=== PATIENT | female | born 1980 | race Caucasian/White ===

== ENCOUNTER 2020-06-30 15:38 | Emergency (ER) | payer MEDICARE, OTHER, MEDICAID ==
--- NOTE | 2020-06-30 18:12 | XRAY Report ---
PROCEDURE: Chest 2 View X-Ray INDICATIONS: dyspnea/ cough/pain TECHNIQUE: 2 view(s) of the chest. COMPARISON: CXR 06/16/2019. FINDINGS: Surgical changes and devices: Cholecystic clips. Lungs and pleura: No pleural effusions or pneumothorax. Lungs are clear. Mediastinum: Mediastinal contours are normal. Heart size is normal. Bones and chest wall: No suspicious bony abnormalities. Lumbar spine hardware and vertebroplasty. So ft tissues appear unremarkable. IMPRESSION: No acute cardiopulmonary abnormality. Reviewed by: Rob Mendiola MD on 06/30/2020 5:11 PM [facility] Approved by: Rob Mendiola MD on 06/30/2020 5:11 PM [facility] Station ID: [id number]
--- NOTE | 2020-06-30 18:49 | ED Physician Documentation ---
History of Present Illness - Stated complaint Stated Complaint: ACHES,HURTS TO BREATHE - Chief complaint Chief Complaint: General - Additonal information Additional information: 40-year-old female presents the emergency department for evaluation of 4 days of body aches congestion and cough. She reports that her roommates grandson was sick with similar. She has not had Covid testing. She reports that for much of the last 4 to 6 weeks she has been having generalized body aches joint pain. She did see her primary and was referred to rheumatology. She was recently diagnosed with rheumatoid arthritis. She reports that a prescription for Decadron as well as methotrexate has been prescribed but she has not filled them yet. She denies fevers nausea vomiting dysuria urgency or frequency. She reports that she has oxycodone and MS Contin at home for control of her pain. Review of Systems Constitutional: reports: Myalgias, Fatigue. denies: Fever, Weight Loss, Sweats Eyes: reports: Reviewed and negative Ears: reports: Reviewed and negative Nose: reports: Rhinorrhea / runny nose, Congestion Throat: reports: Reviewed and negative Cardiac: denies: Chest pain / pressure, Palpitations Respiratory: reports: Cough. 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 : None Psych: None Musculoskeletal: Rheumatoid arthritis Other Past Medical History: sjogrens, raynods - Past Surgical History Past Surgical History: Yes General: Cholecystectomy, Appendectomy Ortho: Spine surgery /BACK SHOE OPERATOR: Hysterectomy - Present Medications Home Medications: Ambulatory Orders Medication Instructions Recorded Confirmed Sumatriptan [Imitrex] 20 mg NS ONCE PRN #7 spray 01/04/19 Albuterol 03/30/19 Prochlorperazine Maleate 03/30/19 [Compazine] Promethazine [Phenergan] 03/30/19 diphenhydrAMINE [Benadryl] 03/30/19 oxyCODONE ER [OxyCONTIN] 15 mg PO BID 03/30/19 03/30/19 oxyCODONE [Roxicodone] 10 mg PO PRN PRN 03/30/19 03/30/19 Ketorolac [Toradol] 10 mg PO Q8HR PRN #30 tablet 04/06/19 Doxepin [SINEquan] 10 mg PO TID PRN #20 capsule 04/17/19 dexAMETHasone [Decadron] 4 mg PO BIDWM #10 tablet 04/17/19 Cefdinir 300 mg PO BID #20 capsule 06/16/19 dexAMETHasone [Decadron] 4 mg PO DAILY #5 tablet 06/16/19 Albuterol Sulf [Ventolin Hfa 1 - 2 puffs INH Q4HR PRN #1 inhaler 06/17/19 Inhaler] Phenazopyridine HCl [Pyridium] 200 mg PO TID PRN #6 tablet 07/11/19 Sulfamethoxazole/Trimethoprim 1 each PO BID 5 Days #10 tablet 07/11/19 [Sulfamethoxazole-Tmp Ds Tablet] dexAMETHasone [Decadron] 4 mg PO DAILY #5 tablet 07/11/19 Sulfamethox/Trimeth 800/160 1 each PO BID #10 tablet 04/08/20 [Bactrim Ds 800/160] dexAMETHasone [Decadron] 4 mg PO 0800 #5 tablet 04/08/20 polyethylene glycoL 3350 [Miralax] 17 gm PO DAILY PRN #1 bottle 04/08/20 - Allergies Allergies/Adverse Reactions: Allergies Allergy/AdvReac Type Severity Reaction Status Date / Time amitriptyline Allergy Hives Verified 06/30/20 16:02 cephalexin [From Keflex] Allergy Hives Verified 06/30/20 16:02 cyclobenzaprine Allergy Hives Verified 06/30/20 16:02 [From Flexeril] duloxetine [From Cymbalta] Allergy Hives Verified 06/30/20 16:02 enoxaparin [From Lovenox] Allergy Hives Verified 06/30/20 16:02 heparin Allergy Hives Verified 06/30/20 16:02 hydrocodone Allergy Itching Verified 06/30/20 16:02 ipratropium [From DuoNeb] Allergy Unknown Verified 06/30/20 16:02 methotrexate Allergy Anaphylaxis Verified 06/30/20 16:02 ondansetron [From Zofran] Allergy Hives Verified 06/30/20 16:02 Penicillins Allergy Rash Verified 06/30/20 16:02 prednisone Allergy Hives Verified 06/30/20 16:02 tizanidine [From Zanaflex] Allergy Hives Verified 06/30/20 16:02 trazodone Allergy Anxiety Verified 06/30/20 16:02 venlafaxine [From Effexor] Allergy Hives Verified 06/30/20 16:02 - Social History Does the pt smoke?: No Smoking Status: Never smoker Does the pt drink ETOH?: No Does the pt have substance abuse?: No - Immunizations Immunizations are current?: Yes - POLST Patient has POLST: No PD ED PE NORMAL - General General: Alert and oriented X 3 - HEENT HEENT: PERRL - Neck Neck: Supple, no meningeal sign - Cardiac Cardiac: RRR, No murmur - Respiratory Respiratory: Clear bilaterally - Abdomen Abdomen: Normal bowel sounds, Soft, Non tender, Non distended Results - Vitals Vitals: Vital Signs - 24 hr 06/30/20 06/30/20 16:03 17:39 Temperature 36.8 C Heart Rate 94 56 L Respiratory 18 15 Rate Blood Pressure 117/80 103/80 O2 Saturation 96 99 Oxygen O2 Source Room air - Rads (name of study) CXR Radiology: Final report received (No acute process) PD MEDICAL DECISION MAKING - ED course Complexity details: reviewed results, re-evaluated patient, considered differential, d/w patient ED course: 40-year-old female presents the emergency department with 4 days of cough congestion body aches and myalgias. However she was also recently diagnosed with rheumatoid arthritis and a prescription for methotrexate and Decadron has been ordered. She has not yet filled these prescriptions. On clinical exam she appears very well. Room air no hypoxia. Unremarkable cardiopulmonary auscultation. Chest x-ray does not show any focal opacities. Given duration of symptoms will defer influenza testing or treatment. COVID-19 screening is pending. I have encouraged her to continue to fill the prescription for the methotrexate as well as the Decadron. Emergent return precautions discussed Departure - Departure Disposition: 01 Home, Self Care Clinical Impression: Cough, Generalized body aches, Encounter for screening for COVID-19 Condition: Stable Record reviewed to determine appropriate education?: Yes Comments: I hope that you are feeling better soon. Your chest x-ray today is normal. Your vital signs are also normal. It is likely that you have a virus causing your cough and body aches. However it is important that you fill the prescriptions your doctor prescribed for your rheumatoid arthritis. You have a Covid test pending. You need to self quarantine until the result is done and negative. Do not leave your house. Do not get near anybody. The results should be done in 48 to 72 hours. We will call with a positive result, the fastest way to get a negative result for confirmation though is to go to the hospital website at [email or web address], click on the my [email or web address] tab and sign up for the patient portal. If any friends or family get sick and would like to have a Covid test done, but do not have signs or symptoms that would necessitate being hospitalized, we enc ourage testing through our coronavirus swabbing station, call [phone] to schedule an appointment.
[2020-06-30 18:58] VITALS: BP 117/86
--- OUTSIDE RECORDS SUMMARY | 2020-07-08 00:24 | EXTERNAL MEDICAL SUMMARY RPT | Continuity of Care Document ---
:1980 Demographics Phone Unavailable Preferred Language Luxembourger Marital Status Unknown Yazdanism Affiliation Unknown Race Unknown Ethnic Group Unknown Author Organization [place] Address [address] [place] [address] Phone Care Team Providers Name Role Phone STEFF Unavailable Unavailable BROWN Unavailable Unavailable Brown Unavailable Unavailable Problems date description facility 2019-01-01 20:10 MIGRAINE WITHOUT AURA, [facility] INTRACTABLE, WITH STATUS MIGRAINOSUS 2019-01-01 20:10 ESSENTIAL (PRIMARY) HYPERTENSION [facility] 2019-01-01 20:10 SYSTEMIC LUPUS ERYTHEMATOSUS, [facility] UNSPECIFIED 2019-01-01 20:10 HEADACHE [facility] 2019-01-04 18:12 ESSENTIAL (PRIMARY) HYPERTENSION 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 2019-03-30 17:05 RHEUMATOID ARTHRITIS, UNSPECIFIED [facility] 2019-03-30 17:05 SYSTEMIC LUPUS ERYTHEMATOSUS, [facility] UNSPECIFIED 2019-03-30 17:05 SYSTEMIC SCLEROSIS, UNSPECIFIED [facility] 2019-03-30 17:05 LOW BACK PAIN [facility] 2019-03-30 17:05 CYST OF KIDNEY, ACQUIRED [facility] 2019-03-30 17:05 UNSPECIFIED ABDOMINAL PAIN [facility] 2019-04-06 10:15 ESSENTIAL (PRIMARY) HYPERTENSION [facility] 2019-04-06 10:15 SYSTEMIC LUPUS ERYTHEMATOSUS, [facility] UNSPECIFIED 2019-04-06 10:15 UNSP INFLAMMATORY SPONDYLOPATHY, [facility] SACR/SACROCYGL REGION 2019-04-06 10:15 LOW BACK PAIN [facility] 2019-04-06 10:15 CYST OF KIDNEY, ACQUIRED [facility] 2019-04-17 18:25 ESSENTIAL (PRIMARY) HYPERTENSION [facility] 2019-04-17 18:25 ERYTHEMATOUS CONDITION, [facility] UNSPECIFIED 2019-04-17 18:25 SYSTEMIC LUPUS ERYTHEMATOSUS, [facility] UNSPECIFIED 2019-04-17 18:25 OTH ADVERSE FOOD REACTIONS, NOT [facility] ELSEWHERE CLASSIFIED, INIT 2019-04-17 18:25 EXPOSURE TO OTHER SPECIFIED [facility] FACTORS, INITIAL ENCOUNTER 2019-06-16 10:28 ESSENTIAL (PRIMARY) HYPERTENSION [facility] 2019-06-16 10:28 ACUTE TONSILLITIS, UNSPECIFIED [facility] 2019-06-16 10:28 MILD INTERMITTENT ASTHMA WITH [facility] (ACUTE) EXACERBATION 2019-06-16 10:28 SYSTEMIC LUPUS ERYTHEMATOSUS, [facility] UNSPECIFIED 2019-06-16 10:28 FEVER, UNSPECIFIED [facility] 2019-07-11 17:49 ESSENTIAL (PRIMARY) HYPERTENSION [facility] 2019-07-11 17:49 SYSTEMIC LUPUS ERYTHEMATOSUS, [facility] UNSPECIFIED 2019-07-11 17:49 CYSTITIS, UNSPECIFIED WITHOUT [facility] HEMATURIA 2019-07-11 17:49 DYSURIA [facility] 2020-04-08 18:58 ESSENTIAL (PRIMARY) HYPERTENSION [facility] 2020-04-08 18:58 CONSTIPATION, UNSPECIFIED [facility] 2020-04-08 18:58 RHEUMATOID ARTHRITIS, UNSPECIFIED [facility] 2020-04-08 18:58 OTHER DIFFICULTIES WITH [facility] MICTURITION 2020-04-08 18:58 CONTACT W AND EXPOSURE TO OTH [facility] VIRAL COMMUNICABLE D 2020-04-08 18:58 DRUG-INDUCED SYSTEMIC LUPUS [facility] ERYTHEMATOSUS 2020-04-08 18:58 URGENCY OF URINATION [facility] 2020-04-08 18:58 FEVER, UNSPECIFIED [facility] 2020-04-08 18:58 [facility] DISEASES 2020-06-22 15:34 Unspecified [facility] unspecified site 2020-06-30 15:38 ESSENTIAL (PRIMARY) HYPERTENSION [facility] 2020-06-30 15:38 RHEUMATOID ARTHRITIS, UNSPECIFIED [facility] 2020-06-30 15:38 SYSTEMIC LUPUS ERYTHEMATOSUS, [facility] UNSPECIFIED 2020-06-30 15:38 MYALGIA, OTHER SITE [facility] elyssa Arvin 2020-06-30 15:[address] [facility] 2020-06-30 15:[address] [facility] 2020-06-30 15:38 CONTACT WITH AND (SUSPECTED) [facility] EXPOSURE TO COVID-19 Allergies date description facility ADHESIVE \T\ TAPE [facility] CELECOXIB [facility] ESZOPICLONE [facility] HYDROCODONE [facility] HYDROMORPHONE HCL [facility] HYDROMORPHONE [facility] IBUPROFEN [facility] OXYCODONE [facility] PREDNISONE [facility] ZALEPLON [facility] ZOLPIDEM [facility] INFLUENZA VACCINES [facility] NO KNOWN ENVIRONMENTAL ALLERGIES [facility] NSAIDS [facility] PENICILLINS [facility] LACTOSE [facility] SHELLFISH [facility] DAISY [facility] NABUMETONE [facility] LATEX [facility] ONBHGNNYS-GTE-CF-ACETAMINOPHEN [facility] NYQUIL [facility] GLUTEN [facility] LACTOSE [facility] NSAIDS (NON-STEROIDAL ANTI-INFLAMMATORY DRUG) [facility] NO KNOWN ALLERGIES [facility] DAIRY [facility]ODU[facility] NUT - UNSPECIFIED [facility] PENICILLINS [facility] SULFA (SULFONAMIDE ANTIBIOTICS) [facility] NO KNOWN ALLERGIES [facility] CODEINE [facility] HYDROMORPHONE [facility] IODINE [facility] Penicillins [facility] hydrocodone [facility] prednisone [facility] methotrexate [facility] cephalexin [facility] enoxaparin [facility] venlafaxine [facility] amitriptyline [facility] trazodone [facility] cyclobenzaprine [facility] ondansetron [facility] ipratropium [facility] tizanidine [facility] duloxetine [facility] heparin [facility] MORPHINE [facility] STRAWBERRY [facility] ADHESIVE TAPE-SILICONES [facility] PENICILLIN [facility] SHELLFISH CONTAINING PRODUCTS [facility] NO ALLERGY INFORMATION AVAILABLE [facility] NO KNOWN ALLERGIES [facility] Results test status date ordered by attending specimen toshia e null F 2020-06-30 MILL.Vipin Mccormick 06-30 19:25:00 18:55:00 facility observation status value reference units lab abnor mal line notes range code [facility] F NEGATIVE unknown [facility] report - Report scanned to Patient' s EMR. [facility] Social History date description facility [id number]
== END 2020-06-30 19:01 | disposition home or self-care (01) ==
LOC: MERGE 15:38 → ED 15:38
DX: R05 Cough (principal); R09.81 Nasal congestion; M79.18 Myalgia, other site; Z20.822 Contact with and (suspected) exposure to COVID-19; I10 Essential (primary) hypertension; M06.9 Rheumatoid arthritis, unspecified; M32.9 Systemic lupus erythematosus, unspecified
CPT/HCPCS: 71046; 99283; 99284; U0004

== ENCOUNTER 2020-09-15 17:21 | Emergency (ER) | payer MEDICARE, OTHER, MEDICAID ==
[2020-09-15 17:31] VITALS: BP 130/89
[2020-09-15] MEDS ORDERED: IBUPROFEN 600 MG TABLET PO STA (17:38)
--- NOTE | 2020-09-15 18:11 | XRAY Report ---
PROCEDURE: Hand 3 View LT INDICATIONS: dog hit hand, jammed hand TECHNIQUE: 4 views of the hand acquired. COMPARISON: None. FINDINGS: Bones: There is a minimally displaced oblique fracture at the base of the fifth proximal phalanx with out definite intra-articular extension. A congenitally short fourth metacarpal is seen. There is dash enital coalition of the lunate and triquetrum. Soft tissues: No suspicious soft tissue calcifications. IMPRESSION: 1. Minimally displaced oblique fracture at the base of the fifth proximal phalanx without definite i ntra-articular extension. 2. 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 Reviewed by: Brendan Carreon MD on 09/15/2020 5:09 PM [facility] Approved by: Brendan Carreon MD on 09/15/2020 5:09 PM [facility] Station ID: [id number]
--- NOTE | 2020-09-15 18:48 | ED Physician Documentation ---
History of Present Illness - Stated complaint Stated Complaint: LT HAND INJ - Chief complaint Chief Complaint: Trauma Ext - History obtained from History obtained from: Patient - Additonal information Additional information: 40-year-old woman with history of rheumatoid arthritis presents with left hand injury after her dog jumped up and jammed it today. Pain was sudden onset, severe, localized to the fifth digit of the left hand, nonradiating, worse with flexion of the digit. Associate with swelling. Denies other injuries. Denies dog bite. 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 : None HEENT: None Psych: None Musculoskeletal: Rheumatoid arthritis Derm: None - Past Surgical History Past Surgical History: Yes General: Cholecystectomy, Appendectomy Ortho: Spine surgery /LINING IRONER: Hysterectomy - Present Medications Home Medications: Ambulatory Orders Medication Instructions Recorded Confirmed Sumatriptan [Imitrex] 20 mg NS ONCE PRN #7 spray 01/04/19 Albuterol 03/30/19 Prochlorperazine Maleate 03/30/19 [Compazine] Promethazine [Phenergan] 03/30/19 diphenhydrAMINE [Benadryl] 03/30/19 oxyCODONE ER [OxyCONTIN] 15 mg PO BID 03/30/19 03/30/19 oxyCODONE [Roxicodone] 10 mg PO PRN PRN 03/30/19 03/30/19 Ketorolac [Toradol] 10 mg PO Q8HR PRN #30 tablet 04/06/19 Doxepin [SINEquan] 10 mg PO TID PRN #20 capsule 04/17/19 dexAMETHasone [Decadron] 4 mg PO BIDWM #10 tablet 04/17/19 Cefdinir 300 mg PO BID #20 capsule 06/16/19 dexAMETHasone [Decadron] 4 mg PO DAILY #5 tablet 06/16/19 Albuterol Sulf [Ventolin Hfa 1 - 2 puffs INH Q4HR PRN #1 inhaler 06/17/19 Inhaler] Phenazopyridine HCl [Pyridium] 200 mg PO TID PRN #6 tablet 07/11/19 Sulfamethoxazole/Trimethoprim 1 each PO BID 5 Days #10 tablet 07/11/19 [Sulfamethoxazole-Tmp Ds Tablet] dexAMETHasone [Decadron] 4 mg PO DAILY #5 tablet 07/11/19 Sulfamethox/Trimeth 800/160 1 each PO BID #10 tablet 04/08/20 [Bactrim Ds 800/160] dexAMETHasone [Decadron] 4 mg PO 0800 #5 tablet 04/08/20 polyethylene glycoL 3350 [Miralax] 17 gm PO DAILY PRN #1 bottle 04/08/20 Benzonatate [Tessalon] 100 mg PO TID PRN #20 capsule 07/10/20 Doxycycline Monohydrate 150 mg PO BID #14 capsule 07/10/20 dexAMETHasone [Decadron] 4 mg PO DAILY #5 tablet 07/10/20 - Allergies Allergies/Adverse Reactions: Allergies Allergy/AdvReac Type Severity Reaction Status Date / Time amitriptyline Allergy Hives Verified 09/15/20 17:27 cephalexin [From Keflex] Allergy Hives Verified 09/15/20 17:27 cyclobenzaprine Allergy Hives Verified 09/15/20 17:27 [From Flexeril] duloxetine [From Cymbalta] Allergy Hives Verified 09/15/20 17:27 enoxaparin [From Lovenox] Allergy Hives Verified 09/15/20 17:27 heparin Allergy Hives Verified 09/15/20 17:27 hydrocodone Allergy Itching Verified 09/15/20 17:27 ipratropium [From DuoNeb] Allergy Unknown Verified 09/15/20 17:27 leflunomide Allergy Headache Verified 09/15/20 17:27 methotrexate Allergy Anaphylaxis Verified 09/15/20 17:27 ondansetron [From Zofran] Allergy Hives Verified 09/15/20 17:27 Penicillins Allergy Rash Verified 09/15/20 17:27 prednisone Allergy Hives Verified 09/15/20 17:27 tizanidine [From Zanaflex] Allergy Hives Verified 09/15/20 17:27 trazodone Allergy Anxiety Verified 09/15/20 17:27 venlafaxine [From Effexor] Allergy Hives Verified 09/15/20 17:27 - Social History Does the pt smoke?: No Smoking Status: Never smoker Does the pt drink ETOH?: No Does the pt have substance abuse?: No - Immunizations Immunizations are current?: Yes - POLST Patient has POLST: No PD ED PE NORMAL - Vitals Vital signs reviewed: Yes - General General: Alert and oriented X 3, No acute distress, Well developed/nourished - Derm Derm: Normal color, Warm and dry - Extremities Extremities: Other (L fifth proximal phalanx ttp and tender with flexion. normal pulse, cap refill, sensation) - Neuro Neuro: Alert and oriented X 3 - Psych Psych: Normal mood, Normal affect Results - Vitals Vitals: Vital Signs - 24 hr 09/15/20 17:27 Temperature 36.7 C Heart Rate 94 Respiratory 18 Rate Blood Pressure 130/89 H O2 Saturation 96 Oxygen O2 Source Room air PD MEDICAL DECISION MAKING - ED course ED course: 40-year-old woman presents with fifth proximal phalanx minimally displaced fracture. Splint applied. Strict return precautions given. Patient will follow up with her primary doctor and with orthopedics in 1 week. Departure - Departure Disposition: 01 Home, Self Care Clinical Impression: Proximal phalanx fracture of finger Condition: Good Instructions: ED RICE Follow-Up: Stiven Barry MD [Provider Admit Priv/Credential] - Comments: You were seen in the emergency department for hand pain after a dog jumped on it. Your finger is broken but it likely will not require surgery. The break in the bone is called a "fifth proximal phalanx fracture" that is "nondisplaced", meaning the bone does not need to be set. Please follow-up with orthopedics in 1 week. Return to the emergency department for any new or worsening symptoms or other concerns.
== END 2020-09-15 19:36 | disposition home or self-care (01) ==
LOC: ED 17:21
DX: S62.617A Displaced fracture of proximal phalanx of left little finger, initial encounter for closed fracture (principal); W54.1XXA Struck by dog, initial encounter; Y93.79 Activity, other specified sports and athletics; I10 Essential (primary) hypertension; M06.9 Rheumatoid arthritis, unspecified; M32.9 Systemic lupus erythematosus, unspecified
CPT/HCPCS: 99282; 99283

== ENCOUNTER 2020-10-23 16:33 | Emergency (ER) | payer MEDICARE, OTHER, MEDICAID ==
--- OUTSIDE RECORDS SUMMARY | 2020-10-23 16:36 | EXTERNAL MEDICAL SUMMARY RPT | Continuity of Care Document ---
:1980 Demographics Phone Unavailable Preferred Language Unknown Marital Status Unknown Taoism Affiliation Unknown Race Unknown Ethnic Group Unknown Author Organization [place] Address [address] [phone] Phone Social History date description facility [id number]
--- NOTE | 2020-10-23 16:55 | ED Physician Documentation ---
PD HPI UPPER EXT INJURY - Stated complaint Stated Complaint: LT FINGER INJ - Chief complaint Chief Complaint: Ext Problem - History obtained from History obtained from: Patient - Additonal information Additional information: She sustained a boxer's fracture 5 weeks ago, treated conservatively. She had a follow-up appointment where the cast was removed 5 days ago, later that day she jammed her hand into the car door with increased pain of the fourth and fifth MCPs. She also notes that everyone in her house is sick and she had a few days worth of congestion, cough, runny nose. No fevers or body aches. Nobody in the house has been tested for Covid. Review of Systems Constitutional: reports: Reviewed and negative Nose: reports: Rhinorrhea / runny nose Throat: reports: Sore throat Respiratory: reports: Cough PD PAST MEDICAL HISTORY - Past Medical History Cardiovascular: Hypertension Respiratory: Asthma Neuro: Migraines Endocrine/Autoimmune: Systemic lupus erythematosus GI: None PET SITTING: None : None HEENT: None Psych: None Musculoskeletal: Rheumatoid arthritis Derm: None - Past Surgical History Past Surgical History: Yes General: Cholecystectomy, Appendectomy Ortho: Spine surgery /PET SITTING: Hysterectomy - Present Medications Home Medications: Ambulatory Orders Medication Instructions Recorded Confirmed Sumatriptan [Imitrex] 20 mg NS ONCE PRN #7 spray 01/04/19 Albuterol 03/30/19 Prochlorperazine Maleate 10 mg PO DAILY 03/30/19 [Compazine] Promethazine [Phenergan] 25 mg PO PRN 03/30/19 oxyCODONE ER [OxyCONTIN] 15 mg PO BID 03/30/19 03/30/19 oxyCODONE [Roxicodone] 10 mg PO PRN PRN 03/30/19 03/30/19 Albuterol Sulf [Ventolin Hfa 1 - 2 puffs INH Q4HR PRN #1 inhaler 06/17/19 Inhaler] Gabapentin [Neurontin] 1,200 mg PO BID 10/23/20 10/23/20 Upadacitinib [Rinvoq] 15 mg PO DAILY 10/23/20 10/23/20 - Allergies Allergies/Adverse Reactions: Allergies Allergy/AdvReac Type Severity Reaction Status Date / Time amitriptyline Allergy Hives Verified 10/23/20 16:38 cephalexin [From Keflex] Allergy Hives Verified 10/23/20 16:38 cyclobenzaprine Allergy Hives Verified 10/23/20 16:38 [From Flexeril] duloxetine [From Cymbalta] Allergy Hives Verified 10/23/20 16:38 enoxaparin [From Lovenox] Allergy Hives Verified 10/23/20 16:38 heparin Allergy Hives Verified 10/23/20 16:38 hydrocodone Allergy Itching Verified 10/23/20 16:38 ipratropium [From DuoNeb] Allergy Unknown Verified 10/23/20 16:38 leflunomide Allergy Headache Verified 10/23/20 16:38 methotrexate Allergy Anaphylaxis Verified 10/23/20 16:38 ondansetron [From Zofran] Allergy Hives Verified 10/23/20 16:38 Penicillins Allergy Rash Verified 10/23/20 16:38 prednisone Allergy Hives Verified 10/23/20 16:38 tizanidine [From Zanaflex] Allergy Hives Verified 10/23/20 16:38 trazodone Allergy Anxiety Verified 10/23/20 16:38 venlafaxine [From Effexor] Allergy Hives Verified 10/23/20 16:38 - Social History Does the pt smoke?: No Smoking Status: Never smoker Does the pt drink ETOH?: No Does the pt have substance abuse?: No - Immunizations Immunizations are current?: Yes - POLST Patient has POLST: No PD ED PE NORMAL - Vitals Vital signs reviewed: Yes - General General: Alert and oriented X 3, No acute distress - Neck Neck: Supple, no meningeal sign, No bony TTP - Cardiac Cardiac: RRR, No murmur - Respiratory Respiratory: No respiratory distress, Clear bilaterally - Extremities Extremities: Other (TTP to the fifth metacarpal phalangeal joint on the left without overt deformity but she feels like it is deformed. Unable to makea fist.) - Neuro Neuro: Alert and oriented X 3, Normal speech Results - Vitals Vitals: Vital Signs - 24 hr 10/23/20 16:40 Temperature 37.1 C Heart Rate 93 Respiratory 18 Rate Blood Pressure 137/105 H O2 Saturation 98 Oxygen O2 Source Room air - Rads (name of study) 3v L hand XR Radiology: EMP read contemporaneously (No interval change in proximal fifth finger fracture from prior x-ray.) Procedures - Splint (location) L hand Splint applied by: Tech Type of splint: Fiberglass, Short arm, Ulnar gutter Other: Patient tolerated well, No complications, Neurovascular intact Departure - Departure Disposition: 01 Home, Self Care Clinical Impression: Encounter for screening laboratory testing for COVID-19 virus Finger fracture, left Qualifiers: Encounter type: initial encounter Finger: little finger Fracture type: closed Phalanx: proximal Fracture alignment: nondisplaced Qualified Code(s): S62.647A - Nondisplaced fracture of proximal phalanx of left little finger, initial encounter for closed fracture Condition: Stable Instructions: ED Fx Finger Closed Comments: As discussed, really no change in x-ray appearance compared to September 15 suggesting either poor healing or reinjury. Follow-up with orthopedics again in about a week. Keep the splint on and dry until then. Return if worse. You have a Covid test pending. You need to self quarantine until the result is done and negative. Do not leave your house. Do not get near anybody. The results should be done in 48 to 72 hours. We will call with a positive result, the fastest way to get a negative result for confirmation though is to go to the hospital website at [email or web address], click on the my [facility] tab and sign up for the patient portal. If any friends or family get sick and would like to have a Covid test done, but do not have signs or symptoms that would necessitate being hospitalized, we encourage testing through our coronavirus swabbing station, call [phone] to schedule an appointment.
--- OUTSIDE RECORDS SUMMARY | 2020-10-23 17:10 | EXTERNAL MEDICAL SUMMARY RPT | Continuity of Care Document ---
:1980 Demographics Phone Unavailable Preferred Language Unknown Marital Status Unknown Rastafarian Affiliation Unknown Race Unknown Ethnic Group Unknown Author Organization [facility] Address [address] [place] [address] Phone Social History date description facility [id number]
--- NOTE | 2020-10-23 17:27 | XRAY Report ---
PROCEDURE: Hand 3 View LT INDICATIONS: hand injury TECHNIQUE: 3 views of the hand(s) acquired. COMPARISON: 09/15/2020 FINDINGS: Bones: There is a minimally displaced fracture of the base of the fifth proximal phalanx with no defi nite intra-articular extension is unchanged compared to the prior study on 09/15/2020. 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 No suspicious bony lesions. Soft tissues: No suspicious soft tissue calcifications. IMPRESSION: Fracture of the base of the fifth proximal phalanx is unchanged compared to the prior x-r ay on 09/15/2020. Reviewed by: Dean Grant on 10/23/2020 5:26 PM PDT Approved by: Dean Grant on 10/23/2020 5:26 PM PDT Station ID: [id number]
[2020-10-23 18:01] VITALS: BP 126/99
== END 2020-10-23 18:04 | disposition home or self-care (01) ==
LOC: ED 16:33
DX: S62.647A Nondisplaced fracture of proximal phalanx of left little finger, initial encounter for closed fracture (principal); W22.09XA Striking against other stationary object, initial encounter; R05 Cough; R09.81 Nasal congestion; Z20.822 Contact with and (suspected) exposure to COVID-19; I10 Essential (primary) hypertension; M32.9 Systemic lupus erythematosus, unspecified
CPT/HCPCS: 29125; 73130; 99282; 99284; U0004

== ENCOUNTER 2020-12-14 15:17 | Outpatient (CLI) | payer MEDICARE, OTHER, MEDICAID ==
--- NOTE | 2020-12-14 16:10 | XRAY Report ---
PROCEDURE: Finger(s) LT INDICATIONS: L FINGER PX TECHNIQUE: AP hand, 2 views of the left fifth finger(s) acquired. COMPARISON: 10/23/2020 FINDINGS: Bones: There is mild buckle deformity of the proximal aspect of the proximal phalanx of the fifth dig it. Mild angulation is present. Previously seen lucency is no longer present. No suspicious bony lesi ons. Short fourth metacarpal. Soft tissues: No suspicious soft tissue calcifications. IMPRESSION: Healing proximal fifth digit fracture. Reviewed by: Brisa Thompson MD on 12/14/2020 4:08 PM PDT Approved by: Brisa Thompson MD on 12/14/2020 4:08 PM PDT Station ID: [id number]
== END 2020-12-14 23:59 | disposition home or self-care (01) ==
LOC: DI.N 15:17
PROVIDERS: ATTEND Family Medicine
DX: S62.617D Displaced fracture of proximal phalanx of left little finger, subsequent encounter for fracture with routine healing (principal)

== ENCOUNTER 2020-12-16 18:33 | Emergency (ER) | payer MEDICARE, OTHER, MEDICAID ==
--- NOTE | 2020-12-16 18:53 | ED Physician Documentation ---
PD HPI UPPER EXT INJURY - Stated complaint Stated Complaint: LT FINGER INJ - Chief complaint Chief Complaint: Trauma Ext - History obtained from History obtained from: Patient - History of Present Illness Location: Left, Finger (5th) Type of injury: Blunt / blow Where injury occurred: Home Timing - onset: Today Timing - details: Abrupt onset Pain level now: 9 Worsened by: Moving, Palpating Associated symptoms: Swelling Similar symptoms before: Diagnosis (fracture) - Additonal information Additional information: Patient was initially evaluated for injury to left fifth finger 09/15/20 (in this ED) and found to have nondisplaced fracture (left fifth proximal phalanx). She was reevaluated 10/23/20 in this ED; ED note from that visit indicates she had just had a cast removed and reinjured the same area. She says that today she again injured the same area when the left 5th finger struck against a dresser, causing sudden increase in pain and associated with a "popping" sensation. She says the area is also swollen subsequent to today's injury. 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 HEENT: None Psych: None Musculoskeletal: Rheumatoid arthritis Derm: None - Past Surgical History Past Surgical History: Yes General: Cholecystectomy, Appendectomy Ortho: Spine surgery /CRIME SCENE SPECIALIST: Hysterectomy - Present Medications Home Medications: Ambulatory Orders Medication Instructions Recorded Confirmed Sumatriptan [Imitrex] 20 mg NS ONCE PRN #7 spray 01/04/19 Albuterol 03/30/19 Prochlorperazine Maleate 10 mg PO DAILY 03/30/19 [Compazine] Promethazine [Phenergan] 25 mg PO PRN 03/30/19 oxyCODONE ER [OxyCONTIN] 15 mg PO BID 03/30/19 03/30/19 oxyCODONE [Roxicodone] 10 mg PO PRN PRN 03/30/19 03/30/19 Albuterol Sulf [Ventolin Hfa 1 - 2 puffs INH Q4HR PRN #1 inhaler 06/17/19 Inhaler] Gabapentin [Neurontin] 1,200 mg PO BID 10/23/20 10/23/20 Upadacitinib [Rinvoq] 15 mg PO DAILY 10/23/20 10/23/20 - Allergies Allergies/Adverse Reactions: Allergies Allergy/AdvReac Type Severity Reaction Status Date / Time amitriptyline Allergy Hives Verified 12/16/20 18:44 cephalexin [From Keflex] Allergy Hives Verified 12/16/20 18:44 cyclobenzaprine Allergy Hives Verified 12/16/20 18:44 [From Flexeril] duloxetine [From Cymbalta] Allergy Hives Verified 12/16/20 18:44 enoxaparin [From Lovenox] Allergy Hives Verified 12/16/20 18:44 heparin Allergy Hives Verified 12/16/20 18:44 hydrocodone Allergy Itching Verified 12/16/20 18:44 ipratropium [From DuoNeb] Allergy Unknown Verified 12/16/20 18:44 leflunomide Allergy Headache Verified 12/16/20 18:44 methotrexate Allergy Anaphylaxis Verified 12/16/20 18:44 ondansetron [From Zofran] Allergy Hives Verified 12/16/20 18:44 Penicillins Allergy Rash Verified 12/16/20 18:44 prednisone Allergy Hives Verified 12/16/20 18:44 tizanidine [From Zanaflex] Allergy Hives Verified 12/16/20 18:44 trazodone Allergy Anxiety Verified 12/16/20 18:44 venlafaxine [From Effexor] Allergy Hives Verified 12/16/20 18:44 - Social History Does the pt smoke?: No Smoking Status: Never smoker Does the pt drink ETOH?: No Does the pt have substance abuse?: No - Immunizations Immunizations are current?: Yes - POLST Patient has POLST: No PD ED PE NORMAL - Vitals Vital signs reviewed: Yes - General General: Alert and oriented X 3, No acute distress, Well developed/nourished PD ED PE EXPANDED - Extremities Extremities: Limited ROM (limited flexion left fifth finger due to pain), Other (left 5th finger without overt/obvious swelling; there is TTP in region of proximal phalanx without obvious deformity. LTS intact at tip of finger and brisk capillary refill) Results - Vitals Vitals: Vital Signs - 24 hr 12/16/20 12/16/20 18:45 20:59 Temperature 37.3 C Heart Rate 89 70 Respiratory 16 18 Rate Blood Pressure 125/76 125/84 H O2 Saturation 99 100 Oxygen O2 Source Room air - Rads (name of study) left 5th finger xrays Radiology: Prelim report reviewed, See rad report Procedures - Splint (location) Upper extremity left Splint applied by: Tech Type of splint: Fiberglass, Ulnar gutter Other: Patient tolerated well, No complications, Neurovascular intact, Sling provided PD MEDICAL DECISION MAKING - ED course Complexity details: reviewed results, re-evaluated patient, considered differential, d/w patient Departure - Departure Disposition: 01 Home, Self Care Clinical Impression: Injury of hand Qualifiers: Encounter type: initial encounter Laterality: left Qualified Code(s): S69.92XA - Unspecified injury of left wrist, hand and finger(s), initial encounter Condition: Good Instructions: ED Sprain Finger Follow-Up: BROOKS GONZALEZ ARNP [Primary Care Provider] - Discharge Date/Time: 12/16/20 20:59
--- NOTE | 2020-12-16 19:35 | XRAY Report ---
PROCEDURE: Finger(s) LT INDICATIONS: injury today, recent fracture TECHNIQUE: AP hand, 2 views of the fifth finger(s) acquired. COMPARISON: Left Hand and finger radiographs 12/14/2020, 09/15/2020. FINDINGS: Bones: No acute fracture seen. Stable appearance of the healing fifth digit proximal phalanx base. No dislocations. Congenitally short fourth metacarpal. 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 No suspicious bony lesions. Soft tissues: No suspicious soft tissue calcifications. IMPRESSION: No acute fracture. Stable prior fifth digit proximal phalanx fracture. Reviewed by: Rob Mendiola MD on 12/16/2020 7:33 PM PDT Approved by: Rob Mendiola MD on 12/16/2020 7:33 PM PDT Station ID: [id number]
[2020-12-16] MEDS ORDERED: KETOROLAC 60 MG/2 ML VIAL IM STA (20:18)
[2020-12-16 21:00] VITALS: BP 125/84
== END 2020-12-16 20:59 | disposition home or self-care (01) ==
LOC: ED 18:33
DX: S69.92XA Unspecified injury of left wrist, hand and finger(s), initial encounter (principal); W22.8XXA Striking against or struck by other objects, initial encounter; Y92.009 Unspecified place in unspecified non-institutional (private) residence as the place of occurrence of the external cause
CPT/HCPCS: 29125; 99283

== ENCOUNTER 2020-12-27 17:05 | Emergency (ER) | payer MEDICARE, OTHER, MEDICAID ==
--- NOTE | 2020-12-27 20:02 | XRAY Report ---
PROCEDURE: Shoulder 2 View RT INDICATIONS: fall/injury/pain TECHNIQUE: 2 views of the shoulder were acquired. COMPARISON: None. FINDINGS: Bones: No fractures or dislocations. No suspicious bony lesions. Visualized ribs appear intact. Soft tissues: No suspicious soft tissue calcifications. IMPRESSION: 1. No fracture or dislocation. Reviewed by: Carlos Merrill MD on 12/27/2020 8:00 PM PDT Approved by: Carlos Merrill MD on 12/27/2020 8:00 PM PDT Station ID: [id number]
--- NOTE | 2020-12-27 20:03 | XRAY Report ---
PROCEDURE: Ribs w/PA Chest RT INDICATIONS: fall/pain/injury TECHNIQUE: 2 views of the right ribs were acquired, along with a single view chest. COMPARISON: None. FINDINGS: Surgical changes and devices: There are postsurgical changes partially visualized in the lower lumbar spine. Bones and chest wall: No suspicious rib fracture identified. No suspicious bony lesions. Overlying soft tissues appear unremarkable. Lungs and pleura: No pleural effusions or pneumothorax. Lungs appear clear. Mediastinum: Mediastinal contours appear normal. Heart size is normal. IMPRESSION: 1. No displaced rib fracture identified. Reviewed by: Carlos Merrill MD on 12/27/2020 8:02 PM PDT Approved by: Carlos Merrill MD on 12/27/2020 8:02 PM PDT Station ID: [id number]
[2020-12-27 20:16] LABS: BILIRUBIN,URINE NEGATIVE (NEGATIVE); GLUCOSE, URINE (UA) NEGATIVE (NEGATIVE); KETONES,URINE (UA) TRACE mg/dL (NEGATIVE); LEUKOCYTE ESTERASE, URINE TRACE (NEGATIVE); NITRITE,URINE NEGATIVE (NEGATIVE); OCCULT BLOOD,URINE SMALL (NEGATIVE); PROTEIN,URINE NEGATIVE (NEGATIVE); UROBILINOGEN,URINE 0.2 (NORMAL) E.U./dL (NORMAL)
[2020-12-27 20:29] LABS: BACTERIA,URINE Rare /HPF (None Seen); CLARITY,URINE HAZY (CLEAR); RBC,URINE 0-5 /HPF (0-5); SQUAMOUS EPITHELIAL CELL,UR RARE Squamous (<= Few)
[2020-12-27 20:35] LABS: BASOPHILS % (AUTO) 0.2 %; EOSINOPHILS % (AUTO) 0.9 %; HCT - HEMATOCRIT 35.7 % (37.0-47.0); HGB - HEMOGLOBIN 12.1 g/dL (12.0-16.0); LYMPHOCYTES # (AUTO) 1.4 10^3/uL (1.5-3.5); LYMPHOCYTES % (AUTO) 29.4 %; MEAN CORPUSCULAR HEMOGLOBIN 30.9 pg (27.0-31.0); MEAN CORPUSCULAR HGB CONC 33.9 g/dL (32.0-36.0); MEAN CORPUSCULAR VOLUME 91.3 fL (81.0-99.0); MEAN PLATELET VOLUME 10.3 fL (7.9-10.8); MONOCYTES # (AUTO) 0.7 10^3/uL (0.0-1.0); MONOCYTES % (AUTO) 14.5 %; NEUTROPHILS # (AUTO) 2.5 10^3/uL (1.5-6.6); NEUTROPHILS % (AUTO) 54.8 %; PLT - PLATELET COUNT 168 10^3/uL (130-450); RED BLOOD COUNT 3.91 10^6/uL (4.20-5.40); RED CELL DISTRIBUTION WIDTH 14.3 % (12.0-15.0); WHITE BLOOD COUNT 4.6 x10^3/uL (4.8-10.8)
[2020-12-27] MEDS ORDERED: HYDROmorphone 1 MG/ML CARPUJECT IVP STA (20:41)
[2020-12-27] MEDS ORDERED: SODIUM CHLORIDE 0.9% 1,000 ML IV STA (20:41)
[2020-12-27 20:48] LABS: ALBUMIN 4.2 g/dL (3.2-5.5); ALBUMIN/GLOBULIN RATIO 1.8 (1.0-2.2); BILIRUBIN,TOTAL 2.1 mg/dL (0.2-1.0); CALCIUM 8.5 mg/dL (8.5-10.3); POTASSIUM 3.3 mmol/L (3.5-5.0); TOTAL PROTEIN 6.5 g/dL (6.7-8.2)
[2020-12-27] MEDS ORDERED: DEXAMETHASONE 10 MG/ML VIAL IV STA (21:46)
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
[2020-12-28 00:55] VITALS: BP 110/65
== END 2020-12-27 23:45 | disposition home or self-care (01) ==
LOC: ED 17:05
DX: S20.211A Contusion of right front wall of thorax, initial encounter (principal); S40.011A Contusion of right shoulder, initial encounter; W18.30XA Fall on same level, unspecified, initial encounter; L55.0 Sunburn of first degree; I10 Essential (primary) hypertension; L93.0 Discoid lupus erythematosus
CPT/HCPCS: 36415; 71101; 73030; 80053; 81001; 83690; 85025; 87086; 96374; 96375; 99284; J1170; 81003

== ENCOUNTER 2021-01-09 19:59 | Emergency (ER) | payer MEDICARE, OTHER, MEDICAID ==
[2021-01-09] MEDS ORDERED: KETOROLAC 60 MG/2 ML VIAL IM STA (20:53)
--- NOTE | 2021-01-09 21:04 | ED Physician Documentation ---
History of Present Illness - Stated complaint Stated Complaint: SOA/RT RIB PX - Chief complaint Chief Complaint: Trauma Ch/Bk - History obtained from History obtained from: Patient - History of Present Illness Timing: How many weeks ago (2) Pain level max: 8 Pain level now: 8 - Additonal information Additional information: Patient is a 40-year-old female who states that 2 weeks ago she slipped and fell. She was seen here with negative x-rays of the right ribs. Since that time she has noted bruising to the right ribs. She states she is having pain with movement and deep breathing as well. Worse with movement. Better with rest. She is on oxycodone and OxyContin at home for pain. Review of Systems Ten Systems: 10 systems reviewed and negative Constitutional: denies: Fever, Chills GI: denies: Nausea, Vomiting, Diarrhea Skin: denies: Rash Musculoskeletal: denies: Neck pain, Back pain PD PAST MEDICAL HISTORY - Past Medical History Past Medical History: Yes Cardiovascular: Hypertension Respiratory: Asthma Neuro: Migraines Endocrine/Autoimmune: Systemic lupus erythematosus GI: None WIRE SAW OPERATOR: None : None HEENT: None Psych: None Musculoskeletal: Rheumatoid arthritis Derm: None - Past Surgical History Past Surgical History: Yes General: Cholecystectomy, Appendectomy Ortho: Spine surgery /WIRE SAW OPERATOR: Hysterectomy - Present Medications Home Medications: Ambulatory Orders Medication Instructions Recorded Confirmed Sumatriptan [Imitrex] 20 mg NS ONCE PRN #7 spray 01/04/19 01/09/21 Prochlorperazine Maleate 10 mg PO DAILY 03/30/19 01/09/21 [Compazine] Promethazine [Phenergan] 25 mg PO DAILY 03/30/19 01/09/21 oxyCODONE ER [OxyCONTIN] 15 mg PO BID 03/30/19 01/09/21 oxyCODONE [Roxicodone] 10 mg PO PRN PRN 03/30/19 01/09/21 Albuterol Sulf [Ventolin Hfa 1 - 2 puffs INH Q4HR PRN #1 inhaler 06/17/19 01/09/21 Inhaler] Gabapentin [Neurontin] 1,200 mg PO BID 10/23/20 01/09/21 Upadacitinib [Rinvoq] 15 mg PO DAILY 10/23/20 01/09/21 Dexamethasone [Decadron] 6 mg PO Q6HR #12 tablet 12/27/20 01/09/21 Tramadol HCl 100 mg PO Q6HR PRN #15 tablet 12/27/20 01/09/21 predniSONE [Deltasone] 60 mg PO DAILY 5 Days #15 tablet 12/27/20 01/09/21 Lidocaine Patch 5% [Lidoderm Patch] 1 patch TOP DAILY PRN #10 patch 01/09/21 Meloxicam [Mobic] 7.5 mg PO BID PRN #20 tablet 01/09/21 - Allergies Allergies/Adverse Reactions: Allergies Allergy/AdvReac Type Severity Reaction Status Date / Time amitriptyline Allergy Hives Verified 12/27/20 17:32 cephalexin [From Keflex] Allergy Hives Verified 12/27/20 17:32 cyclobenzaprine Allergy Hives Verified 12/27/20 17:32 [From Flexeril] duloxetine [From Cymbalta] Allergy Hives Verified 01/09/21 20:04 enoxaparin [From Lovenox] Allergy Hives Verified 01/09/21 20:04 heparin Allergy Hives Verified 01/09/21 20:04 hydrocodone Allergy Itching Verified 01/09/21 20:04 ipratropium [From DuoNeb] Allergy Unknown Verified 01/09/21 20:04 leflunomide Allergy Headache Verified 01/09/21 20:04 methotrexate Allergy Anaphylaxis Verified 01/09/21 20:04 ondansetron [From Zofran] Allergy Hives Verified 01/09/21 20:04 palm oil Allergy Edema Verified 01/09/21 20:04 Penicillins Allergy Rash Verified 01/09/21 20:04 prednisone Allergy Hives Verified 01/09/21 20:04 tizanidine [From Zanaflex] Allergy Hives Verified 01/09/21 20:04 trazodone Allergy Anxiety Verified 01/09/21 20:04 venlafaxine [From Effexor] Allergy Hives Verified 01/09/21 20:04 - Social History Does the pt smoke?: No Smoking Status: Never smoker Does the pt drink ETOH?: No Does the pt have substance abuse?: No - Immunizations Immunizations are current?: Yes - POLST Patient has POLST: No PD ED PE NORMAL - Vitals Vital signs reviewed: Yes - General General: Alert and oriented X 3, No acute distress, Well developed/nourished - HEENT HEENT: PERRL, Moist mucous membranes - Neck Neck: Supple, no meningeal sign - Cardiac Cardiac: RRR - Respiratory Respiratory: No respiratory distress, Clear bilaterally - Abdomen Abdomen: Soft, Non tender, Non distended - Derm Derm: Warm and dry - Neuro Neuro: Alert and oriented X 3 - Psych Psych: Normal mood, Normal affect - Free text exam Free text exam: Tender to palpation over the right lower anterior ribs. No crepitus. Mild bruising. Results - Vitals Vitals: Vital Signs - 24 hr 01/09/21 01/09/21 20:04 22:10 Temperature 36.5 C 36.8 C Heart Rate 74 56 L Respiratory 16 14 Rate Blood Pressure 130/80 113/74 O2 Saturation 100 100 Oxygen O2 Source Room air - Rads (name of study) Right ribs with chest x-ray Radiology: Final report received, EMP read contemporaneously, See rad report (Nondisplaced right fifth rib fracture.) PD MEDICAL DECISION MAKING - ED course Complexity details: reviewed results, re-evaluated patient, considered differential, d/w patient ED course: 40-year-old female with a right fifth rib fracture for the past [address] her on Lidoderm patches and anti-inflammatories for home. We will have her follow-up with her doctor for further care. No pneumothorax or hemothorax. Patient counseled regarding signs and symptoms for which I believe and urgent re-evaluation would be necessary. Patient with good understanding of and agreement to plan and is comfortable going home at this time This document was made in part using voice recognition software. While efforts are made to proofread this document, sound alike and grammatical errors may occur. Departure - Departure Disposition: Home, Self Care Clinical Impression: Fracture of rib Qualifiers: Encounter type: initial encounter Rib fracture type: single rib Fracture type: closed Laterality: right Qualified Code(s): S22.31XA - Fracture of one rib, right side, initial encounter for closed fracture Condition: Good Instructions: ED Fx Rib Follow-Up: BROOSK GONZALEZ ARNP [Primary Care Provider] - Within 1 week Prescriptions: Lidocaine Patch 5% [Lidoderm Patch] 1 patch TOP DAILY PRN #10 patch PRN Reason: pain Meloxicam [Mobic] 7.5 mg PO BID PRN #20 tablet PRN Reason: Pain Comments: You do appear to have a nondisplaced fifth rib fracture on your x-ray today. Please follow-up with your doctor for further care. This will likely take several weeks to heal. You can use the Lidoderm patches for up to 12 hours at a time. We will also place you on meloxicam for home. Discharge Date/Time: 01/09/21 22:10
--- NOTE | 2021-01-09 21:37 | XRAY Report ---
PROCEDURE: Ribs w/PA Chest RT INDICATIONS: fall 2 weeks ago, increasing pain TECHNIQUE: 2 views of the right ribs were acquired, along with a single view chest. COMPARISON: 12/27/2020 FINDINGS: Surgical changes and devices: Cholecystectomy clips. Partially imaged surgical changes in the lower l umbar spine.. Bones and chest wall: Nondisplaced fracture of the fifth right lateral rib arcs. No suspicious bony l esions. Overlying soft tissues appear unremarkable. Lungs and pleura: No pleural effusions or pneumothorax. Lungs appear clear. Mediastinum: Mediastinal contours appear normal. Heart size is normal. IMPRESSION: 1. Nondisplaced right lateral fifth rib fracture. 2. No significant effusion and no pneumothorax. Reviewed by: Gisela Pierre MD on 01/09/2021 9:36 PM PDT Approved by: Gisela Pierre MD on 01/09/2021 9:36 PM PDT Station ID: [id number]
[2021-01-09 22:22] VITALS: BP 113/74
== END 2021-01-09 22:10 | disposition home or self-care (01) ==
LOC: ED 19:59
DX: S22.31XA Fracture of one rib, right side, initial encounter for closed fracture (principal); S20.211A Contusion of right front wall of thorax, initial encounter; W01.0XXA Fall on same level from slipping, tripping and stumbling without subsequent striking against object, initial encounter; M32.9 Systemic lupus erythematosus, unspecified; I10 Essential (primary) hypertension
CPT/HCPCS: 99283; 99284

== ENCOUNTER 2022-04-23 23:39 | Emergency (ER) | payer MEDICARE, OTHER, MEDICAID ==
[2022-04-24 00:22] LABS: BASOPHILS % (AUTO) 0.4 %; EOSINOPHILS # (AUTO) 0.1 10^3/uL (0.0-0.7); EOSINOPHILS % (AUTO) 1.5 %; HCT - HEMATOCRIT 43.4 % (37.0-47.0); HGB - HEMOGLOBIN 14.4 g/dL (12.0-16.0); LYMPHOCYTES # (AUTO) 1.7 10^3/uL (1.5-3.5); LYMPHOCYTES % (AUTO) 23.8 %; MEAN CORPUSCULAR HEMOGLOBIN 28.5 pg (27.0-31.0); MEAN CORPUSCULAR HGB CONC 33.2 g/dL (32.0-36.0); MEAN CORPUSCULAR VOLUME 85.9 fL (81.0-99.0); MEAN PLATELET VOLUME 10.1 fL (7.9-10.8); MONOCYTES # (AUTO) 0.5 10^3/uL (0.0-1.0); MONOCYTES % (AUTO) 6.3 %; NEUTROPHILS # (AUTO) 4.8 10^3/uL (1.5-6.6); NEUTROPHILS % (AUTO) 67.7 %; PLT - PLATELET COUNT 245 10^3/uL (130-450); RED BLOOD COUNT 5.05 10^6/uL (4.20-5.40); RED CELL DISTRIBUTION WIDTH 13.2 % (12.0-15.0); WHITE BLOOD COUNT 7.1 x10^3/uL (4.8-10.8)
[2022-04-24 00:38] LABS: ALBUMIN 4.3 g/dL (3.2-5.5); ALBUMIN/GLOBULIN RATIO 1.7 (1.0-2.2); BILIRUBIN,TOTAL 2.3 mg/dL (0.2-1.0); CREATININE 0.9 mg/dL (0.4-1.0); POTASSIUM 3.8 mmol/L (3.5-5.0); TOTAL PROTEIN 6.9 g/dL (6.7-8.2)
--- NOTE | 2022-04-24 01:17 | XRAY Report ---
PROCEDURE: Chest 1 View X-Ray INDICATIONS: CP TECHNIQUE: One view of the chest was acquired. COMPARISON: 01/09/2021 chest and ribs plain films FINDINGS: Surgical changes and devices: None. Lungs and pleura: No pleural effusions or pneumothorax. Lungs are clear. Mediastinum: Mediastinal contours appear normal. Heart size is normal. Bones and chest wall: No suspicious bony lesions. Overlying soft tissues appear unremarkable. IMPRESSION: Source of chest pain is not seen. Normal for age. Reviewed by: Hira Boykin MD on 04/24/2022 1:15 AM PDT Approved by: Hira Boykin MD on 04/24/2022 1:15 AM PDT Station ID: [id number]
--- NOTE | 2022-04-24 01:23 | ED Physician Documentation ---
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 She denies any exertion or stress at onset of her pain. She describes it as a pressure. It does not radiate. Nothing makes it better or worse.She denies fever, cough, difficulty breathing, abdominal pain, vomiting, diarrhea. She has had a hysterectomy. She denies leg swelling or pain. She denies a history of PE or DVT.She has been told since December that she has had an abnormal EKG with inverted T waves. She is scheduled to see a file machine operator on May 10 At [facility]. She recently moved back up here from [place].She had labs done on Monday for her supervisor treating and pumping and was told that she had some abnormalities with her liver enzymes. She does have a history of having elevated bilirubin levels in the past but was also told AST was slightly elevated. 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 : None HEENT: None Psych: None Musculoskeletal: Rheumatoid arthritis Derm: None - Past Surgical History Past Surgical History: Yes General: Cholecystectomy, Appendectomy Ortho: Spine surgery /MACHINE WOODWORKING SANDER: Hysterectomy - Present Medications Home Medications: Ambulatory Orders Medication Instructions Recorded Confirmed Sumatriptan [Imitrex] 20 mg NS ONCE PRN #7 spray 01/04/19 01/09/21 Prochlorperazine Maleate 10 mg PO DAILY 03/30/19 01/09/21 [Compazine] Promethazine [Phenergan] 25 mg PO DAILY 03/30/19 01/09/21 oxyCODONE ER [OxyCONTIN] 15 mg PO BID 03/30/19 01/09/21 oxyCODONE [Roxicodone] 10 mg PO PRN PRN 03/30/19 01/09/21 Albuterol Sulf [Ventolin Hfa 1 - 2 puffs INH Q4HR PRN #1 inhaler 06/17/19 01/09/21 Inhaler] Gabapentin [Neurontin] 1,200 mg PO BID 10/23/20 01/09/21 Upadacitinib [Rinvoq] 15 mg PO DAILY 10/23/20 01/09/21 Tramadol HCl 100 mg PO Q6HR PRN #15 tablet 12/27/20 01/09/21 dexAMETHasone [Decadron] 6 mg PO Q6HR #12 tablet 12/27/20 01/09/21 predniSONE [Deltasone] 60 mg PO DAILY 5 Days #15 tablet 12/27/20 01/09/21 Lidocaine Patch 5% [Lidoderm Patch] 1 patch TOP DAILY PRN #10 patch 01/09/21 Meloxicam [Mobic] 7.5 mg PO BID PRN #20 tablet 01/09/21 - Allergies Allergies/Adverse Reactions: Allergies Allergy/AdvReac Type Severity Reaction Status Date / Time amitriptyline Allergy Hives Verified 12/27/20 17:32 cephalexin [From Keflex] Allergy Hives Verified 12/27/20 17:32 cyclobenzaprine Allergy Hives Verified 12/27/20 17:32 [From Flexeril] duloxetine [From Cymbalta] Allergy Hives Verified 01/09/21 20:04 enoxaparin [From Lovenox] Allergy Hives Verified 01/09/21 20:04 heparin Allergy Hives Verified 01/09/21 20:04 hydrocodone Allergy Itching Verified 01/09/21 20:04 ipratropium [From DuoNeb] Allergy Unknown Verified 01/09/21 20:04 leflunomide Allergy Headache Verified 01/09/21 20:04 methotrexate Allergy Anaphylaxis Verified 01/09/21 20:04 ondansetron [From Zofran] Allergy Hives Verified 01/09/21 20:04 palm oil Allergy Edema Verified 01/09/21 20:04 Penicillins Allergy Rash Verified 01/09/21 20:04 prednisone Allergy Hives Verified 01/09/21 20:04 tizanidine [From Zanaflex] Allergy Hives Verified 01/09/21 20:04 trazodone Allergy Anxiety Verified 01/09/21 20:04 venlafaxine [From Effexor] Allergy Hives Verified 01/09/21 20:04 - Social History Does the pt smoke?: No Smoking Status: Never smoker Does the pt drink ETOH?: No Does the pt have substance abuse?: No - Immunizations Immunizations are current?: Yes - POLST Patient has POLST: No PD ED PE NORMAL - General General: Alert and oriented X 3, No acute distress, Well developed/nourished - HEENT HEENT: Atraumatic, Moist mucous membranes - Neck Neck: Supple, no meningeal sign - Cardiac Cardiac: RRR, Strong equal pulses, Other (No crepitus or deformities to chest wall) - Respiratory Respiratory: No respiratory distress, Clear bilaterally - Abdomen Abdomen: Soft, Non tender - Derm Derm: Warm and dry - Extremities Extremities: No edema, No calf tenderness / cord - Neuro Neuro: Normal speech Results - Vitals Vitals: Vital Signs - 24 hr 04/23/22 04/24/22 23:47 01:30 Temperature 37.2 C Heart Rate 83 75 Respiratory 17 18 Rate Blood Pressure 120/90 H 129/93 H O2 Saturation 100 99 Oxygen O2 Source Room air - EKG (time done) 2343 Rate: Rate (enter#) (83) Rhythm: NSR Ischemia: T wave inversion (V2, V3). No: ST elevation c/w ischemia, ST elevation c/w repol Compare to prior EKG: Old EKG unavailable - Labs Labs: Laboratory Tests 04/23/22 04/23/22 04/23/22 00:15 00:15 00:15 WBC 7.1 RBC 5.05 Hgb 14.4 Hct 43.4 MCV 85.9 MCH 28.5 MCHC 33.2 RDW 13.2 Plt Count 245 MPV 10.1 Neut # (Auto) 4.8 Lymph # (Auto) 1.7 [place] # (Auto) 0.5 Eos # (Auto) 0.1 Baso # (Auto) 0.0 Absolute Nucleated RBC 0.00 Nucleated RBC % 0.0 Sodium 139 Potassium 3.8 Chloride 106 Carbon Dioxide 23 Anion Gap 10.0 BUN 15 Creatinine 0.9 Estimated GFR (MDRD) 69 L Glucose 97 Calcium 9.0 Total Bilirubin 2.3 H AST 50 H ALT 36 Alkaline Phosphatase 112 Troponin I High Sens 8.0 Total Protein 6.9 Albumin 4.3 Globulin 2.6 Albumin/Globulin Ratio 1.7 PD MEDICAL DECISION MAKING - ED course Complexity details: reviewed results, re-evaluated patient, d/w patient ED course: Patient presenting for evaluation of chest pain. EKG reviewed. There are anterior T waves that are inverted which patient is stated she is aware of. She is low risk for ACS per the heart score. Her troponin is negative. She is feeling better while in the ER. She does not have symptoms to suggest a PE or d issection and is PERC negative.She was counseled on concerning symptoms to return for and is aware of strict return precautions. Departure - Departure Disposition: Home, Self Care Clinical Impression: Chest pain Condition: Stable Instructions: ED Chest Pain Atypical Unkn Cause Follow-Up: BROOKS GONZALEZ ARNP [Primary Care Provider] - Comments: Your chest x-ray appears normal. Your bilirubin level is slightly high at 2.3 and your AST is also slightly elevated at 50. Your bilirubin levels have been high in the past. I would recommend follow-up with your primary care doctor regarding this. Your cardiac marker is negative. At this time it is unclear as to what is causing your symptoms but does not appear to be a heart attack tonight. However I do encourage close follow-up with your primary care doctor and your file machine operator. You may need further testing to make sure that there are no signs of heart problems such as a stress test or ultrasound of your heart. If you have any new or worsening symptoms please consider return to the emergency department. Discharge Date/Time: 04/24/22 01:32
[2022-04-24 01:31] VITALS: BP 129/93
== END 2022-04-24 01:32 | disposition home or self-care (01) ==
LOC: ED 23:39
DX: R07.9 Chest pain, unspecified (principal); E80.7 Disorder of bilirubin metabolism, unspecified; R74.01 Elevation of levels of liver transaminase levels
CPT/HCPCS: 36415; 80053; 84484; 85025; 93005; 99284

== ENCOUNTER 2022-04-27 18:57 | Emergency (ER) | payer MEDICARE, OTHER, MEDICAID ==
--- NOTE | 2022-04-27 21:13 | ED Physician Documentation ---
History of Present Illness - Stated complaint Stated Complaint: COUGH - Chief complaint Chief Complaint: Resp - Additonal information Additional information: 41-year-old female presents emergency department for evaluation of cough congestion shortness of air and left-sided chest pain. Symptoms began about 4 days ago. She was seen earlier this week in the emergency department for chest pain. She thinks that that was likely the beginning of her head cold. She comes to the emergency department today because when she lies on her left side she notices her sats go to 90 to 92% but they remain about 94% when she lays on her right side. She has history of Sjogren's RA and lupus and is concerned that her autoimmune disorder is contributing to her symptoms or could make her seriously ill. She has had no fevers. No vomiting or diarrhea. She appears well in the emergency department Review of Systems Constitutional: reports: Myalgias, Fatigue. denies: Fever Eyes: reports: Reviewed and negative Ears: reports: Reviewed and negative Nose: reports: Rhinorrhea / runny nose, Congestion Throat: reports: Reviewed and negative Cardiac: reports: Chest pain / pressure. denies: Palpitations, Pedal edema, Calf pain Respiratory: reports: Dyspnea, Cough. 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 : None HEENT: None Psych: None Musculoskeletal: Rheumatoid arthritis Derm: None - Past Surgical History Past Surgical History: Yes General: Cholecystectomy, Appendectomy Ortho: Spine surgery /LENS COATING TECHNICIAN: Hysterectomy - Present Medications Home Medications: Ambulatory Orders Medication Instructions Recorded Confirmed Sumatriptan [Imitrex] 20 mg NS ONCE PRN #7 spray 01/04/19 01/09/21 Prochlorperazine Maleate 10 mg PO DAILY 03/30/19 01/09/21 [Compazine] Promethazine [Phenergan] 25 mg PO DAILY 03/30/19 01/09/21 oxyCODONE ER [OxyCONTIN] 15 mg PO BID 03/30/19 01/09/21 oxyCODONE [Roxicodone] 10 mg PO PRN PRN 03/30/19 01/09/21 Albuterol Sulf [Ventolin Hfa 1 - 2 puffs INH Q4HR PRN #1 inhaler 06/17/19 01/09/21 Inhaler] Gabapentin [Neurontin] 1,200 mg PO BID 10/23/20 01/09/21 Upadacitinib [Rinvoq] 15 mg PO DAILY 10/23/20 01/09/21 Tramadol HCl 100 mg PO Q6HR PRN #15 tablet 12/27/20 01/09/21 dexAMETHasone [Decadron] 6 mg PO Q6HR #12 tablet 12/27/20 01/09/21 predniSONE [Deltasone] 60 mg PO DAILY 5 Days #15 tablet 12/27/20 01/09/21 Lidocaine Patch 5% [Lidoderm Patch] 1 patch TOP DAILY PRN #10 patch 01/09/21 Meloxicam [Mobic] 7.5 mg PO BID PRN #20 tablet 01/09/21 - Allergies Allergies/Adverse Reactions: Allergies Allergy/AdvReac Type Severity Reaction Status Date / Time amitriptyline Allergy Hives Verified 04/27/22 19:15 cephalexin [From Keflex] Allergy Hives Verified 04/27/22 19:15 cyclobenzaprine Allergy Hives Verified 04/27/22 19:15 [From Flexeril] duloxetine [From Cymbalta] Allergy Hives Verified 04/27/22 19:15 enoxaparin [From Lovenox] Allergy Hives Verified 04/27/22 19:15 heparin Allergy Hives Verified 04/27/22 19:15 hydrocodone Allergy Itching Verified 04/27/22 19:15 ipratropium [From DuoNeb] Allergy Unknown Verified 04/27/22 19:15 leflunomide Allergy Headache Verified 04/27/22 19:15 methotrexate Allergy Anaphylaxis Verified 04/27/22 19:15 ondansetron [From Zofran] Allergy Hives Verified 04/27/22 19:15 palm oil Allergy Edema Verified 04/27/22 19:15 Penicillins Allergy Rash Verified 04/27/22 19:15 prednisone Allergy Hives Verified 04/27/22 19:15 tizanidine [From Zanaflex] Allergy Hives Verified 04/27/22 19:15 trazodone Allergy Anxiety Verified 04/27/22 19:15 venlafaxine [From Effexor] Allergy Hives Verified 04/27/22 19:15 - Social History Does the pt smoke?: No Smoking Status: Never smoker Does the pt drink ETOH?: No Does the pt have substance abuse?: No - Immunizations Immunizations are current?: Yes - POLST Patient has POLST: No PD ED PE NORMAL - General General: Alert and oriented X 3, No acute distress, Well developed/nourished - HEENT HEENT: Atraumatic, Moist mucous membranes - Neck Neck: Supple, no meningeal sign, No adenopathy - Cardiac Cardiac: RRR, No murmur - Respiratory Respiratory: No respiratory distress, Clear bilaterally - Abdomen Abdomen: Normal bowel sounds, Soft, Non tender - Derm Derm: Normal color, No rash - Extremities Extremities: No deformity - Neuro Neuro: Alert and oriented X 3, email manager 2-12 intact Eye Opening: Spontaneous Motor: Obeys Commands Verbal: Oriented GCS Score: 15 Results - Vitals Vitals: Vital Signs - 24 hr 04/27/22 04/27/22 04/27/22 19:11 20:52 21:07 Temperature 36.8 C Heart Rate 110 H Respiratory 18 17 17 Rate Blood Pressure 147/99 H O2 Saturation 97 04/27/22 04/27/22 21:22 21:28 Temperature 37.1 C Heart Rate 76 Respiratory 16 16 Rate Blood Pressure 121/78 O2 Saturation 99 Oxygen O2 Source Room air - Labs Labs: Laboratory Tests 04/27/22 19:17 Nasal Adenovirus (PCR) NOT DETECTED Nasal B. parapertussis DNA (PCR) NOT DETECTED Nasal Coronavir 229E PCR NOT DETECTED Nasal Coronavir HKU1 PCR NOT DETECTED Nasal Coronavir NL63 PCR NOT DETECTED Nasal Coronavir OC43 PCR NOT DETECTED Nasal Enterovir/Rhinovir PCR NOT DETECTED Nasal Influenza B PCR NOT DETECTED Nasal Influenza A PCR NOT DETECTED Nasal Parainfluen 1 PCR NOT DETECTED Nasal Parainfluen 2 PCR NOT DETECTED Nasal Parainfluen 3 PCR NOT DETECTED Nasal Parainfluen 4 PCR NOT DETECTED Nasal RSV (PCR) NOT DETECTED Nasal B.pertussis DNA PCR NOT DETECTED Nasal C.pneumoniae (PCR) NOT DETECTED Abisai Human Metapneumo PCR NOT DETECTED Nasal M.pneumoniae (PCR) NOT DETECTED Nasal SARS-CoV-2 (PCR) NOT DETECTED PD MEDICAL DECISION MAKING - ED course Complexity details: reviewed results, re-evaluated patient, d/w patient ED course: Well-appearing 41-year-old female presents emergency department for evaluation of 4 days of cough cold congestion as well as left-sided chest pain. Seen in this ER for left-sided chest pain about 3 days ago. At that time work-up was negative. She now believes that she may have been developing a viral URI. However because she has a history of autoimmune disorder she is concerned that she could get very sick from this. In addition she has noticed a change in her saturations between right and left-sided laying. Here in the emergency department cardiopulmonary auscultation was entirely unremarkable. No hypoxia. Chest x-ray did not reveal acute focal findings such as opacity, pleural effusion or pneumothorax. I respiratory PCR panel was completed and negative. In conjunction between the 2 ED visits the history is most suggestive of a viral URI despite lack of pertinent positives on the PCR. She is discharged home in stable condition. I have encouraged her to continue her usual routine care measures as well as extensively discussed the emergent return precautions Departure - Departure Disposition: 01 Home, Self Care Clinical Impression: Cough Qualifiers: Cough type: acute Qualified Code(s): R05.1 - Acute cough Condition: Stable Record reviewed to determine appropriate education?: Yes Instructions: ED Viral Syndrome Comments: Rosalba arvizu are seen today in the emergency department because for at least a few days now you have been having some left-sided chest pain, cough and some shortness of air. You have noticed a change in your saturations between left and right sided laying. When we listen your heart and lungs Mathieu normal. Your oxygen levels are normal here in the emergency department. We did do a x-ray of the chest that did not show any acute focal findings such as infection pneumonia pleural effusion or pneumothorax. I did review your ED visit from a few days ago as well as the labs obtained at that time. Today in the emergency department your respiratory panel is negative for any obvious viruses. This does not mean that you do not have a viral upper respiratory infection it simply means we did not find one of the more common ones. In general I expect that you are going to do well over the next few days. Rest is important so allow your body sleep. You can continue to take your usual medications including the Benadryl or the Claritin for your congestion. I would return to the ER if you develop any fevers, have bloody sputum, severe shortness of air or persistent oxygen levels less than 88%
[2022-04-27 21:22] LABS: B. PARAPERTUSSIS- RESP PCR PAN NOT DETECTED; B. PERTUSSIS- RESP PCR PANEL NOT DETECTED; C. PNEUMONIAE- RESP PCR PANEL NOT DETECTED; CORONAVIRUS 229E-RESP PCR NOT DETECTED; CORONAVIRUS HKU1-RESP PCR NOT DETECTED; CORONAVIRUS NL63-RESP PCR NOT DETECTED; CORONAVIRUS OC43-RESP PCR NOT DETECTED; HUMAN METAPNEUMOVIRUS NOT DETECTED; INFLUENZA A- RESP PCR PANEL NOT DETECTED; INFLUENZA B - RESP PCR PANEL NOT DETECTED; M. PNEUMONIAE- RESP PCR PANEL NOT DETECTED; PARAINFLUENZA VIRUS 1 NOT DETECTED; PARAINFLUENZA VIRUS 2 NOT DETECTED; PARAINFLUENZA VIRUS 3 NOT DETECTED; PARAINFLUENZA VIRUS 4 NOT DETECTED; RHINOVIRUS/ENTEROVIRUS NOT DETECTED; RSV- RESP PCR PANEL NOT DETECTED; SARS-CoV-2 -RESP PCR PANEL NOT DETECTED
[2022-04-27 21:29] VITALS: BP 121/78
--- NOTE | 2022-04-27 21:54 | XRAY Report ---
PROCEDURE: Chest 1 View X-Ray INDICATIONS: cough TECHNIQUE: One view of the chest was acquired. COMPARISON: 04/24/2022 FINDINGS: Surgical changes and devices: None. Lungs and pleura: No pleural effusions or pneumothorax. Lungs are clear. Mediastinum: Mediastinal contours appear normal. Heart size is normal. Bones and chest wall: No suspicious bony lesions. Overlying soft tissues appear unremarkable. IMPRESSION: 1. No acute cardiopulmonary disease. Reviewed by: Carlos Wilson MD on 04/27/2022 9:52 PM PDT Approved by: Carlos Wilson MD on 04/27/2022 9:52 PM PDT Station ID: [id number]
== END 2022-04-27 21:53 | disposition home or self-care (01) ==
LOC: ED 18:57
DX: R05.1 Acute cough (principal); I10 Essential (primary) hypertension; Z20.822 Contact with and (suspected) exposure to COVID-19
CPT/HCPCS: 87633; 99282; 99284

== ENCOUNTER 2022-06-18 19:37 | Emergency (ER) | payer MEDICARE, OTHER, MEDICAID ==
--- NOTE | 2022-06-18 22:11 | ED Physician Documentation ---
History of Present Illness - Stated complaint Stated Complaint: FULL BODY SPASAMS,COLD SYMPTOMS - Chief complaint Chief Complaint: General - History obtained from History obtained from: Patient - History of Present Illness Timing: How many weeks ago (1) Pain level now: 6 Improved by: no ameliorating factors Worsened by: no exacerbating factors - Additonal information Additional information: c/o one week of generalized myalgias, fatigue, malaise, non-productive cough, sore throat, post-nasal drip. Fever since yesterday with Tmax 101. HPI from patient. Review of Systems Constitutional: reports: Fever, Chills, Myalgias, Fatigue, Sweats Nose: reports: Other (post-nasal drip) Throat: reports: Sore throat Cardiac: reports: Reviewed and negative Respiratory: reports: Cough. 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 : None HEENT: None Psych: None Musculoskeletal: Rheumatoid arthritis Derm: None - Past Surgical History Past Surgical History: Yes General: Cholecystectomy, Appendectomy Ortho: Spine surgery /INDUSTRIAL MACHINE SYSTEM TECHNICIAN: Hysterectomy - Present Medications Home Medications: Ambulatory Orders Medication Instructions Recorded Confirmed Sumatriptan [Imitrex] 20 mg NS ONCE PRN #7 spray 01/04/19 06/18/22 Prochlorperazine Maleate 10 mg PO DAILY 03/30/19 06/18/22 [Compazine] Promethazine [Phenergan] 25 mg PO DAILY 03/30/19 06/18/22 oxyCODONE [Roxicodone] 10 mg PO QID 03/30/19 01/09/21 Albuterol Sulf [Ventolin Hfa 1 - 2 puffs INH Q4HR PRN #1 inhaler 06/17/19 06/18/22 Inhaler] Gabapentin [Neurontin] 1,200 mg PO BID 10/23/20 06/18/22 Upadacitinib [Rinvoq] 15 mg PO DAILY 10/23/20 06/18/22 dexAMETHasone [Decadron] 6 mg PO Q6HR #12 tablet 12/27/20 01/09/21 Metaxalone 800 mg PO TID PRN #14 tablet 06/18/22 diazePAM [Valium] 5 mg PO TID PRN #10 tablet 06/18/22 - Allergies Allergies/Adverse Reactions: Allergies Allergy/AdvReac Type Severity Reaction Status Date / Time amitriptyline Allergy Hives Verified 06/18/22 20:00 azithromycin Allergy Headache Verified 06/18/22 20:00 cephalexin [From Keflex] Allergy Hives Verified 06/18/22 20:00 cyclobenzaprine Allergy Hives Verified 06/18/22 20:00 [From Flexeril] duloxetine [From Cymbalta] Allergy Hives Verified 06/18/22 20:00 enoxaparin [From Lovenox] Allergy Hives Verified 06/18/22 20:00 heparin Allergy Hives Verified 06/18/22 20:00 hydrocodone Allergy Itching Verified 06/18/22 20:00 ipratropium [From DuoNeb] Allergy Unknown Verified 06/18/22 20:00 leflunomide Allergy Headache Verified 06/18/22 20:00 methotrexate Allergy Anaphylaxis Verified 06/18/22 20:00 ondansetron [From Zofran] Allergy Hives Verified 06/18/22 20:00 palm oil Allergy Edema Verified 06/18/22 20:00 Penicillins Allergy Rash Verified 06/18/22 20:00 prednisone Allergy Hives Verified 06/18/22 20:00 tizanidine [From Zanaflex] Allergy Hives Verified 06/18/22 20:00 trazodone Allergy Anxiety Verified 06/18/22 20:00 venlafaxine [From Effexor] Allergy Hives Verified 06/18/22 20:00 - Social History Does the pt smoke?: No Smoking Status: Never smoker Does the pt drink ETOH?: No Does the pt have substance abuse?: No - Immunizations Immunizations are current?: Yes - POLST Patient has POLST: No PD ED PE NORMAL - Vitals Vital signs reviewed: Yes - General General: Alert and oriented X 3, No acute distress, Well developed/nourished - HEENT HEENT: Ears normal, Moist mucous membranes, Pharynx benign - Neck Neck: Supple, no meningeal sign - Cardiac Cardiac: RRR, No murmur - Respiratory Respiratory: No respiratory distress, Clear bilaterally Results - Vitals Vitals: Oxygen O2 Source Room air - Labs Labs: Microbiology 06/18/22 22:50 Group A Strep Throat Culture - Final Throat MIXED OROPHARYNGEAL KADEN PRESENT. NO BETA STREP PRESENT IN CULTURE. Laboratory Tests 06/18/22 06/18/22 20:02 22:50 Nasal Adenovirus (PCR) NOT DETECTED Nasal B. parapertussis DNA (PCR) NOT DETECTED Nasal Coronavir 229E PCR NOT DETECTED Nasal Coronavir HKU1 PCR NOT DETECTED Nasal Coronavir NL63 PCR NOT DETECTED Nasal Coronavir OC43 PCR NOT DETECTED Nasal Enterovir/Rhinovir PCR NOT DETECTED Nasal Influenza B PCR NOT DETECTED Nasal Influenza A PCR NOT DETECTED Nasal Parainfluen 1 PCR NOT DETECTED Nasal Parainfluen 2 PCR NOT DETECTED Nasal Parainfluen 3 PCR NOT DETECTED Nasal Parainfluen 4 PCR NOT DETECTED Nasal RSV (PCR) NOT DETECTED Nasal B.pertussis DNA PCR NOT DETECTED Nasal C.pneumoniae (PCR) NOT DETECTED Abisai Human Metapneumo PCR NOT DETECTED Nasal M.pneumoniae (PCR) NOT DETECTED Nasal SARS-CoV-2 (PCR) NOT DETECTED Group A Strep Rapid Negative PD Medical Decision Making - ED course Complexity details: reviewed results, re-evaluated patient, considered differential, d/w patient ED course: NAD and no pertinent findings on exam. respiratory PCR panel is negative for viruses tested and rapid strep negative. Suspect viral process at this time. Results d/w patient, return precautions reviewed. One of her chief concerns is the body aches and myalgias which she describes as feeling like generalized muscles spasms at times. We discussed options for symptomatic treatment with consideration of her multiple mediation allergies. She says she can take skelaxin, and rx is provided for this medication. We do not have this medication in the ED and thus 5mg PO diazepam given (she does not recall having this medication before). She is given 10mg PO decadron as well (for pharyngitis), and toradol IM for analgesia. Departure - Departure Disposition: 01 Home, Self Care Clinical Impression: Viral syndrome Condition: Good Instructions: ED Viral Syndrome Follow-Up: BROOKS GONZALEZ ARNP [Primary Care Provider] - (4-5 days if symptoms persist) Prescriptions: Metaxalone 800 mg PO TID PRN #14 tablet PRN Reason: Spasms diazePAM [Valium] 5 mg PO TID PRN #10 tablet PRN Reason: Spasms Comments: The results of your nasal swab and throat swab are negative. At this time, your testing negative for strep, COVID, influenza, RSV, as well as some other viruses that are tested on the nasal swab. Despite this, based on your description of symptoms, I still suspect you have a viral infection. You are given a dose of Decadron (steroid) in the emergency department. This is a one-time dose which can gradually help with pain and swelling associated with pharyngitis (throat infection). I have prescribed 2 different muscle relaxants. 1 muscle relaxant I prescribed his Skelaxin, which you are familiar with. I have also provided prescription for diazepam (Valium); this has a stronger muscle relaxant property, although it is more likely to have side effects (such as drowiness). Do not drive for at least 6 hours after taking a dose of valium. The prescriptions have been electronically submitted to [facility] pharmacy in [place] Discharge Date/Time: 06/18/22 23:36
[2022-06-18 22:21] LABS: CORONAVIRUS 229E-RESP PCR NOT DETECTED; CORONAVIRUS HKU1-RESP PCR NOT DETECTED; CORONAVIRUS NL63-RESP PCR NOT DETECTED; CORONAVIRUS OC43-RESP PCR NOT DETECTED; HUMAN METAPNEUMOVIRUS NOT DETECTED; INFLUENZA A- RESP PCR PANEL NOT DETECTED; RHINOVIRUS/ENTEROVIRUS NOT DETECTED; SARS-CoV-2 -RESP PCR PANEL NOT DETECTED
[2022-06-18 22:22] LABS: B. PARAPERTUSSIS- RESP PCR PAN NOT DETECTED; B. PERTUSSIS- RESP PCR PANEL NOT DETECTED; C. PNEUMONIAE- RESP PCR PANEL NOT DETECTED; INFLUENZA B - RESP PCR PANEL NOT DETECTED; M. PNEUMONIAE- RESP PCR PANEL NOT DETECTED; PARAINFLUENZA VIRUS 1 NOT DETECTED; PARAINFLUENZA VIRUS 2 NOT DETECTED; PARAINFLUENZA VIRUS 3 NOT DETECTED; PARAINFLUENZA VIRUS 4 NOT DETECTED; RSV- RESP PCR PANEL NOT DETECTED
[2022-06-18] MEDS ORDERED: DEXAMETHASONE 10 MG/ML VIAL PO STA (23:07)
[2022-06-18] MEDS ORDERED: CHERRY SYRUP 10 ML UDC PO ONE (23:07)
[2022-06-18] MEDS ORDERED: KETOROLAC 30 MG/ML VIAL IM STA (23:08)
[2022-06-18] MEDS ORDERED: diazePAM 5 MG TABLET PO STA (23:08)
[2022-06-18 23:09] LABS: RAPID STREP SCREEN Negative (Negative)
[2022-06-18 23:37] VITALS: BP 131/72
== END 2022-06-18 23:36 | disposition home or self-care (01) ==
LOC: ED 19:37
DX: B34.9 Viral infection, unspecified (principal); Z20.822 Contact with and (suspected) exposure to COVID-19
CPT/HCPCS: 87070; 87430; 87633; 96372; 99282; 99283; A9270

== ENCOUNTER 2022-07-01 22:47 | Emergency (ER) | payer MEDICARE, OTHER, MEDICAID ==
[2022-07-01 23:48] LABS: BASOPHILS % (AUTO) 0.5 %; EOSINOPHILS # (AUTO) 0.3 10^3/uL (0.0-0.7); EOSINOPHILS % (AUTO) 3.8 %; HCT - HEMATOCRIT 41.8 % (37.0-47.0); HGB - HEMOGLOBIN 14.1 g/dL (12.0-16.0); LYMPHOCYTES # (AUTO) 1.8 10^3/uL (1.5-3.5); LYMPHOCYTES % (AUTO) 24.8 %; MEAN CORPUSCULAR HEMOGLOBIN 28.3 pg (27.0-31.0); MEAN CORPUSCULAR HGB CONC 33.7 g/dL (32.0-36.0); MEAN CORPUSCULAR VOLUME 83.9 fL (81.0-99.0); MEAN PLATELET VOLUME 9.8 fL (7.9-10.8); MONOCYTES # (AUTO) 0.4 10^3/uL (0.0-1.0); MONOCYTES % (AUTO) 5.5 %; NEUTROPHILS # (AUTO) 4.8 10^3/uL (1.5-6.6); PLT - PLATELET COUNT 252 10^3/uL (130-450); RED BLOOD COUNT 4.98 10^6/uL (4.20-5.40); RED CELL DISTRIBUTION WIDTH 13.2 % (12.0-15.0); WHITE BLOOD COUNT 7.3 x10^3/uL (4.8-10.8)
[2022-07-01 23:55] LABS: CALCIUM 9.1 mg/dL (8.5-10.3); POTASSIUM 3.6 mmol/L (3.5-5.0)
[2022-07-02 00:29] LABS: CORONAVIRUS 229E-RESP PCR NOT DETECTED; CORONAVIRUS HKU1-RESP PCR NOT DETECTED; CORONAVIRUS NL63-RESP PCR NOT DETECTED; CORONAVIRUS OC43-RESP PCR NOT DETECTED; HUMAN METAPNEUMOVIRUS NOT DETECTED; INFLUENZA A- RESP PCR PANEL NOT DETECTED; RHINOVIRUS/ENTEROVIRUS NOT DETECTED; SARS-CoV-2 -RESP PCR PANEL NOT DETECTED
[2022-07-02 00:30] LABS: B. PARAPERTUSSIS- RESP PCR PAN NOT DETECTED; B. PERTUSSIS- RESP PCR PANEL NOT DETECTED; C. PNEUMONIAE- RESP PCR PANEL NOT DETECTED; INFLUENZA B - RESP PCR PANEL NOT DETECTED; M. PNEUMONIAE- RESP PCR PANEL NOT DETECTED; PARAINFLUENZA VIRUS 1 NOT DETECTED; PARAINFLUENZA VIRUS 2 NOT DETECTED; PARAINFLUENZA VIRUS 3 NOT DETECTED; PARAINFLUENZA VIRUS 4 NOT DETECTED; RSV- RESP PCR PANEL NOT DETECTED
[2022-07-02] MEDS ORDERED: KETOROLAC 60 MG/2 ML VIAL IM STA (00:38)
--- NOTE | 2022-07-02 00:56 | ED Physician Documentation ---
History of Present Illness - Stated complaint Stated Complaint: R HIP RASH/BRUISING, FEVER, MUSCLE ACHES - Chief complaint Chief Complaint: Fever - History obtained from History obtained from: Patient - Additonal information Additional information: Patient is a 42-year-old female with a number of autoimmune conditions presenting for evaluation of a rashNear the right hip which started 5 days ago.She also noticed some bruising at that time which has improved.She was seen here around [place] for URI and thought to have a viral illness. Her respiratory panel was negative at that time. She has continued to have some muscle aches And joint pains since that time, Particularly in the right hip. T onight she had a fever of 101 which concerned her Prompting her to come to the emergency department. She took Tylenol prior to arrival.She denies cough or congestion. She denies dysuria. She denies abdominal pain. Her appetite has been normal.She saw her PCP yesterday for the rash and etiology was unclear. She denies vesicles or blister formation to suggest a herpetic lesion.She has a dermatology appointment next Monday. Patient has a number of drug allergies so decision was made with her PCP to hold off on antibiotics. 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 HEENT: None Psych: None Musculoskeletal: Rheumatoid arthritis Derm: None - Past Surgical History Past Surgical History: Yes General: Cholecystectomy, Appendectomy Ortho: Spine surgery /NAVAL SCIENCE TEACHER: Hysterectomy - Present Medications Home Medications: Ambulatory Orders Medication Instructions Recorded Confirmed Sumatriptan [Imitrex] 20 mg NS ONCE PRN #7 spray 01/04/19 06/18/22 Prochlorperazine Maleate 10 mg PO DAILY 03/30/19 06/18/22 [Compazine] Promethazine [Phenergan] 25 mg PO DAILY 03/30/19 06/18/22 oxyCODONE [Roxicodone] 10 mg PO QID 03/30/19 01/09/21 Albuterol Sulf [Ventolin Hfa 1 - 2 puffs INH Q4HR PRN #1 inhaler 06/17/19 06/18/22 Inhaler] Gabapentin [Neurontin] 1,200 mg PO BID 10/23/20 06/18/22 Upadacitinib [Rinvoq] 15 mg PO DAILY 10/23/20 06/18/22 dexAMETHasone [Decadron] 6 mg PO Q6HR #12 tablet 12/27/20 01/09/21 Metaxalone 800 mg PO TID PRN #14 tablet 06/18/22 diazePAM [Valium] 5 mg PO TID PRN #10 tablet 06/18/22 Meloxicam [Mobic] 7.5 mg PO DAILY #5 tablet 07/02/22 - Allergies Allergies/Adverse Reactions: Allergies Allergy/AdvReac Type Severity Reaction Status Date / Time pork derived (porcine) Allergy Mild Nausea Verified 07/01/22 23:01 amitriptyline Allergy Hives Verified 06/18/22 20:00 azithromycin Allergy Headache Verified 06/18/22 20:00 cephalexin [From Keflex] Allergy Hives Verified 06/18/22 20:00 cyclobenzaprine Allergy Hives Verified 06/18/22 20:00 [From Flexeril] duloxetine [From Cymbalta] Allergy Hives Verified 06/18/22 20:00 enoxaparin [From Lovenox] Allergy Hives Verified 06/18/22 20:00 heparin Allergy Hives Verified 06/18/22 20:00 hydrocodone Allergy Itching Verified 06/18/22 20:00 ipratropium [From DuoNeb] Allergy Unknown Verified 06/18/22 20:00 leflunomide Allergy Headache Verified 06/18/22 20:00 methotrexate Allergy Anaphylaxis Verified 06/18/22 20:00 ondansetron [From Zofran] Allergy Hives Verified 06/18/22 20:00 palm oil Allergy Edema Verified 06/18/22 20:00 Penicillins Allergy Rash Verified 06/18/22 20:00 prednisone Allergy Hives Verified 06/18/22 20:00 tizanidine [From Zanaflex] Allergy Hives Verified 06/18/22 20:00 trazodone Allergy Anxiety Verified 06/18/22 20:00 venlafaxine [From Effexor] Allergy Hives Verified 06/18/22 20:00 - Social History Does the pt smoke?: No Smoking Status: Never smoker Does the pt drink ETOH?: No Does the pt have substance abuse?: No - Immunizations Immunizations are current?: Yes - POLST Patient has POLST: No PD ED PE NORMAL - General General: Alert and oriented X 3, No acute distress, Well developed/nourished - HEENT HEENT: Atraumatic - Neck Neck: Supple, no meningeal sign, No bony TTP - Cardiac Cardiac: RRR, No murmur - Respiratory Respiratory: No respiratory distress, Clear bilaterally - Abdomen Abdomen: Soft, Non tender - Extremities Extremities: No deformity, No tenderness to palpate, Other (No redness or swelling or erythema to right hip joint, pedal pulses intact) PD ED PE EXPANDED - Derm SKin visual: 1 - rash (Patch of raised erythema, no vesicles, no warmth, no drainage, no fluctuance) Results - Vitals Vitals: Vital Signs - 24 hr 07/01/22 07/02/22 22:54 01:29 Temperature 36.1 C L 36.9 C Heart Rate 115 H 84 Respiratory 19 18 Rate Blood Pressure 136/88 H 124/80 O2 Saturation 97 100 Oxygen O2 Source Room air - Labs Labs: Laboratory Tests 07/01/22 07/01/22 07/01/22 23:29 23:42 23:42 WBC 7.3 RBC 4.98 Hgb 14.1 Hct 41.8 MCV 83.9 MCH 28.3 MCHC 33.7 RDW 13.2 Plt Count 252 MPV 9.8 Neut # (Auto) 4.8 Lymph # (Auto) 1.8 [place] # (Auto) 0.4 Eos # (Auto) 0.3 Baso # (Auto) 0.0 Absolute Nucleated RBC 0.00 Nucleated RBC % 0.0 Sodium 138 Potassium 3.6 Chloride 104 Carbon Dioxide 23 Anion Gap 11.0 BUN 19 Creatinine 1.0 Estimated GFR (MDRD) 61 L Glucose 119 H Calcium 9.1 Nasal Adenovirus (PCR) NOT DETECTED Nasal B. parapertussis DNA (PCR) NOT DETECTED Nasal Coronavir 229E PCR NOT DETECTED Nasal Coronavir HKU1 PCR NOT DETECTED Nasal Coronavir NL63 PCR NOT DETECTED Nasal Coronavir OC43 PCR NOT DETECTED Nasal Enterovir/Rhinovir PCR NOT DETECTED Nasal Influenza B PCR NOT DETECTED Nasal Influenza A PCR NOT DETECTED Nasal Parainfluen 1 PCR NOT DETECTED Nasal Parainfluen 2 PCR NOT DETECTED Nasal Parainfluen 3 PCR NOT DETECTED Nasal Parainfluen 4 PCR NOT DETECTED Nasal RSV (PCR) NOT DETECTED Nasal B.pertussis DNA PCR NOT DETECTED Nasal C.pneumoniae (PCR) NOT DETECTED Abisai Human Metapneumo PCR NOT DETECTED Nasal M.pneumoniae (PCR) NOT DETECTED Nasal SARS-CoV-2 (PCR) NOT DETECTED PD Medical Decision Making - ED course Complexity details: reviewed results, re-evaluated patient, d/w patient ED course: Patient is a 42-year-old with several autoimmune conditions presenting for evaluation of a fever and abnormal rash. She is slightly tachycardic Initially which resolved without any intervention. The rashes in The right inguinal region. It does not appear to be herpetic. It is not overly convincing for letty lulitis.CBC and chemistry reviewed without significant abnormalities. Respiratory panel is negative for viral infection.Her hip x-ray shows intact hardware. 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 She is clinically nontoxic and is able to ambulate at her baseline.We did discuss possibility of a trial of antibiotics for the rash but again did not feel that it was overly convincing for cellulitis. Patient did not want to trial steroids for the rash. She is comfortable with plan for close follow-up with dermatology. She would like to try anti-inflammatories for some the joint pains that she has been having. Patient counseled on concerning symptoms to return for. Departure - Departure Disposition: 01 Home, Self Care Clinical Impression: Dermatitis, Myalgia Condition: Stable Instructions: ED Dermatitis Non Specific Rash Prescriptions: Meloxicam [Mobic] 7.5 mg PO DAILY #5 tablet Comments: The etiology of your skin rash is unclear but it does not seem definitively A bacterial infection requiring antibiotics. Due to your numerous allergies and need for steroids when taking antibiotics, we have opted to hold off on antibiot ics at this time until you are seen by the corporate strategy associate early next week. Your labs are reassuring and your x-ray shows that your hardware is intact in your hip. Your respiratory swab is negative for the viruses that checks. I have sent a small prescription for meloxicam to [facility] to use for any body aches. Please continue to have close follow-up with your PCP and specialist. If you have any new or worsening symptoms please consider return to the ER. Discharge Date/Time: 07/02/22 01:39
--- NOTE | 2022-07-02 01:25 | XRAY Report ---
PROCEDURE: Hip w/Pelvis 2-3V RT INDICATIONS: pain TECHNIQUE: AP pelvis with lateral view of the right hip. COMPARISON: None. FINDINGS: Bones: A right total hip prosthesis is demonstrated. No fractures or dislocations. No definite susp icious periprosthetic lucencies. Pelvic ring appears intact. Postsurgical changes are partially visu alized within the lower lumbar spine. Soft tissues: The visualized bowel gas pattern is normal. There are periarticular calcifications navin ng the right hip likely representing heterotopic ossification. IMPRESSION: 1. No fracture or dislocation. Reviewed by: Carlos Wilson MD on 07/02/2022 1:34 AM PST Approved by: Carlos Wilson MD on 07/02/2022 1:34 AM PST Station ID: [id number]
[2022-07-02 01:30] VITALS: BP 124/80
== END 2022-07-02 01:39 | disposition home or self-care (01) ==
LOC: ED 22:47
DX: L30.9 Dermatitis, unspecified (principal); M79.10 Myalgia, unspecified site; Z91.09 Other allergy status, other than to drugs and biological substances; Z88.9 Allergy status to unspecified drugs, medicaments and biological substances
CPT/HCPCS: 36415; 80048; 85025; 87633; 96372; 99284

== ENCOUNTER 2022-07-20 03:12 | Emergency (ER) | payer MEDICARE, OTHER, MEDICAID ==
--- OUTSIDE RECORDS SUMMARY | 2022-07-20 03:25 | EXTERNAL MEDICAL SUMMARY RPT | Continuity of Care Document ---
:1980 Author Organization [facility] Address [address] [place] [address] Phone Care Team Providers Name Role Phone Sandy Schaffer Unavailable Unavailable Allergies and Intolerances date description facility type (no date) [place] [facility] (unknown) (no date) Sugars, Metabolically Active [facility] (unknown) (no date) adhesive tape [facility] (unknown) (no date) amitriptyline [facility] (unknown) (no date) cephalexin [facility] (unknown) (no date) clarithromycin [facility] (unknown) (no date) cyclobenzaprine [facility] (unknown) (no date) duloxetine [facility] (unknown) (no date) enoxaparin [facility] (unknown) (no date) erythromycin base [facility] (unknown) (no date) heparin [facility] (unknown) (no date) hydrocodone [facility] (unknown) (no date) methotrexate [facility] (unknown) (no date) ondansetron [facility] (unknown) (no date) prednisone [facility] (unknown) (no date) tizanidine [facility] (unknown) (no date) trazodone [facility] (unknown) (no date) venlafaxine [facility] (unknown) Encounters No information. Functional Status No information. Immunizations No information. Medications date description facility 2022-07-16 00:00 Esomeprazole Magnesium [facility] Problems date description facility 2022-07-16 00:00 Abdominal pain [facility] Procedures date description facility 2022-07-16 00:00 US abdomen complete [facility] Results/Labs test date author facility value unit interpret ation Result panel 1 (unknown) (no date) (unknown) [place] ([facility]) Result panel 2 (unknown) (no date) (unknown) [place] [facility]) Result panel 3 (unknown) (no date) (unknown) [place] [facility]) Result panel 4 (unknown) (no date) (unknown[place] [facility]) Result panel 5 (unknown) (no date) (unknown[facility]) Result panel 6 (unknown) (no date) (unknown[facility]) Result panel 7 (unknown) (no date) (unknown[facility]) Result panel 8 (unknown) (no date) (unknown[facility]) Result panel 9 (unknown) (no date) (unknown[facility]) Result panel 10 (unknown) (no date) (unknown[facility]) Result panel 11 (unknown) (no date) (unknown[facility]) Result panel 12 (unknown) (no date) (unknown[facility]) Result panel 13 (unknown) (no date) (unknown[facility]) Result panel 14 (unknown) (no date) (unknown[facility]) Result panel 15 (unknown) (no date) (unknown[facility]) Result panel 16 (unknown) (no date) (unknown[facility]) Result panel 17 (unknown) (no date) (unknown[facility]) Result panel 18 (unknown) (no date) (unknown[facility]) Result panel 19 (unknown) (no date) (unknown[facility]) Result panel 20 (unknown) (no date) (unknown[facility]) Result panel 21 (unknown) (no date) (unknown[facility]) Result panel 22 (unknown) (no date) (unknown[facility]) Result panel 23 (unknown) (no date) (unknown[facility]) Result panel 24 (unknown) (no date) (unknown[facility]) Result panel 25 (unknown) (no date) (unknown[facility]) Result panel 26 (unknown) (no date) (unknown[facility]) Result panel 27 (unknown) (no date) (unknown[facility]) Result panel 28 (unknown) (no date) (unknown[facility]) Result panel 29 (unknown) (no date) (unknown[facility]) Result panel 30 (unknown) (no date) (unknown[facility]) Result panel 31 (unknown) (no date) (unknown[facility]) Result panel 32 (unknown) (no date) (unknown[facility]) Result panel 33 (unknown) (no date) (unknown[facility]) Result panel 34 (unknown) (no date) (unknown[facility]) Result panel 35 (unknown) (no date) (unknown[facility]) Result panel 36 (unknown) (no date) (unknown[facility]) Result panel 37 (unknown) (no date) (unknown[facility]) Result panel 38 (unknown) (no date) (unknown[facility]) Result panel 39 (unknown) (no date) (unknown) [facility]) Result panel 40 (unknown) (no date) (unknown) [facility]) Result panel 41 (unknown) (no date) (unknown) [facility]) Result panel 42 (unknown) (no date) (unknown[facility]) Result panel 43 (unknown) (no date) (unknown) [facility]) Result panel 44 (unknown) (no date) (unknown) [facility]) Result panel 45 (unknown) (no date) (unknown) [facility]) Result panel 46 (unknown) (no date) (unknown[facility]) Result panel 47 (unknown) (no date) (unknown[facility]) Result panel 48 (unknown) (no date) (unknown[facility]) Result panel 49 (unknown) (no date) (unknown[facility]) Result panel 50 (unknown) (no date) (unknown[facility]) Result panel 51 (unknown) (no date) (unknown[facility]) Result panel 52 (unknown) (no date) (unknown[facility]) Result panel 53 (unknown) (no date) (unknown[facility]) Result panel 54 (unknown) (no date) (unknown[facility]) Result panel 55 (unknown) (no date) (unknown[facility]) Result panel 56 (unknown) (no date) (unknown[facility]) Result panel 57 (unknown) (no date) (unknown[facility]) Result panel 58 (unknown) (no date) (unknown[facility]) Result panel 59 (unknown) (no date) (unknown[facility]) Result panel 60 (unknown) (no date) (unknown[facility]) Result panel 61 (unknown) (no date) (unknown[facility]) Result panel 62 (unknown) (no date) (unknown[facility]) Result panel 63 (unknown) (no date) (unknown[facility]) Result panel 64 (unknown) (no date) (unknown) [facility]) Result panel 65 (unknown) (no date) (unknown) [facility]) Result panel 66 (unknown) (no date) (unknown) [facility]) Result panel 67 (unknown) (no date) (unknown) [facility]) Result panel 68 (unknown) (no date) (unknown) [facility]) Result panel 69 (unknown) (no date) (unknown[facility]) Result panel 70 (unknown) (no date) (unknown[facility]) Result panel 71 (unknown) (no date) (unknown[facility]) Result panel 72 (unknown) (no date) (unknown[facility]) Result panel 73 (unknown) (no (unknown) (unknown) (no value) (units (unk nown) date) unknown) (unknown) (no (unknown) (unknown) 'It causes bad (units (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) bone pain' unknown) (unknown) (no (unknown) (unknown) 'It makes me (units (u nknown) date) mean' unknown) (unknown) (no (unknown) (unknown) 'Most metals' (units ( 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) Allergy unknown) (Intermediate, Uncoded 03/04/20 12:24) (unknown) (no (unknown) (unknown) [id number] (units (unkn own) date) unknown) (unknown) (no (unknown) (unknown) 07/08/22 (units (unkno wn) date) unknown) (unknown) (no (unknown) (unknown) 419 (units (unkno wn) date) unknown) (unknown) (no (unknown) (unknown) ADD (attention (units (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) deficit disorder) unknown) (unknown) (no (unknown) (unknown) ADHD (units (unkno wn) date) unknown) (unknown) (no (unknown) (unknown) Age/Sex: 42 / F (units (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) Date of Service: unknown) (unknown) (no (unknown) (unknown) Allergies (units (unkn own) date) unknown) (unknown) (no (unknown) (unknown) [facility] (units (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) Medicine unknown) (unknown) (no (unknown) (unknown) [place] (units ( 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) [id number] unknown) (unknown) (no (unknown) (unknown) Anxiety (units (unkno wn) date) unknown) (unknown) (no (unknown) (unknown) Arthritis (units (unkn own) date) unknown) (unknown) (no (unknown) (unknown) Asthma (units (unkno wn) date) unknown) (unknown) (no (unknown) (unknown) Attending Dr: (units ( 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) Bibi Koroma unknown) Ralf (unknown) (no (unknown) (unknown) : 1980 (units (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) Acct:[id number] unknown) (unknown) (no (unknown) (unknown) Depression (units (unk nown) date) unknown) (unknown) (no (unknown) (unknown) Dept at (units (unkno wn) date) . unknown) (unknown) (no (unknown) (unknown) Difficult (units (unkn own) date) intravenous access unknown) (unknown) (no (unknown) (unknown) Documented By: (units (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) Bibi Koroma unknown) Ralf 07/08/22 1 (unknown) (no (unknown) (unknown) Draft (units (unkno wn) date) unknown) (unknown) (no (unknown) (unknown) Dry eyes (units (unkno wn) date) unknown) (unknown) (no (unknown) (unknown) Eczema (units (unkno wn) date) unknown) (unknown) (no (unknown) (unknown) Family Practice (units (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) Office Visit unknown) (unknown) (no (unknown) (unknown) Fibromyalgia (units (u nknown) date) unknown) (unknown) (no (unknown) (unknown) GERD (units (unkno wn) date) (gastroesophageal unknown) reflux disease) (unknown) (no (unknown) (unknown) H/O left wrist (units (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) surgery unknown) (unknown) (no (unknown) (unknown) History of (units (unk nown) date) Sjogren's disease unknown) (unknown) (no (unknown) (unknown) History of back (units (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) surgery unknown) (unknown) (no (unknown) (unknown) History of (units (unk nown) date) hysterectomy unknown) (unknown) (no (unknown) (unknown) History of lumbar (units (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) spinal fusion unknown) (unknown) (no (unknown) (unknown) History of (units (unk nown) date) temporal artery unknown) biopsy (unknown) (no (unknown) (unknown) History of total (units (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) left hip unknown) arthroplasty (unknown) (no (unknown) (unknown) Hx of (units (unkno wn) date) appendectomy unknown) (unknown) (no (unknown) (unknown) Hx of arthroscopy (units (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) of right knee unknown) (unknown) (no (unknown) (unknown) Hx of (units (unkno wn) date) cholecystectomy unknown) (unknown) (no (unknown) (unknown) Hx of exploratory (units (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) laparotomy unknown) (unknown) (no (unknown) (unknown) Hx of lumbosacral (units (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) spine surgery unknown) (unknown) (no (unknown) (unknown) Hx of spinal (units (u nknown) date) fusion (2017) unknown) (unknown) (no (unknown) (unknown) Hypotension (units (un known) date) unknown) (unknown) (no (unknown) (unknown) Hypothyroid (units (un known) date) unknown) (unknown) (no (unknown) (unknown) IBS (irritable (units (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) bowel syndrome) unknown) (unknown) (no (unknown) (unknown) Intake performed (units (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) by: Chris Patel unknown) (unknown) (no (unknown) (unknown) Intake (units (unkno wn) date) unknown) (unknown) (no (unknown) (unknown) Intake- Clincial (units (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) Staff unknown) (unknown) (no (unknown) (unknown) Loc: [facility] (units (unkno wn) date) unknown) (unknown) (no (unknown) (unknown) Lupus (units (unkno wn) date) unknown) (unknown) (no (unknown) (unknown) Medical History (units (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) (Updated 03/11/20 unknown) @ 08:46 by Nancy Schaffer RN) (unknown) (no (unknown) (unknown) Migraine (units (unkno wn) date) unknown) (unknown) (no (unknown) (unknown) Migraines (units (unkn own) date) unknown) (unknown) (no (unknown) (unknown) PFSH (units (unkno wn) date) unknown) (unknown) (no (unknown) (unknown) PTSD (units (unkno wn) date) (post-traumatic unknown) stress disorder) (unknown) (no (unknown) (unknown) Patient: (units (unkno wn) date) Rachel Osborne F unknown) MR#: M (unknown) (no (unknown) (unknown) [place] (units (un known) date) Allergy unknown) (Intermediate, Verified 03/11/20 07:53) (unknown) (no (unknown) (unknown) Presence of (units (un known) date) neurostimulator unknown) (-2012) (unknown) (no (unknown) (unknown) RLS (restless (units ( 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) legs syndrome) unknown) (unknown) (no (unknown) (unknown) Rash (units (unkno wn) date) unknown) (unknown) (no (unknown) (unknown) Rash, 'severe (units ( 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) body pain' unknown) (unknown) (no (unknown) (unknown) Raynaud's disease (units (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) unknown) (unknown) (no (unknown) (unknown) Reason For Visit (units (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) unknown) (unknown) (no (unknown) (unknown) Rheumatoid (units (unk nown) date) arthritis unknown) (unknown) (no (unknown) (unknown) Scleroderma (units (un known) date) unknown) (unknown) (no (unknown) (unknown) Signed By: (units (unk nown) date) unknown) (unknown) (no (unknown) (unknown) Smoking Status: (units (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) Never smoker unknown) (unknown) (no (unknown) (unknown) Social History (units (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) unknown) (unknown) (no (unknown) (unknown) 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 (2012) (unknown) (no (unknown) (unknown) Sugars, (units (unkno wn) date) Metabolically unknown) Active Adverse Reaction (Verified 03/11/20 08:45) (unknown) (no (unknown) (unknown) Surgical History (units (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) (Updated 03/04/20 unknown) @ 12:47 by Lizbeth Sifuentes RN) (unknown) (no (unknown) (unknown) This note may (units ( 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) have been all or unknown) partially generated using voice recognition (unknown) (no (unknown) (unknown) Tobacco + (units (unkn own) date) Substance Use unknown) (unknown) (no (unknown) (unknown) Tobacco Status (units (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) unknown) (unknown) (no (unknown) (unknown) Vertigo (units (unkno wn) date) unknown) (unknown) (no (unknown) (unknown) Visit Reasons: (units (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) allergic reaction unknown) and hives (unknown) (no (unknown) (unknown) Vomiting (units (unkno wn) date) unknown) (unknown) (no (unknown) (unknown) adhesive tape (units ( 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) Allergy unknown) (Intermediate, Verified 03/11/20 07:53) (unknown) (no (unknown) (unknown) alcohol intake: (units (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) never unknown) (unknown) (no (unknown) (unknown) amitriptyline (units ( 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) Allergy unknown) (Intermediate, Verified 03/11/20 07:53) (unknown) (no (unknown) (unknown) cephalexin [From (units (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) Keflex] Allergy unknown) (Intermediate, Verified 03/11/20 07:53) (unknown) (no (unknown) (unknown) clarithromycin (units (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) Allergy unknown) (Intermediate, Verified 03/11/20 07:53) (unknown) (no (unknown) (unknown) cyclobenzaprine (units (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) Allergy unknown) (Intermediate, Verified 03/11/20 07:53) (unknown) (no (unknown) (unknown) duloxetine [From (units (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) Cymbalta] Allergy unknown) (Intermediate, Verified 03/11/20 07:53) (unknown) (no (unknown) (unknown) enoxaparin [From (units (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) Lovenox] Allergy unknown) (Intermediate, Verified 03/11/20 07:53) (unknown) (no (unknown) (unknown) erythromycin base (units (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) Allergy unknown) (Intermediate, Verified 03/11/20 07:53) (unknown) (no (unknown) (unknown) have occurred. If (units (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) there are any unknown) questions, please contact the Medical Records (unknown) (no (unknown) (unknown) heparin Allergy (units (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) (Intermediate, unknown) Verified 03/11/20 07:53) (unknown) (no (unknown) (unknown) household (units (unkn own) date) members: friend(s) unknown) (unknown) (no (unknown) (unknown) hydrocodone (units (un known) date) Allergy (Mild, unknown) Verified 03/11/20 07:53) (unknown) (no (unknown) (unknown) may occur. (units (unk nown) date) Occasional unknown) wrong-word or 'sound-alike' substitutions may have (unknown) (no (unknown) (unknown) methotrexate (units (u nknown) date) Allergy (Severe, unknown) Verified 03/11/20 07:53) (unknown) (no (unknown) (unknown) mycins Allergy (units (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) (Severe, Uncoded unknown) 03/11/20 08:50) (unknown) (no (unknown) (unknown) occurred due to (units (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) the inherent unknown) limitations of voice recognition software. Please (unknown) (no (unknown) (unknown) ondansetron (units (un known) date) Allergy unknown) (Intermediate, Verified 03/11/20 07:53) (unknown) (no (unknown) (unknown) prednisone (units (unk nown) date) Adverse Reaction unknown) (Severe, Verified 03/11/20 07:53) (unknown) (no (unknown) (unknown) read the note (units ( 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) carefully and unknown) recognize, using context, where these substitutions (unknown) (no (unknown) (unknown) software. (units (unkn own) date) Although every unknown) effort is made to edit content, apparel merchandiser errors (unknown) (no (unknown) (unknown) tizanidine [From (units (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) Zanaflex] Allergy unknown) (Intermediate, Verified 03/11/20 07:53) (unknown) (no (unknown) (unknown) trazodone Adverse (units (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) Reaction (Severe, unknown) Verified 03/11/20 07:53) (unknown) (no (unknown) (unknown) venlafaxine [From (units (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) Effexor] Allergy unknown) (Intermediate, Verified 03/11/20 07:53) Result panel 74 (unknown) (no (unknown) (unknown) (no value) (units (unk nown) date) unknown) (unknown) (no (unknown) (unknown) 'It causes bad (units (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) bone pain' unknown) (unknown) (no (unknown) (unknown) 'It makes me (units (u nknown) date) mean' unknown) (unknown) (no (unknown) (unknown) 'Most metals' (units ( 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) Allergy unknown) (Intermediate, Uncoded 03/04/20 12:24) (unknown) (no (unknown) (unknown) [id number] (units (unkn own) date) unknown) (unknown) (no (unknown) (unknown) 07/08/22 (units (unkno wn) date) unknown) (unknown) (no (unknown) (unknown) 14:24 (units (unkno wn) date) unknown) (unknown) (no (unknown) (unknown) 419 (units (unkno wn) date) unknown) (unknown) (no (unknown) (unknown) ADD (attention (units (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) deficit disorder) unknown) (unknown) (no (unknown) (unknown) ADHD (units (unkno wn) date) unknown) (unknown) (no (unknown) (unknown) Age/Sex: 42 / F (units (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) Date of Service: unknown) (unknown) (no (unknown) (unknown) Allergies (units (unkn own) date) unknown) (unknown) (no (unknown) (unknown) [facility] (units (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) Medicine unknown) (unknown) (no (unknown) (unknown) [place] (units ( 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) [id number] unknown) (unknown) (no (unknown) (unknown) Anxiety (units (unkno wn) date) unknown) (unknown) (no (unknown) (unknown) Arthritis (units (unkn own) date) unknown) (unknown) (no (unknown) (unknown) Asthma (units (unkno wn) date) unknown) (unknown) (no (unknown) (unknown) Attending Dr: (units ( 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) Bibi Koroma unknown) P.A-C (unknown) (no (unknown) (unknown) BP 128/80 (units (unkn own) date) unknown) (unknown) (no (unknown) (unknown) Blood Pressure (units (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) Location Rt unknown) brachial (unknown) (no (unknown) (unknown) : 1980 (units (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) Acct:[id number] unknown) (unknown) (no (unknown) (unknown) Depression (units (unk nown) date) unknown) (unknown) (no (unknown) (unknown) Dept at (units (unkno wn) date) . unknown) (unknown) (no (unknown) (unknown) Difficult (units (unkn own) date) intravenous access unknown) (unknown) (no (unknown) (unknown) Documented By: (units (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) Bibi Koroma unknown) Ralf 07/08/22 1 (unknown) (no (unknown) (unknown) Draft (units (unkno wn) date) unknown) (unknown) (no (unknown) (unknown) Dry eyes (units (unkno wn) date) unknown) (unknown) (no (unknown) (unknown) Eczema (units (unkno wn) date) unknown) (unknown) (no (unknown) (unknown) Family Practice (units (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) Office Visit unknown) (unknown) (no (unknown) (unknown) Fibromyalgia (units (u nknown) date) unknown) (unknown) (no (unknown) (unknown) GERD (units (unkno wn) date) (gastroesophageal unknown) reflux disease) (unknown) (no (unknown) (unknown) H/O left wrist (units (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) surgery unknown) (unknown) (no (unknown) (unknown) History of (units (unk nown) date) Sjogren's disease unknown) (unknown) (no (unknown) (unknown) History of back (units (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) surgery unknown) (unknown) (no (unknown) (unknown) History of (units (unk nown) date) hysterectomy unknown) (unknown) (no (unknown) (unknown) History of lumbar (units (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) spinal fusion unknown) (unknown) (no (unknown) (unknown) History of (units (unk nown) date) temporal artery unknown) biopsy (unknown) (no (unknown) (unknown) History of total (units (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) left hip unknown) arthroplasty (unknown) (no (unknown) (unknown) Hx of (units (unkno wn) date) appendectomy unknown) (unknown) (no (unknown) (unknown) Hx of arthroscopy (units (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) of right knee unknown) (unknown) (no (unknown) (unknown) Hx of (units (unkno wn) date) cholecystectomy unknown) (unknown) (no (unknown) (unknown) Hx of exploratory (units (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) laparotomy unknown) (unknown) (no (unknown) (unknown) Hx of lumbosacral (units (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) spine surgery unknown) (unknown) (no (unknown) (unknown) Hx of spinal (units (u nknown) date) fusion (2017) unknown) (unknown) (no (unknown) (unknown) Hypotension (units (un known) date) unknown) (unknown) (no (unknown) (unknown) Hypothyroid (units (un known) date) unknown) (unknown) (no (unknown) (unknown) IBS (irritable (units (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) bowel syndrome) unknown) (unknown) (no (unknown) (unknown) Intake Note: (units (u nknown) date) unknown) (unknown) (no (unknown) (unknown) Intake performed (units (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) by: Chris Patel unknown) (unknown) (no (unknown) (unknown) Intake (units (unkno wn) date) unknown) (unknown) (no (unknown) (unknown) Intake- Clincial (units (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) Staff unknown) (unknown) (no (unknown) (unknown) Loc: [facility] (units (unkno wn) date) unknown) (unknown) (no (unknown) (unknown) Lupus (units (unkno wn) date) unknown) (unknown) (no (unknown) (unknown) Medical History (units (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) (Updated 03/11/20 unknown) @ 08:46 by Nancy Schaffer RN) (unknown) (no (unknown) (unknown) Migraine (units (unkno wn) date) unknown) (unknown) (no (unknown) (unknown) Migraines (units (unkn own) date) unknown) (unknown) (no (unknown) (unknown) Oxygen Delivery (units (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) Method room air unknown) (unknown) (no (unknown) (unknown) PFSH (units (unkno wn) date) unknown) (unknown) (no (unknown) (unknown) PTSD (units (unkno wn) date) (post-traumatic unknown) stress disorder) (unknown) (no (unknown) (unknown) Patient: (units (unkno wn) date) Rachel Osborne unknown) MR#: M (unknown) (no (unknown) (unknown) Penicillins (units (un known) date) Allergy unknown) (Intermediate, Verified 03/11/20 07:53) (unknown) (no (unknown) (unknown) Position Sitting (units (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) unknown) (unknown) (no (unknown) (unknown) Presence of (units (un known) date) neurostimulator unknown) (-2012) (unknown) (no (unknown) (unknown) Pulse 97 H (units (unk nown) date) unknown) (unknown) (no (unknown) (unknown) Pulse Oximetry (units (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) (%) 97 unknown) (unknown) (no (unknown) (unknown) Pulse Source (units (u nknown) date) Monitor unknown) (unknown) (no (unknown) (unknown) RLS (restless (units ( 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) legs syndrome) unknown) (unknown) (no (unknown) (unknown) Rash (units (unkno wn) date) unknown) (unknown) (no (unknown) (unknown) Rash, 'severe (units ( 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) body pain' unknown) (unknown) (no (unknown) (unknown) Raynaud's disease (units (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) unknown) (unknown) (no (unknown) (unknown) Reason For Visit (units (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) unknown) (unknown) (no (unknown) (unknown) Rheumatoid (units (unk nown) date) arthritis unknown) (unknown) (no (unknown) (unknown) Scleroderma (units (un known) date) unknown) (unknown) (no (unknown) (unknown) Signed By: (units (unk nown) date) unknown) (unknown) (no (unknown) (unknown) Smoking Status: (units (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) Never smoker unknown) (unknown) (no (unknown) (unknown) Social History (units (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) unknown) (unknown) (no (unknown) (unknown) 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 (2012) (unknown) (no (unknown) (unknown) Sugars, (units (unkno wn) date) Metabolically unknown) Active Adverse Reaction (Verified 03/11/20 08:45) (unknown) (no (unknown) (unknown) Surgical History (units (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) (Updated 03/04/20 unknown) @ 12:47 by Lizbeth Sifuentes RN) (unknown) (no (unknown) (unknown) This note may (units ( 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) have been all or unknown) partially generated using voice recognition (unknown) (no (unknown) (unknown) Tobacco + (units (unkn own) date) Substance Use unknown) (unknown) (no (unknown) (unknown) Tobacco Status (units (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) unknown) (unknown) (no (unknown) (unknown) Vertigo (units (unkno wn) date) unknown) (unknown) (no (unknown) (unknown) Visit Reasons: (units (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) allergic reaction unknown) and hives (unknown) (no (unknown) (unknown) Vitals (units (unkno wn) date) unknown) (unknown) (no (unknown) (unknown) Vomiting (units (unkno wn) date) unknown) (unknown) (no (unknown) (unknown) Weight 200 lb (units ( 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) unknown) (unknown) (no (unknown) (unknown) adhesive tape (units ( 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) Allergy unknown) (Intermediate, Verified 03/11/20 07:53) (unknown) (no (unknown) (unknown) after using that (units (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) pt flared up in unknown) hives and is very burning (unknown) (no (unknown) (unknown) alcohol intake: (units (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) never unknown) (unknown) (no (unknown) (unknown) amitriptyline (units ( 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) Allergy unknown) (Intermediate, Verified 03/11/20 07:53) (unknown) (no (unknown) (unknown) cephalexin [From (units (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) Keflex] Allergy unknown) (Intermediate, Verified 03/11/20 07:53) (unknown) (no (unknown) (unknown) clarithromycin (units (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) Allergy unknown) (Intermediate, Verified 03/11/20 07:53) (unknown) (no (unknown) (unknown) cyclobenzaprine (units (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) Allergy unknown) (Intermediate, Verified 03/11/20 07:53) (unknown) (no (unknown) (unknown) duloxetine [From (units (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) Cymbalta] Allergy unknown) (Intermediate, Verified 03/11/20 07:53) (unknown) (no (unknown) (unknown) enoxaparin [From (units (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) Lovenox] Allergy unknown) (Intermediate, Verified 03/11/20 07:53) (unknown) (no (unknown) (unknown) erythromycin base (units (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) Allergy unknown) (Intermediate, Verified 03/11/20 07:53) (unknown) (no (unknown) (unknown) have occurred. If (units (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) there are any unknown) questions, please contact the Medical Records (unknown) (no (unknown) (unknown) heparin Allergy (units (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) (Intermediate, unknown) Verified 03/11/20 07:53) (unknown) (no (unknown) (unknown) household (units (unkn own) date) members: friend(s) unknown) (unknown) (no (unknown) (unknown) hydrocodone (units (un known) date) Allergy (Mild, unknown) Verified 03/11/20 07:53) (unknown) (no (unknown) (unknown) may occur. (units (unk nown) date) Occasional unknown) wrong-word or 'sound-alike' substitutions may have (unknown) (no (unknown) (unknown) methotrexate (units (u nknown) date) Allergy (Severe, unknown) Verified 03/11/20 07:53) (unknown) (no (unknown) (unknown) mycins Allergy (units (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) (Severe, Uncoded unknown) 03/11/20 08:50) (unknown) (no (unknown) (unknown) occurred due to (units (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) the inherent unknown) limitations of voice recognition software. Please (unknown) (no (unknown) (unknown) ondansetron (units (un known) date) Allergy unknown) (Intermediate, Verified 03/11/20 07:53) (unknown) (no (unknown) (unknown) prednisone (units (unk nown) date) Adverse Reaction unknown) (Severe, Verified 03/11/20 07:53) (unknown) (no (unknown) (unknown) pt has taken (units (u nknown) date) benadryl and unknown) hydroxazine and claratin (unknown) (no (unknown) (unknown) pt is here for (units (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) possible allergic unknown) reaction (unknown) (no (unknown) (unknown) pt saw (units (unkno wn) date) dermatology and unknown) they recommended using vasaline for dry skin (unknown) (no (unknown) (unknown) read the note (units ( 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) carefully and unknown) recognize, using context, where these substitutions (unknown) (no (unknown) (unknown) software. (units (unkn own) date) Although every unknown) effort is made to edit content, apparel merchandiser errors (unknown) (no (unknown) (unknown) tizanidine [From (units (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) Zanaflex] Allergy unknown) (Intermediate, Verified 03/11/20 07:53) (unknown) (no (unknown) (unknown) trazodone Adverse (units (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) Reaction (Severe, unknown) Verified 03/11/20 07:53) (unknown) (no (unknown) (unknown) venlafaxine [From (units (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) Effexor] Allergy unknown) (Intermediate, Verified 03/11/20 07:53) Result panel 75 (unknown) (no (unknown) (unknown) (no value) (units (unk nown) date) unknown) (unknown) (no (unknown) (unknown) 'It causes bad bone (unit s (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) pain' unknown) (unknown) (no (unknown) (unknown) 'It makes me mean' (units (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) unknown) (unknown) (no (unknown) (unknown) 'Most metals' (units ( 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) Allergy unknown) (Intermediate, Uncoded 03/04/20 12:24) (unknown) (no (unknown) (unknown) (1) Rash: (units (unkn own) date) unknown) (unknown) (no (unknown) (unknown) [id number] (units (unkn own) date) unknown) (unknown) (no (unknown) (unknown) 07/08/22 1510 (units ( 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) unknown) (unknown) (no (unknown) (unknown) 07/08/22 (units (unkno wn) date) unknown) (unknown) (no (unknown) (unknown) 14:24 (units (unkno wn) date) unknown) (unknown) (no (unknown) (unknown) 2:00 a.m.. Rash (units (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) today appears fairly unknown) consistent with a folliculitis that is (unknown) (no (unknown) (unknown) 419 (units (unkno wn) date) unknown) (unknown) (no (unknown) (unknown) 42-year-old female (units (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) with multiple unknown) medication allergies seeing Dermatology (unknown) (no (unknown) (unknown) 42-year-old woman (units (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) with a history of unknown) multiple (18) medication allergies, adhesive (unknown) (no (unknown) (unknown) ADD (attention (units (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) deficit disorder) unknown) (unknown) (no (unknown) (unknown) ADHD (units (unkno wn) date) unknown) (unknown) (no (unknown) (unknown) Age/Sex: 42 / F (units (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) Date of Service: unknown) (unknown) (no (unknown) (unknown) All systems (units (un known) date) reviewed + are unknown) unremarkable except as noted in HPI and below (unknown) (no (unknown) (unknown) Allergies (units (unkn own) date) unknown) (unknown) (no (unknown) (unknown) [facility] (units (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) Medicine unknown) (unknown) (no (unknown) (unknown) [place] [address] (unit s (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) unknown) (unknown) (no (unknown) (unknown) Anxiety (units (unkno wn) date) unknown) (unknown) (no (unknown) (unknown) Arthritis (units (unkn own) date) unknown) (unknown) (no (unknown) (unknown) Assessment + Plan (units (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) unknown) (unknown) (no (unknown) (unknown) Asthma (units (unkno wn) date) unknown) (unknown) (no (unknown) (unknown) Attending Dr: (units ( 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) Bibi Koroma unknown) P.A-C (unknown) (no (unknown) (unknown) BACK: Nontender (units (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) without deformity or unknown) crepitance. No flank tenderness. (unknown) (no (unknown) (unknown) BP 128/80 (units (unkn own) date) unknown) (unknown) (no (unknown) (unknown) Blood Pressure (units (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) Location Rt brachial unknown) (unknown) (no (unknown) (unknown) CARDIOVASCULAR: (units (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) Regular rate and unknown) rhythm without murmurs, gallops, or rubs. (unknown) (no (unknown) (unknown) Chief Complaint (units (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) unknown) (unknown) (no (unknown) (unknown) Chief Complaint: (units (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) rash/allergic unknown) reaction (unknown) (no (unknown) (unknown) Const (units (unkno wn) date) unknown) (unknown) (no (unknown) (unknown) : 1980 (units (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) Acct:[id number] unknown) (unknown) (no (unknown) (unknown) Decadron and has (units (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) taken this before unknown) without a problem. Per the patient (unknown) (no (unknown) (unknown) Depression (units (unk nown) date) unknown) (unknown) (no (unknown) (unknown) Dept at (units (unkno wn) date) . unknown) (unknown) (no (unknown) (unknown) Details: (units (unkno wn) date) unknown) (unknown) (no (unknown) (unknown) Difficult (units (unkn own) date) intravenous access unknown) (unknown) (no (unknown) (unknown) Documented By: (units (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) Bibi Koroma unknown) Ralf 07/08/22 1 (unknown) (no (unknown) (unknown) Dry eyes (units (unkno wn) date) unknown) (unknown) (no (unknown) (unknown) ENT: Nose without (units (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) bleeding, purulent unknown) drainage. Throat without erythema, (unknown) (no (unknown) (unknown) EXTREMITIES: SEE (units (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) SKIN No edema or unknown) joint tenderness. (unknown) (no (unknown) (unknown) EYES: Pupils equal (units (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) round and reactive. unknown) Extraocular motions intact. No scleral (unknown) (no (unknown) (unknown) Eczema (units (unkno wn) date) unknown) (unknown) (no (unknown) (unknown) Exam Narrative (units (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) unknown) (unknown) (no (unknown) (unknown) Exam Narrative: (units (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) unknown) (unknown) (no (unknown) (unknown) Exam (units (unkno wn) date) unknown) (unknown) (no (unknown) (unknown) Family Practice (units (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) Office Visit unknown) (unknown) (no (unknown) (unknown) Fibromyalgia (units (u nknown) date) unknown) (unknown) (no (unknown) (unknown) GENERAL: [42] year (units (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) old patient appears unknown) stated age. Obese, Well-developed (unknown) (no (unknown) (unknown) GERD (units (unkno wn) date) (gastroesophageal unknown) reflux disease) (unknown) (no (unknown) (unknown) H/O left wrist (units (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) surgery unknown) (unknown) (no (unknown) (unknown) HEAD: Atraumatic. (units (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) Normocephalic. unknown) (unknown) (no (unknown) (unknown) HPI (units (unkno wn) date) unknown) (unknown) (no (unknown) (unknown) History of (units (unk nown) date) Sjogren's disease unknown) (unknown) (no (unknown) (unknown) History of back (units (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) surgery unknown) (unknown) (no (unknown) (unknown) History of (units (unk nown) date) hysterectomy unknown) (unknown) (no (unknown) (unknown) History of lumbar (units (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) spinal fusion unknown) (unknown) (no (unknown) (unknown) History of temporal (unit s (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) artery biopsy unknown) (unknown) (no (unknown) (unknown) History of total (units (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) left hip unknown) arthroplasty (unknown) (no (unknown) (unknown) Hx of appendectomy (units (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) unknown) (unknown) (no (unknown) (unknown) Hx of arthroscopy (units (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) of right knee unknown) (unknown) (no (unknown) (unknown) Hx of (units (unkno wn) date) cholecystectomy unknown) (unknown) (no (unknown) (unknown) Hx of exploratory (units (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) laparotomy unknown) (unknown) (no (unknown) (unknown) Hx of lumbosacral (units (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) spine surgery unknown) (unknown) (no (unknown) (unknown) Hx of spinal fusion (unit s (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) (2017) unknown) (unknown) (no (unknown) (unknown) Hypotension (units (un known) date) unknown) (unknown) (no (unknown) (unknown) Hypothyroid (units (un known) date) unknown) (unknown) (no (unknown) (unknown) IBS (irritable (units (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) bowel syndrome) unknown) (unknown) (no (unknown) (unknown) Intake Note: (units (u nknown) date) unknown) (unknown) (no (unknown) (unknown) Intake performed (units (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) by: Chris Patel unknown) (unknown) (no (unknown) (unknown) Intake (units (unkno wn) date) unknown) (unknown) (no (unknown) (unknown) Intake- Clincial (units (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) Staff unknown) (unknown) (no (unknown) (unknown) Loc: [facility] (units (unkno wn) date) unknown) (unknown) (no (unknown) (unknown) Lupus (units (unkno wn) date) unknown) (unknown) (no (unknown) (unknown) Medical History (units (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) (Reviewed 07/08/22 @ unknown) 14:58 by Bibi Koroma PA-C) (unknown) (no (unknown) (unknown) Medications: (units (u nknown) date) unknown) (unknown) (no (unknown) (unknown) Migraine (units (unkno wn) date) unknown) (unknown) (no (unknown) (unknown) Migraines (units (unkn own) date) unknown) (unknown) (no (unknown) (unknown) NECK: Trachea (units ( 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) midline. unknown) (unknown) (no (unknown) (unknown) NEURO: AOx3. (units (u nknown) date) unknown) (unknown) (no (unknown) (unknown) New (units (unkno wn) date) unknown) (unknown) (no (unknown) (unknown) Oxygen Delivery (units (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) Method room air unknown) (unknown) (no (unknown) (unknown) PFSH (units (unkno wn) date) unknown) (unknown) (no (unknown) (unknown) PTSD (units (unkno wn) date) (post-traumatic unknown) stress disorder) (unknown) (no (unknown) (unknown) Patient states that (unit s (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) she recently saw unknown) dermatology for some of her ongoing skin (unknown) (no (unknown) (unknown) Patient: (units (unkno wn) date) Rachel Osborne unknown) MR#: M (unknown) (no (unknown) (unknown) Penicillins Allergy (unit s (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) (Intermediate, unknown) Verified 03/11/20 07:53) (unknown) (no (unknown) (unknown) Plan (units (unkno wn) date) unknown) (unknown) (no (unknown) (unknown) Position Sitting (units (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) unknown) (unknown) (no (unknown) (unknown) Presence of (units (un known) date) neurostimulator unknown) (-2012) (unknown) (no (unknown) (unknown) Pulse 97 H (units (unk nown) date) unknown) (unknown) (no (unknown) (unknown) Pulse Oximetry (%) (units (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) 97 unknown) (unknown) (no (unknown) (unknown) Pulse Source (units (u nknown) date) Monitor unknown) (unknown) (no (unknown) (unknown) R lower (units (unkno wn) date) abdomen/Right hip, unknown) with stitch in place from recent biopsy. The bilatera (unknown) (no (unknown) (unknown) RESPIRATORY: Clear (units (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) to auscultation. unknown) Breath sounds equal bilaterally. No wheezes, (unknown) (no (unknown) (unknown) RLS (restless legs (units (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) syndrome) unknown) (unknown) (no (unknown) (unknown) ROS (units (unkno wn) date) unknown) (unknown) (no (unknown) (unknown) Rash (units (unkno wn) date) unknown) (unknown) (no (unknown) (unknown) Rash, 'severe body (units (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) pain' unknown) (unknown) (no (unknown) (unknown) Raynaud's disease (units (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) unknown) (unknown) (no (unknown) (unknown) Reason For Visit (units (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) unknown) (unknown) (no (unknown) (unknown) Return precautions (units (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) provided, all unknown) questions answered. (unknown) (no (unknown) (unknown) Rheumatoid (units (unk nown) date) arthritis unknown) (unknown) (no (unknown) (unknown) SKIN: The patient (units (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) has a large roughly unknown) annular brownish/erythematou s rash on her (unknown) (no (unknown) (unknown) Scleroderma (units (un known) date) unknown) (unknown) (no (unknown) (unknown) She is counseled (units (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) regarding any new or unknown) worsening symptoms and specifically (unknown) (no (unknown) (unknown) Signed By: (units (unk nown) date) <Electronically unknown) signed by Bibi Koroma> (unknown) (no (unknown) (unknown) Signed (units (unkno wn) date) unknown) (unknown) (no (unknown) (unknown) Smoking Status: (units (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) Never smoker unknown) (unknown) (no (unknown) (unknown) Social History (units (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) unknown) (unknown) (no (unknown) (unknown) Spinal stenosis of (units (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) lumbar region with unknown) radiculopathy (2012) (unknown) (no (unknown) (unknown) Sugars, (units (unkno wn) date) Metabolically Active unknown) Adverse Reaction (Verified 03/11/20 08:45) (unknown) (no (unknown) (unknown) Surgical History (units (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) (Reviewed 07/08/22 @ unknown) 14:59 by Bibi Franci, PA-C) (unknown) (no (unknown) (unknown) This note may have (units (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) been all or unknown) partially generated using voice recognition (unknown) (no (unknown) (unknown) Tobacco + Substance (unit s (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) Use unknown) (unknown) (no (unknown) (unknown) Tobacco Status (units (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) unknown) (unknown) (no (unknown) (unknown) Vaseline. She (units ( 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) states she use this unknown) at around 2:00 a.m. this morning on her arms (unknown) (no (unknown) (unknown) Vertigo (units (unkno wn) date) unknown) (unknown) (no (unknown) (unknown) Visit Reasons: (units (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) allergic reaction unknown) and hives (unknown) (no (unknown) (unknown) Vitals (units (unkno wn) date) unknown) (unknown) (no (unknown) (unknown) Vomiting (units (unkno wn) date) unknown) (unknown) (no (unknown) (unknown) Weight 90.718 kg (units (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) unknown) (unknown) (no (unknown) (unknown) about this and see (units (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) what the results of unknown) the biopsy were. She has so many (unknown) (no (unknown) (unknown) adhesive tape (units ( 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) Allergy unknown) (Intermediate, Verified 03/11/20 07:53) (unknown) (no (unknown) (unknown) advised if she (units (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) develops respiratory unknown) symptoms, vomiting or diarrhea dizziness (unknown) (no (unknown) (unknown) advised she may (units (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) continue other home unknown) treatments that have been effective for her (unknown) (no (unknown) (unknown) after using that pt (unit s (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) flared up in hives unknown) and is very burning (unknown) (no (unknown) (unknown) alcohol intake: (units (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) never unknown) (unknown) (no (unknown) (unknown) allergy medicines (units (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) which she has taken unknown) without a problem (benadryl, hydroxyzine) (unknown) (no (unknown) (unknown) amitriptyline (units ( 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) Allergy unknown) (Intermediate, Verified 03/11/20 07:53) (unknown) (no (unknown) (unknown) and itchy with (units (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) palpation, there are unknown) no pustules or vesicles. There are no signs (unknown) (no (unknown) (unknown) and lower legs and (units (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) developed a burning unknown) itchy rash as a result. She has tried (unknown) (no (unknown) (unknown) at location of hair (unit s (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) follicles it is unknown) papular and erythematous reportedly tender (unknown) (no (unknown) (unknown) cephalexin [From (units (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) Keflex] Allergy unknown) (Intermediate, Verified 03/11/20 07:53) (unknown) (no (unknown) (unknown) clarithromycin (units (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) Allergy unknown) (Intermediate, Verified 03/11/20 07:53) (unknown) (no (unknown) (unknown) cyclobenzaprine (units (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) Allergy unknown) (Intermediate, Verified 03/11/20 07:53) (unknown) (no (unknown) (unknown) dermatology office (units (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) recommended that she unknown) get on some steroid medication to tone (unknown) (no (unknown) (unknown) dexamethasone 20 mg (unit s (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) PO DAILY 5 days 5 unknown) tabs 0RF rash (unknown) (no (unknown) (unknown) done for another (units (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) ongoing rash issue unknown) on her lower abdomen and hip. They had (unknown) (no (unknown) (unknown) duloxetine [From (units (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) Cymbalta] Allergy unknown) (Intermediate, Verified 03/11/20 07:53) (unknown) (no (unknown) (unknown) enoxaparin [From (units (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) Lovenox] Allergy unknown) (Intermediate, Verified 03/11/20 07:53) (unknown) (no (unknown) (unknown) erythema of visible (unit s (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) areas unknown) (unknown) (no (unknown) (unknown) erythromycin base (units (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) Allergy unknown) (Intermediate, Verified 03/11/20 07:53) (unknown) (no (unknown) (unknown) following with (units (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) dermatology and unknown) awaiting results with them for this particular (unknown) (no (unknown) (unknown) for a few weeks. (units (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) They noted that she unknown) had dry skin and recommended she try (unknown) (no (unknown) (unknown) from a mild on (units (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) again off again URI unknown) that she has had for a few weeks. She also (unknown) (no (unknown) (unknown) have occurred. If (units (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) there are any unknown) questions, please contact the Medical Records (unknown) (no (unknown) (unknown) heparin Allergy (units (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) (Intermediate, unknown) Verified 03/11/20 07:53) (unknown) (no (unknown) (unknown) household members: (units (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) friend(s) unknown) (unknown) (no (unknown) (unknown) hrs and I am not (units (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) suspicious for unknown) anaphylactic reaction. The patient does have a (unknown) (no (unknown) (unknown) hydrocodone Allergy (unit s (unknown) date) (Mild, Verified unknown) 03/11/20 07:53) (unknown) (no (unknown) (unknown) hydroxyzine and (units (unknown) date) Benadryl which did unknown) not seem to help. She states that she can (unknown) (no (unknown) (unknown) icterus. No (units (un known) date) injection or unknown) drainage. (unknown) (no (unknown) (unknown) in the past and not (unit s (unknown) date) cause problems such unknown) as oatmeal baths, and [id number] (unknown) (no (unknown) (unknown) issues and they (units (unknown) date) biopsied a rash that unknown) has been present on her right hip and flank (unknown) (no (unknown) (unknown) l arms and lower (units (unknown) date) extremities have a unknown) scattered rash appears to be occurring only (unknown) (no (unknown) (unknown) lightheadedness (units (unknown) date) syncope or worsening unknown) severe rash she should call 911 immediately (unknown) (no (unknown) (unknown) may occur. (units (unk nown) date) Occasional unknown) wrong-word or 'sound-alike' substitutions may have (unknown) (no (unknown) (unknown) medication (units (unk nown) date) allergies and unknown) clearly significant skin sensitivity I am hesitant to (unknown) (no (unknown) (unknown) medication and told (unit s (unknown) date) not to restart it unknown) (Rinvoq) until she is feeling 100% better (unknown) (no (unknown) (unknown) medicine. Patient (units (unknown) date) states that she has unknown) been off of her immunosuppressant (unknown) (no (unknown) (unknown) methotrexate (units (u nknown) date) Allergy (Severe, unknown) Verified 03/11/20 07:53) (unknown) (no (unknown) (unknown) mild. However (units ( unknown) date) patient reports she unknown) does not shave. Possibly this is a reaction (unknown) (no (unknown) (unknown) mycins Allergy (units (unknown) date) (Severe, Uncoded unknown) 03/11/20 08:50) (unknown) (no (unknown) (unknown) now to include a (units (unknown) date) rash in her groin unknown) area that she feels is the same thing, and (unknown) (no (unknown) (unknown) occurred due to the (unit s (unknown) date) inherent limitations unknown) of voice recognition software. Please (unknown) (no (unknown) (unknown) of excoriation. (units (unknown) date) Patient has no rash unknown) consistent with hives. No other rash or (unknown) (no (unknown) (unknown) ondansetron Allergy (unit s (unknown) date) (Intermediate, unknown) Verified 03/11/20 07:53) (unknown) (no (unknown) (unknown) or report to (units (u nknown) date) emergency unknown) department. Patient is in agreement with the plan. (unknown) (no (unknown) (unknown) oropharyngeal (units ( unknown) date) swelling unknown) (unknown) (no (unknown) (unknown) patient, in mild (units (unknown) date) distress, Bengali unknown) [employer] dog resting next to pt in exam (unknown) (no (unknown) (unknown) prednisone Adverse (units (unknown) date) Reaction (Severe, unknown) Verified 03/11/20 07:53) (unknown) (no (unknown) (unknown) prednisone allergy (units (unknown) date) 'bone pain', she unknown) states that she can take dexamethasone or (unknown) (no (unknown) (unknown) prescribe any (units (u nknown) date) additional topical unknown) medication for her especially as she is already (unknown) (no (unknown) (unknown) presents with (units (u nknown) date) concern for a rash unknown) that developed on her arms and lower legs after (unknown) (no (unknown) (unknown) pt has taken (units (u nknown) date) benadryl and unknown) hydroxazine and claratin (unknown) (no (unknown) (unknown) pt is here for (units (unknown) date) possible allergic unknown) reaction (unknown) (no (unknown) (unknown) pt saw dermatology (units (unknown) date) and they recommended unknown) using vasaline for dry skin (unknown) (no (unknown) (unknown) rales, or rhonchi. (units (unknown) date) unknown) (unknown) (no (unknown) (unknown) rash. Patient is (units (unknown) date) prescribed unknown) dexamethasone orally for a 4 day course. She (unknown) (no (unknown) (unknown) reaction and she (units (unknown) date) has no respiratory unknown) or GI symptoms, she has had the rash for 13 (unknown) (no (unknown) (unknown) read the note (units ( unknown) date) carefully and unknown) recognize, using context, where these substitutions (unknown) (no (unknown) (unknown) recommended Vaseline (unit s (unknown) date) for dry skin--the unknown) use of which precipitated her new rash at (unknown) (no (unknown) (unknown) recommended that (units (unknown) date) she go to a 'minute unknown) clinic' and get prescribed some steroid (unknown) (no (unknown) (unknown) region. Counseled (units (unknown) date) the patient that she unknown) should wait and talk to Dermatology (unknown) (no (unknown) (unknown) related allergic (units (unknown) date) reaction after using unknown) Vaseline at 2:00 a.m. this morning. (unknown) (no (unknown) (unknown) rm. (units (unkno wn) date) unknown) (unknown) (no (unknown) (unknown) she wonders if she (units (unknown) date) should start using a unknown) topical cream for this. She denies any (unknown) (no (unknown) (unknown) shortness of (units (u nknown) date) breath, diarrhea, unknown) vomiting, syncope or any other symptoms. (unknown) (no (unknown) (unknown) software. 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 Patient (units (unknown) date) also inquired if she unknown) should get a topical cream to address (unknown) (no (unknown) (unknown) tizanidine [From (units (unknown) date) Zanaflex] Allergy unknown) (Intermediate, Verified 03/11/20 07:53) (unknown) (no (unknown) (unknown) to the Vaseline. Is (unit s (unknown) date) not consistent with unknown) a typical anaphylactic allergic (unknown) (no (unknown) (unknown) tonsillar (units (unkn own) date) hypertrophy or unknown) exudate. Airway patent. There is no angioedema or (unknown) (no (unknown) (unknown) trazodone Adverse (units (unknown) date) Reaction (Severe, unknown) Verified 03/11/20 07:53) (unknown) (no (unknown) (unknown) using Vaseline (units (unknown) date) around 2:00 a.m.. unknown) Recently saw Dermatology and had a biopsy (unknown) (no (unknown) (unknown) venlafaxine [From (units (unknown) date) Effexor] Allergy unknown) (Intermediate, Verified 03/11/20 07:53) Result panel 76 (unknown) (no (unknown) (unknown) (no value) (units (unk nown) date) unknown) (unknown) (no (unknown) (unknown) 07/16/22 (units (unkno wn) date) unknown) (unknown) (no (unknown) (unknown) [address] [place] [address] (units (unknown) date) unknown) (unknown) (no (unknown) (unknown) Accession Number: (units (unknown) date) [id number] unknown) (unknown) (no (unknown) (unknown) Age/Sex: 42 / F (units (unknown) date) Date of Service: unknown) (unknown) (no (unknown) (unknown) [place], [place] (units ( unknown) date) [id number] unknown) (unknown) (no (unknown) (unknown) Aorta: Visualized (units (unknown) date) aorta is normal in unknown) caliber at less than 3 cm. (unknown) (no (unknown) (unknown) Appearance of (units ( unknown) date) asymmetric right unknown) renal atrophy. (unknown) (no (unknown) (unknown) Approved by: (units (u nknown) date) Maddison Velez M.D. unknown) on 07/16/2022 at 19:17 (unknown) (no (unknown) (unknown) Biliary ducts: No (units (unknown) date) gross intrahepatic unknown) biliary dilation. Common bile duct and (unknown) (no (unknown) (unknown) COMPARISON: (units (un known) date) [facility], unknown) CT, CT ABDOMEN WO/W CON, 04/16/2019, 11:34. (unknown) (no (unknown) (unknown) : 1980 (units (unknown) date) Acct:[id number] unknown) (unknown) (no (unknown) (unknown) Dictated by: (units (u nknown) date) Maddison Velez M.D. unknown) on 07/16/2022 at 19:15 (unknown) (no (unknown) (unknown) FINDINGS: (units (unkn own) date) unknown) (unknown) (no (unknown) (unknown) Gallbladder: (units (u nknown) date) Removed. unknown) (unknown) (no (unknown) (unknown) Hepatomegaly with (units (unknown) date) steatosis. unknown) (unknown) (no (unknown) (unknown) IMPRESSION: (units (un known) date) unknown) (unknown) (no (unknown) (unknown) INDICATIONS: (units (u nknown) date) ABDOMEN PAIN AND unknown) BILIRUBIN (unknown) (no (unknown) (unknown) IVC: Not well (units ( unknown) date) seen unknown) (unknown) (no (unknown) (unknown) Iliacs: Not well (units (unknown) date) seen unknown) (unknown) (no (unknown) (unknown) [facility] (units (unknown) date) unknown) (unknown) (no (unknown) (unknown) Kidneys: Right (units (unknown) date) kidney measures unknown) 8.7 cm long; left kidney measures 10.9 cm long. (unknown) (no (unknown) (unknown) Left hepatic cyst (units (unknown) date) not as well seen unknown) as on prior CT exam. (unknown) (no (unknown) (unknown) Liver: Liver is (units (unknown) date) prominent unknown) measuring 16.7 cm with steatosis. (unknown) (no (unknown) (unknown) Loc: ED (units (unkno wn) date) unknown) (unknown) (no (unknown) (unknown) [id number] (units (unk nown) date) unknown) (unknown) (no (unknown) (unknown) Miscellaneous: No (units (unknown) date) free abdominal unknown) fluid. (unknown) (no (unknown) (unknown) No (units (unkno wn) date) unknown) (unknown) (no (unknown) (unknown) Ordering (units (unkno wn) date) Provider: unknown) Chantel Richmond D.O. (unknown) (no (unknown) (unknown) PROCEDURE: US (units ( unknown) date) ABDOMEN COMPLETE unknown) (unknown) (no (unknown) (unknown) Pancreas: Not (units ( unknown) date) visualized. unknown) (unknown) (no (unknown) (unknown) Patient: (units (unkno wn) date) Rachel Osborne unknown) MR#: (unknown) (no (unknown) (unknown) Procedure: US (units ( unknown) date) abdomen complete unknown) (unknown) (no (unknown) (unknown) Real-time (units (unkn own) date) scanning was unknown) performed of the abdominal and retroperitoneal organs, (unknown) (no (unknown) (unknown) Signed (units (unkno wn) date) unknown) (unknown) (no (unknown) (unknown) Spleen: Spleen is (units (unknown) date) normal in size and unknown) homogeneous in echotexture. (unknown) (no (unknown) (unknown) TECHNIQUE: (units (unk nown) date) unknown) (unknown) (no (unknown) (unknown) Ultrasound Report (units (unknown) date) unknown) (unknown) (no (unknown) (unknown) approximately 12 (units (unknown) date) mm on prior CT unknown) exam. (unknown) (no (unknown) (unknown) common (units (unkno wn) date) unknown) (unknown) (no (unknown) (unknown) compared to (units (un known) date) unknown) (unknown) (no (unknown) (unknown) decreased (units (unkn own) date) echogenicity unknown) within the left kidney measuring 13 x 13 x 11 mm (unknown) (no (unknown) (unknown) documentation. (units (unknown) date) unknown) (unknown) (no (unknown) (unknown) hepatic duct are (units (unknown) date) not well seen. unknown) (unknown) (no (unknown) (unknown) hydronephrosis or (units (unknown) date) nephrolithiasis. unknown) No solid masses. Focus of poorly (unknown) (no (unknown) (unknown) visualized (units (unk nown) date) unknown) (unknown) (no (unknown) (unknown) with image (units (unk nown) date) unknown) Result panel 77 (unknown) (no (unknown) (unknown) (no value) (units (unk nown) date) unknown) (unknown) (no (unknown) (unknown) 'Most metals' (units ( unknown) date) Allergy unknown) Intermediate Rash Uncoded 03/04/20 12:24 (unknown) (no (unknown) (unknown) 'severe (units (unkno wn) date) unknown) (unknown) (no (unknown) (unknown) (1-3) #20 tabs (units (unknown) date) unknown) (unknown) (no (unknown) (unknown) (7-10) #60 tabs (units (unknown) date) unknown) (unknown) (no (unknown) (unknown) (Gretel Allergy) (units (unknown) date) unknown) (unknown) (no (unknown) (unknown) (Benadryl) (units (unk nown) date) unknown) (unknown) (no (unknown) (unknown) (DOK) (units (unkno wn) date) unknown) (unknown) (no (unknown) (unknown) (OxyContin) (units (un known) date) unknown) (unknown) (no (unknown) (unknown) [id number] (units (unkn own) date) unknown) (unknown) (no (unknown) (unknown) 07/16/22 17:07 (units (unknown) date) unknown) (unknown) (no (unknown) (unknown) 07/16/22 17:08 (units (unknown) date) unknown) (unknown) (no (unknown) (unknown) 07/16/22 17:29 (units (unknown) date) unknown) (unknown) (no (unknown) (unknown) 07/16/22 (units (unkno wn) date) unknown) (unknown) (no (unknown) (unknown) 03/11/20 (units (unkno wn) date) unknown) (unknown) (no (unknown) (unknown) 1 patch TOP DAILY (units (unknown) date) PRN (Reason: pain) unknown) Qty: 15 0RF (unknown) (no (unknown) (unknown) 1 patch TOPICAL (units (unknown) date) BID unknown) (unknown) (no (unknown) (unknown) 1 spray INTRANASAL (units (unknown) date) BID PRN (Reason: unknown) Seasonal allergies) (unknown) (no (unknown) (unknown) 1,200 mg PO BID (units (unknown) date) unknown) (unknown) (no (unknown) (unknown) 1.25 mg continuous (units (unknown) date) nebulization Q4H unknown) PRN (Reason: Asthma) (unknown) (no (unknown) (unknown) 10 mg PO Q6H PRN (units (unknown) date) (Reason: Migraines) unknown) (unknown) (no (unknown) (unknown) 10 mg PO TID PRN (units (unknown) date) (Reason: Pain) unknown) (unknown) (no (unknown) (unknown) 100 mg PO BID Qty: (units (unknown) date) 20 0RF unknown) (unknown) (no (unknown) (unknown) 100 mg PO Q2-4H (units (unknown) date) PRN (Reason: unknown) Migraines) (unknown) (no (unknown) (unknown) 15 mg PO BID (units (u nknown) date) unknown) (unknown) (no (unknown) (unknown) 17:02 (units (unkno wn) date) unknown) (unknown) (no (unknown) (unknown) 180 mg PO DAILY (units (unknown) date) unknown) (unknown) (no (unknown) (unknown) 2 puff INHALATION (units (unknown) date) BID unknown) (unknown) (no (unknown) (unknown) 2 puff INHALATION (units (unknown) date) Q4-6H PRN (Reason: unknown) Asthma) (unknown) (no (unknown) (unknown) 25 mg PO Q6H PRN (units (unknown) date) (Reason: Nausea) unknown) (unknown) (no (unknown) (unknown) 50 mg PO Q6H PRN (units (unknown) date) (Reason: Migraines) unknown) (unknown) (no (unknown) (unknown) 6 mg PO Q4-6H PRN (units (unknown) date) (Reason: Pain, unknown) Severe (7-10)) Qty: 60 0RF (unknown) (no (unknown) (unknown) 650 mg PO Q6HR PRN (units (unknown) date) (Reason: Pain, Mild unknown) (1-3)) Qty: 20 0RF (unknown) (no (unknown) (unknown) 6mg every 4-6 (units ( unknown) date) hours as needed for unknown) severe pain. (unknown) (no (unknown) (unknown) 750 mg PO TID Qty: (units (unknown) date) 21 0RF unknown) (unknown) (no (unknown) (unknown) ADD (attention (units (unknown) date) deficit disorder) unknown) (unknown) (no (unknown) (unknown) ADHD (units (unkno wn) date) unknown) (unknown) (no (unknown) (unknown) Advair HFA 115-21 (units (unknown) date) mcg/actuation Hfa unknown) Aerosol Inhaler (unknown) (no (unknown) (unknown) Age/Sex: 42 / F (units (unknown) date) unknown) (unknown) (no (unknown) (unknown) Allergies (units (unkn own) date) unknown) (unknown) (no (unknown) (unknown) Allergy/AdvReac (units (unknown) date) Type Severity unknown) Reaction Status Date / Time (unknown) (no (unknown) (unknown) Ammonia (NH3) Stat (units (unknown) date) unknown) (unknown) (no (unknown) (unknown) Anxiety (units (unkno wn) date) unknown) (unknown) (no (unknown) (unknown) Arthritis (units (unkn own) date) unknown) (unknown) (no (unknown) (unknown) Asthma (units (unkno wn) date) unknown) (unknown) (no (unknown) (unknown) Blood Pressure (units (unknown) date) 91/50 L 07/16/22 unknown) 17:02 (unknown) (no (unknown) (unknown) Blood Pressure (units (unknown) date) 91/50 L unknown) (unknown) (no (unknown) (unknown) Sandy Schaffer ARNP (units (unknown) date) [Primary Care unknown) Provider] (unknown) (no (unknown) (unknown) Chief complaint: (units (unknown) date) Abdominal Pain unknown) (unknown) (no (unknown) (unknown) Complete Blood (units (unknown) date) Count AUTO DIFF unknown) Stat (unknown) (no (unknown) (unknown) Comprehensive (units ( unknown) date) Metabolic Panel unknown) Stat (unknown) (no (unknown) (unknown) Consult to CLINICAL SPECIALIST MEDICAL DEVICE - (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 unknown) Stat (unknown) (no (unknown) (unknown) Course (units (unkno wn) date) unknown) (unknown) (no (unknown) (unknown) : 1980 (units (unknown) date) Acct:[id number] unknown) (unknown) (no (unknown) (unknown) Date of Service: (units (unknown) date) 07/16/22 unknown) (unknown) (no (unknown) (unknown) Departure (units (unkn own) date) unknown) (unknown) (no (unknown) (unknown) Depression (units (unk nown) date) unknown) (unknown) (no (unknown) (unknown) Difficult (units (unkn own) date) intravenous access unknown) (unknown) (no (unknown) (unknown) Discharge Plan (units (unknown) date) unknown) (unknown) (no (unknown) (unknown) Dry eyes (units (unkno wn) date) unknown) (unknown) (no (unknown) (unknown) ED Orders (units (unkn own) date) unknown) (unknown) (no (unknown) (unknown) EKG-12 Lead Stat (units (unknown) date) unknown) (unknown) (no (unknown) (unknown) ER Physician: (units ( unknown) date) Oscar Brown D.O. unknown) (unknown) (no (unknown) (unknown) Eczema (units (unkno wn) date) unknown) (unknown) (no (unknown) (unknown) Emergency Report (units (unknown) date) unknown) (unknown) (no (unknown) (unknown) Exam (units (unkno wn) date) unknown) (unknown) (no (unknown) (unknown) Exempt. post op (units (unknown) date) pain. unknown) (unknown) (no (unknown) (unknown) Fibromyalgia (units (u nknown) date) unknown) (unknown) (no (unknown) (unknown) GERD (units (unkno wn) date) (gastroesophageal unknown) reflux disease) (unknown) (no (unknown) (unknown) General (units (unkno wn) date) unknown) (unknown) (no (unknown) (unknown) H/O left wrist (units (unknown) date) surgery unknown) (unknown) (no (unknown) (unknown) HFA inhaler (units (un known) date) (Advair HFA) unknown) (unknown) (no (unknown) (unknown) HPI - General (units ( unknown) date) Adult unknown) (unknown) (no (unknown) (unknown) History of (units (unk nown) date) Sjogren's disease unknown) (unknown) (no (unknown) (unknown) History of back (units (unknown) date) surgery unknown) (unknown) (no (unknown) (unknown) History of (units (unk nown) date) hysterectomy unknown) (unknown) (no (unknown) (unknown) History of lumbar (units (unknown) date) spinal fusion unknown) (unknown) (no (unknown) (unknown) History of (units (unk nown) date) temporal artery unknown) biopsy (unknown) (no (unknown) (unknown) History of total (units (unknown) date) left hip unknown) arthroplasty (unknown) (no (unknown) (unknown) Home Medications (units (unknown) date) unknown) (unknown) (no (unknown) (unknown) Hx of appendectomy (units (unknown) date) unknown) (unknown) (no (unknown) (unknown) Hx of arthroscopy (units (unknown) date) of right knee unknown) (unknown) (no (unknown) (unknown) Hx of (units (unkno wn) date) cholecystectomy unknown) (unknown) (no (unknown) (unknown) Hx of exploratory (units (unknown) date) laparotomy unknown) (unknown) (no (unknown) (unknown) Hx of lumbosacral (units (unknown) date) spine surgery unknown) (unknown) (no (unknown) (unknown) Hx of spinal (units (u nknown) date) fusion (2017) unknown) (unknown) (no (unknown) (unknown) Hypotension (units (un known) date) unknown) (unknown) (no (unknown) (unknown) Hypothyroid (units (un known) date) unknown) (unknown) (no (unknown) (unknown) IBS (irritable (units (unknown) date) bowel syndrome) unknown) (unknown) (no (unknown) (unknown) Initial Vital (units ( unknown) date) Signs unknown) (unknown) (no (unknown) (unknown) Initial Vital (units ( unknown) date) Signs: unknown) (unknown) (no (unknown) (unknown) [facility] (units (unknown) date) [address] unknown) [place] [address] (unknown) (no (unknown) (unknown) Lipase Stat (units (un known) date) unknown) (unknown) (no (unknown) (unknown) Lupus (units (unkno wn) date) unknown) (unknown) (no (unknown) (unknown) Medical History (units (unknown) date) (Reviewed 07/08/22 unknown) @ 14:58 by Bibi Koroma PA-C) (unknown) (no (unknown) (unknown) Medication (units (unk nown) date) Instructions unknown) Recorded Confirmed (unknown) (no (unknown) (unknown) Medication (units (unk nown) date) Instructions unknown) Recorded (unknown) (no (unknown) (unknown) Migraines (units (unkn own) date) unknown) (unknown) (no (unknown) (unknown) Mode of arrival: (units (unknown) date) Ambulatory unknown) (unknown) (no (unknown) (unknown) No Action (units (unkn own) date) unknown) (unknown) (no (unknown) (unknown) Ordered: (units (unkno wn) date) unknown) (unknown) (no (unknown) (unknown) Orders (units (unkno wn) date) unknown) (unknown) (no (unknown) (unknown) Oxygen Delivery (units (unknown) date) Method 07/16/22 unknown) 17:02 (unknown) (no (unknown) (unknown) Oxygen Delivery (units (unknown) date) Method Room Air unknown) (unknown) (no (unknown) (unknown) PTSD (units (unkno wn) date) (post-traumatic unknown) stress disorder) (unknown) (no (unknown) (unknown) Patient History (units (unknown) date) unknown) (unknown) (no (unknown) (unknown) Patient: (units (unkno wn) date) Rachel Osborne unknown) MR#: M (unknown) (no (unknown) (unknown) Penicillins (units (un known) date) Allergy unknown) Intermediate Rash Verified 03/11/20 07:53 (unknown) (no (unknown) (unknown) Prescriptions: (units (unknown) date) unknown) (unknown) (no (unknown) (unknown) Presence of (units (un known) date) neurostimulator unknown) () (unknown) (no (unknown) (unknown) Previous Rx's (units ( unknown) date) unknown) (unknown) (no (unknown) (unknown) Pulse Oximetry 99 (units (unknown) date) 07/16/22 17:02 unknown) (unknown) (no (unknown) (unknown) Pulse Oximetry 99 (units (unknown) date) unknown) (unknown) (no (unknown) (unknown) Pulse Rate 81 (units ( unknown) date) 07/16/22 17:02 unknown) (unknown) (no (unknown) (unknown) Pulse Rate 81 (units ( unknown) date) unknown) (unknown) (no (unknown) (unknown) RLS (restless legs (units (unknown) date) syndrome) unknown) (unknown) (no (unknown) (unknown) Raynaud's disease (units (unknown) date) unknown) (unknown) (no (unknown) (unknown) Referrals: (units (unk nown) date) unknown) (unknown) (no (unknown) (unknown) Related Data (units (u nknown) date) unknown) (unknown) (no (unknown) (unknown) Respiratory Rate (units (unknown) date) 20 07/16/22 17:02 unknown) (unknown) (no (unknown) (unknown) Respiratory Rate (units (unknown) date) 20 unknown) (unknown) (no (unknown) (unknown) Rheumatoid (units (unk nown) date) arthritis unknown) (unknown) (no (unknown) (unknown) Rx Instructions: (units (unknown) date) unknown) (unknown) (no (unknown) (unknown) Scleroderma (units (un known) date) unknown) (unknown) (no (unknown) (unknown) Signed By: (units (unk nown) date) unknown) (unknown) (no (unknown) (unknown) Smoking Status: (units (unknown) date) Never smoker unknown) (unknown) (no (unknown) (unknown) Social History (units (unknown) date) unknown) (unknown) (no (unknown) (unknown) Source: patient (units (unknown) date) unknown) (unknown) (no (unknown) (unknown) Spinal stenosis of (units (unknown) date) lumbar region with unknown) radiculopathy (2013) (unknown) (no (unknown) (unknown) Stated complaint: (units (unknown) date) severe Abd pain unknown) (unknown) (no (unknown) (unknown) Substance Use (units ( unknown) date) Type: does not use unknown) (unknown) (no (unknown) (unknown) Sugars, (units (unkno wn) date) Metabolically unknown) Active AdvReac Migraine Verified 03/11/20 08:45 (unknown) (no (unknown) (unknown) Surgical History (units (unknown) date) (Reviewed 07/08/22 unknown) @ 14:59 by Bibi Koroma PA-C) (unknown) (no (unknown) (unknown) Takes with (units (unk nown) date) compazine unknown) (unknown) (no (unknown) (unknown) Temperature 99.5 F (units (unknown) date) 07/16/22 17:02 unknown) (unknown) (no (unknown) (unknown) Temperature 99.5 F (units (unknown) date) unknown) (unknown) (no (unknown) (unknown) Time Seen by (units (u nknown) date) Provider: 07/16/22 unknown) 17:29 (unknown) (no (unknown) (unknown) US abdomen (units (unk nown) date) complete Stat unknown) (unknown) (no (unknown) (unknown) Vertigo (units (unkno wn) date) unknown) (unknown) (no (unknown) (unknown) Vital Signs - 8 hr (units (unknown) date) unknown) (unknown) (no (unknown) (unknown) Vital Signs (units (un known) date) unknown) (unknown) (no (unknown) (unknown) Vital signs: (units (u nknown) date) unknown) (unknown) (no (unknown) (unknown) acetaminophen 325 (units (unknown) date) mg Tablet unknown) (unknown) (no (unknown) (unknown) acetaminophen 325 (units (unknown) date) mg tablet 650 mg PO unknown) Q6HR PRN Pain, Mild 03/13/20 (unknown) (no (unknown) (unknown) adhesive tape (units ( unknown) date) Allergy unknown) Intermediate Rash Verified 03/11/20 07:53 (unknown) (no (unknown) (unknown) aerosol inhaler (units (unknown) date) unknown) (unknown) (no (unknown) (unknown) albuterol sulfate (units (unknown) date) 1.25 mg/3 mL 1.25 unknown) mg continuous nebulization 03/04/20 03/11/20 (unknown) (no (unknown) (unknown) albuterol sulfate (units (unknown) date) 1.25 mg/3 mL unknown) Solution For Nebulization (unknown) (no (unknown) (unknown) albuterol sulfate (units (unknown) date) 90 mcg/actuation 2 unknown) puff inhalation Q4-6H PRN Asthma 03/04/20 (unknown) (no (unknown) (unknown) albuterol sulfate (units (unknown) date) 90 mcg/actuation unknown) Hfa Aerosol Inhaler (unknown) (no (unknown) (unknown) alcohol intake (units (unknown) date) frequency: 0-2 unknown) drinks per day (unknown) (no (unknown) (unknown) alcohol intake: (units (unknown) date) never unknown) (unknown) (no (unknown) (unknown) amitriptyline (units ( unknown) date) Allergy unknown) Intermediate Rash Verified 03/11/20 07:53 (unknown) (no (unknown) (unknown) azelastine 137 mcg (units (unknown) date) (0.1 %) unknown) Aerosol,[place] (unknown) (no (unknown) (unknown) azelastine 137 mcg (units (unknown) date) (0.1 %) nasal 1 unknown) spray intranasal BID PRN 03/04/20 03/11/20 (unknown) (no (unknown) (unknown) bad bone (units (unkno wn) date) unknown) (unknown) (no (unknown) (unknown) body pain' (units (unk nown) date) unknown) (unknown) (no (unknown) (unknown) cephalexin [From (units (unknown) date) Keflex] Allergy unknown) Intermediate Rash Verified 03/11/20 07:53 (unknown) (no (unknown) (unknown) clarithromycin (units (unknown) date) Allergy unknown) Intermediate Rash Verified 03/11/20 07:53 (unknown) (no (unknown) (unknown) cyclobenzaprine (units (unknown) date) Allergy unknown) Intermediate Rash Verified 03/11/20 07:53 (unknown) (no (unknown) (unknown) diclofenac (units (unk nown) date) epolamine 1.3 % 1 unknown) patch topical BID 03/04/20 03/11/20 (unknown) (no (unknown) (unknown) diclofenac (units (unk nown) date) epolamine [Flector] unknown) 1.3 % Patch 12 Hour (unknown) (no (unknown) (unknown) diphenhydramine (units (unknown) date) HCl 25 mg capsule unknown) 50 mg PO Q6H PRN Migraines 03/04/20 03/11/20 (unknown) (no (unknown) (unknown) diphenhydramine (units (unknown) date) HCl [Benadryl] 25 unknown) mg Capsule (unknown) (no (unknown) (unknown) docusate sodium (units (unknown) date) 100 mg capsule 100 unknown) mg PO BID #20 caps 03/13/20 (unknown) (no (unknown) (unknown) docusate sodium (units (unknown) date) [DOK] 100 mg unknown) Capsule (unknown) (no (unknown) (unknown) duloxetine [From (units (unknown) date) Cymbalta] Allergy unknown) Intermediate Rash Verified 03/11/20 07:53 (unknown) (no (unknown) (unknown) ea (units (unkno wn) date) unknown) (unknown) (no (unknown) (unknown) enoxaparin [From (units (unknown) date) Lovenox] Allergy unknown) Intermediate Rash Verified 03/11/20 07:53 (unknown) (no (unknown) (unknown) erythromycin base (units (unknown) date) Allergy unknown) Intermediate Rash Verified 03/11/20 07:53 (unknown) (no (unknown) (unknown) fexofenadine 180 (units (unknown) date) mg tablet 180 mg PO unknown) DAILY 03/04/20 03/11/20 (unknown) (no (unknown) (unknown) fexofenadine (units (u nknown) date) [Gretel Allergy] unknown) 180 mg Tablet (unknown) (no (unknown) (unknown) fluticasone (units (un known) date) propionate 115 2 unknown) puff inhalation BID 03/04/20 03/11/20 (unknown) (no (unknown) (unknown) gabapentin 600 mg (units (unknown) date) Tablet unknown) (unknown) (no (unknown) (unknown) gabapentin 600 mg (units (unknown) date) tablet 1,200 mg PO unknown) BID 03/04/20 03/11/20 (unknown) (no (unknown) (unknown) heparin Allergy (units (unknown) date) Intermediate Rash unknown) Verified 03/11/20 07:53 (unknown) (no (unknown) (unknown) household members: (units (unknown) date) friend(s) unknown) (unknown) (no (unknown) (unknown) hydrocodone (units (un known) date) Allergy Mild Rash unknown) Verified 03/11/20 07:53 (unknown) (no (unknown) (unknown) hydromorphone 4 mg (units (unknown) date) Tablet unknown) (unknown) (no (unknown) (unknown) hydromorphone 4 mg (units (unknown) date) tablet 6 mg PO unknown) Q4-6H PRN Pain, Severe 03/13/20 (unknown) (no (unknown) (unknown) leave on most (units ( unknown) date) painful area for up unknown) to 12 hrs (unknown) (no (unknown) (unknown) lidocaine 5 % (units ( unknown) date) adhesive unknown) patch,medicated (unknown) (no (unknown) (unknown) lidocaine 5 % (units ( unknown) date) topical patch 1 unknown) patch topical DAILY PRN pain #15 12/18/19 (unknown) (no (unknown) (unknown) mcg-salmeterol 21 (units (unknown) date) mcg/actuation unknown) (unknown) (no (unknown) (unknown) me mean' (units (unkno wn) date) unknown) (unknown) (no (unknown) (unknown) methocarbamol 750 (units (unknown) date) mg tablet 750 mg PO unknown) TID #21 tabs 03/13/20 (unknown) (no (unknown) (unknown) methocarbamol 750 (units (unknown) date) mg tablet unknown) (unknown) (no (unknown) (unknown) methotrexate (units (u nknown) date) Allergy Severe unknown) Rash, Verified 03/11/20 07:53 (unknown) (no (unknown) (unknown) mycins Allergy (units (unknown) date) Severe Vomiting unknown) Uncoded 03/11/20 08:50 (unknown) (no (unknown) (unknown) ondansetron (units (un known) date) Allergy unknown) Intermediate Rash Verified 03/11/20 07:53 (unknown) (no (unknown) (unknown) oxycodone 10 mg (units (unknown) date) Tablet unknown) (unknown) (no (unknown) (unknown) oxycodone 10 mg (units (unknown) date) tablet 10 mg PO TID unknown) PRN Pain 03/04/20 03/11/20 (unknown) (no (unknown) (unknown) oxycodone 15 mg (units (unknown) date) tablet,crush 15 mg unknown) PO BID 03/04/20 03/04/20 (unknown) (no (unknown) (unknown) oxycodone (units (unkn own) date) [OxyContin] 15 mg unknown) Tablet,Oral Only,Ext.Rel.12 Hr (unknown) (no (unknown) (unknown) pain' (units (unkno wn) date) unknown) (unknown) (no (unknown) (unknown) prednisone AdvReac (units (unknown) date) Severe 'It causes unknown) Verified 03/11/20 07:53 (unknown) (no (unknown) (unknown) prochlorperazine (units (unknown) date) maleate 10 mg 10 mg unknown) PO Q6H PRN Migraines 03/04/20 03/11/20 (unknown) (no (unknown) (unknown) prochlorperazine (units (unknown) date) maleate [Compazine] unknown) 10 mg Tablet (unknown) (no (unknown) (unknown) promethazine 25 mg (units (unknown) date) Tablet unknown) (unknown) (no (unknown) (unknown) promethazine 25 mg (units (unknown) date) tablet 25 mg PO Q6H unknown) PRN Nausea 03/04/20 03/11/20 (unknown) (no (unknown) (unknown) resistant,extended (units (unknown) date) release 12 hr unknown) (unknown) (no (unknown) (unknown) solution for (units (u nknown) date) nebulization Q4H unknown) PRN Asthma (unknown) (no (unknown) (unknown) spray aerosol (units ( unknown) date) Seasonal allergies unknown) (unknown) (no (unknown) (unknown) sumatriptan (units (un known) date) succinate 100 mg unknown) Tablet (unknown) (no (unknown) (unknown) sumatriptan (units (un known) date) succinate 100 mg unknown) tablet 100 mg PO Q2-4H PRN Migraines 03/04/20 (unknown) (no (unknown) (unknown) tablet (Compazine) (units (unknown) date) unknown) (unknown) (no (unknown) (unknown) tizanidine [From (units (unknown) date) Zanaflex] Allergy unknown) Intermediate Rash Verified 03/11/20 07:53 (unknown) (no (unknown) (unknown) transdermal 12 (units (unknown) date) hour patch unknown) (Flector) (unknown) (no (unknown) (unknown) trazodone AdvReac (units (unknown) date) Severe 'It makes unknown) Verified 03/11/20 07:53 (unknown) (no (unknown) (unknown) venlafaxine [From (units (unknown) date) Effexor] Allergy unknown) Intermediate Rash Verified 03/11/20 07:53 Result panel 78 (unknown) (no date) (unknown) (unknown) 0-1 /HPF (units (unkn own) unknown) (unknown) (no date) (unknown) (unknown) 5-10/HPF (units (unkn own) unknown) (unknown) (no date) (unknown) (unknown) None Seen (units (unk nown) unknown) (unknown) (no date) (unknown) (unknown) None Seen (units (unk nown) unknown) (unknown) (no date) (unknown) (unknown) Occasional (units (un known) (0-1) unknown) (unknown) (no date) (unknown) (unknown) Specimen (units (unkn own) Cultured unknown) Result panel 79 (unknown) (no date) (unknown) (unknown) > 60 ml/min (unkn own) (unknown) (no date) (unknown) (unknown) > 60 ml/min (unkn own) (unknown) (no date) (unknown) (unknown) 0.75 mg/dl (unkn own) (unknown) (no date) (unknown) (unknown) 1.3 (units unknown) (unknown) (unknown) (no date) (unknown) (unknown) 104 mmol/l (unkn own) (unknown) (no date) (unknown) (unknown) 135 mmol/l (unkn own) (unknown) (no date) (unknown) (unknown) 135 u/l (unkn own) (unknown) (no date) (unknown) (unknown) 15 mg/dl (unkn own) (unknown) (no date) (unknown) (unknown) 2.0 mg/dl (unkn own) (unknown) (no date) (unknown) (unknown) 20.0 (units unknown) (unknown) (unknown) (no date) (unknown) (unknown) 24 iu/l (unkn own) (unknown) (no date) (unknown) (unknown) 26 iu/l (unkn own) (unknown) (no date) (unknown) (unknown) 26 mmol/l (unkn own) (unknown) (no date) (unknown) (unknown) 3.0 g/dl (unkn own) (unknown) (no date) (unknown) (unknown) 3.9 g/dl (unkn own) (unknown) (no date) (unknown) (unknown) 308 u/l (unkn own) (unknown) (no date) (unknown) (unknown) 4.1 mmol/l (unkn own) (unknown) (no date) (unknown) (unknown) 6.9 g/dl (unkn own) (unknown) (no date) (unknown) (unknown) 8.1 mg/dl (unkn own) (unknown) (no date) (unknown) (unknown) 98 mg/dl (unkn own) (unknown) (no date) (unknown) (unknown) 98 mg/dl (unkn own) Result panel 80 (unknown) (no date) (unknown) (unknown) 0 /ul (unkn own) (unknown) (no date) (unknown) (unknown) 0.5 % (unkn own) (unknown) (no date) (unknown) (unknown) 14.2 % (unkn own) (unknown) (no date) (unknown) (unknown) 14.5 g/dl (unkn own) (unknown) (no date) (unknown) (unknown) 25.7 % (unkn own) (unknown) (no date) (unknown) (unknown) 2500 /ul (unkn own) (unknown) (no date) (unknown) (unknown) 253 x10 3/ul (unkn own) (unknown) (no date) (unknown) (unknown) 28.3 pg (unkn own) (unknown) (no date) (unknown) (unknown) 3.1 % (unkn own) (unknown) (no date) (unknown) (unknown) 300 /ul (unkn own) (unknown) (no date) (unknown) (unknown) 34.0 % (unkn own) (unknown) (no date) (unknown) (unknown) 42.6 % (unkn own) (unknown) (no date) (unknown) (unknown) 5.12 x10 6/ul (unkn own) (unknown) (no date) (unknown) (unknown) 5.7 % (unkn own) (unknown) (no date) (unknown) (unknown) 600 /ul (unkn own) (unknown) (no date) (unknown) (unknown) 6300 /ul (unkn own) (unknown) (no date) (unknown) (unknown) 65.0 % (unkn own) (unknown) (no date) (unknown) (unknown) 83.2 fl (unkn own) (unknown) (no date) (unknown) (unknown) 9.7 x10 3/ul (unkn own) Result panel 81 (unknown) (no (unknown) (unknown) (no value) (units (unk nown) date) unknown) (unknown) (no (unknown) (unknown) 'Most metals' (units ( unknown) date) Allergy unknown) Intermediate Rash Uncoded 03/04/20 12:24 (unknown) (no (unknown) (unknown) 'severe (units (unkno wn) date) unknown) (unknown) (no (unknown) (unknown) (1-3) #20 tabs (units (unknown) date) unknown) (unknown) (no (unknown) (unknown) (7-10) #60 tabs (units (unknown) date) unknown) (unknown) (no (unknown) (unknown) (Gretel Allergy) (units (unknown) date) unknown) (unknown) (no (unknown) (unknown) (Benadryl) (units (unk nown) date) unknown) (unknown) (no (unknown) (unknown) (DOK) (units (unkno wn) date) unknown) (unknown) (no (unknown) (unknown) (OxyContin) (units (un known) date) unknown) (unknown) (no (unknown) (unknown) [id number] (units (unkn own) date) unknown) (unknown) (no (unknown) (unknown) 07/16/22 07/16/22 (units (unknown) date) 07/16/22 unknown) Range/Units (unknown) (no (unknown) (unknown) 07/16/22 17:07 (units (unknown) date) unknown) (unknown) (no (unknown) (unknown) 07/16/22 17:29 (units (unknown) date) unknown) (unknown) (no (unknown) (unknown) 07/16/22 20:40 (units (unknown) date) unknown) (unknown) (no (unknown) (unknown) 07/16/22 21:27 (units (unknown) date) unknown) (unknown) (no (unknown) (unknown) 07/16/22 (units (unkno wn) date) unknown) (unknown) (no (unknown) (unknown) 03/11/20 (units (unkno wn) date) unknown) (unknown) (no (unknown) (unknown) 1 patch TOP DAILY (units (unknown) date) PRN (Reason: pain) unknown) Qty: 15 0RF (unknown) (no (unknown) (unknown) 1 patch TOPICAL (units (unknown) date) BID unknown) (unknown) (no (unknown) (unknown) 1 spray INTRANASAL (units (unknown) date) BID PRN (Reason: unknown) Seasonal allergies) (unknown) (no (unknown) (unknown) 1,200 mg PO BID (units (unknown) date) unknown) (unknown) (no (unknown) (unknown) 1.25 mg continuous (units (unknown) date) nebulization Q4H unknown) PRN (Reason: Asthma) (unknown) (no (unknown) (unknown) 10 mg PO Q6H PRN (units (unknown) date) (Reason: Migraines) unknown) (unknown) (no (unknown) (unknown) 10 mg PO TID PRN (units (unknown) date) (Reason: Pain) unknown) (unknown) (no (unknown) (unknown) 10 ml PO QACHS (units (unknown) date) Qty: 400 2RF unknown) (unknown) (no (unknown) (unknown) 100 mg PO BID Qty: (units (unknown) date) 20 0RF unknown) (unknown) (no (unknown) (unknown) 100 mg PO Q2-4H (units (unknown) date) PRN (Reason: unknown) Migraines) (unknown) (no (unknown) (unknown) 15 mg PO BID (units (u nknown) date) unknown) (unknown) (no (unknown) (unknown) 16:56 07/16/22 (units (unknown) date) unknown) (unknown) (no (unknown) (unknown) 16:57 07/16/22 (units (unknown) date) unknown) (unknown) (no (unknown) (unknown) 16:57 (units (unkno wn) date) unknown) (unknown) (no (unknown) (unknown) 17:00 07/16/22 (units (unknown) date) unknown) (unknown) (no (unknown) (unknown) 17:00 (units (unkno wn) date) unknown) (unknown) (no (unknown) (unknown) 17:02 07/16/22 (units (unknown) date) unknown) (unknown) (no (unknown) (unknown) 17:30 (units (unkno wn) date) unknown) (unknown) (no (unknown) (unknown) 17:34 07/16/22 (units (unknown) date) unknown) (unknown) (no (unknown) (unknown) 180 mg PO DAILY (units (unknown) date) unknown) (unknown) (no (unknown) (unknown) 18:00 (units (unkno wn) date) unknown) (unknown) (no (unknown) (unknown) 18:01 07/16/22 (units (unknown) date) unknown) (unknown) (no (unknown) (unknown) 18:30 (units (unkno wn) date) unknown) (unknown) (no (unknown) (unknown) 18:31 07/16/22 (units (unknown) date) unknown) (unknown) (no (unknown) (unknown) 19:00 07/16/22 (units (unknown) date) unknown) (unknown) (no (unknown) (unknown) 19:00 (units (unkno wn) date) unknown) (unknown) (no (unknown) (unknown) 19:30 07/16/22 (units (unknown) date) unknown) (unknown) (no (unknown) (unknown) 2 puff INHALATION (units (unknown) date) BID unknown) (unknown) (no (unknown) (unknown) 2 puff INHALATION (units (unknown) date) Q4-6H PRN (Reason: unknown) Asthma) (unknown) (no (unknown) (unknown) 20 mg PO DAILY (units (unknown) date) Qty: 14 0RF unknown) (unknown) (no (unknown) (unknown) 20:00 (units (unkno wn) date) unknown) (unknown) (no (unknown) (unknown) 20:30 07/16/22 (units (unknown) date) unknown) (unknown) (no (unknown) (unknown) 20:40 21:27 21:27 (units (unknown) date) unknown) (unknown) (no (unknown) (unknown) 21:46 07/16/22 (units (unknown) date) unknown) (unknown) (no (unknown) (unknown) 21:46 (units (unkno wn) date) unknown) (unknown) (no (unknown) (unknown) 22:00 07/16/22 (units (unknown) date) unknown) (unknown) (no (unknown) (unknown) 22:01 07/16/22 (units (unknown) date) unknown) (unknown) (no (unknown) (unknown) 22:01 (units (unkno wn) date) unknown) (unknown) (no (unknown) (unknown) 22:30 07/16/22 (units (unknown) date) unknown) (unknown) (no (unknown) (unknown) 23:29 (units (unkno wn) date) unknown) (unknown) (no (unknown) (unknown) 25 mg PO Q6H PRN (units (unknown) date) (Reason: Nausea) unknown) (unknown) (no (unknown) (unknown) 50 mg PO Q6H PRN (units (unknown) date) (Reason: Migraines) unknown) (unknown) (no (unknown) (unknown) 6 mg PO Q4-6H PRN (units (unknown) date) (Reason: Pain, unknown) Severe (7-10)) Qty: 60 0RF (unknown) (no (unknown) (unknown) 650 mg PO Q6HR PRN (units (unknown) date) (Reason: Pain, Mild unknown) (1-3)) Qty: 20 0RF (unknown) (no (unknown) (unknown) 6mg every 4-6 (units ( unknown) date) hours as needed for unknown) severe pain. (unknown) (no (unknown) (unknown) 750 mg PO TID Qty: (units (unknown) date) 21 0RF unknown) (unknown) (no (unknown) (unknown) ADD (attention (units (unknown) date) deficit disorder) unknown) (unknown) (no (unknown) (unknown) ADHD (units (unkno wn) date) unknown) (unknown) (no (unknown) (unknown) ALT 24 (<35) IU/L (units (unknown) date) unknown) (unknown) (no (unknown) (unknown) AST 26 (14-36) (units (unknown) date) IU/L unknown) (unknown) (no (unknown) (unknown) Abdominal pain (units (unknown) date) unknown) (unknown) (no (unknown) (unknown) Activity (units (unkno wn) date) Restrictions/Additi unknown) onal Instructions: (unknown) (no (unknown) (unknown) Advair HFA 115-21 (units (unknown) date) mcg/actuation Hfa unknown) Aerosol Inhaler (unknown) (no (unknown) (unknown) Age/Sex: 42 / F (units (unknown) date) unknown) (unknown) (no (unknown) (unknown) Albumin 3.9 (units (un known) date) (3.5-5.0) g/dL unknown) (unknown) (no (unknown) (unknown) Albumin/Globulin (units (unknown) date) Ratio 1.3 (1.0-2.8) unknown) (unknown) (no (unknown) (unknown) Alkaline (units (unkno wn) date) Phosphatase 135 H unknown) (38-126) U/L (unknown) (no (unknown) (unknown) Allergies (units (unkn own) date) unknown) (unknown) (no (unknown) (unknown) Allergy/AdvReac (units (unknown) date) Type Severity unknown) Reaction Status Date / Time (unknown) (no (unknown) (unknown) Anxiety (units (unkno wn) date) unknown) (unknown) (no (unknown) (unknown) Arthritis (units (unkn own) date) unknown) (unknown) (no (unknown) (unknown) Asthma (units (unkno wn) date) unknown) (unknown) (no (unknown) (unknown) BUN 15 (7-17) (units ( unknown) date) mg/dL unknown) (unknown) (no (unknown) (unknown) BUN/Creatinine (units (unknown) date) Ratio 20.0 (6-22) unknown) (unknown) (no (unknown) (unknown) Baso # (Auto) 0 (units (unknown) date) (0-100) /uL unknown) (unknown) (no (unknown) (unknown) Baso % (Auto) 0.5 (units (unknown) date) (0-2) % unknown) (unknown) (no (unknown) (unknown) Bedside Urine (units ( unknown) date) Bilirubin - unknown) Negative (unknown) (no (unknown) (unknown) Bedside Urine (units ( unknown) date) Glucose Negative unknown) (unknown) (no (unknown) (unknown) Bedside Urine (units ( unknown) date) Ketone - Negative unknown) (unknown) (no (unknown) (unknown) Bedside Urine (units ( unknown) date) Leukocytes +/- 15 unknown) (unknown) (no (unknown) (unknown) Bedside Urine (units ( unknown) date) Nitrite - Negative unknown) (unknown) (no (unknown) (unknown) Bedside Urine (units ( unknown) date) Occult Blood - unknown) Negative (unknown) (no (unknown) (unknown) Bedside Urine (units ( unknown) date) Protein - Negative unknown) (unknown) (no (unknown) (unknown) Bedside Urine (units ( unknown) date) Urobilinogen - unknown) Negative (unknown) (no (unknown) (unknown) Bedside Urine pH (units (unknown) date) 7.0 unknown) (unknown) (no (unknown) (unknown) Blood Pressure (units (unknown) date) 100/55 L 113/63 unknown) (unknown) (no (unknown) (unknown) Blood Pressure (units (unknown) date) 103/51 L unknown) (unknown) (no (unknown) (unknown) Blood Pressure (units (unknown) date) 104/53 L unknown) (unknown) (no (unknown) (unknown) Blood Pressure (units (unknown) date) 108/68 unknown) (unknown) (no (unknown) (unknown) Blood Pressure (units (unknown) date) 113/78 unknown) (unknown) (no (unknown) (unknown) Blood Pressure (units (unknown) date) 129/67 unknown) (unknown) (no (unknown) (unknown) Blood Pressure (units (unknown) date) 91/50 L unknown) (unknown) (no (unknown) (unknown) Blood Pressure (units (unknown) date) 99/57 L 90/54 L unknown) (unknown) (no (unknown) (unknown) Blood Pressure (units (unknown) date) unknown) (unknown) (no (unknown) (unknown) Sandy Schaffer ARNP (units (unknown) date) [Primary Care unknown) Provider] (unknown) (no (unknown) (unknown) Calcium 8.1 L (units ( unknown) date) (8.4-10.2) mg/dL unknown) (unknown) (no (unknown) (unknown) Carbon Dioxide 26 (units (unknown) date) (22-32) mmol/L unknown) (unknown) (no (unknown) (unknown) Chief complaint: (units (unknown) date) Abdominal Pain unknown) (unknown) (no (unknown) (unknown) Chloride 104 (units (u nknown) date) (98-107) mmol/L unknown) (unknown) (no (unknown) (unknown) Clinical (units (unkno wn) date) Impression: unknown) (unknown) (no (unknown) (unknown) Complete Blood (units (unknown) date) Count AUTO DIFF unknown) Stat (unknown) (no (unknown) (unknown) Comprehensive (units ( unknown) date) Metabolic Panel unknown) Stat (unknown) (no (unknown) (unknown) Consult to CLINICAL SPECIALIST MEDICAL DEVICE - (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 unknown) Stat (unknown) (no (unknown) (unknown) Course (units (unkno wn) date) unknown) (unknown) (no (unknown) (unknown) Creatinine 0.75 (units (unknown) date) (0.52-1.04) mg/dL unknown) (unknown) (no (unknown) (unknown) : 1980 (units (unknown) date) Acct:[id number] unknown) (unknown) (no (unknown) (unknown) Date of Service: (units (unknown) date) 07/16/22 unknown) (unknown) (no (unknown) (unknown) Departure (units (unkn own) date) unknown) (unknown) (no (unknown) (unknown) Depression (units (unk nown) date) unknown) (unknown) (no (unknown) (unknown) Difficult (units (unkn own) date) intravenous access unknown) (unknown) (no (unknown) (unknown) Discharge Plan (units (unknown) date) unknown) (unknown) (no (unknown) (unknown) Discontinued (units (u nknown) date) Medications unknown) (unknown) (no (unknown) (unknown) Documented By: GC (units (unknown) date) unknown) (unknown) (no (unknown) (unknown) Documented By: RL (units (unknown) date) unknown) (unknown) (no (unknown) (unknown) Dry eyes (units (unkno wn) date) unknown) (unknown) (no (unknown) (unknown) ED Orders (units (unkn own) date) unknown) (unknown) (no (unknown) (unknown) ER Physician: (units ( unknown) date) Oscar Brown D.O. unknown) (unknown) (no (unknown) (unknown) Eczema (units (unkno wn) date) unknown) (unknown) (no (unknown) (unknown) Emergency Report (units (unknown) date) unknown) (unknown) (no (unknown) (unknown) Eos # (Auto) 300 (units (unknown) date) (0-450) /uL unknown) (unknown) (no (unknown) (unknown) Eos % (Auto) 3.1 (units (unknown) date) (2-4) % unknown) (unknown) (no (unknown) (unknown) Esterase (units (unkno wn) date) unknown) (unknown) (no (unknown) (unknown) Estimated GFR > 60 (units (unknown) date) (>60) mL/min unknown) (unknown) (no (unknown) (unknown) Exam (units (unkno wn) date) unknown) (unknown) (no (unknown) (unknown) Exempt. post op (units (unknown) date) pain. unknown) (unknown) (no (unknown) (unknown) Fibromyalgia (units (u nknown) date) unknown) (unknown) (no (unknown) (unknown) GERD (units (unkno wn) date) (gastroesophageal unknown) reflux disease) (unknown) (no (unknown) (unknown) General (units (unkno wn) date) unknown) (unknown) (no (unknown) (unknown) Globulin 3.0 (units (u nknown) date) (1.7-4.1) g/dL unknown) (unknown) (no (unknown) (unknown) Glucose 98 (units (unk nown) date) (70-100) mg/dL unknown) (unknown) (no (unknown) (unknown) H/O left wrist (units (unknown) date) surgery unknown) (unknown) (no (unknown) (unknown) HFA inhaler (units (un known) date) (Advair HFA) unknown) (unknown) (no (unknown) (unknown) HPI - General (units ( unknown) date) Adult unknown) (unknown) (no (unknown) (unknown) Hct 42.6 (36-46) % (units (unknown) date) unknown) (unknown) (no (unknown) (unknown) Hgb 14.5 (units (unkno wn) date) (12.0-16.0) g/dL unknown) (unknown) (no (unknown) (unknown) History of (units (unk nown) date) Sjogren's disease unknown) (unknown) (no (unknown) (unknown) History of back (units (unknown) date) surgery unknown) (unknown) (no (unknown) (unknown) History of (units (unk nown) date) hysterectomy unknown) (unknown) (no (unknown) (unknown) History of lumbar (units (unknown) date) spinal fusion unknown) (unknown) (no (unknown) (unknown) History of (units (unk nown) date) temporal artery unknown) biopsy (unknown) (no (unknown) (unknown) History of total (units (unknown) date) left hip unknown) arthroplasty (unknown) (no (unknown) (unknown) Home Medications (units (unknown) date) unknown) (unknown) (no (unknown) (unknown) Hx of appendectomy (units (unknown) date) unknown) (unknown) (no (unknown) (unknown) Hx of arthroscopy (units (unknown) date) of right knee unknown) (unknown) (no (unknown) (unknown) Hx of (units (unkno wn) date) cholecystectomy unknown) (unknown) (no (unknown) (unknown) Hx of exploratory (units (unknown) date) laparotomy unknown) (unknown) (no (unknown) (unknown) Hx of lumbosacral (units (unknown) date) spine surgery unknown) (unknown) (no (unknown) (unknown) Hx of spinal (units (u nknown) date) fusion (2017) unknown) (unknown) (no (unknown) (unknown) Hypotension (units (un known) date) unknown) (unknown) (no (unknown) (unknown) Hypothyroid (units (un known) date) unknown) (unknown) (no (unknown) (unknown) IBS (irritable (units (unknown) date) bowel syndrome) unknown) (unknown) (no (unknown) (unknown) Initial Vital (units ( unknown) date) Signs unknown) (unknown) (no (unknown) (unknown) Initial Vital (units ( unknown) date) Signs: unknown) (unknown) (no (unknown) (unknown) Instructions: DI (units (unknown) date) for Abdominal unknown) Pain-Adult (unknown) (no (unknown) (unknown) [facility] (units (unknown) date) [address] unknown) [place] [address] (unknown) (no (unknown) (unknown) Ketorolac (units (unkn own) date) Tromethamine unknown) (Ketorolac 30 Mg/Ml Vial) 30 mg IM NOW ONE (unknown) (no (unknown) (unknown) Lab Data (units (unkno wn) date) unknown) (unknown) (no (unknown) (unknown) Lab Results (units (un known) date) unknown) (unknown) (no (unknown) (unknown) Labs: (units (unkno wn) date) unknown) (unknown) (no (unknown) (unknown) Last Admin: (units (un known) date) 07/16/22 20:36 unknown) Dose: 1 tab (unknown) (no (unknown) (unknown) Last Admin: (units (un known) date) 07/16/22 20:38 unknown) Dose: 30 mg (unknown) (no (unknown) (unknown) Last Admin: (units (un known) date) 07/16/22 20:50 unknown) Dose: 25 mg (unknown) (no (unknown) (unknown) Last Admin: (units (un known) date) 07/16/22 22:34 unknown) Dose: 1 gm (unknown) (no (unknown) (unknown) Lipase 308 H (units (u nknown) date) (23-300) U/L unknown) (unknown) (no (unknown) (unknown) Lipase Stat (units (un known) date) unknown) (unknown) (no (unknown) (unknown) Lupus (units (unkno wn) date) unknown) (unknown) (no (unknown) (unknown) Lymph # (Auto) (units (unknown) date) 2500 ([phone]) unknown) /uL (unknown) (no (unknown) (unknown) Lymph % (Auto) (units (unknown) date) 25.7 (25-40) % unknown) (unknown) (no (unknown) (unknown) MCH 28.3 (26-34) (units (unknown) date) PG unknown) (unknown) (no (unknown) (unknown) MCHC 34.0 (30-36) (units (unknown) date) % unknown) (unknown) (no (unknown) (unknown) MCV 83.2 (80-100) (units (unknown) date) fL unknown) (unknown) (no (unknown) (unknown) Medical Decision (units (unknown) date) Making unknown) (unknown) (no (unknown) (unknown) Medical History (units (unknown) date) (Reviewed 07/08/22 unknown) @ 14:58 by Bibi Koroma PA-C) (unknown) (no (unknown) (unknown) Medication (units (unk nown) date) Instructions unknown) Recorded Confirmed (unknown) (no (unknown) (unknown) Medication (units (unk nown) date) Instructions unknown) Recorded (unknown) (no (unknown) (unknown) Migraines (units (unkn own) date) unknown) (unknown) (no (unknown) (unknown) Mode of arrival: (units (unknown) date) Ambulatory unknown) (unknown) (no (unknown) (unknown) Monday you talk (units (unknown) date) with your GI unknown) provider about the abdominal pain that you are (unknown) (no (unknown) (unknown) [place] # (Auto) 600 (units (unknown) date) (0-900) /uL unknown) (unknown) (no (unknown) (unknown) [place] % (Auto) 5.7 (units (unknown) date) (3-14) % unknown) (unknown) (no (unknown) (unknown) Neut # (Auto) 6300 (units (unknown) date) ([phone]) /uL unknown) (unknown) (no (unknown) (unknown) Neut % (Auto) 65.0 (units (unknown) date) (50-75) % unknown) (unknown) (no (unknown) (unknown) New (units (unkno wn) date) unknown) (unknown) (no (unknown) (unknown) No Action (units (unkn own) date) unknown) (unknown) (no (unknown) (unknown) Ordered: (units (unkno wn) date) unknown) (unknown) (no (unknown) (unknown) Orders (units (unkno wn) date) unknown) (unknown) (no (unknown) (unknown) Oxycodone/Acetamin (units (unknown) date) ophen unknown) (Oxycodone/Acetamin ophen 5/325 Tablet) 1 tab PO NOW ONE (unknown) (no (unknown) (unknown) Oxygen Delivery (units (unknown) date) Method Room Air unknown) (unknown) (no (unknown) (unknown) Oxygen Delivery (units (unknown) date) Method unknown) (unknown) (no (unknown) (unknown) PTSD (units (unkno wn) date) (post-traumatic unknown) stress disorder) (unknown) (no (unknown) (unknown) Patient (units (unkno wn) date) Disposition: Home unknown) (unknown) (no (unknown) (unknown) Patient History (units (unknown) date) unknown) (unknown) (no (unknown) (unknown) Patient: (units (unkno wn) date) Rachel Osborne unknown) MR#: M (unknown) (no (unknown) (unknown) Penicillins (units (un known) date) Allergy unknown) Intermediate Rash Verified 03/11/20 07:53 (unknown) (no (unknown) (unknown) Plt Count 253 (units ( unknown) date) (150-400) X103/uL unknown) (unknown) (no (unknown) (unknown) Point of care (units ( unknown) date) testing: unknown) (unknown) (no (unknown) (unknown) Potassium 4.1 (units ( unknown) date) (3.4-5.1) mmol/L unknown) (unknown) (no (unknown) (unknown) Prescriptions: (units (unknown) date) unknown) (unknown) (no (unknown) (unknown) Presence of (units (un known) date) neurostimulator unknown) (-2012) (unknown) (no (unknown) (unknown) Previous Rx's (units ( unknown) date) unknown) (unknown) (no (unknown) (unknown) Promethazine HCl (units (unknown) date) (Promethazine 25 Mg unknown) Supp) 25 mg [place] NOW ONE (unknown) (no (unknown) (unknown) Pulse Oximetry 100 (units (unknown) date) 07/16/22 16:56 unknown) (unknown) (no (unknown) (unknown) Pulse Oximetry 100 (units (unknown) date) 100 100 unknown) (unknown) (no (unknown) (unknown) Pulse Oximetry 100 (units (unknown) date) 100 unknown) (unknown) (no (unknown) (unknown) Pulse Oximetry 100 (units (unknown) date) 96 unknown) (unknown) (no (unknown) (unknown) Pulse Oximetry 100 (units (unknown) date) unknown) (unknown) (no (unknown) (unknown) Pulse Oximetry 95 (units (unknown) date) 96 unknown) (unknown) (no (unknown) (unknown) Pulse Oximetry 96 (units (unknown) date) 100 unknown) (unknown) (no (unknown) (unknown) Pulse Oximetry 97 (units (unknown) date) 99 unknown) (unknown) (no (unknown) (unknown) Pulse Oximetry 97 (units (unknown) date) unknown) (unknown) (no (unknown) (unknown) Pulse Oximetry 99 (units (unknown) date) 100 98 unknown) (unknown) (no (unknown) (unknown) Pulse Rate 64 66 (units (unknown) date) unknown) (unknown) (no (unknown) (unknown) Pulse Rate 72 (units ( unknown) date) unknown) (unknown) (no (unknown) (unknown) Pulse Rate 76 72 (units (unknown) date) unknown) (unknown) (no (unknown) (unknown) Pulse Rate 77 78 (units (unknown) date) unknown) (unknown) (no (unknown) (unknown) Pulse Rate 79 71 (units (unknown) date) unknown) (unknown) (no (unknown) (unknown) Pulse Rate 79 78 (units (unknown) date) 76 unknown) (unknown) (no (unknown) (unknown) Pulse Rate 81 89 (units (unknown) date) 88 unknown) (unknown) (no (unknown) (unknown) Pulse Rate 82 73 (units (unknown) date) unknown) (unknown) (no (unknown) (unknown) Pulse Rate 85 78 (units (unknown) date) unknown) (unknown) (no (unknown) (unknown) Pulse Rate 88 (units ( unknown) date) unknown) (unknown) (no (unknown) (unknown) Pulse Rate 89 (units ( unknown) date) 07/16/22 16:56 unknown) (unknown) (no (unknown) (unknown) RBC 5.12 (4.0-5.2) (units (unknown) date) X106/uL unknown) (unknown) (no (unknown) (unknown) RDW 14.2 (units (unkno wn) date) (11.6-14.8) % unknown) (unknown) (no (unknown) (unknown) RLS (restless legs (units (unknown) date) syndrome) unknown) (unknown) (no (unknown) (unknown) Raynaud's disease (units (unknown) date) unknown) (unknown) (no (unknown) (unknown) Recommend you (units ( unknown) date) continue to take unknown) all of your medications as directed. Two new (unknown) (no (unknown) (unknown) Referrals: (units (unk nown) date) unknown) (unknown) (no (unknown) (unknown) Related Data (units (u nknown) date) unknown) (unknown) (no (unknown) (unknown) Respiratory Rate (units (unknown) date) 12 17 unknown) (unknown) (no (unknown) (unknown) Respiratory Rate (units (unknown) date) 14 14 unknown) (unknown) (no (unknown) (unknown) Respiratory Rate (units (unknown) date) 16 18 unknown) (unknown) (no (unknown) (unknown) Respiratory Rate (units (unknown) date) 17 17 unknown) (unknown) (no (unknown) (unknown) Respiratory Rate (units (unknown) date) 18 unknown) (unknown) (no (unknown) (unknown) Respiratory Rate (units (unknown) date) 19 15 14 unknown) (unknown) (no (unknown) (unknown) Respiratory Rate (units (unknown) date) 20 07/16/22 16:56 unknown) (unknown) (no (unknown) (unknown) Respiratory Rate (units (unknown) date) 20 20 12 unknown) (unknown) (no (unknown) (unknown) Respiratory Rate (units (unknown) date) 24 unknown) (unknown) (no (unknown) (unknown) Respiratory Rate (units (unknown) date) 25 H 15 unknown) (unknown) (no (unknown) (unknown) Respiratory Rate (units (unknown) date) unknown) (unknown) (no (unknown) (unknown) Result diagrams: (units (unknown) date) unknown) (unknown) (no (unknown) (unknown) Rheumatoid (units (unk nown) date) arthritis unknown) (unknown) (no (unknown) (unknown) Rx Instructions: (units (unknown) date) unknown) (unknown) (no (unknown) (unknown) Scleroderma (units (un known) date) unknown) (unknown) (no (unknown) (unknown) Signed By: (units (unk nown) date) unknown) (unknown) (no (unknown) (unknown) Smoking Status: (units (unknown) date) Never smoker unknown) (unknown) (no (unknown) (unknown) Social History (units (unknown) date) unknown) (unknown) (no (unknown) (unknown) Sodium 135 L (units (u nknown) date) (137-145) mmol/L unknown) (unknown) (no (unknown) (unknown) Source: patient (units (unknown) date) unknown) (unknown) (no (unknown) (unknown) Spinal stenosis of (units (unknown) date) lumbar region with unknown) radiculopathy (2013) (unknown) (no (unknown) (unknown) Stand Alone Forms: (units (unknown) date) Patient Portal/API unknown) (unknown) (no (unknown) (unknown) Stated complaint: (units (unknown) date) severe Abd pain unknown) (unknown) (no (unknown) (unknown) Stop: 07/16/22 (units (unknown) date) 18:46 unknown) (unknown) (no (unknown) (unknown) Stop: 07/16/22 (units (unknown) date) 20:27 unknown) (unknown) (no (unknown) (unknown) Stop: 07/16/22 (units (unknown) date) 22:21 unknown) (unknown) (no (unknown) (unknown) Substance Use (units ( unknown) date) Type: does not use unknown) (unknown) (no (unknown) (unknown) Sucralfate (units (unk nown) date) (Sucralfate 1 Gm unknown) Tablet) 1 gm PO NOW ONE (unknown) (no (unknown) (unknown) Sugars, (units (unkno wn) date) Metabolically unknown) Active AdvReac Migraine Verified 03/11/20 08:45 (unknown) (no (unknown) (unknown) Surgical History (units (unknown) date) (Reviewed 07/08/22 unknown) @ 14:59 by Bibi Koroma PA-C) (unknown) (no (unknown) (unknown) Takes with (units (unk nown) date) compazine unknown) (unknown) (no (unknown) (unknown) Temperature 97.3 F (units (unknown) date) L unknown) (unknown) (no (unknown) (unknown) Temperature 99.5 F (units (unknown) date) unknown) (unknown) (no (unknown) (unknown) Temperature (units (un known) date) unknown) (unknown) (no (unknown) (unknown) Time Seen by (units (u nknown) date) Provider: 07/16/22 unknown) 17:29 (unknown) (no (unknown) (unknown) Total Bilirubin (units (unknown) date) 2.0 H (0.2-1.3) unknown) mg/dL (unknown) (no (unknown) (unknown) Total Protein 6.9 (units (unknown) date) (6.3-8.2) g/dL unknown) (unknown) (no (unknown) (unknown) US abdomen (units (unk nown) date) complete Stat unknown) (unknown) (no (unknown) (unknown) Ur Culture (units (unk nown) date) Indicated? Specimen unknown) cultured (unknown) (no (unknown) (unknown) Ur Squamous Epith (units (unknown) date) Cells 0-1 /hpf unknown) (0-5/HPF) (unknown) (no (unknown) (unknown) Urine Bacteria (units (unknown) date) Occasional (0-1) unknown) (None) (unknown) (no (unknown) (unknown) Urine Culture Stat (units (unknown) date) unknown) (unknown) (no (unknown) (unknown) Urine Dip (units (unkn own) date) unknown) (unknown) (no (unknown) (unknown) Urine Microscopic (units (unknown) date) Stat unknown) (unknown) (no (unknown) (unknown) Urine RBC None (units (unknown) date) seen (0-5/HPF) unknown) (unknown) (no (unknown) (unknown) Urine Specific (units (unknown) date) [place] 1.015 unknown) (unknown) (no (unknown) (unknown) Urine WBC 5-10/hpf (units (unknown) date) H (0-5/HPF) unknown) (unknown) (no (unknown) (unknown) Vertigo (units (unkno wn) date) unknown) (unknown) (no (unknown) (unknown) Vital Signs - 8 hr (units (unknown) date) unknown) (unknown) (no (unknown) (unknown) Vital Signs (units (un known) date) unknown) (unknown) (no (unknown) (unknown) Vital signs: (units (u nknown) date) unknown) (unknown) (no (unknown) (unknown) WBC 9.7 (4.5-11.0) (units (unknown) date) X103/uL unknown) (unknown) (no (unknown) (unknown) [Embedded Image (units (unknown) date) Not Available] unknown) (unknown) (no (unknown) (unknown) acetaminophen 325 (units (unknown) date) mg Tablet unknown) (unknown) (no (unknown) (unknown) acetaminophen 325 (units (unknown) date) mg tablet 650 mg PO unknown) Q6HR PRN Pain, Mild 03/13/20 (unknown) (no (unknown) (unknown) adhesive tape (units ( unknown) date) Allergy unknown) Intermediate Rash Verified 03/11/20 07:53 (unknown) (no (unknown) (unknown) aerosol inhaler (units (unknown) date) unknown) (unknown) (no (unknown) (unknown) albuterol sulfate (units (unknown) date) 1.25 mg/3 mL 1.25 unknown) mg continuous nebulization 03/04/20 03/11/20 (unknown) (no (unknown) (unknown) albuterol sulfate (units (unknown) date) 1.25 mg/3 mL unknown) Solution For Nebulization (unknown) (no (unknown) (unknown) albuterol sulfate (units (unknown) date) 90 mcg/actuation 2 unknown) puff inhalation Q4-6H PRN Asthma 03/04/20 (unknown) (no (unknown) (unknown) albuterol sulfate (units (unknown) date) 90 mcg/actuation unknown) Hfa Aerosol Inhaler (unknown) (no (unknown) (unknown) alcohol intake (units (unknown) date) frequency: 0-2 unknown) drinks per day (unknown) (no (unknown) (unknown) alcohol intake: (units (unknown) date) never unknown) (unknown) (no (unknown) (unknown) amitriptyline (units ( unknown) date) Allergy unknown) Intermediate Rash Verified 03/11/20 07:53 (unknown) (no (unknown) (unknown) azelastine 137 mcg (units (unknown) date) (0.1 %) unknown) Aerosol,[place] (unknown) (no (unknown) (unknown) azelastine 137 mcg (units (unknown) date) (0.1 %) nasal 1 unknown) spray intranasal BID PRN 03/04/20 03/11/20 (unknown) (no (unknown) (unknown) bad bone (units (unkno wn) date) unknown) (unknown) (no (unknown) (unknown) body pain' (units (unk nown) date) unknown) (unknown) (no (unknown) (unknown) capsule,delayed (units (unknown) date) release unknown) (unknown) (no (unknown) (unknown) cephalexin [From (units (unknown) date) Keflex] Allergy unknown) Intermediate Rash Verified 03/11/20 07:53 (unknown) (no (unknown) (unknown) clarithromycin (units (unknown) date) Allergy unknown) Intermediate Rash Verified 03/11/20 07:53 (unknown) (no (unknown) (unknown) cyclobenzaprine (units (unknown) date) Allergy unknown) Intermediate Rash Verified 03/11/20 07:53 (unknown) (no (unknown) (unknown) diclofenac (units (unk nown) date) epolamine 1.3 % 1 unknown) patch topical BID 03/04/20 03/11/20 (unknown) (no (unknown) (unknown) diclofenac (units (unk nown) date) epolamine [Flector] unknown) 1.3 % Patch 12 Hour (unknown) (no (unknown) (unknown) diphenhydramine (units (unknown) date) HCl 25 mg capsule unknown) 50 mg PO Q6H PRN Migraines 03/04/20 03/11/20 (unknown) (no (unknown) (unknown) diphenhydramine (units (unknown) date) HCl [Benadryl] 25 unknown) mg Capsule (unknown) (no (unknown) (unknown) docusate sodium (units (unknown) date) 100 mg capsule 100 unknown) mg PO BID #20 caps 03/13/20 (unknown) (no (unknown) (unknown) docusate sodium (units (unknown) date) [DOK] 100 mg unknown) Capsule (unknown) (no (unknown) (unknown) duloxetine [From (units (unknown) date) Cymbalta] Allergy unknown) Intermediate Rash Verified 03/11/20 07:53 (unknown) (no (unknown) (unknown) ea (units (unkno wn) date) unknown) (unknown) (no (unknown) (unknown) enoxaparin [From (units (unknown) date) Lovenox] Allergy unknown) Intermediate Rash Verified 03/11/20 07:53 (unknown) (no (unknown) (unknown) erythromycin base (units (unknown) date) Allergy unknown) Intermediate Rash Verified 03/11/20 07:53 (unknown) (no (unknown) (unknown) esomeprazole (units (u nknown) date) magnesium 20 mg 20 unknown) mg PO DAILY #14 caps 07/16/22 (unknown) (no (unknown) (unknown) esomeprazole (units (u nknown) date) magnesium 20 mg unknown) capsule,delayed release(DR/EC) (unknown) (no (unknown) (unknown) fexofenadine 180 (units (unknown) date) mg tablet 180 mg PO unknown) DAILY 03/04/20 03/11/20 (unknown) (no (unknown) (unknown) fexofenadine (units (u nknown) date) [Gretel Allergy] unknown) 180 mg Tablet (unknown) (no (unknown) (unknown) fluticasone (units (un known) date) propionate 115 2 unknown) puff inhalation BID 03/04/20 03/11/20 (unknown) (no (unknown) (unknown) gabapentin 600 mg (units (unknown) date) Tablet unknown) (unknown) (no (unknown) (unknown) gabapentin 600 mg (units (unknown) date) tablet 1,200 mg PO unknown) BID 03/04/20 03/11/20 (unknown) (no (unknown) (unknown) having today. So (units (unknown) date) contact your unknown) primary doctor for follow-up. (unknown) (no (unknown) (unknown) heparin Allergy (units (unknown) date) Intermediate Rash unknown) Verified 03/11/20 07:53 (unknown) (no (unknown) (unknown) household members: (units (unknown) date) friend(s) unknown) (unknown) (no (unknown) (unknown) hydrocodone (units (un known) date) Allergy Mild Rash unknown) Verified 03/11/20 07:53 (unknown) (no (unknown) (unknown) hydromorphone 4 mg (units (unknown) date) Tablet unknown) (unknown) (no (unknown) (unknown) hydromorphone 4 mg (units (unknown) date) tablet 6 mg PO unknown) Q4-6H PRN Pain, Severe 03/13/20 (unknown) (no (unknown) (unknown) leave on most (units ( unknown) date) painful area for up unknown) to 12 hrs (unknown) (no (unknown) (unknown) lidocaine 5 % (units ( unknown) date) adhesive unknown) patch,medicated (unknown) (no (unknown) (unknown) lidocaine 5 % (units ( unknown) date) topical patch 1 unknown) patch topical DAILY PRN pain #15 12/18/19 (unknown) (no (unknown) (unknown) mcg-salmeterol 21 (units (unknown) date) mcg/actuation unknown) (unknown) (no (unknown) (unknown) me mean' (units (unkno wn) date) unknown) (unknown) (no (unknown) (unknown) medications were (units (unknown) date) sent to [email or web address] in unknown) [place] per your request. I recommend on (unknown) (no (unknown) (unknown) methocarbamol 750 (units (unknown) date) mg tablet 750 mg PO unknown) TID #21 tabs 03/13/20 (unknown) (no (unknown) (unknown) methocarbamol 750 (units (unknown) date) mg tablet unknown) (unknown) (no (unknown) (unknown) methotrexate (units (u nknown) date) Allergy Severe unknown) Rash, Verified 03/11/20 07:53 (unknown) (no (unknown) (unknown) mycins Allergy (units (unknown) date) Severe Vomiting unknown) Uncoded 03/11/20 08:50 (unknown) (no (unknown) (unknown) ondansetron (units (un known) date) Allergy unknown) Intermediate Rash Verified 03/11/20 07:53 (unknown) (no (unknown) (unknown) oxycodone 10 mg (units (unknown) date) Tablet unknown) (unknown) (no (unknown) (unknown) oxycodone 10 mg (units (unknown) date) tablet 10 mg PO TID unknown) PRN Pain 03/04/20 03/11/20 (unknown) (no (unknown) (unknown) oxycodone 15 mg (units (unknown) date) tablet,crush 15 mg unknown) PO BID 03/04/20 03/04/20 (unknown) (no (unknown) (unknown) oxycodone (units (unkn own) date) [OxyContin] 15 mg unknown) Tablet,Oral Only,Ext.Rel.12 Hr (unknown) (no (unknown) (unknown) pain' (units (unkno wn) date) unknown) (unknown) (no (unknown) (unknown) prednisone AdvReac (units (unknown) date) Severe 'It causes unknown) Verified 03/11/20 07:53 (unknown) (no (unknown) (unknown) prochlorperazine (units (unknown) date) maleate 10 mg 10 mg unknown) PO Q6H PRN Migraines 03/04/20 03/11/20 (unknown) (no (unknown) (unknown) prochlorperazine (units (unknown) date) maleate [Compazine] unknown) 10 mg Tablet (unknown) (no (unknown) (unknown) promethazine 25 mg (units (unknown) date) Tablet unknown) (unknown) (no (unknown) (unknown) promethazine 25 mg (units (unknown) date) tablet 25 mg PO Q6H unknown) PRN Nausea 03/04/20 03/11/20 (unknown) (no (unknown) (unknown) resistant,extended (units (unknown) date) release 12 hr unknown) (unknown) (no (unknown) (unknown) solution for (units (u nknown) date) nebulization Q4H unknown) PRN Asthma (unknown) (no (unknown) (unknown) spray aerosol (units ( unknown) date) Seasonal allergies unknown) (unknown) (no (unknown) (unknown) sucralfate 100 (units (unknown) date) mg/mL oral 10 ml PO unknown) QACHS #400 mL 07/16/22 (unknown) (no (unknown) (unknown) sucralfate (units (unk nown) date) [Carafate] 100 unknown) mg/mL suspension (unknown) (no (unknown) (unknown) sumatriptan (units (un known) date) succinate 100 mg unknown) Tablet (unknown) (no (unknown) (unknown) sumatriptan (units (un known) date) succinate 100 mg unknown) tablet 100 mg PO Q2-4H PRN Migraines 03/04/20 (unknown) (no (unknown) (unknown) suspension (units (unk nown) date) (Carafate) unknown) (unknown) (no (unknown) (unknown) tablet (Compazine) (units (unknown) date) unknown) (unknown) (no (unknown) (unknown) tizanidine [From (units (unknown) date) Zanaflex] Allergy unknown) Intermediate Rash Verified 03/11/20 07:53 (unknown) (no (unknown) (unknown) transdermal 12 (units (unknown) date) hour patch unknown) (Flector) (unknown) (no (unknown) (unknown) trazodone AdvReac (units (unknown) date) Severe 'It makes unknown) Verified 03/11/20 07:53 (unknown) (no (unknown) (unknown) venlafaxine [From (units (unknown) date) Effexor] Allergy unknown) Intermediate Rash Verified 03/11/20 07:53 Result panel 82 (unknown) (no (unknown) (unknown) (no value) (units (unk nown) date) unknown) (unknown) (no (unknown) (unknown) 'Most metals' (units ( unknown) date) Allergy unknown) Intermediate Rash Uncoded 03/04/20 12:24 (unknown) (no (unknown) (unknown) 'severe (units (unkno wn) date) unknown) (unknown) (no (unknown) (unknown) (1-3) #20 tabs (units (unknown) date) unknown) (unknown) (no (unknown) (unknown) (7-10) #60 tabs (units (unknown) date) unknown) (unknown) (no (unknown) (unknown) (Gretel Allergy) (units (unknown) date) unknown) (unknown) (no (unknown) (unknown) (Benadryl) (units (unk nown) date) unknown) (unknown) (no (unknown) (unknown) (DOK) (units (unkno wn) date) unknown) (unknown) (no (unknown) (unknown) (OxyContin) (units (un known) date) unknown) (unknown) (no (unknown) (unknown) [id number] (units (unkn own) date) unknown) (unknown) (no (unknown) (unknown) 07/16/22 07/16/22 (units (unknown) date) 07/16/22 unknown) Range/Units (unknown) (no (unknown) (unknown) 07/16/22 17:07 (units (unknown) date) unknown) (unknown) (no (unknown) (unknown) 07/16/22 17:29 (units (unknown) date) unknown) (unknown) (no (unknown) (unknown) 07/16/22 20:40 (units (unknown) date) unknown) (unknown) (no (unknown) (unknown) 07/16/22 21:27 (units (unknown) date) unknown) (unknown) (no (unknown) (unknown) 07/16/22 (units (unkno wn) date) unknown) (unknown) (no (unknown) (unknown) 03/11/20 (units (unkno wn) date) unknown) (unknown) (no (unknown) (unknown) 1 patch TOP DAILY (units (unknown) date) PRN (Reason: pain) unknown) Qty: 15 0RF (unknown) (no (unknown) (unknown) 1 patch TOPICAL (units (unknown) date) BID unknown) (unknown) (no (unknown) (unknown) 1 spray INTRANASAL (units (unknown) date) BID PRN (Reason: unknown) Seasonal allergies) (unknown) (no (unknown) (unknown) 1,200 mg PO BID (units (unknown) date) unknown) (unknown) (no (unknown) (unknown) 1.25 mg continuous (units (unknown) date) nebulization Q4H unknown) PRN (Reason: Asthma) (unknown) (no (unknown) (unknown) 10 mg PO Q6H PRN (units (unknown) date) (Reason: Migraines) unknown) (unknown) (no (unknown) (unknown) 10 mg PO TID PRN (units (unknown) date) (Reason: Pain) unknown) (unknown) (no (unknown) (unknown) 10 ml PO QACHS (units (unknown) date) Qty: 400 2RF unknown) (unknown) (no (unknown) (unknown) 100 mg PO BID Qty: (units (unknown) date) 20 0RF unknown) (unknown) (no (unknown) (unknown) 100 mg PO Q2-4H (units (unknown) date) PRN (Reason: unknown) Migraines) (unknown) (no (unknown) (unknown) 15 mg PO BID (units (u nknown) date) unknown) (unknown) (no (unknown) (unknown) 16:56 07/16/22 (units (unknown) date) unknown) (unknown) (no (unknown) (unknown) 16:57 07/16/22 (units (unknown) date) unknown) (unknown) (no (unknown) (unknown) 16:57 (units (unkno wn) date) unknown) (unknown) (no (unknown) (unknown) 17:00 07/16/22 (units (unknown) date) unknown) (unknown) (no (unknown) (unknown) 17:00 (units (unkno wn) date) unknown) (unknown) (no (unknown) (unknown) 17:02 07/16/22 (units (unknown) date) unknown) (unknown) (no (unknown) (unknown) 17:30 (units (unkno wn) date) unknown) (unknown) (no (unknown) (unknown) 17:34 07/16/22 (units (unknown) date) unknown) (unknown) (no (unknown) (unknown) 180 mg PO DAILY (units (unknown) date) unknown) (unknown) (no (unknown) (unknown) 18:00 (units (unkno wn) date) unknown) (unknown) (no (unknown) (unknown) 18:01 07/16/22 (units (unknown) date) unknown) (unknown) (no (unknown) (unknown) 18:30 (units (unkno wn) date) unknown) (unknown) (no (unknown) (unknown) 18:31 07/16/22 (units (unknown) date) unknown) (unknown) (no (unknown) (unknown) 19:00 07/16/22 (units (unknown) date) unknown) (unknown) (no (unknown) (unknown) 19:00 (units (unkno wn) date) unknown) (unknown) (no (unknown) (unknown) 19:30 07/16/22 (units (unknown) date) unknown) (unknown) (no (unknown) (unknown) 2 puff INHALATION (units (unknown) date) BID unknown) (unknown) (no (unknown) (unknown) 2 puff INHALATION (units (unknown) date) Q4-6H PRN (Reason: unknown) Asthma) (unknown) (no (unknown) (unknown) 20 mg PO DAILY (units (unknown) date) Qty: 14 0RF unknown) (unknown) (no (unknown) (unknown) 20:00 (units (unkno wn) date) unknown) (unknown) (no (unknown) (unknown) 20:30 07/16/22 (units (unknown) date) unknown) (unknown) (no (unknown) (unknown) 20:40 21:27 21:27 (units (unknown) date) unknown) (unknown) (no (unknown) (unknown) 21:46 07/16/22 (units (unknown) date) unknown) (unknown) (no (unknown) (unknown) 21:46 (units (unkno wn) date) unknown) (unknown) (no (unknown) (unknown) 22:00 07/16/22 (units (unknown) date) unknown) (unknown) (no (unknown) (unknown) 22:01 07/16/22 (units (unknown) date) unknown) (unknown) (no (unknown) (unknown) 22:01 (units (unkno wn) date) unknown) (unknown) (no (unknown) (unknown) 22:30 07/16/22 (units (unknown) date) unknown) (unknown) (no (unknown) (unknown) 23:29 (units (unkno wn) date) unknown) (unknown) (no (unknown) (unknown) 25 mg PO Q6H PRN (units (unknown) date) (Reason: Nausea) unknown) (unknown) (no (unknown) (unknown) 42-year-old female (units (unknown) date) who is here for unknown) evaluation of abdominal discomfort. She was (unknown) (no (unknown) (unknown) 50 mg PO Q6H PRN (units (unknown) date) (Reason: Migraines) unknown) (unknown) (no (unknown) (unknown) 6 mg PO Q4-6H PRN (units (unknown) date) (Reason: Pain, unknown) Severe (7-10)) Qty: 60 0RF (unknown) (no (unknown) (unknown) 650 mg PO Q6HR PRN (units (unknown) date) (Reason: Pain, Mild unknown) (1-3)) Qty: 20 0RF (unknown) (no (unknown) (unknown) 6mg every 4-6 (units ( unknown) date) hours as needed for unknown) severe pain. (unknown) (no (unknown) (unknown) 750 mg PO TID Qty: (units (unknown) date) 21 0RF unknown) (unknown) (no (unknown) (unknown) ADD (attention (units (unknown) date) deficit disorder) unknown) (unknown) (no (unknown) (unknown) ADHD (units (unkno wn) date) unknown) (unknown) (no (unknown) (unknown) ALT 24 (<35) IU/L (units (unknown) date) unknown) (unknown) (no (unknown) (unknown) AST 26 (14-36) (units (unknown) date) IU/L unknown) (unknown) (no (unknown) (unknown) Abdominal pain (units (unknown) date) unknown) (unknown) (no (unknown) (unknown) Activity (units (unkno wn) date) Restrictions/Additi unknown) onal Instructions: (unknown) (no (unknown) (unknown) Advair HFA 115-21 (units (unknown) date) mcg/actuation Hfa unknown) Aerosol Inhaler (unknown) (no (unknown) (unknown) Age/Sex: 42 / F (units (unknown) date) unknown) (unknown) (no (unknown) (unknown) Albumin 3.9 (units (un known) date) (3.5-5.0) g/dL unknown) (unknown) (no (unknown) (unknown) Albumin/Globulin (units (unknown) date) Ratio 1.3 (1.0-2.8) unknown) (unknown) (no (unknown) (unknown) Alkaline (units (unkno wn) date) Phosphatase 135 H unknown) (38-126) U/L (unknown) (no (unknown) (unknown) Allergies (units (unkn own) date) unknown) (unknown) (no (unknown) (unknown) Allergy/AdvReac (units (unknown) date) Type Severity unknown) Reaction Status Date / Time (unknown) (no (unknown) (unknown) Anxiety (units (unkno wn) date) unknown) (unknown) (no (unknown) (unknown) Arthritis (units (unkn own) date) unknown) (unknown) (no (unknown) (unknown) Asthma (units (unkno wn) date) unknown) (unknown) (no (unknown) (unknown) BUN 15 (7-17) (units ( unknown) date) mg/dL unknown) (unknown) (no (unknown) (unknown) BUN/Creatinine (units (unknown) date) Ratio 20.0 (6-22) unknown) (unknown) (no (unknown) (unknown) Baso # (Auto) 0 (units (unknown) date) (0-100) /uL unknown) (unknown) (no (unknown) (unknown) Baso % (Auto) 0.5 (units (unknown) date) (0-2) % unknown) (unknown) (no (unknown) (unknown) Bedside Urine (units ( unknown) date) Bilirubin - unknown) Negative (unknown) (no (unknown) (unknown) Bedside Urine (units ( unknown) date) Glucose Negative unknown) (unknown) (no (unknown) (unknown) Bedside Urine (units ( unknown) date) Ketone - Negative unknown) (unknown) (no (unknown) (unknown) Bedside Urine (units ( unknown) date) Leukocytes +/- 15 unknown) (unknown) (no (unknown) (unknown) Bedside Urine (units ( unknown) date) Nitrite - Negative unknown) (unknown) (no (unknown) (unknown) Bedside Urine (units ( unknown) date) Occult Blood - unknown) Negative (unknown) (no (unknown) (unknown) Bedside Urine (units ( unknown) date) Protein - Negative unknown) (unknown) (no (unknown) (unknown) Bedside Urine (units ( unknown) date) Urobilinogen - unknown) Negative (unknown) (no (unknown) (unknown) Bedside Urine pH (units (unknown) date) 7.0 unknown) (unknown) (no (unknown) (unknown) Blood Pressure (units (unknown) date) 100/55 L 113/63 unknown) (unknown) (no (unknown) (unknown) Blood Pressure (units (unknown) date) 103/51 L unknown) (unknown) (no (unknown) (unknown) Blood Pressure (units (unknown) date) 104/53 L unknown) (unknown) (no (unknown) (unknown) Blood Pressure (units (unknown) date) 108/68 unknown) (unknown) (no (unknown) (unknown) Blood Pressure (units (unknown) date) 113/78 unknown) (unknown) (no (unknown) (unknown) Blood Pressure (units (unknown) date) 129/67 unknown) (unknown) (no (unknown) (unknown) Blood Pressure (units (unknown) date) 91/50 L unknown) (unknown) (no (unknown) (unknown) Blood Pressure (units (unknown) date) 99/57 L 90/54 L unknown) (unknown) (no (unknown) (unknown) Blood Pressure (units (unknown) date) unknown) (unknown) (no (unknown) (unknown) Sandy Schaffer ARNP (units (unknown) date) [Primary Care unknown) Provider] (unknown) (no (unknown) (unknown) Calcium 8.1 L (units ( unknown) date) (8.4-10.2) mg/dL unknown) (unknown) (no (unknown) (unknown) Carbon Dioxide 26 (units (unknown) date) (22-32) mmol/L unknown) (unknown) (no (unknown) (unknown) Chief complaint: (units (unknown) date) Abdominal Pain unknown) (unknown) (no (unknown) (unknown) Chloride 104 (units (u nknown) date) (98-107) mmol/L unknown) (unknown) (no (unknown) (unknown) Clinical (units (unkno wn) date) Impression: unknown) (unknown) (no (unknown) (unknown) Complete Blood (units (unknown) date) Count AUTO DIFF unknown) Stat (unknown) (no (unknown) (unknown) Comprehensive (units ( unknown) date) Metabolic Panel unknown) Stat (unknown) (no (unknown) (unknown) Consult to CLINICAL SPECIALIST MEDICAL DEVICE - (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 unknown) Stat (unknown) (no (unknown) (unknown) Course (units (unkno wn) date) unknown) (unknown) (no (unknown) (unknown) Creatinine 0.75 (units (unknown) date) (0.52-1.04) mg/dL unknown) (unknown) (no (unknown) (unknown) : 1980 (units (unknown) date) Acct:[id number] unknown) (unknown) (no (unknown) (unknown) Date of Service: (units (unknown) date) 07/16/22 unknown) (unknown) (no (unknown) (unknown) Departure (units (unkn own) date) unknown) (unknown) (no (unknown) (unknown) Depression (units (unk nown) date) unknown) (unknown) (no (unknown) (unknown) Difficult (units (unkn own) date) intravenous access unknown) (unknown) (no (unknown) (unknown) Discharge Plan (units (unknown) date) unknown) (unknown) (no (unknown) (unknown) Discontinued (units (u nknown) date) Medications unknown) (unknown) (no (unknown) (unknown) Documented By: GC (units (unknown) date) unknown) (unknown) (no (unknown) (unknown) Documented By: RL (units (unknown) date) unknown) (unknown) (no (unknown) (unknown) Dry eyes (units (unkno wn) date) unknown) (unknown) (no (unknown) (unknown) ED Orders (units (unkn own) date) unknown) (unknown) (no (unknown) (unknown) ER Physician: (units ( unknown) date) Oscar Brown D.O. unknown) (unknown) (no (unknown) (unknown) Eczema (units (unkno wn) date) unknown) (unknown) (no (unknown) (unknown) Emergency Report (units (unknown) date) unknown) (unknown) (no (unknown) (unknown) Eos # (Auto) 300 (units (unknown) date) (0-450) /uL unknown) (unknown) (no (unknown) (unknown) Eos % (Auto) 3.1 (units (unknown) date) (2-4) % unknown) (unknown) (no (unknown) (unknown) Esterase (units (unkno wn) date) unknown) (unknown) (no (unknown) (unknown) Estimated GFR > 60 (units (unknown) date) (>60) mL/min unknown) (unknown) (no (unknown) (unknown) Exam (units (unkno wn) date) unknown) (unknown) (no (unknown) (unknown) Exempt. post op (units (unknown) date) pain. unknown) (unknown) (no (unknown) (unknown) Fibromyalgia (units (u nknown) date) unknown) (unknown) (no (unknown) (unknown) GERD (units (unkno wn) date) (gastroesophageal unknown) reflux disease) (unknown) (no (unknown) (unknown) General (units (unkno wn) date) unknown) (unknown) (no (unknown) (unknown) Globulin 3.0 (units (u nknown) date) (1.7-4.1) g/dL unknown) (unknown) (no (unknown) (unknown) Glucose 98 (units (unk nown) date) (70-100) mg/dL unknown) (unknown) (no (unknown) (unknown) H/O left wrist (units (unknown) date) surgery unknown) (unknown) (no (unknown) (unknown) HFA inhaler (units (un known) date) (Advair HFA) unknown) (unknown) (no (unknown) (unknown) HPI - General (units ( unknown) date) Adult unknown) (unknown) (no (unknown) (unknown) HPI narrative: (units (unknown) date) unknown) (unknown) (no (unknown) (unknown) Had lab work (units (u nknown) date) performed and also unknown) a CT scan. These were unremarkable when she was (unknown) (no (unknown) (unknown) Hct 42.6 (36-46) % (units (unknown) date) unknown) (unknown) (no (unknown) (unknown) Hgb 14.5 (units (unkno wn) date) (12.0-16.0) g/dL unknown) (unknown) (no (unknown) (unknown) History of Present (units (unknown) date) Illness unknown) (unknown) (no (unknown) (unknown) History of (units (unk nown) date) Sjogren's disease unknown) (unknown) (no (unknown) (unknown) History of back (units (unknown) date) surgery unknown) (unknown) (no (unknown) (unknown) History of (units (unk nown) date) hysterectomy unknown) (unknown) (no (unknown) (unknown) History of lumbar (units (unknown) date) spinal fusion unknown) (unknown) (no (unknown) (unknown) History of (units (unk nown) date) temporal artery unknown) biopsy (unknown) (no (unknown) (unknown) History of total (units (unknown) date) left hip unknown) arthroplasty (unknown) (no (unknown) (unknown) Home Medications (units (unknown) date) unknown) (unknown) (no (unknown) (unknown) Hx of appendectomy (units (unknown) date) unknown) (unknown) (no (unknown) (unknown) Hx of arthroscopy (units (unknown) date) of right knee unknown) (unknown) (no (unknown) (unknown) Hx of (units (unkno wn) date) cholecystectomy unknown) (unknown) (no (unknown) (unknown) Hx of exploratory (units (unknown) date) laparotomy unknown) (unknown) (no (unknown) (unknown) Hx of lumbosacral (units (unknown) date) spine surgery unknown) (unknown) (no (unknown) (unknown) Hx of spinal (units (u nknown) date) fusion (2017) unknown) (unknown) (no (unknown) (unknown) Hypotension (units (un known) date) unknown) (unknown) (no (unknown) (unknown) Hypothyroid (units (un known) date) unknown) (unknown) (no (unknown) (unknown) IBS (irritable (units (unknown) date) bowel syndrome) unknown) (unknown) (no (unknown) (unknown) Initial Vital (units ( unknown) date) Signs unknown) (unknown) (no (unknown) (unknown) Initial Vital (units ( unknown) date) Signs: unknown) (unknown) (no (unknown) (unknown) Instructions: DI (units (unknown) date) for Abdominal unknown) Pain-Adult (unknown) (no (unknown) (unknown) [facility] (units (unknown) date) [address] [place] [address] unknown) [place] [address] (unknown) (no (unknown) (unknown) Ketorolac (units (unkn own) date) Tromethamine unknown) (Ketorolac 30 Mg/Ml Vial) 30 mg IM NOW ONE (unknown) (no (unknown) (unknown) Lab Data (units (unkno wn) date) unknown) (unknown) (no (unknown) (unknown) Lab Results (units (un known) date) unknown) (unknown) (no (unknown) (unknown) Labs: (units (unkno wn) date) unknown) (unknown) (no (unknown) (unknown) Last Admin: (units (un known) date) 07/16/22 20:36 unknown) Dose: 1 tab (unknown) (no (unknown) (unknown) Last Admin: (units (un known) date) 07/16/22 20:38 unknown) Dose: 30 mg (unknown) (no (unknown) (unknown) Last Admin: (units (un known) date) 07/16/22 20:50 unknown) Dose: 25 mg (unknown) (no (unknown) (unknown) Last Admin: (units (un known) date) 07/16/22 22:34 unknown) Dose: 1 gm (unknown) (no (unknown) (unknown) Limitations: no (units (unknown) date) limitations unknown) (unknown) (no (unknown) (unknown) Lipase 308 H (units (u nknown) date) (23-300) U/L unknown) (unknown) (no (unknown) (unknown) Lipase Stat (units (un known) date) unknown) (unknown) (no (unknown) (unknown) Lupus (units (unkno wn) date) unknown) (unknown) (no (unknown) (unknown) Lymph # (Auto) (units (unknown) date) 2500 (5520-0463) unknown) /uL (unknown) (no (unknown) (unknown) Lymph % (Auto) (units (unknown) date) 25.7 (25-40) % unknown) (unknown) (no (unknown) (unknown) MCH 28.3 (26-34) (units (unknown) date) PG unknown) (unknown) (no (unknown) (unknown) MCHC 34.0 (30-36) (units (unknown) date) % unknown) (unknown) (no (unknown) (unknown) MCV 83.2 (80-100) (units (unknown) date) fL unknown) (unknown) (no (unknown) (unknown) Medical Decision (units (unknown) date) Making unknown) (unknown) (no (unknown) (unknown) Medical History (units (unknown) date) (Reviewed 07/08/22 unknown) @ 14:58 by Bibi Koroma PA-C) (unknown) (no (unknown) (unknown) Medication (units (unk nown) date) Instructions unknown) Recorded Confirmed (unknown) (no (unknown) (unknown) Medication (units (unk nown) date) Instructions unknown) Recorded (unknown) (no (unknown) (unknown) Migraines (units (unkn own) date) unknown) (unknown) (no (unknown) (unknown) Mode of arrival: (units (unknown) date) Ambulatory unknown) (unknown) (no (unknown) (unknown) Monday you talk (units (unknown) date) with your GI unknown) provider about the abdominal pain that you are (unknown) (no (unknown) (unknown) [place] # (Auto) 600 (units (unknown) date) (0-900) /uL unknown) (unknown) (no (unknown) (unknown) [place] % (Auto) 5.7 (units (unknown) date) (3-14) % unknown) (unknown) (no (unknown) (unknown) Neut # (Auto) 6300 (units (unknown) date) (2659-6088) /uL unknown) (unknown) (no (unknown) (unknown) Neut % (Auto) 65.0 (units (unknown) date) (50-75) % unknown) (unknown) (no (unknown) (unknown) New (units (unkno wn) date) unknown) (unknown) (no (unknown) (unknown) No Action (units (unkn own) date) unknown) (unknown) (no (unknown) (unknown) Ordered: (units (unkno wn) date) unknown) (unknown) (no (unknown) (unknown) Orders (units (unkno wn) date) unknown) (unknown) (no (unknown) (unknown) Oxycodone/Acetamin (units (unknown) date) ophen unknown) (Oxycodone/Acetamin ophen 5/325 Tablet) 1 tab PO NOW ONE (unknown) (no (unknown) (unknown) Oxygen Delivery (units (unknown) date) Method Room Air unknown) (unknown) (no (unknown) (unknown) Oxygen Delivery (units (unknown) date) Method unknown) (unknown) (no (unknown) (unknown) PTSD (units (unkno wn) date) (post-traumatic unknown) stress disorder) (unknown) (no (unknown) (unknown) Patient (units (unkno wn) date) Disposition: Home unknown) (unknown) (no (unknown) (unknown) Patient History (units (unknown) date) unknown) (unknown) (no (unknown) (unknown) Patient: (units (unkno wn) date) Rachel Osborne unknown) MR#: M (unknown) (no (unknown) (unknown) Penicillins (units (un known) date) Allergy unknown) Intermediate Rash Verified 03/11/20 07:53 (unknown) (no (unknown) (unknown) Plt Count 253 (units ( unknown) date) (150-400) X103/uL unknown) (unknown) (no (unknown) (unknown) Point of care (units ( unknown) date) testing: unknown) (unknown) (no (unknown) (unknown) Potassium 4.1 (units ( unknown) date) (3.4-5.1) mmol/L unknown) (unknown) (no (unknown) (unknown) Prescriptions: (units (unknown) date) unknown) (unknown) (no (unknown) (unknown) Presence of (units (un known) date) neurostimulator unknown) (-2012) (unknown) (no (unknown) (unknown) Previous Rx's (units ( unknown) date) unknown) (unknown) (no (unknown) (unknown) Promethazine HCl (units (unknown) date) (Promethazine 25 Mg unknown) Supp) 25 mg [place] NOW ONE (unknown) (no (unknown) (unknown) Pulse Oximetry 100 (units (unknown) date) 07/16/22 16:56 unknown) (unknown) (no (unknown) (unknown) Pulse Oximetry 100 (units (unknown) date) 100 100 unknown) (unknown) (no (unknown) (unknown) Pulse Oximetry 100 (units (unknown) date) 100 unknown) (unknown) (no (unknown) (unknown) Pulse Oximetry 100 (units (unknown) date) 96 unknown) (unknown) (no (unknown) (unknown) Pulse Oximetry 100 (units (unknown) date) unknown) (unknown) (no (unknown) (unknown) Pulse Oximetry 95 (units (unknown) date) 96 unknown) (unknown) (no (unknown) (unknown) Pulse Oximetry 96 (units (unknown) date) 100 unknown) (unknown) (no (unknown) (unknown) Pulse Oximetry 97 (units (unknown) date) 99 unknown) (unknown) (no (unknown) (unknown) Pulse Oximetry 97 (units (unknown) date) unknown) (unknown) (no (unknown) (unknown) Pulse Oximetry 99 (units (unknown) date) 100 98 unknown) (unknown) (no (unknown) (unknown) Pulse Rate 64 66 (units (unknown) date) unknown) (unknown) (no (unknown) (unknown) Pulse Rate 72 (units ( unknown) date) unknown) (unknown) (no (unknown) (unknown) Pulse Rate 76 72 (units (unknown) date) unknown) (unknown) (no (unknown) (unknown) Pulse Rate 77 78 (units (unknown) date) unknown) (unknown) (no (unknown) (unknown) Pulse Rate 79 71 (units (unknown) date) unknown) (unknown) (no (unknown) (unknown) Pulse Rate 79 78 (units (unknown) date) 76 unknown) (unknown) (no (unknown) (unknown) Pulse Rate 81 89 (units (unknown) date) 88 unknown) (unknown) (no (unknown) (unknown) Pulse Rate 82 73 (units (unknown) date) unknown) (unknown) (no (unknown) (unknown) Pulse Rate 85 78 (units (unknown) date) unknown) (unknown) (no (unknown) (unknown) Pulse Rate 88 (units ( unknown) date) unknown) (unknown) (no (unknown) (unknown) Pulse Rate 89 (units ( unknown) date) 07/16/22 16:56 unknown) (unknown) (no (unknown) (unknown) RBC 5.12 (4.0-5.2) (units (unknown) date) X106/uL unknown) (unknown) (no (unknown) (unknown) RDW 14.2 (units (unkno wn) date) (11.6-14.8) % unknown) (unknown) (no (unknown) (unknown) RLS (restless legs (units (unknown) date) syndrome) unknown) (unknown) (no (unknown) (unknown) Raynaud's disease (units (unknown) date) unknown) (unknown) (no (unknown) (unknown) Recommend you (units ( unknown) date) continue to take unknown) all of your medications as directed. Two new (unknown) (no (unknown) (unknown) Referrals: (units (unk nown) date) unknown) (unknown) (no (unknown) (unknown) Related Data (units (u nknown) date) unknown) (unknown) (no (unknown) (unknown) Respiratory Rate (units (unknown) date) 12 17 unknown) (unknown) (no (unknown) (unknown) Respiratory Rate (units (unknown) date) 14 14 unknown) (unknown) (no (unknown) (unknown) Respiratory Rate (units (unknown) date) 16 18 unknown) (unknown) (no (unknown) (unknown) Respiratory Rate (units (unknown) date) 17 17 unknown) (unknown) (no (unknown) (unknown) Respiratory Rate (units (unknown) date) 18 unknown) (unknown) (no (unknown) (unknown) Respiratory Rate (units (unknown) date) 19 15 14 unknown) (unknown) (no (unknown) (unknown) Respiratory Rate (units (unknown) date) 20 07/16/22 16:56 unknown) (unknown) (no (unknown) (unknown) Respiratory Rate (units (unknown) date) 20 20 12 unknown) (unknown) (no (unknown) (unknown) Respiratory Rate (units (unknown) date) 24 unknown) (unknown) (no (unknown) (unknown) Respiratory Rate (units (unknown) date) 25 H 15 unknown) (unknown) (no (unknown) (unknown) Respiratory Rate (units (unknown) date) unknown) (unknown) (no (unknown) (unknown) Result diagrams: (units (unknown) date) unknown) (unknown) (no (unknown) (unknown) Rheumatoid (units (unk nown) date) arthritis unknown) (unknown) (no (unknown) (unknown) Rx Instructions: (units (unknown) date) unknown) (unknown) (no (unknown) (unknown) Scleroderma (units (un known) date) unknown) (unknown) (no (unknown) (unknown) Signed By: (units (unk nown) date) unknown) (unknown) (no (unknown) (unknown) Smoking Status: (units (unknown) date) Never smoker unknown) (unknown) (no (unknown) (unknown) Social History (units (unknown) date) unknown) (unknown) (no (unknown) (unknown) Sodium 135 L (units (u nknown) date) (137-145) mmol/L unknown) (unknown) (no (unknown) (unknown) Source: patient (units (unknown) date) unknown) (unknown) (no (unknown) (unknown) Spinal stenosis of (units (unknown) date) lumbar region with unknown) radiculopathy (2013) (unknown) (no (unknown) (unknown) Stand Alone Forms: (units (unknown) date) Patient Portal/API unknown) (unknown) (no (unknown) (unknown) Stated complaint: (units (unknown) date) severe Abd pain unknown) (unknown) (no (unknown) (unknown) Stop: 07/16/22 (units (unknown) date) 18:46 unknown) (unknown) (no (unknown) (unknown) Stop: 07/16/22 (units (unknown) date) 20:27 unknown) (unknown) (no (unknown) (unknown) Stop: 07/16/22 (units (unknown) date) 22:21 unknown) (unknown) (no (unknown) (unknown) Substance Use (units ( unknown) date) Type: does not use unknown) (unknown) (no (unknown) (unknown) Sucralfate (units (unk nown) date) (Sucralfate 1 Gm unknown) Tablet) 1 gm PO NOW ONE (unknown) (no (unknown) (unknown) Sugars, (units (unkno wn) date) Metabolically unknown) Active AdvReac Migraine Verified 03/11/20 08:45 (unknown) (no (unknown) (unknown) Surgical History (units (unknown) date) (Reviewed 07/08/22 unknown) @ 14:59 by Bibi Koroma PA-C) (unknown) (no (unknown) (unknown) Takes with (units (unk nown) date) compazine unknown) (unknown) (no (unknown) (unknown) Temperature 97.3 F (units (unknown) date) L unknown) (unknown) (no (unknown) (unknown) Temperature 99.5 F (units (unknown) date) unknown) (unknown) (no (unknown) (unknown) Temperature (units (un known) date) unknown) (unknown) (no (unknown) (unknown) Time Seen by (units (u nknown) date) Provider: 07/16/22 unknown) 17:29 (unknown) (no (unknown) (unknown) Total Bilirubin (units (unknown) date) 2.0 H (0.2-1.3) unknown) mg/dL (unknown) (no (unknown) (unknown) Total Protein 6.9 (units (unknown) date) (6.3-8.2) g/dL unknown) (unknown) (no (unknown) (unknown) US abdomen (units (unk nown) date) complete Stat unknown) (unknown) (no (unknown) (unknown) Ur Culture (units (unk nown) date) Indicated? Specimen unknown) cultured (unknown) (no (unknown) (unknown) Ur Squamous Epith (units (unknown) date) Cells 0-1 /hpf unknown) (0-5/HPF) (unknown) (no (unknown) (unknown) Urine Bacteria (units (unknown) date) Occasional (0-1) unknown) (None) (unknown) (no (unknown) (unknown) Urine Culture Stat (units (unknown) date) unknown) (unknown) (no (unknown) (unknown) Urine Dip (units (unkn own) date) unknown) (unknown) (no (unknown) (unknown) Urine Microscopic (units (unknown) date) Stat unknown) (unknown) (no (unknown) (unknown) Urine RBC None (units (unknown) date) seen (0-5/HPF) unknown) (unknown) (no (unknown) (unknown) Urine Specific (units (unknown) date) [place] 1.015 unknown) (unknown) (no (unknown) (unknown) Urine WBC 5-10/hpf (units (unknown) date) H (0-5/HPF) unknown) (unknown) (no (unknown) (unknown) Vertigo (units (unkno wn) date) unknown) (unknown) (no (unknown) (unknown) Vital Signs - 8 hr (units (unknown) date) unknown) (unknown) (no (unknown) (unknown) Vital Signs (units (un known) date) unknown) (unknown) (no (unknown) (unknown) Vital signs: (units (u nknown) date) unknown) (unknown) (no (unknown) (unknown) WBC 9.7 (4.5-11.0) (units (unknown) date) X103/uL unknown) (unknown) (no (unknown) (unknown) [Embedded Image (units (unknown) date) Not Available] unknown) (unknown) (no (unknown) (unknown) acetaminophen 325 (units (unknown) date) mg Tablet unknown) (unknown) (no (unknown) (unknown) acetaminophen 325 (units (unknown) date) mg tablet 650 mg PO unknown) Q6HR PRN Pain, Mild 03/13/20 (unknown) (no (unknown) (unknown) adhesive tape (units ( unknown) date) Allergy unknown) Intermediate Rash Verified 03/11/20 07:53 (unknown) (no (unknown) (unknown) aerosol inhaler (units (unknown) date) unknown) (unknown) (no (unknown) (unknown) albuterol sulfate (units (unknown) date) 1.25 mg/3 mL 1.25 unknown) mg continuous nebulization 03/04/20 03/11/20 (unknown) (no (unknown) (unknown) albuterol sulfate (units (unknown) date) 1.25 mg/3 mL unknown) Solution For Nebulization (unknown) (no (unknown) (unknown) albuterol sulfate (units (unknown) date) 90 mcg/actuation 2 unknown) puff inhalation Q4-6H PRN Asthma 03/04/20 (unknown) (no (unknown) (unknown) albuterol sulfate (units (unknown) date) 90 mcg/actuation unknown) Hfa Aerosol Inhaler (unknown) (no (unknown) (unknown) alcohol intake (units (unknown) date) frequency: 0-2 unknown) drinks per day (unknown) (no (unknown) (unknown) alcohol intake: (units (unknown) date) never unknown) (unknown) (no (unknown) (unknown) amitriptyline (units ( unknown) date) Allergy unknown) Intermediate Rash Verified 03/11/20 07:53 (unknown) (no (unknown) (unknown) and vomiting. No (units (unknown) date) change in bowel unknown) habits. No urinary symptoms. No fevers. No (unknown) (no (unknown) (unknown) azelastine 137 mcg (units (unknown) date) (0.1 %) unknown) Aerosol,[place] (unknown) (no (unknown) (unknown) azelastine 137 mcg (units (unknown) date) (0.1 %) nasal 1 unknown) spray intranasal BID PRN 03/04/20 03/11/20 (unknown) (no (unknown) (unknown) bad bone (units (unkno wn) date) unknown) (unknown) (no (unknown) (unknown) body pain' (units (unk nown) date) unknown) (unknown) (no (unknown) (unknown) capsule,delayed (units (unknown) date) release unknown) (unknown) (no (unknown) (unknown) cephalexin [From (units (unknown) date) Keflex] Allergy unknown) Intermediate Rash Verified 03/11/20 07:53 (unknown) (no (unknown) (unknown) clarithromycin (units (unknown) date) Allergy unknown) Intermediate Rash Verified 03/11/20 07:53 (unknown) (no (unknown) (unknown) cyclobenzaprine (units (unknown) date) Allergy unknown) Intermediate Rash Verified 03/11/20 07:53 (unknown) (no (unknown) (unknown) diclofenac (units (unk nown) date) epolamine 1.3 % 1 unknown) patch topical BID 03/04/20 03/11/20 (unknown) (no (unknown) (unknown) diclofenac (units (unk nown) date) epolamine [Flector] unknown) 1.3 % Patch 12 Hour (unknown) (no (unknown) (unknown) diphenhydramine (units (unknown) date) HCl 25 mg capsule unknown) 50 mg PO Q6H PRN Migraines 03/04/20 03/11/20 (unknown) (no (unknown) (unknown) diphenhydramine (units (unknown) date) HCl [Benadryl] 25 unknown) mg Capsule (unknown) (no (unknown) (unknown) discharged home. (units (unknown) date) She returns to the unknown) emergency department today stating that she (unknown) (no (unknown) (unknown) docusate sodium (units (unknown) date) 100 mg capsule 100 unknown) mg PO BID #20 caps 03/13/20 (unknown) (no (unknown) (unknown) docusate sodium (units (unknown) date) [DOK] 100 mg unknown) Capsule (unknown) (no (unknown) (unknown) duloxetine [From (units (unknown) date) Cymbalta] Allergy unknown) Intermediate Rash Verified 03/11/20 07:53 (unknown) (no (unknown) (unknown) ea (units (unkno wn) date) unknown) (unknown) (no (unknown) (unknown) enoxaparin [From (units (unknown) date) Lovenox] Allergy unknown) Intermediate Rash Verified 03/11/20 07:53 (unknown) (no (unknown) (unknown) erythromycin base (units (unknown) date) Allergy unknown) Intermediate Rash Verified 03/11/20 07:53 (unknown) (no (unknown) (unknown) esomeprazole (units (u nknown) date) magnesium 20 mg 20 unknown) mg PO DAILY #14 caps 07/16/22 (unknown) (no (unknown) (unknown) esomeprazole (units (u nknown) date) magnesium 20 mg unknown) capsule,delayed release(DR/EC) (unknown) (no (unknown) (unknown) fexofenadine 180 (units (unknown) date) mg tablet 180 mg PO unknown) DAILY 03/04/20 03/11/20 (unknown) (no (unknown) (unknown) fexofenadine (units (u nknown) date) [Gretel Allergy] unknown) 180 mg Tablet (unknown) (no (unknown) (unknown) fluticasone (units (un known) date) propionate 115 2 unknown) puff inhalation BID 03/04/20 03/11/20 (unknown) (no (unknown) (unknown) gabapentin 600 mg (units (unknown) date) Tablet unknown) (unknown) (no (unknown) (unknown) gabapentin 600 mg (units (unknown) date) tablet 1,200 mg PO unknown) BID 03/04/20 03/11/20 (unknown) (no (unknown) (unknown) having today. So (units (unknown) date) contact your unknown) primary doctor for follow-up. (unknown) (no (unknown) (unknown) heparin Allergy (units (unknown) date) Intermediate Rash unknown) Verified 03/11/20 07:53 (unknown) (no (unknown) (unknown) household members: (units (unknown) date) friend(s) unknown) (unknown) (no (unknown) (unknown) hydrocodone (units (un known) date) Allergy Mild Rash unknown) Verified 03/11/20 07:53 (unknown) (no (unknown) (unknown) hydromorphone 4 mg (units (unknown) date) Tablet unknown) (unknown) (no (unknown) (unknown) hydromorphone 4 mg (units (unknown) date) tablet 6 mg PO unknown) Q4-6H PRN Pain, Severe 03/13/20 (unknown) (no (unknown) (unknown) is still having (units (unknown) date) discomfort. She unknown) thought maybe it improved somewhat after (unknown) (no (unknown) (unknown) leave on most (units ( unknown) date) painful area for up unknown) to 12 hrs (unknown) (no (unknown) (unknown) lidocaine 5 % (units ( unknown) date) adhesive unknown) patch,medicated (unknown) (no (unknown) (unknown) lidocaine 5 % (units ( unknown) date) topical patch 1 unknown) patch topical DAILY PRN pain #15 12/18/19 (unknown) (no (unknown) (unknown) mcg-salmeterol 21 (units (unknown) date) mcg/actuation unknown) (unknown) (no (unknown) (unknown) me mean' (units (unkno wn) date) unknown) (unknown) (no (unknown) (unknown) medications [facility] (units (unknown) date[email or web address] [place] per your request. I recommend on (unknown) (no (unknown) (unknown) methocarbamol 750 (units (unknown) date) mg tablet 750 mg PO unknown) TID #21 tabs 03/13/20 (unknown) (no (unknown) (unknown) methocarbamol 750 (units (unknown) date) mg tablet unknown) (unknown) (no (unknown) (unknown) methotrexate (units (u nknown) date) Allergy Severe unknown) Rash, Verified 03/11/20 07:53 (unknown) (no (unknown) (unknown) mycins Allergy (units (unknown) date) Severe Vomiting unknown) Uncoded 03/11/20 08:50 (unknown) (no (unknown) (unknown) ondansetron (units (un known) date) Allergy unknown) Intermediate Rash Verified 03/11/20 07:53 (unknown) (no (unknown) (unknown) oxycodone 10 mg (units (unknown) date) Tablet unknown) (unknown) (no (unknown) (unknown) oxycodone 10 mg (units (unknown) date) tablet 10 mg PO TID unknown) PRN Pain 03/04/20 03/11/20 (unknown) (no (unknown) (unknown) oxycodone 15 mg (units (unknown) date) tablet,crush 15 mg unknown) PO BID 03/04/20 03/04/20 (unknown) (no (unknown) (unknown) oxycodone (units (unkn own) date) [OxyContin] 15 mg unknown) Tablet,Oral Only,Ext.Rel.12 Hr (unknown) (no (unknown) (unknown) pain' (units (unkno wn) date) unknown) (unknown) (no (unknown) (unknown) prednisone AdvReac (units (unknown) date) Severe 'It causes unknown) Verified 03/11/20 07:53 (unknown) (no (unknown) (unknown) prior abdominal (units (unknown) date) surgeries. She is unknown) under the care of a GI doctor secondary to (unknown) (no (unknown) (unknown) prochlorperazine (units (unknown) date) maleate 10 mg 10 mg unknown) PO Q6H PRN Migraines 03/04/20 03/11/20 (unknown) (no (unknown) (unknown) prochlorperazine (units (unknown) date) maleate [Compazine] unknown) 10 mg Tablet (unknown) (no (unknown) (unknown) promethazine 25 mg (units (unknown) date) Tablet unknown) (unknown) (no (unknown) (unknown) promethazine 25 mg (units (unknown) date) tablet 25 mg PO Q6H unknown) PRN Nausea 03/04/20 03/11/20 (unknown) (no (unknown) (unknown) resistant,extended (units (unknown) date) release 12 hr unknown) (unknown) (no (unknown) (unknown) seen at an outside (units (unknown) date) facility yesterday. unknown) Those notes are available for review. (unknown) (no (unknown) (unknown) solution for (units (u nknown) date) nebulization Q4H unknown) PRN Asthma (unknown) (no (unknown) (unknown) some liver issues (units (unknown) date) but has not spoke unknown) with her GI doctor about her discomfort (unknown) (no (unknown) (unknown) spray aerosol (units ( unknown) date) Seasonal allergies unknown) (unknown) (no (unknown) (unknown) sucralfate 100 (units (unknown) date) mg/mL oral 10 ml PO unknown) QACHS #400 mL 07/16/22 (unknown) (no (unknown) (unknown) sucralfate (units (unk nown) date) [Carafate] 100 unknown) mg/mL suspension (unknown) (no (unknown) (unknown) sumatriptan (units (un known) date) succinate 100 mg unknown) Tablet (unknown) (no (unknown) (unknown) sumatriptan (units (un known) date) succinate 100 mg unknown) tablet 100 mg PO Q2-4H PRN Migraines 03/04/20 (unknown) (no (unknown) (unknown) suspension (units (unk nown) date) (Carafate) unknown) (unknown) (no (unknown) (unknown) tablet (Compazine) (units (unknown) date) unknown) (unknown) (no (unknown) (unknown) tizanidine [From (units (unknown) date) Zanaflex] Allergy unknown) Intermediate Rash Verified 03/11/20 07:53 (unknown) (no (unknown) (unknown) today. (units (unkno wn) date) unknown) (unknown) (no (unknown) (unknown) transdermal 12 (units (unknown) date) hour patch unknown) (Flector) (unknown) (no (unknown) (unknown) trazodone AdvReac (units (unknown) date) Severe 'It makes unknown) Verified 03/11/20 07:53 (unknown) (no (unknown) (unknown) treatment of the (units (unknown) date) outside facility unknown) but is now back again. She is having nausea (unknown) (no (unknown) (unknown) venlafaxine [From (units (unknown) date) Effexor] Allergy unknown) Intermediate Rash Verified 03/11/20 07:53 Result panel 83 (unknown) (no (unknown) (unknown) (no value) (units (unk nown) date) unknown) (unknown) (no (unknown) (unknown) <Electronically (units (unknown) date) signed by Oscar Brown D.O.> (unknown) (no (unknown) (unknown) 'Most metals' (units ( unknown) date) Allergy unknown) Intermediate Rash Uncoded 03/04/20 12:24 (unknown) (no (unknown) (unknown) 'severe (units (unkno wn) date) unknown) (unknown) (no (unknown) (unknown) (1-3) #20 tabs (units (unknown) date) unknown) (unknown) (no (unknown) (unknown) (7-10) #60 tabs (units (unknown) date) unknown) (unknown) (no (unknown) (unknown) (Gretel Allergy) (units (unknown) date) unknown) (unknown) (no (unknown) (unknown) (Benadryl) (units (unk nown) date) unknown) (unknown) (no (unknown) (unknown) (DOK) (units (unkno wn) date) unknown) (unknown) (no (unknown) (unknown) (OxyContin) (units (un known) date) unknown) (unknown) (no (unknown) (unknown) [id number] (units (unkn own) date) unknown) (unknown) (no (unknown) (unknown) 07/16/22 07/16/22 (units (unknown) date) 07/16/22 unknown) Range/Units (unknown) (no (unknown) (unknown) 07/16/22 17:07 (units (unknown) date) unknown) (unknown) (no (unknown) (unknown) 07/16/22 17:29 (units (unknown) date) unknown) (unknown) (no (unknown) (unknown) 07/16/22 20:40 (units (unknown) date) unknown) (unknown) (no (unknown) (unknown) 07/16/22 21:27 (units (unknown) date) unknown) (unknown) (no (unknown) (unknown) 07/16/22 2350 (units ( unknown) date) unknown) (unknown) (no (unknown) (unknown) 07/16/22 (units (unkno wn) date) unknown) (unknown) (no (unknown) (unknown) 03/11/20 (units (unkno wn) date) unknown) (unknown) (no (unknown) (unknown) 1 patch TOP DAILY (units (unknown) date) PRN (Reason: pain) unknown) Qty: 15 0RF (unknown) (no (unknown) (unknown) 1 patch TOPICAL (units (unknown) date) BID unknown) (unknown) (no (unknown) (unknown) 1 spray INTRANASAL (units (unknown) date) BID PRN (Reason: unknown) Seasonal allergies) (unknown) (no (unknown) (unknown) 1,200 mg PO BID (units (unknown) date) unknown) (unknown) (no (unknown) (unknown) 1.25 mg continuous (units (unknown) date) nebulization Q4H unknown) PRN (Reason: Asthma) (unknown) (no (unknown) (unknown) 10 mg PO Q6H PRN (units (unknown) date) (Reason: Migraines) unknown) (unknown) (no (unknown) (unknown) 10 mg PO TID PRN (units (unknown) date) (Reason: Pain) unknown) (unknown) (no (unknown) (unknown) 10 ml PO QACHS (units (unknown) date) Qty: 400 2RF unknown) (unknown) (no (unknown) (unknown) 100 mg PO BID Qty: (units (unknown) date) 20 0RF unknown) (unknown) (no (unknown) (unknown) 100 mg PO Q2-4H (units (unknown) date) PRN (Reason: unknown) Migraines) (unknown) (no (unknown) (unknown) [address] [place] [address] (units (unknown) date) unknown) (unknown) (no (unknown) (unknown) 15 mg PO BID (units (u nknown) date) unknown) (unknown) (no (unknown) (unknown) 16:56 07/16/22 (units (unknown) date) unknown) (unknown) (no (unknown) (unknown) 16:57 07/16/22 (units (unknown) date) unknown) (unknown) (no (unknown) (unknown) 16:57 (units (unkno wn) date) unknown) (unknown) (no (unknown) (unknown) 17:00 07/16/22 (units (unknown) date) unknown) (unknown) (no (unknown) (unknown) 17:00 (units (unkno wn) date) unknown) (unknown) (no (unknown) (unknown) 17:02 07/16/22 (units (unknown) date) unknown) (unknown) (no (unknown) (unknown) 17:30 (units (unkno wn) date) unknown) (unknown) (no (unknown) (unknown) 17:34 07/16/22 (units (unknown) date) unknown) (unknown) (no (unknown) (unknown) 180 mg PO DAILY (units (unknown) date) unknown) (unknown) (no (unknown) (unknown) 18:00 (units (unkno wn) date) unknown) (unknown) (no (unknown) (unknown) 18:01 07/16/22 (units (unknown) date) unknown) (unknown) (no (unknown) (unknown) 18:30 (units (unkno wn) date) unknown) (unknown) (no (unknown) (unknown) 18:31 07/16/22 (units (unknown) date) unknown) (unknown) (no (unknown) (unknown) 19:00 07/16/22 (units (unknown) date) unknown) (unknown) (no (unknown) (unknown) 19:00 (units (unkno wn) date) unknown) (unknown) (no (unknown) (unknown) 19:30 07/16/22 (units (unknown) date) unknown) (unknown) (no (unknown) (unknown) 2 puff INHALATION (units (unknown) date) BID unknown) (unknown) (no (unknown) (unknown) 2 puff INHALATION (units (unknown) date) Q4-6H PRN (Reason: unknown) Asthma) (unknown) (no (unknown) (unknown) 20 mg PO DAILY (units (unknown) date) Qty: 14 0RF unknown) (unknown) (no (unknown) (unknown) 20:00 (units (unkno wn) date) unknown) (unknown) (no (unknown) (unknown) 20:30 07/16/22 (units (unknown) date) unknown) (unknown) (no (unknown) (unknown) 20:40 21:27 21:27 (units (unknown) date) unknown) (unknown) (no (unknown) (unknown) 21:46 07/16/22 (units (unknown) date) unknown) (unknown) (no (unknown) (unknown) 21:46 (units (unkno wn) date) unknown) (unknown) (no (unknown) (unknown) 22:00 07/16/22 (units (unknown) date) unknown) (unknown) (no (unknown) (unknown) 22:01 07/16/22 (units (unknown) date) unknown) (unknown) (no (unknown) (unknown) 22:01 (units (unkno wn) date) unknown) (unknown) (no (unknown) (unknown) 22:30 07/16/22 (units (unknown) date) unknown) (unknown) (no (unknown) (unknown) 23:29 (units (unkno wn) date) unknown) (unknown) (no (unknown) (unknown) 25 mg PO Q6H PRN (units (unknown) date) (Reason: Nausea) unknown) (unknown) (no (unknown) (unknown) 42-year-old female (units (unknown) date) who is here for unknown) evaluation of abdominal discomfort. She was (unknown) (no (unknown) (unknown) 50 mg PO Q6H PRN (units (unknown) date) (Reason: Migraines) unknown) (unknown) (no (unknown) (unknown) 6 mg PO Q4-6H PRN (units (unknown) date) (Reason: Pain, unknown) Severe (7-10)) Qty: 60 0RF (unknown) (no (unknown) (unknown) 650 mg PO Q6HR PRN (units (unknown) date) (Reason: Pain, Mild unknown) (1-3)) Qty: 20 0RF (unknown) (no (unknown) (unknown) 6mg every 4-6 (units ( unknown) date) hours as needed for unknown) severe pain. (unknown) (no (unknown) (unknown) 750 mg PO TID Qty: (units (unknown) date) 21 0RF unknown) (unknown) (no (unknown) (unknown) ? (units (unkno wn) date) unknown) (unknown) (no (unknown) (unknown) ADD (attention (units (unknown) date) deficit disorder) unknown) (unknown) (no (unknown) (unknown) ADHD (units (unkno wn) date) unknown) (unknown) (no (unknown) (unknown) ALT 24 (<35) IU/L (units (unknown) date) unknown) (unknown) (no (unknown) (unknown) AST 26 (14-36) (units (unknown) date) IU/L unknown) (unknown) (no (unknown) (unknown) Abdominal pain (units (unknown) date) unknown) (unknown) (no (unknown) (unknown) Accession Number: (units (unknown) date) [id number] ?? unknown) (unknown) (no (unknown) (unknown) Acct:[id number] (units (unknown) date) unknown) (unknown) (no (unknown) (unknown) Activity (units (unkno wn) date) Restrictions/Additi unknown) onal Instructions: (unknown) (no (unknown) (unknown) Advair HFA 115-21 (units (unknown) date) mcg/actuation Hfa unknown) Aerosol Inhaler (unknown) (no (unknown) (unknown) Age/Sex: 42 / F (units (unknown) date) unknown) (unknown) (no (unknown) (unknown) Albumin 3.9 (units (un known) date) (3.5-5.0) g/dL unknown) (unknown) (no (unknown) (unknown) Albumin/Globulin (units (unknown) date) Ratio 1.3 (1.0-2.8) unknown) (unknown) (no (unknown) (unknown) Alkaline (units (unkno wn) date) Phosphatase 135 H unknown) (38-126) U/L (unknown) (no (unknown) (unknown) Allergies (units (unkn own) date) unknown) (unknown) (no (unknown) (unknown) Allergy/AdvReac (units (unknown) date) Type Severity unknown) Reaction Status Date / Time (unknown) (no (unknown) (unknown) [place], [place] (units ( unknown) date) [id number] unknown) (unknown) (no (unknown) (unknown) Anxiety (units (unkno wn) date) unknown) (unknown) (no (unknown) (unknown) Aorta:? Visualized (units (unknown) date) aorta is normal in unknown) caliber at less than 3 cm.? (unknown) (no (unknown) (unknown) Appearance of (units ( unknown) date) asymmetric right unknown) renal atrophy. (unknown) (no (unknown) (unknown) Appearance: (units (un known) date) grossly normal and unknown) lisa colladot (unknown) (no (unknown) (unknown) Approved by: (units (u nknown) date) Maddison Velez M.D. unknown) on 07/16/2022 at 19:17?? (unknown) (no (unknown) (unknown) Arthritis (units (unkn own) date) unknown) (unknown) (no (unknown) (unknown) Asthma (units (unkno wn) date) unknown) (unknown) (no (unknown) (unknown) BUN 15 (7-17) (units ( unknown) date) mg/dL unknown) (unknown) (no (unknown) (unknown) BUN/Creatinine (units (unknown) date) Ratio 20.0 (6-22) unknown) (unknown) (no (unknown) (unknown) Baso # (Auto) 0 (units (unknown) date) (0-100) /uL unknown) (unknown) (no (unknown) (unknown) Baso % (Auto) 0.5 (units (unknown) date) (0-2) % unknown) (unknown) (no (unknown) (unknown) Bedside Urine (units ( unknown) date) Bilirubin - unknown) Negative (unknown) (no (unknown) (unknown) Bedside Urine (units ( unknown) date) Glucose Negative unknown) (unknown) (no (unknown) (unknown) Bedside Urine (units ( unknown) date) Ketone - Negative unknown) (unknown) (no (unknown) (unknown) Bedside Urine (units ( unknown) date) Leukocytes +/- 15 unknown) (unknown) (no (unknown) (unknown) Bedside Urine (units ( unknown) date) Nitrite - Negative unknown) (unknown) (no (unknown) (unknown) Bedside Urine (units ( unknown) date) Occult Blood - unknown) Negative (unknown) (no (unknown) (unknown) Bedside Urine (units ( unknown) date) Protein - Negative unknown) (unknown) (no (unknown) (unknown) Bedside Urine (units ( unknown) date) Urobilinogen - unknown) Negative (unknown) (no (unknown) (unknown) Bedside Urine pH (units (unknown) date) 7.0 unknown) (unknown) (no (unknown) (unknown) Biliary ducts:? No (units (unknown) date) gross intrahepatic unknown) biliary dilation.? Common bile duct and (unknown) (no (unknown) (unknown) Blood Pressure (units (unknown) date) 100/55 L 113/63 unknown) (unknown) (no (unknown) (unknown) Blood Pressure (units (unknown) date) 103/51 L unknown) (unknown) (no (unknown) (unknown) Blood Pressure (units (unknown) date) 104/53 L unknown) (unknown) (no (unknown) (unknown) Blood Pressure (units (unknown) date) 108/68 unknown) (unknown) (no (unknown) (unknown) Blood Pressure (units (unknown) date) 113/78 unknown) (unknown) (no (unknown) (unknown) Blood Pressure (units (unknown) date) 129/67 unknown) (unknown) (no (unknown) (unknown) Blood Pressure (units (unknown) date) 91/50 L unknown) (unknown) (no (unknown) (unknown) Blood Pressure (units (unknown) date) 99/57 L 90/54 L unknown) (unknown) (no (unknown) (unknown) Blood Pressure (units (unknown) date) unknown) (unknown) (no (unknown) (unknown) Sandy Schaffer ARNP (units (unknown) date) [Primary Care unknown) Provider] (unknown) (no (unknown) (unknown) COMPARISON:? (units (u nknown) date) [facility], unknown) CT, CT ABDOMEN WO/W CON, 04/16/2019, 11:34. (unknown) (no (unknown) (unknown) Calcium 8.1 L (units ( unknown) date) (8.4-10.2) mg/dL unknown) (unknown) (no (unknown) (unknown) Carbon Dioxide 26 (units (unknown) date) (22-32) mmol/L unknown) (unknown) (no (unknown) (unknown) Cardio (units (unkno wn) date) unknown) (unknown) (no (unknown) (unknown) Chief complaint: (units (unknown) date) Abdominal Pain unknown) (unknown) (no (unknown) (unknown) Chloride 104 (units (u nknown) date) (98-107) mmol/L unknown) (unknown) (no (unknown) (unknown) Clinical (units (unkno wn) date) Impression: unknown) (unknown) (no (unknown) (unknown) Complete Blood (units (unknown) date) Count AUTO DIFF unknown) Stat (unknown) (no (unknown) (unknown) Comprehensive (units ( unknown) date) Metabolic Panel unknown) Stat (unknown) (no (unknown) (unknown) Const (units (unkno wn) date) unknown) (unknown) (no (unknown) (unknown) Consult to CLINICAL SPECIALIST MEDICAL DEVICE - (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 unknown) Stat (unknown) (no (unknown) (unknown) Course (units (unkno wn) date) unknown) (unknown) (no (unknown) (unknown) Creatinine 0.75 (units (unknown) date) (0.52-1.04) mg/dL unknown) (unknown) (no (unknown) (unknown) : 1980 (units (unknown) date) Acct:[id number] unknown) (unknown) (no (unknown) (unknown) : 1980 (units (unknown) date) unknown) (unknown) (no (unknown) (unknown) Date of Service: (units (unknown) date) 07/16/22 unknown) (unknown) (no (unknown) (unknown) Departure (units (unkn own) date) unknown) (unknown) (no (unknown) (unknown) Depression (units (unk nown) date) unknown) (unknown) (no (unknown) (unknown) Dictated by: (units (u nknown) date) Maddison Velez M.D. unknown) on 07/16/2022 at 19:15 ? ? (unknown) (no (unknown) (unknown) Differential (units (u nknown) date) Diagnosis unknown) (unknown) (no (unknown) (unknown) Differential (units (u nknown) date) Diagnosis: Bowel unknown) obstruction, appendicitis, pyelo, UTI, (unknown) (no (unknown) (unknown) Difficult (units (unkn own) date) intravenous access unknown) (unknown) (no (unknown) (unknown) Discharge Plan (units (unknown) date) unknown) (unknown) (no (unknown) (unknown) Discontinued (units (u nknown) date) Medications unknown) (unknown) (no (unknown) (unknown) Documented By: GC (units (unknown) date) unknown) (unknown) (no (unknown) (unknown) Documented By: RL (units (unknown) date) unknown) (unknown) (no (unknown) (unknown) Dry eyes (units (unkno wn) date) unknown) (unknown) (no (unknown) (unknown) ED Orders (units (unkn own) date) unknown) (unknown) (no (unknown) (unknown) ER Physician: (units ( unknown) date) Oscar Brown D.O. unknown) (unknown) (no (unknown) (unknown) Eczema (units (unkno wn) date) unknown) (unknown) (no (unknown) (unknown) Effort + (units (unkno wn) date) Inspection: normal unknown) respiratory effort (unknown) (no (unknown) (unknown) Emergency Report (units (unknown) date) unknown) (unknown) (no (unknown) (unknown) Eos # (Auto) 300 (units (unknown) date) (0-450) /uL unknown) (unknown) (no (unknown) (unknown) Eos % (Auto) 3.1 (units (unknown) date) (2-4) % unknown) (unknown) (no (unknown) (unknown) Esterase (units (unkno wn) date) unknown) (unknown) (no (unknown) (unknown) Estimated GFR > 60 (units (unknown) date) (>60) mL/min unknown) (unknown) (no (unknown) (unknown) Exam (units (unkno wn) date) unknown) (unknown) (no (unknown) (unknown) Exempt. post op (units (unknown) date) pain. unknown) (unknown) (no (unknown) (unknown) Extrem (units (unkno wn) date) unknown) (unknown) (no (unknown) (unknown) FINDINGS:? (units (unk nown) date) unknown) (unknown) (no (unknown) (unknown) Fibromyalgia (units (u nknown) date) unknown) (unknown) (no (unknown) (unknown) GERD (units (unkno wn) date) (gastroesophageal unknown) reflux disease) (unknown) (no (unknown) (unknown) GI (units (unkno wn) date) unknown) (unknown) (no (unknown) (unknown) Gallbladder:? (units ( unknown) date) Removed. unknown) (unknown) (no (unknown) (unknown) General (units (unkno wn) date) unknown) (unknown) (no (unknown) (unknown) General: (units (unkno wn) date) cooperative and No unknown) ill appearing (unknown) (no (unknown) (unknown) General: no rashes (units (unknown) date) or lesions noted unknown) (unknown) (no (unknown) (unknown) General: normal to (units (unknown) date) inspection and unknown) capillary refill normal (unknown) (no (unknown) (unknown) Globulin 3.0 (units (u nknown) date) (1.7-4.1) g/dL unknown) (unknown) (no (unknown) (unknown) Glucose 98 (units (unk nown) date) (70-100) mg/dL unknown) (unknown) (no (unknown) (unknown) H/O left wrist (units (unknown) date) surgery unknown) (unknown) (no (unknown) (unknown) HENMT (units (unkno wn) date) unknown) (unknown) (no (unknown) (unknown) HFA inhaler (units (un known) date) (Advair HFA) unknown) (unknown) (no (unknown) (unknown) HPI - General (units ( unknown) date) Adult unknown) (unknown) (no (unknown) (unknown) HPI narrative: (units (unknown) date) unknown) (unknown) (no (unknown) (unknown) Had lab work (units (u nknown) date) performed and also unknown) a CT scan. These were unremarkable when she was (unknown) (no (unknown) (unknown) Hct 42.6 (36-46) % (units (unknown) date) unknown) (unknown) (no (unknown) (unknown) Head: normal to (units (unknown) date) inspection and unknown) normocephalic (unknown) (no (unknown) (unknown) Hepatomegaly with (units (unknown) date) steatosis. unknown) (unknown) (no (unknown) (unknown) Hgb 14.5 (units (unkno wn) date) (12.0-16.0) g/dL unknown) (unknown) (no (unknown) (unknown) History of Present (units (unknown) date) Illness unknown) (unknown) (no (unknown) (unknown) History of (units (unk nown) date) Sjogren's disease unknown) (unknown) (no (unknown) (unknown) History of back (units (unknown) date) surgery unknown) (unknown) (no (unknown) (unknown) History of (units (unk nown) date) hysterectomy unknown) (unknown) (no (unknown) (unknown) History of lumbar (units (unknown) date) spinal fusion unknown) (unknown) (no (unknown) (unknown) History of (units (unk nown) date) temporal artery unknown) biopsy (unknown) (no (unknown) (unknown) History of total (units (unknown) date) left hip unknown) arthroplasty (unknown) (no (unknown) (unknown) Home Medications (units (unknown) date) unknown) (unknown) (no (unknown) (unknown) Hx of appendectomy (units (unknown) date) unknown) (unknown) (no (unknown) (unknown) Hx of arthroscopy (units (unknown) date) of right knee unknown) (unknown) (no (unknown) (unknown) Hx of (units (unkno wn) date) cholecystectomy unknown) (unknown) (no (unknown) (unknown) Hx of exploratory (units (unknown) date) laparotomy unknown) (unknown) (no (unknown) (unknown) Hx of lumbosacral (units (unknown) date) spine surgery unknown) (unknown) (no (unknown) (unknown) Hx of spinal (units (u nknown) date) fusion (2017) unknown) (unknown) (no (unknown) (unknown) Hypotension (units (un known) date) unknown) (unknown) (no (unknown) (unknown) Hypothyroid (units (un known) date) unknown) (unknown) (no (unknown) (unknown) IBS (irritable (units (unknown) date) bowel syndrome) unknown) (unknown) (no (unknown) (unknown) IMPRESSION:? (units (u nknown) date) unknown) (unknown) (no (unknown) (unknown) INDICATIONS:? (units ( unknown) date) ABDOMEN PAIN AND unknown) BILIRUBIN (unknown) (no (unknown) (unknown) IVC:? Not well (units (unknown) date) seen unknown) (unknown) (no (unknown) (unknown) [place]:? Not well (units (unknown) date) seen unknown) (unknown) (no (unknown) (unknown) Imaging Data (units (u nknown) date) unknown) (unknown) (no (unknown) (unknown) Initial Vital (units ( unknown) date) Signs unknown) (unknown) (no (unknown) (unknown) Initial Vital (units ( unknown) date) Signs: unknown) (unknown) (no (unknown) (unknown) Inspection: normal (units (unknown) date) to inspection and unknown) non-distended (unknown) (no (unknown) (unknown) Instructions: DI (units (unknown) date) for Abdominal unknown) Pain-Adult (unknown) (no (unknown) (unknown) [facility] (units (unknown) date) [address] unknown) [place] [id number] (unknown) (no (unknown) (unknown) [facility] (units (unknown) date) unknown) (unknown) (no (unknown) (unknown) Ketorolac (units (unkn own) date) Tromethamine unknown) (Ketorolac 30 Mg/Ml Vial) 30 mg IM NOW ONE (unknown) (no (unknown) (unknown) Kidneys:? Right (units (unknown) date) kidney measures 8.7 unknown) cm long; left kidney measures 10.9 cm long.? (unknown) (no (unknown) (unknown) Lab Data (units (unkno wn) date) unknown) (unknown) (no (unknown) (unknown) Lab Results (units (un known) date) unknown) (unknown) (no (unknown) (unknown) Lab results (units (un known) date) reviewed: Yes I unknown) reviewed the patient's lab results. (unknown) (no (unknown) (unknown) Labs: (units (unkno wn) date) unknown) (unknown) (no (unknown) (unknown) Last Admin: (units (un known) date) 07/16/22 20:36 unknown) Dose: 1 tab (unknown) (no (unknown) (unknown) Last Admin: (units (un known) date) 07/16/22 20:38 unknown) Dose: 30 mg (unknown) (no (unknown) (unknown) Last Admin: (units (un known) date) 07/16/22 20:50 unknown) Dose: 25 mg (unknown) (no (unknown) (unknown) Last Admin: (units (un known) date) 07/16/22 22:34 unknown) Dose: 1 gm (unknown) (no (unknown) (unknown) Left hepatic cyst (units (unknown) date) not as well seen as unknown) on prior CT exam. (unknown) (no (unknown) (unknown) Limitations: no (units (unknown) date) limitations unknown) (unknown) (no (unknown) (unknown) Lipase 308 H (units (u nknown) date) (23-300) U/L unknown) (unknown) (no (unknown) (unknown) Lipase Stat (units (un known) date) unknown) (unknown) (no (unknown) (unknown) Liver:? Liver is (units (unknown) date) prominent measuring unknown) 16.7 cm with steatosis. (unknown) (no (unknown) (unknown) Loc: ED (units (unkno wn) date) unknown) (unknown) (no (unknown) (unknown) Lupus (units (unkno wn) date) unknown) (unknown) (no (unknown) (unknown) Lymph # (Auto) (units (unknown) date) 2500 ([id number]) unknown) /uL (unknown) (no (unknown) (unknown) Lymph % (Auto) (units (unknown) date) 25.7 (25-40) % unknown) (unknown) (no (unknown) (unknown) MCH 28.3 (26-34) (units (unknown) date) PG unknown) (unknown) (no (unknown) (unknown) MCHC 34.0 (30-36) (units (unknown) date) % unknown) (unknown) (no (unknown) (unknown) MCV 83.2 (80-100) (units (unknown) date) fL unknown) (unknown) (no (unknown) (unknown) MDM Narrative (units ( unknown) date) unknown) (unknown) (no (unknown) (unknown) MR#: [id number] (units (unknown) date) unknown) (unknown) (no (unknown) (unknown) Medical Decision (units (unknown) date) Making unknown) (unknown) (no (unknown) (unknown) Medical History (units (unknown) date) (Reviewed 07/16/22 unknown) @ 23:46 by Oscar Brown DO) (unknown) (no (unknown) (unknown) Medical Records (units (unknown) date) unknown) (unknown) (no (unknown) (unknown) Medical decision (units (unknown) date) making narrative: unknown) (unknown) (no (unknown) (unknown) Medical records (units (unknown) date) reviewed: Yes I unknown) reviewed the patient's medical records. (unknown) (no (unknown) (unknown) Medication (units (unk nown) date) Instructions unknown) Recorded Confirmed (unknown) (no (unknown) (unknown) Medication (units (unk nown) date) Instructions unknown) Recorded (unknown) (no (unknown) (unknown) Migraines (units (unkn own) date) unknown) (unknown) (no (unknown) (unknown) Miscellaneous:? No (units (unknown) date) free abdominal unknown) fluid.? (unknown) (no (unknown) (unknown) Mode of arrival: (units (unknown) date) Ambulatory unknown) (unknown) (no (unknown) (unknown) Monday you talk (units (unknown) date) with your GI unknown) provider about the abdominal pain that you are (unknown) (no (unknown) (unknown) [place] # (Auto) 600 (units (unknown) date) (0-900) /uL unknown) (unknown) (no (unknown) (unknown) [place] % (Auto) 5.7 (units (unknown) date) (3-14) % unknown) (unknown) (no (unknown) (unknown) Neut # (Auto) 6300 (units (unknown) date) (1283-6636) /uL unknown) (unknown) (no (unknown) (unknown) Neut % (Auto) 65.0 (units (unknown) date) (50-75) % unknown) (unknown) (no (unknown) (unknown) New (units (unkno wn) date) unknown) (unknown) (no (unknown) (unknown) No Action (units (unkn own) date) unknown) (unknown) (no (unknown) (unknown) No (units (unkno wn) date) unknown) (unknown) (no (unknown) (unknown) Ordered: (units (unkno wn) date) unknown) (unknown) (no (unknown) (unknown) Ordering Provider: (units (unknown) date) Chantel Richmond D.O. unknown) (unknown) (no (unknown) (unknown) Orders (units (unkno wn) date) unknown) (unknown) (no (unknown) (unknown) Oxycodone/Acetamin (units (unknown) date) ophen unknown) (Oxycodone/Acetamin ophen 5/325 Tablet) 1 tab PO NOW ONE (unknown) (no (unknown) (unknown) Oxygen Delivery (units (unknown) date) Method Room Air unknown) (unknown) (no (unknown) (unknown) Oxygen Delivery (units (unknown) date) Method unknown) (unknown) (no (unknown) (unknown) PROCEDURE:? US (units (unknown) date) ABDOMEN COMPLETE unknown) (unknown) (no (unknown) (unknown) PTSD (units (unkno wn) date) (post-traumatic unknown) stress disorder) (unknown) (no (unknown) (unknown) Palpation: tender (units (unknown) date) unknown) (unknown) (no (unknown) (unknown) Pancreas:? Not (units (unknown) date) visualized. unknown) (unknown) (no (unknown) (unknown) Patient (units (unkno wn) date) Disposition: Home unknown) (unknown) (no (unknown) (unknown) Patient History (units (unknown) date) unknown) (unknown) (no (unknown) (unknown) Patient: (units (unkno wn) date) Rachel Osborne unknown) MR#: M (unknown) (no (unknown) (unknown) Patient: (units (unkno wn) date) Rachel Osborne unknown) (unknown) (no (unknown) (unknown) Penicillins (units (un known) date) Allergy unknown) Intermediate Rash Verified 03/11/20 07:53 (unknown) (no (unknown) (unknown) Plt Count 253 (units ( unknown) date) (150-400) X103/uL unknown) (unknown) (no (unknown) (unknown) Point of care (units ( unknown) date) testing: unknown) (unknown) (no (unknown) (unknown) Potassium 4.1 (units ( unknown) date) (3.4-5.1) mmol/L unknown) (unknown) (no (unknown) (unknown) Prescriptions: (units (unknown) date) unknown) (unknown) (no (unknown) (unknown) Presence of (units (un known) date) neurostimulator unknown) () (unknown) (no (unknown) (unknown) Previous Rx's (units ( unknown) date) unknown) (unknown) (no (unknown) (unknown) Procedure: US (units ( unknown) date) abdomen complete unknown) (unknown) (no (unknown) (unknown) Promethazine HCl (units (unknown) date) (Promethazine 25 Mg unknown) Supp) 25 mg MN NOW ONE (unknown) (no (unknown) (unknown) Psych (units (unkno wn) date) unknown) (unknown) (no (unknown) (unknown) Pulse Oximetry 100 (units (unknown) date) 07/16/22 16:56 unknown) (unknown) (no (unknown) (unknown) Pulse Oximetry 100 (units (unknown) date) 100 100 unknown) (unknown) (no (unknown) (unknown) Pulse Oximetry 100 (units (unknown) date) 100 unknown) (unknown) (no (unknown) (unknown) Pulse Oximetry 100 (units (unknown) date) 96 unknown) (unknown) (no (unknown) (unknown) Pulse Oximetry 100 (units (unknown) date) unknown) (unknown) (no (unknown) (unknown) Pulse Oximetry 95 (units (unknown) date) 96 unknown) (unknown) (no (unknown) (unknown) Pulse Oximetry 96 (units (unknown) date) 100 unknown) (unknown) (no (unknown) (unknown) Pulse Oximetry 97 (units (unknown) date) 99 unknown) (unknown) (no (unknown) (unknown) Pulse Oximetry 97 (units (unknown) date) unknown) (unknown) (no (unknown) (unknown) Pulse Oximetry 99 (units (unknown) date) 100 98 unknown) (unknown) (no (unknown) (unknown) Pulse Rate 64 66 (units (unknown) date) unknown) (unknown) (no (unknown) (unknown) Pulse Rate 72 (units ( unknown) date) unknown) (unknown) (no (unknown) (unknown) Pulse Rate 76 72 (units (unknown) date) unknown) (unknown) (no (unknown) (unknown) Pulse Rate 77 78 (units (unknown) date) unknown) (unknown) (no (unknown) (unknown) Pulse Rate 79 71 (units (unknown) date) unknown) (unknown) (no (unknown) (unknown) Pulse Rate 79 78 (units (unknown) date) 76 unknown) (unknown) (no (unknown) (unknown) Pulse Rate 81 89 (units (unknown) date) 88 unknown) (unknown) (no (unknown) (unknown) Pulse Rate 82 73 (units (unknown) date) unknown) (unknown) (no (unknown) (unknown) Pulse Rate 85 78 (units (unknown) date) unknown) (unknown) (no (unknown) (unknown) Pulse Rate 88 (units ( unknown) date) unknown) (unknown) (no (unknown) (unknown) Pulse Rate 89 (units ( unknown) date) 07/16/22 16:56 unknown) (unknown) (no (unknown) (unknown) RBC 5.12 (4.0-5.2) (units (unknown) date) X106/uL unknown) (unknown) (no (unknown) (unknown) RDW 14.2 (units (unkno wn) date) (11.6-14.8) % unknown) (unknown) (no (unknown) (unknown) RLS (restless legs (units (unknown) date) syndrome) unknown) (unknown) (no (unknown) (unknown) Radiologist's (units ( unknown) date) Impression: unknown) (unknown) (no (unknown) (unknown) Rate: regular rate (units (unknown) date) unknown) (unknown) (no (unknown) (unknown) Raynaud's disease (units (unknown) date) unknown) (unknown) (no (unknown) (unknown) Real-time scanning (units (unknown) date) was performed of unknown) the abdominal and retroperitoneal organs, (unknown) (no (unknown) (unknown) Recommend you (units ( unknown) date) continue to take unknown) all of your medications as directed. Two new (unknown) (no (unknown) (unknown) Referrals: (units (unk nown) date) unknown) (unknown) (no (unknown) (unknown) Related Data (units (u nknown) date) unknown) (unknown) (no (unknown) (unknown) Resp (units (unkno wn) date) unknown) (unknown) (no (unknown) (unknown) Respiratory Rate (units (unknown) date) 12 17 unknown) (unknown) (no (unknown) (unknown) Respiratory Rate (units (unknown) date) 14 14 unknown) (unknown) (no (unknown) (unknown) Respiratory Rate (units (unknown) date) 16 18 unknown) (unknown) (no (unknown) (unknown) Respiratory Rate (units (unknown) date) 17 17 unknown) (unknown) (no (unknown) (unknown) Respiratory Rate (units (unknown) date) 18 unknown) (unknown) (no (unknown) (unknown) Respiratory Rate (units (unknown) date) 19 15 14 unknown) (unknown) (no (unknown) (unknown) Respiratory Rate (units (unknown) date) 20 07/16/22 16:56 unknown) (unknown) (no (unknown) (unknown) Respiratory Rate (units (unknown) date) 20 20 12 unknown) (unknown) (no (unknown) (unknown) Respiratory Rate (units (unknown) date) 24 unknown) (unknown) (no (unknown) (unknown) Respiratory Rate (units (unknown) date) 25 H 15 unknown) (unknown) (no (unknown) (unknown) Respiratory Rate (units (unknown) date) unknown) (unknown) (no (unknown) (unknown) Result diagrams: (units (unknown) date) unknown) (unknown) (no (unknown) (unknown) Review of the (units ( unknown) date) patient's medical unknown) records show that she had a fairly extensive (unknown) (no (unknown) (unknown) Rheumatoid (units (unk nown) date) arthritis unknown) (unknown) (no (unknown) (unknown) Rx Instructions: (units (unknown) date) unknown) (unknown) (no (unknown) (unknown) Scleroderma (units (un known) date) unknown) (unknown) (no (unknown) (unknown) Signed By: (units (unk nown) date) unknown) (unknown) (no (unknown) (unknown) Signed (units (unkno wn) date) unknown) (unknown) (no (unknown) (unknown) Skin (units (unkno wn) date) unknown) (unknown) (no (unknown) (unknown) Smoking Status: (units (unknown) date) Never smoker unknown) (unknown) (no (unknown) (unknown) Social History (units (unknown) date) (Reviewed 07/16/22 unknown) @ 23:46 by Oscar Brown DO) (unknown) (no (unknown) (unknown) Sodium 135 L (units (u nknown) date) (137-145) mmol/L unknown) (unknown) (no (unknown) (unknown) Source: patient (units (unknown) date) unknown) (unknown) (no (unknown) (unknown) 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 Spleen is (units (unknown) date) normal in size and unknown) homogeneous in echotexture.? (unknown) (no (unknown) (unknown) Stand Alone Forms: (units (unknown) date) Patient Portal/API unknown) (unknown) (no (unknown) (unknown) Stated complaint: (units (unknown) date) severe Abd pain unknown) (unknown) (no (unknown) (unknown) Stop: 07/16/22 (units (unknown) date) 18:46 unknown) (unknown) (no (unknown) (unknown) Stop: 07/16/22 (units (unknown) date) 20:27 unknown) (unknown) (no (unknown) (unknown) Stop: 07/16/22 (units (unknown) date) 22:21 unknown) (unknown) (no (unknown) (unknown) Substance Use (units ( unknown) date) Type: does not use unknown) (unknown) (no (unknown) (unknown) Sucralfate (units (unk nown) date) (Sucralfate 1 Gm unknown) Tablet) 1 gm PO NOW ONE (unknown) (no (unknown) (unknown) Sugars, (units (unkno wn) date) Metabolically unknown) Active AdvReac Migraine Verified 03/11/20 08:45 (unknown) (no (unknown) (unknown) Surgical History (units (unknown) date) (Reviewed 07/08/22 unknown) @ 14:59 by Bibi Koroma PA-C) (unknown) (no (unknown) (unknown) TECHNIQUE:? (units (un known) date) unknown) (unknown) (no (unknown) (unknown) Takes with (units (unk nown) date) compazine unknown) (unknown) (no (unknown) (unknown) Temperature 97.3 F (units (unknown) date) L unknown) (unknown) (no (unknown) (unknown) Temperature 99.5 F (units (unknown) date) unknown) (unknown) (no (unknown) (unknown) Temperature (units (un known) date) unknown) (unknown) (no (unknown) (unknown) Time Seen by (units (u nknown) date) Provider: 01/21/23 unknown) 17:29 (unknown) (no (unknown) (unknown) Total Bilirubin (units (unknown) date) 2.0 H (0.2-1.3) unknown) mg/dL (unknown) (no (unknown) (unknown) Total Protein 6.9 (units (unknown) date) (6.3-8.2) g/dL unknown) (unknown) (no (unknown) (unknown) US - abdomen: (units ( unknown) date) unknown) (unknown) (no (unknown) (unknown) US abdomen (units (unk nown) date) complete Stat unknown) (unknown) (no (unknown) (unknown) Ultrasound Report (units (unknown) date) unknown) (unknown) (no (unknown) (unknown) Ur Culture (units (unk nown) date) Indicated? Specimen unknown) cultured (unknown) (no (unknown) (unknown) Ur Squamous Epith (units (unknown) date) Cells 0-1 /hpf unknown) (0-5/HPF) (unknown) (no (unknown) (unknown) Urine Bacteria (units (unknown) date) Occasional (0-1) unknown) (None) (unknown) (no (unknown) (unknown) Urine Culture Stat (units (unknown) date) unknown) (unknown) (no (unknown) (unknown) Urine Dip (units (unkn own) date) unknown) (unknown) (no (unknown) (unknown) Urine Microscopic (units (unknown) date) Stat unknown) (unknown) (no (unknown) (unknown) Urine RBC None (units (unknown) date) seen (0-5/HPF) unknown) (unknown) (no (unknown) (unknown) Urine Specific (units (unknown) date) [place] 1.015 unknown) (unknown) (no (unknown) (unknown) Urine WBC 5-10/hpf (units (unknown) date) H (0-5/HPF) unknown) (unknown) (no (unknown) (unknown) Vertigo (units (unkno wn) date) unknown) (unknown) (no (unknown) (unknown) Vital Signs - 8 hr (units (unknown) date) unknown) (unknown) (no (unknown) (unknown) Vital Signs (units (un known) date) unknown) (unknown) (no (unknown) (unknown) Vital signs: (units (u nknown) date) unknown) (unknown) (no (unknown) (unknown) WBC 9.7 (4.5-11.0) (units (unknown) date) X103/uL unknown) (unknown) (no (unknown) (unknown) [Embedded Image (units (unknown) date) Not Available] unknown) (unknown) (no (unknown) (unknown) abdominal surgical (units (unknown) date) pathology is unknown) unlikely. No indication for further radiologic (unknown) (no (unknown) (unknown) acetaminophen 325 (units (unknown) date) mg Tablet unknown) (unknown) (no (unknown) (unknown) acetaminophen 325 (units (unknown) date) mg tablet 650 mg PO unknown) Q6HR PRN Pain, Mild 03/13/20 (unknown) (no (unknown) (unknown) adhesive tape (units ( unknown) date) Allergy unknown) Intermediate Rash Verified 03/11/20 07:53 (unknown) (no (unknown) (unknown) aerosol inhaler (units (unknown) date) unknown) (unknown) (no (unknown) (unknown) albuterol sulfate (units (unknown) date) 1.25 mg/3 mL 1.25 unknown) mg continuous nebulization 03/04/20 03/11/20 (unknown) (no (unknown) (unknown) albuterol sulfate (units (unknown) date) 1.25 mg/3 mL unknown) Solution For Nebulization (unknown) (no (unknown) (unknown) albuterol sulfate (units (unknown) date) 90 mcg/actuation 2 unknown) puff inhalation Q4-6H PRN Asthma 03/04/20 (unknown) (no (unknown) (unknown) albuterol sulfate (units (unknown) date) 90 mcg/actuation unknown) Hfa Aerosol Inhaler (unknown) (no (unknown) (unknown) alcohol intake (units (unknown) date) frequency: 0-2 unknown) drinks per day (unknown) (no (unknown) (unknown) alcohol intake: (units (unknown) date) never unknown) (unknown) (no (unknown) (unknown) amitriptyline (units ( unknown) date) Allergy unknown) Intermediate Rash Verified 03/11/20 07:53 (unknown) (no (unknown) (unknown) and vomiting. No (units (unknown) date) change in bowel unknown) habits. No urinary symptoms. No fevers. No (unknown) (no (unknown) (unknown) approximately 12 (units (unknown) date) mm on prior CT unknown) exam. (unknown) (no (unknown) (unknown) azelastine 137 mcg (units (unknown) date) (0.1 %) unknown) Aerosol,[place] (unknown) (no (unknown) (unknown) azelastine 137 mcg (units (unknown) date) (0.1 %) nasal 1 unknown) spray intranasal BID PRN 03/04/20 03/11/20 (unknown) (no (unknown) (unknown) bad bone (units (unkno wn) date) unknown) (unknown) (no (unknown) (unknown) body pain' (units (unk nown) date) unknown) (unknown) (no (unknown) (unknown) capsule,delayed (units (unknown) date) release unknown) (unknown) (no (unknown) (unknown) cephalexin [From (units (unknown) date) Keflex] Allergy unknown) Intermediate Rash Verified 03/11/20 07:53 (unknown) (no (unknown) (unknown) clarithromycin (units (unknown) date) Allergy unknown) Intermediate Rash Verified 03/11/20 07:53 (unknown) (no (unknown) (unknown) common (units (unkno wn) date) unknown) (unknown) (no (unknown) (unknown) cyclobenzaprine (units (unknown) date) Allergy unknown) Intermediate Rash Verified 03/11/20 07:53 (unknown) (no (unknown) (unknown) decreased (units (unkno wn) date) echogenicity within unknown) the left kidney measuring 13 x 13 x 11 mm compared (unknown) (no (unknown) (unknown) diclofenac (units (unk nown) date) epolamine 1.3 % 1 unknown) patch topical BID 03/04/20 03/11/20 (unknown) (no (unknown) (unknown) diclofenac (units (unk nown) date) epolamine [Flector] unknown) 1.3 % Patch 12 Hour (unknown) (no (unknown) (unknown) diphenhydramine (units (unknown) date) HCl 25 mg capsule unknown) 50 mg PO Q6H PRN Migraines 03/04/20 03/11/20 (unknown) (no (unknown) (unknown) diphenhydramine (units (unknown) date) HCl [Benadryl] 25 unknown) mg Capsule (unknown) (no (unknown) (unknown) discharge home (units (unknown) date) with a prescription unknown) for Carafate and also a proton pump (unknown) (no (unknown) (unknown) discharged home. (units (unknown) date) She returns to the unknown) emergency department today stating that she (unknown) (no (unknown) (unknown) documentation.? (units (unknown) date) unknown) (unknown) (no (unknown) (unknown) docusate sodium (units (unknown) date) 100 mg capsule 100 unknown) mg PO BID #20 caps 03/13/20 (unknown) (no (unknown) (unknown) docusate sodium (units (unknown) date) [DOK] 100 mg unknown) Capsule (unknown) (no (unknown) (unknown) duloxetine [From (units (unknown) date) Cymbalta] Allergy unknown) Intermediate Rash Verified 03/11/20 07:53 (unknown) (no (unknown) (unknown) ea (units (unkno wn) date) unknown) (unknown) (no (unknown) (unknown) enoxaparin [From (units (unknown) date) Lovenox] Allergy unknown) Intermediate Rash Verified 03/11/20 07:53 (unknown) (no (unknown) (unknown) erythromycin base (units (unknown) date) Allergy unknown) Intermediate Rash Verified 03/11/20 07:53 (unknown) (no (unknown) (unknown) esomeprazole (units (u nknown) date) magnesium 20 mg 20 unknown) mg PO DAILY #14 caps 07/16/22 (unknown) (no (unknown) (unknown) esomeprazole (units (u nknown) date) magnesium 20 mg unknown) capsule,delayed release(DR/EC) (unknown) (no (unknown) (unknown) fexofenadine 180 (units (unknown) date) mg tablet 180 mg PO unknown) DAILY 03/04/20 03/11/20 (unknown) (no (unknown) (unknown) fexofenadine (units (u nknown) date) [Gretel Allergy] unknown) 180 mg Tablet (unknown) (no (unknown) (unknown) fluticasone (units (un known) date) propionate 115 2 unknown) puff inhalation BID 03/04/20 03/11/20 (unknown) (no (unknown) (unknown) further workup to (units (unknown) date) include unknown) endoscopy/[place] py. She was given return (unknown) (no (unknown) (unknown) gabapentin 600 mg (units (unknown) date) Tablet unknown) (unknown) (no (unknown) (unknown) gabapentin 600 mg (units (unknown) date) tablet 1,200 mg PO unknown) BID 03/04/20 03/11/20 (unknown) (no (unknown) (unknown) having today. So (units (unknown) date) contact your unknown) primary doctor for follow-up. (unknown) (no (unknown) (unknown) heparin Allergy (units (unknown) date) Intermediate Rash unknown) Verified 03/11/20 07:53 (unknown) (no (unknown) (unknown) hepatic duct are (units (unknown) date) not well seen. unknown) (unknown) (no (unknown) (unknown) her lipase is only (units (unknown) date) slightly elevated unknown) however I feel that pancreatitis is (unknown) (no (unknown) (unknown) household members: (units (unknown) date) friend(s) unknown) (unknown) (no (unknown) (unknown) hydrocodone (units (un known) date) Allergy Mild Rash unknown) Verified 03/11/20 07:53 (unknown) (no (unknown) (unknown) hydromorphone 4 mg (units (unknown) date) Tablet unknown) (unknown) (no (unknown) (unknown) hydromorphone 4 mg (units (unknown) date) tablet 6 mg PO unknown) Q4-6H PRN Pain, Severe 03/13/20 (unknown) (no (unknown) (unknown) hydronephrosis or (units (unknown) date) nephrolithiasis.? unknown) No solid masses.? Focus of poorly visualized (unknown) (no (unknown) (unknown) inhibitor. She has (units (unknown) date) pain medication and unknown) nausea medicine at home already. She (unknown) (no (unknown) (unknown) is still having (units (unknown) date) discomfort. She unknown) thought maybe it improved somewhat after (unknown) (no (unknown) (unknown) leave on most (units ( unknown) date) painful area for up unknown) to 12 hrs (unknown) (no (unknown) (unknown) lidocaine 5 % (units ( unknown) date) adhesive unknown) patch,medicated (unknown) (no (unknown) (unknown) lidocaine 5 % (units ( unknown) date) topical patch 1 unknown) patch topical DAILY PRN pain #15 12/18/19 (unknown) (no (unknown) (unknown) mcg-salmeterol 21 (units (unknown) date) mcg/actuation unknown) (unknown) (no (unknown) (unknown) me mean' (units (unkno wn) date) unknown) (unknown) (no (unknown) (unknown) medications [facility] (units (unknown) date[email or web address] [place] per your request. I recommend on (unknown) (no (unknown) (unknown) methocarbamol 750 (units (unknown) date) mg tablet 750 mg PO unknown) TID #21 tabs 03/13/20 (unknown) (no (unknown) (unknown) methocarbamol 750 (units (unknown) date) mg tablet unknown) (unknown) (no (unknown) (unknown) methotrexate (units (u nknown) date) Allergy Severe unknown) Rash, Verified 03/11/20 07:53 (unknown) (no (unknown) (unknown) mycins Allergy (units (unknown) date) Severe Vomiting unknown) Uncoded 03/11/20 08:50 (unknown) (no (unknown) (unknown) ondansetron (units (un known) date) Allergy unknown) Intermediate Rash Verified 03/11/20 07:53 (unknown) (no (unknown) (unknown) oxycodone 10 mg (units (unknown) date) Tablet unknown) (unknown) (no (unknown) (unknown) oxycodone 10 mg (units (unknown) date) tablet 10 mg PO TID unknown) PRN Pain 03/04/20 03/11/20 (unknown) (no (unknown) (unknown) oxycodone 15 mg (units (unknown) date) tablet,crush 15 mg unknown) PO BID 03/04/20 03/04/20 (unknown) (no (unknown) (unknown) oxycodone (units (unkn own) date) [OxyContin] 15 mg unknown) Tablet,Oral Only,Ext.Rel.12 Hr (unknown) (no (unknown) (unknown) pain' (units (unkno wn) date) unknown) (unknown) (no (unknown) (unknown) pancreatitis, (units ( unknown) date) ulcer, and other unknown) (unknown) (no (unknown) (unknown) precautions. She (units (unknown) date) expressed unknown) understanding agreement. (unknown) (no (unknown) (unknown) prednisone AdvReac (units (unknown) date) Severe 'It causes unknown) Verified 03/11/20 07:53 (unknown) (no (unknown) (unknown) prior abdominal (units (unknown) date) surgeries. She is unknown) under the care of a GI doctor secondary to (unknown) (no (unknown) (unknown) prochlorperazine (units (unknown) date) maleate 10 mg 10 mg unknown) PO Q6H PRN Migraines 03/04/20 03/11/20 (unknown) (no (unknown) (unknown) prochlorperazine (units (unknown) date) maleate [Compazine] unknown) 10 mg Tablet (unknown) (no (unknown) (unknown) promethazine 25 mg (units (unknown) date) Tablet unknown) (unknown) (no (unknown) (unknown) promethazine 25 mg (units (unknown) date) tablet 25 mg PO Q6H unknown) PRN Nausea 03/04/20 03/11/20 (unknown) (no (unknown) (unknown) resistant,extended (units (unknown) date) release 12 hr unknown) (unknown) (no (unknown) (unknown) seen at an outside (units (unknown) date) facility yesterday. unknown) Those notes are available for review. (unknown) (no (unknown) (unknown) solution for (units (u nknown) date) nebulization Q4H unknown) PRN Asthma (unknown) (no (unknown) (unknown) some liver issues (units (unknown) date) but has not spoke unknown) with her GI doctor about her discomfort (unknown) (no (unknown) (unknown) spray aerosol (units ( unknown) date) Seasonal allergies unknown) (unknown) (no (unknown) (unknown) studies today. Had (units (unknown) date) a discussion with unknown) her regarding this. Plan will be is to (unknown) (no (unknown) (unknown) sucralfate 100 (units (unknown) date) mg/mL oral 10 ml PO unknown) QACHS #400 mL 07/16/22 (unknown) (no (unknown) (unknown) sucralfate (units (unk nown) date) [Carafate] 100 unknown) mg/mL suspension (unknown) (no (unknown) (unknown) sumatriptan (units (un known) date) succinate 100 mg unknown) Tablet (unknown) (no (unknown) (unknown) sumatriptan (units (un known) date) succinate 100 mg unknown) tablet 100 mg PO Q2-4H PRN Migraines 03/04/20 (unknown) (no (unknown) (unknown) suspension (units (unk nown) date) (Carafate) unknown) (unknown) (no (unknown) (unknown) tablet (Compazine) (units (unknown) date) unknown) (unknown) (no (unknown) (unknown) tizanidine [From (units (unknown) date) Zanaflex] Allergy unknown) Intermediate Rash Verified 03/11/20 07:53 (unknown) (no (unknown) (unknown) to (units (unkno wn) date) unknown) (unknown) (no (unknown) (unknown) today, ultrasound, (units (unknown) date) workup yesterday, unknown) labs today I feel that an acute intra (unknown) (no (unknown) (unknown) today. (units (unkno wn) date) unknown) (unknown) (no (unknown) (unknown) transdermal 12 (units (unknown) date) hour patch unknown) (Flector) (unknown) (no (unknown) (unknown) trazodone AdvReac (units (unknown) date) Severe 'It makes unknown) Verified 03/11/20 07:53 (unknown) (no (unknown) (unknown) treatment of the (units (unknown) date) outside facility unknown) but is now back again. She is having nausea (unknown) (no (unknown) (unknown) unlikely. She was (units (unknown) date) difficult to obtain unknown) IV access on her. Given her presentation (unknown) (no (unknown) (unknown) venlafaxine [From (units (unknown) date) Effexor] Allergy unknown) Intermediate Rash Verified 03/11/20 07:53 (unknown) (no (unknown) (unknown) was informed to (units (unknown) date) contact her GI unknown) provider to discuss her symptoms she may need (unknown) (no (unknown) (unknown) with image (units (unk nown) date) unknown) (unknown) (no (unknown) (unknown) workup yesterday (units (unknown) date) to include CT scan unknown) but without a definitive diagnosis. Today Result panel 84 (unknown) (no date) (unknown) (unknown) (no value) (units (un known) unknown) (unknown) (no date) (unknown) (unknown) Mixed gram + (units ( unknown) isi. Deemed unknown) unsuitable for further studies. Social History date description facility 2022-07-08 00:00 Never smoked tobacco (finding) [facility] 2022-07-16 00:00 Never smoked tobacco (finding) [facility] Vital Signs date measurement value units 2022-07-08 00:00 BP_diastolic 80 mmHg 2022-07-08 00:00 BP_systolic 128 mmHg 2022-07-08 00:00 heart_rate 97 /min 2022-07-08 00:00 o2_saturation 97 % 2022-07-08 00:00 weight_metric 90.71 kg 2022-07-08 00:00 weight_standard 199.98 lb 2022-07-16 00:00 BMI 32.3 kg/m2 2022-07-16 00:00 BP_diastolic 68 mmHg 2022-07-16 00:00 BP_systolic 108 mmHg 2022-07-16 00:00 heart_rate 72 /min 2022-07-16 00:00 height_metric 167.64 cm 2022-07-16 00:00 height_standard 66 in 2022-07-16 00:00 o2_saturation 99 % 2022-07-16 00:00 respiration_rate 14 /min 2022-07-16 00:00 temperature_metric 36.28 C 2022-07-16 00:00 temperature_standard 97.3 F 2022-07-16 00:00 weight_metric 90.71 kg 2022-07-16 00:00 weight_standard 199.98 lb
--- NOTE | 2022-07-20 03:35 | ED Physician Documentation ---
History of Present Illness - Stated complaint Stated Complaint: ABD PX/BLOATING - Chief complaint Chief Complaint: Abd Pain - History obtained from History obtained from: Patient - Additonal information Additional information: 42yF p/w abd pain, bloating, nbnb n/v starting 10pm this past evening. Patient states she has had issues with gastroparesis in the past but this feels worse tonight. Nausea is refractory to medications except promethazine. Of note, she is experiencing swelling sensation in the abdomen quadrant cramping. denies fever, urinary sx. 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: Hysterectomy - Present Medications Home Medications: Ambulatory Orders Medication Instructions Recorded Confirmed Sumatriptan [Imitrex] 20 mg NS ONCE PRN #7 spray 01/04/19 06/18/22 Prochlorperazine Maleate 10 mg PO DAILY 03/30/19 06/18/22 [Compazine] Promethazine [Phenergan] 25 mg PO DAILY 03/30/19 06/18/22 oxyCODONE [Roxicodone] 10 mg PO QID 03/30/19 01/09/21 Albuterol Sulf [Ventolin Hfa 1 - 2 puffs INH Q4HR PRN #1 inhaler 06/17/19 06/18/22 Inhaler] Gabapentin [Neurontin] 1,200 mg PO BID 10/23/20 06/18/22 Upadacitinib [Rinvoq] 15 mg PO DAILY 10/23/20 06/18/22 dexAMETHasone [Decadron] 6 mg PO Q6HR #12 tablet 12/27/20 01/09/21 Metaxalone 800 mg PO TID PRN #14 tablet 06/18/22 diazePAM [Valium] 5 mg PO TID PRN #10 tablet 06/18/22 Meloxicam [Mobic] 7.5 mg PO DAILY #5 tablet 07/02/22 Promethazine Supp [Phenergan Supp] 25 mg FL Q6HR PRN #30 supp 07/20/22 Simethicone 180 mg PO QDAC PRN #30 cap 07/20/22 - Allergies Allergies/Adverse Reactions: Allergies Allergy/AdvReac Type Severity Reaction Status Date / Time pork derived (porcine) Allergy Mild Nausea Verified 07/15/22 16:38 amitriptyline Allergy Hives Verified 07/15/22 16:38 azithromycin Allergy Headache Verified 07/15/22 16:38 cephalexin [From Keflex] Allergy Hives Verified 07/15/22 16:38 cyclobenzaprine Allergy Hives Verified 07/15/22 16:38 [From Flexeril] duloxetine [From Cymbalta] Allergy Hives Verified 07/20/22 03:21 enoxaparin [From Lovenox] Allergy Hives Verified 07/20/22 03:21 heparin Allergy Hives Verified 07/20/22 03:21 hydrocodone Allergy Itching Verified 07/20/22 03:21 ipratropium [From DuoNeb] Allergy Unknown Verified 07/20/22 03:21 leflunomide Allergy Headache Verified 07/20/22 03:21 methotrexate Allergy Anaphylaxis Verified 07/20/22 03:21 ondansetron [From Zofran] Allergy Hives Verified 07/20/22 03:21 palm oil Allergy Edema Verified 07/20/22 03:21 Penicillins Allergy Rash Verified 07/20/22 03:21 prednisone Allergy Hives Verified 07/20/22 03:21 tizanidine [From Zanaflex] Allergy Hives Verified 07/20/22 03:21 trazodone Allergy Anxiety Verified 07/20/22 03:21 venlafaxine [From Effexor] Allergy Hives Verified 07/20/22 03:21 - Social History Does the pt smoke?: No Smoking Status: Never smoker Does the pt drink ETOH?: No Does the pt have substance abuse?: No - Immunizations Immunizations are current?: Yes - POLST Patient has POLST: No PD ED PE NORMAL - Vitals Vital signs reviewed: Yes - General General: Alert and oriented X 3, No acute distress, Well developed/nourished - HEENT HEENT: Atraumatic, PERRL, EOMI - Neck Neck: Supple, no meningeal sign - Cardiac Cardiac: RRR - Respiratory Respiratory: No respiratory distress, Clear bilaterally - Abdomen Abdomen: Non tender, Non distended, Other (diffuse discomfort to palpation) Results - Vitals Vitals: Vital Signs - 24 hr 07/20/22 07/20/22 03:18 03:20 Temperature 36.0 C L Heart Rate 98 86 Respiratory 16 18 Rate Blood Pressure 145/92 H 126/82 H O2 Saturation 100 99 Oxygen O2 Source Room air - Labs Labs: Laboratory Tests 07/20/22 04:13 Sodium 137 Potassium 3.4 L Chloride 106 Carbon Dioxide 22 Anion Gap 9.0 BUN 13 Creatinine 0.8 Estimated GFR (MDRD) 78 L Glucose 95 Calcium 8.7 Total Bilirubin 0.8 AST 50 H ALT 36 Alkaline Phosphatase 115 Total Protein 6.7 Albumin 3.6 Globulin 3.1 Albumin/Globulin Ratio 1.2 Lipase 48 PD Medical Decision Making - ED course ED course: 42yF p/w abdominal pain and nausea, likely c/w her gastroparesis. Abdominal panel revealed improvement in LFTs. d/w patient who plans to f/u for endoscopy at [facility] tomorrow. return precautions given. plan to also f/u with pcp. Departure - Departure Disposition: Home, Self Care Clinical Impression: Gastroparesis, Abdominal pain, Bloating, Nausea Condition: Stable Instructions: Abdominal Pain Prescriptions: Promethazine Supp [Phenergan Supp] 25 mg FL Q6HR PRN #30 supp PRN Reason: Nausea / Vomiting Simethicone 180 mg PO QDAC PRN #30 cap PRN Reason: Abdominal Pain Comments: You were seen in the emergency department for abdominal pain and nausea.A prescription was sent electronically to [facility] for promethazine and simethicone (Gas-X). Please follow-up with your primary care provider as well as your doctor for endoscopy as scheduled tomorrow. Return to the emergency department for new or worsening symptoms or other concerns.
[2022-07-20 04:37] LABS: ALBUMIN 3.6 g/dL (3.2-5.5); ALBUMIN/GLOBULIN RATIO 1.2 (1.0-2.2); BILIRUBIN,TOTAL 0.8 mg/dL (0.2-1.0); CALCIUM 8.7 mg/dL (8.5-10.3); CREATININE 0.8 mg/dL (0.4-1.0); POTASSIUM 3.4 mmol/L (3.5-5.0); TOTAL PROTEIN 6.7 g/dL (6.7-8.2)
[2022-07-20] MEDS ORDERED: PROMETHAZINE 25 MG TABLET PO STA (04:53)
[2022-07-20 04:54] LABS: BILIRUBIN,URINE NEGATIVE (NEGATIVE); GLUCOSE, URINE (UA) NEGATIVE (NEGATIVE); KETONES,URINE (UA) NEGATIVE (NEGATIVE); LEUKOCYTE ESTERASE, URINE NEGATIVE (NEGATIVE); NITRITE,URINE NEGATIVE (NEGATIVE); OCCULT BLOOD,URINE TRACE-INTA (NEGATIVE); PH,URINE 5.5 PH (5.0-7.5); PROTEIN,URINE NEGATIVE (NEGATIVE); UROBILINOGEN,URINE 0.2 (NORMAL) E.U./dL (NORMAL)
[2022-07-20 04:57] LABS: CLARITY,URINE CLEAR (CLEAR); HCG UR QUAL NEGATIVE
[2022-07-20 05:12] VITALS: BP 131/74
== END 2022-07-20 05:26 | disposition home or self-care (01) ==
LOC: ED 03:12
DX: K31.84 Gastroparesis (principal)
CPT/HCPCS: 36415; 80053; 81003; 81025; 83690; 99283; Q0169; 81001; 85025; 87086

== ENCOUNTER 2022-08-23 23:39 | Emergency (ER) | payer MEDICARE, OTHER, MEDICAID ==
[2022-08-24 00:15] VITALS: BP 121/96
--- OUTSIDE RECORDS SUMMARY | 2022-08-24 00:18 | EXTERNAL MEDICAL SUMMARY RPT | Continuity of Care Document ---
:1980 Author Organization [facility] Address [address] [place] [address] Phone Care Team Providers Name Role Phone Sandy Schaffer Unavailable Unavailable Allergies and Intolerances date description facility type (no date) Penicillins [facility] (unknown) (no date) Sugars, Metabolically Active [facility] (unknown) (no date) adhesive tape [facility] (unknown) (no date) amitriptyline [facility] (unknown) (no date) cephalexin [facility] (unknown) (no date) clarithromycin [facility] (unknown) (no date) cyclobenzaprine [facility] (unknown) (no date) duloxetine [facility] (unknown) (no date) enoxaparin [facility] (unknown) (no date) erythromycin base [facility] (unknown) (no date) heparin [facility] (unknown) (no date) hydrocodone [facility] (unknown) (no date) methotrexate [facility] (unknown) (no date) ondansetron [facility] (unknown) (no date) prednisone [facility] (unknown) (no date) tizanidine [facility] (unknown) (no date) trazodone [facility] (unknown) (no date) venlafaxine [facility] (unknown) Encounters No information. Functional Status No information. Immunizations No information. Medications date description facility 2022-07-16 00:00 Esomeprazole Magnesium [facility] Problems date description facility 2022-07-16 00:00 Abdominal pain [facility] Procedures date description facility 2022-07-16 00:00 US abdomen complete [facility] Results/Labs test date author facility value unit interpret ation Result panel 1 (unknown) (no date) (unknown[facility] unknown) Result panel 2 (unknown) (no date) (unknown) [facility] (no value[facility] ([facility] unknown) Result panel 3 (unknown) (no date) (unknown) [facility] (no value) [...] Uncoded 03/04/20 12:24) (unknown) (no (unknown) (unknown) [id number] (units (unkn own) date) unknown) (unknown) (no [...] own) date) unknown) (unknown) (no (unknown) (unknown) [facility] (units (unknown) date) Medicine unknown) (unknown) (no (unknown) (unknown) [place], [place] (units ( unknown) date) [id number] unknown) (unknown) (no (unknown) (unknown) Anxiety (units (unkno wn) date) unknown) (unknown) (no (unknown) (unknown) Arthritis (units (unkn own) date) unknown) (unknown) (no (unknown) (unknown) Asthma (units (unkno wn) date) unknown) (unknown) (no (unknown) (unknown) Attending Dr: (units ( unknown) date) Bibi Koroma unknown) [place]lick[place]rell (unknown) (no (unknown) (unknown) : 1980 (units (unknown) date) Acct:[id number] unknown) (unknown) (no (unknown) (unknown) Depression (units [...] unknown) effort is made to edit content, freight brake operator errors (unknown) (no (unknown) (unknown) tizanidine [From [...] Uncoded 03/04/20 12:24) (unknown) (no (unknown) (unknown) [id number] (units (unkn own) date) unknown) (unknown) (no [...] own) date) unknown) (unknown) (no (unknown) (unknown) [facility] (units (unknown) date) [facility] unknown) (unknown) (no (unknown) (unknown) [place], [place] (units ( unknown) date) [id number] unknown) (unknown) (no (unknown) (unknown) Anxiety (units [...] (unknown) (unknown) : 1980 (units (unknown) date) Acct:[id number] unknown) (unknown) (no (unknown) (unknown) Depression (units [...] unknown) effort is made to edit content, freight brake operator errors (unknown) (no (unknown) (unknown) tizanidine [From [...] own) date) unknown) (unknown) (no (unknown) (unknown) [id number] (units (unkn own) date) unknown) (unknown) (no [...] own) date) unknown) (unknown) (no (unknown) (unknown) [facility] (units (unknown) date) Medicine unknown) (unknown) (no (unknown) (unknown) [place] [address] (unit s (unknown) date) unknown) (unknown) (no [...] (unknown) (unknown) : 1980 (units (unknown) date) Acct:[id number] unknown) (unknown) (no (unknown) (unknown) Decadron and [...] (Reviewed 07/08/22 @ unknown) 14:59 by Bibi Koroma PA-C) (unknown) (no (unknown) (unknown) This note [...] problems such unknown) as oatmeal baths, and [id number] (unknown) (no (unknown) (unknown) issues and they [...] patient, in mild (units (unknown) date) distress, Lebanese unknown) [employer] dog resting next to [...] effort is made unknown) to edit content, freight brake operator errors (unknown) (no (unknown) (unknown) states that the (units (unknown) date) area that was unknown) biopsied by Dermatology recently has progressed (unknown) (no (unknown) (unknown) take Decadron and (units (unknown) date) after talking to the unknown) [employer]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 they (unknown) (no [...] wn) date) unknown) (unknown) (no (unknown) (unknown) [address] [place] [address] (units (unknown) date) unknown) (unknown) (no (unknown) (unknown) Accession Number: (units (unknown) date) [id number] unknown) (unknown) (no (unknown) (unknown) Age/Sex: 42 / F (units (unknown) date) Date of Service: unknown) (unknown) (no (unknown) (unknown) [place], [place] (units ( unknown) date) [address] unknown) (unknown) (no (unknown) (unknown) Aorta: Visualized [...] (unknown) (unknown) COMPARISON: (units (un known) date) [facility], unknown) CT, CT ABDOMEN WO/W CON, 04/16/2019, 11:34. (unknown) (no (unknown) (unknown) : 1980 (units (unknown) date) Acct:[id number] unknown) (unknown) (no (unknown) (unknown) Dictated by: [...] date) seen unknown) (unknown) (no (unknown) (unknown) [facility] (units (unknown) date) unknown) (unknown) (no (unknown) [...] wn) date) unknown) (unknown) (no (unknown) (unknown) [id number] (units (unk nown) date) unknown) (unknown) (no [...] known) date) unknown) (unknown) (no (unknown) (unknown) [id number] (units (unkn own) date) unknown) (unknown) (no [...] Stat (unknown) (no (unknown) (unknown) Consult to CAREER GUIDANCE TECHNICIAN - (units (unknown) date) [facility] unknown) Stat (unknown) (no (unknown) (unknown) Course (units (unkno wn) date) unknown) (unknown) (no (unknown) (unknown) : 1980 (units (unknown) date) Acct:[id number] unknown) (unknown) (no (unknown) (unknown) Date of [...] date) Signs: unknown) (unknown) (no (unknown) (unknown) [facility] (units (unknown) date) [address] unknown) [place] [address] (unknown) (no (unknown) (unknown) Lipase Stat (units (un known) date) unknown) (unknown) (no (unknown) (unknown) Lupus (units (unkno wn) date) unknown) (unknown) (no (unknown) (unknown) Medical History (units (unknown) date) (Reviewed 07/08/22 unknown) @ 14:58 by Bibi oKroma PA-C) (unknown) (no (unknown) (unknown) Medication (units [...] mcg (units (unknown) date) (0.1 %) unknown) Aerosol,[place] [facility] (unknown) (no (unknown) (unknown) azelastine 137 mcg [...] known) date) unknown) (unknown) (no (unknown) (unknown) [phone] (units (unkn own) date) unknown) (unknown) (no [...] Stat (unknown) (no (unknown) (unknown) Consult to CAREER GUIDANCE TECHNICIAN - (units (unknown) date) [employer] unknown) Stat (unknown) (no (unknown) (unknown) Course (units (unkno wn) date) unknown) (unknown) (no (unknown) (unknown) Creatinine 0.75 (units (unknown) date) (0.52-1.04) mg/dL unknown) (unknown) (no (unknown) (unknown) : 1980 (units (unknown) date) Acct:[id number] unknown) (unknown) (no (unknown) (unknown) Date of [...] (no (unknown) (unknown) History of (units (unk n) date) hysterectomy unknown) (unknown) (no (unknown) (unknown) History of lumbar (units (unknown) date) spinal fusion unknown) (unknown) (no (unknown) (unknown) History of (units (unk n) date) temporal artery unknown) biopsy (unknown) (no [...] Abdominal unknown) Pain-Adult (unknown) (no (unknown) (unknown) [facility] (units (unknown) date) [address] unknown) [place] [address] (unknown) (no (unknown) (unknown) Ketorolac (units (unkn [...] Lymph # (Auto) (units (unknown) date) 2500 ([phone]) unknown) /uL (unknown) (no (unknown) (unknown) Lymph [...] date) Ambulatory unknown) (unknown) (no (unknown) (unknown) Alberto you talk (units (unknown) date) with your GI unknown) provider about the abdominal pain that you are (unknown) (no (unknown) (unknown) [place] # (Auto) 600 (units (unknown) date) (0-900) /uL unknown) (unknown) (no (unknown) (unknown) [place] % (Auto) 5.7 (units (unknown) date) (3-14) % unknown) (unknown) (no (unknown) (unknown) Neut # (Auto) 6300 (units (unknown) date) (8107-2168) /uL unknown) (unknown) (no (unknown) (unknown) Neut [...] (Promethazine 25 Mg unknown) Supp) 25 mg IA NOW ONE (unknown) (no (unknown) (unknown) Pulse [...] (unknown) (unknown) Urine Specific (units (unknown) date) [place] 1.015 unknown) (unknown) (no (unknown) (unknown) Urine [...] mcg (units (unknown) date) (0.1 %) unknown) Aerosol,[place] [facility] (unknown) (no (unknown) (unknown) azelastine 137 mcg [...] medications were (units (unknown) date) sent to [facility] in unknown) [place] per your request. I recommend on (unknown) [...] known) date) unknown) (unknown) (no (unknown) (unknown) [phone] (units (unkn own) date) unknown) (unknown) (no [...] Stat (unknown) (no (unknown) (unknown) Consult to [facility] - (units (unknown) date) [employer] [facility] unknown) Stat (unknown) (no (unknown) (unknown) Course (units (unkno wn) date) unknown) (unknown) (no (unknown) (unknown) Creatinine 0.75 (units (unknown) date) (0.52-1.04) mg/dL unknown) (unknown) (no (unknown) (unknown) : 1980 (units (unknown) date) Acct:[id number] unknown) (unknown) (no (unknown) (unknown) Date of [...] Abdominal unknown) Pain-Adult (unknown) (no (unknown) (unknown) [facility] (units (unknown) date) [address] [place] [address] unknown) [place] [address] (unknown) (no (unknown) (unknown) Ketorolac (units (unkn [...] Lymph # (Auto) (units (unknown) date) 2500 ([id number]) unknown) /uL (unknown) (no (unknown) (unknown) Lymph [...] that you are (unknown) (no (unknown) (unknown) [place] # (Auto) 600 (units (unknown) date) (0-900) /uL unknown) (unknown) (no (unknown) (unknown) [place] % (Auto) 5.7 (units (unknown) date) (3-14) % unknown) (unknown) (no (unknown) (unknown) Neut # (Auto) 6300 (units (unknown) date) (5867-9113) /uL unknown) (unknown) (no (unknown) (unknown) Neut [...] (Promethazine 25 Mg unknown) Supp) 25 mg [place] NOW ONE (unknown) (no (unknown) (unknown) Pulse [...] (unknown) (unknown) Urine Specific (units (unknown) date) [place] 1.015 unknown) (unknown) (no (unknown) (unknown) Urine [...] mcg (units (unknown) date) (0.1 %) unknown) Aerosol[facility] [facility] (unknown) (no (unknown) (unknown) azelastine 137 mcg [...] medications [facility] (units (unknown) date) [facility] [place] per your request. I recommend on (unknown) [...] <Electronically (units (unknown) date) signed by Oscar smart) Bushra Brown> (unknown) (no (unknown) (unknown) 'Most metals' (units [...] known) date) unknown) (unknown) (no (unknown) (unknown) [phone] (units (unkn own) date) unknown) (unknown) (no [...] unknown) Migraines) (unknown) (no (unknown) (unknown) [address] [place] (units (unknown) date) unknown) (unknown) (no (unknown) [...] date) unknown) (unknown) (no (unknown) (unknown) 22:30 01/21/23 (units (unknown) date) unknown) (unknown) (no (unknown) [...] (unknown) (unknown) Accession Number: (units (unknown) date) [id number] ?? unknown) (unknown) (no (unknown) (unknown) Acct:[id number] (units (unknown) date) unknown) (unknown) (no (unknown) [...] Date / Time (unknown) (no (unknown) (unknown) [place], [place] (units ( unknown) date) [address] unknown) (unknown) (no (unknown) (unknown) Anxiety (units (unkno wn) date) unknown) (unknown) (no (unknown) (unknown) Aorta:? Visualized (units (unknown) date) aorta is normal in unknown) caliber at less than 3 cm.? (unknown) (no (unknown) (unknown) Appearance of (units ( unknown) date) asymmetric right unknown) renal atrophy. (unknown) (no (unknown) (unknown) Appearance: (units (un known) date) grossly normal and unknown) well kempt (unknown) (no (unknown) (unknown) Approved by: (units [...] (unknown) (unknown) COMPARISON:? (units (u nknown) date) [facility], unknown) CT, CT ABDOMEN WO/W CON, 04/16/2019, [...] unknown) (unknown) (no (unknown) (unknown) Consult to CAREER GUIDANCE TECHNICIAN - (units (unknown) date) [employer] unknown) Stat (unknown) (no (unknown) (unknown) Course (units (unkno wn) date) unknown) (unknown) (no (unknown) (unknown) Creatinine 0.75 (units (unknown) date) (0.52-1.04) mg/dL unknown) (unknown) (no (unknown) (unknown) : 1980 (units (unknown) date) Acct:[id number] unknown) (unknown) (no (unknown) (unknown) : 1980 [...] Abdominal unknown) Pain-Adult (unknown) (no (unknown) (unknown) [facility] (units (unknown) date) [address] unknown) [place] [address] (unknown) (no (unknown) (unknown) [facility] (units (unknown) date) unknown) (unknown) (no (unknown) [...] Lymph # (Auto) (units (unknown) date) 2500 (0734-2501) unknown) /uL (unknown) (no (unknown) (unknown) Lymph [...] date) unknown) (unknown) (no (unknown) (unknown) MR#: [id number] (units (unknown) date) unknown) (unknown) (no (unknown) [...] that you are (unknown) (no (unknown) (unknown) [place] # (Auto) 600 (units (unknown) date) (0-900) /uL unknown) (unknown) (no (unknown) (unknown) [place] % (Auto) 5.7 (units (unknown) date) (3-14) % unknown) (unknown) (no (unknown) (unknown) Neut # (Auto) 6300 (units (unknown) date) (1381-9873) /uL unknown) (unknown) (no (unknown) (unknown) Neut [...] (Promethazine 25 Mg unknown) Supp) 25 mg [place] NOW ONE (unknown) (no (unknown) (unknown) Psych [...] (unknown) (unknown) Urine Specific (units (unknown) date) [place] 1.015 unknown) (unknown) (no (unknown) (unknown) Urine [...] mcg (units (unknown) date) (0.1 %) unknown) Aerosol,[place] [facility] (unknown) (no (unknown) (unknown) azelastine 137 mcg [...] unknown) 50 mg PO Q6H PRN Migraines 09/09/20 09/16/20 (unknown) (no (unknown) (unknown) diphenhydramine (units (unknown) [...] medications were (units (unknown) date) [facility]) [place] per your request. I recommend on (unknown) [...] facility 2022-07-08 00:00 Never smoked tobacco (finding) [facility] 2022-07-16 00:00 Never smoked tobacco (finding) [facility] Vital Signs date measurement value units 2022-07-08 [...]
[2022-08-24] MEDS ORDERED: KETOROLAC 30 MG/ML VIAL IM STA (00:27)
--- NOTE | 2022-08-24 00:31 | ED Physician Documentation ---
History of Present Illness - Stated complaint Stated Complaint: LFT SHOULDER PX/CONGESTION - Chief complaint Chief Complaint: Ext Problem - History obtained from History obtained from: Patient - Additonal information Additional information: 42-year-old woman with history of autoimmune disease, lupus, rheumatoid arthritis, notable prior joint issues, presents with left shoulder pain for the past 2 weeks. She was seen by her acquisition analyst and told she is likely having RA flare.Patient presents today concerned that she is still having persistent pain refractory to oxycodone and meloxicam.Also with upper respiratory congestion. Denies fever. Review of Systems Constitutional: denies: Fever Nose: reports: Congestion Throat: reports: Sore throat Musculoskeletal: reports: Neck pain, Back pain, Joint pain PD PAST MEDICAL HISTORY - Past Medical History Cardiovascular: Hypertension Respiratory: Asthma Neuro: Migraines Endocrine/Autoimmune: Systemic lupus erythematosus GI: None ENFORCEMENT SAFETY OFFICER: None : None HEENT: None Psych: None Musculoskeletal: Rheumatoid arthritis Derm: None - Past Surgical History Past Surgical History: Yes General: Cholecystectomy, Appendectomy Ortho: Spine surgery /ENFORCEMENT SAFETY OFFICER: Hysterectomy - Present Medications Home Medications: Ambulatory Orders Medication Instructions Recorded Confirmed Sumatriptan [Imitrex] 20 mg NS ONCE PRN #7 spray 01/04/19 06/18/22 Prochlorperazine Maleate 10 mg PO DAILY 03/30/19 06/18/22 [Compazine] Promethazine [Phenergan] 25 mg PO DAILY 03/30/19 06/18/22 oxyCODONE [Roxicodone] 10 mg PO QID 03/30/19 01/09/21 Albuterol Sulf [Ventolin Hfa 1 - 2 puffs INH Q4HR PRN #1 inhaler 06/17/19 06/18/22 Inhaler] Gabapentin [Neurontin] 1,200 mg PO BID 10/23/20 06/18/22 Upadacitinib [Rinvoq] 15 mg PO DAILY 10/23/20 06/18/22 dexAMETHasone [Decadron] 6 mg PO Q6HR #12 tablet 12/27/20 01/09/21 Metaxalone 800 mg PO TID PRN #14 tablet 06/18/22 diazePAM [Valium] 5 mg PO TID PRN #10 tablet 06/18/22 Meloxicam [Mobic] 7.5 mg PO DAILY #5 tablet 07/02/22 Promethazine Supp [Phenergan Supp] 25 mg GA Q6HR PRN #30 supp 07/20/22 Simethicone 180 mg PO QDAC PRN #30 cap 07/20/22 - Allergies Allergies/Adverse Reactions: Allergies Allergy/AdvReac Type Severity Reaction Status Date / Time pork derived (porcine) Allergy Mild Nausea Verified 07/15/22 16:38 amitriptyline Allergy Hives Verified 07/15/22 16:38 azithromycin Allergy Headache Verified 07/15/22 16:38 cephalexin [From Keflex] Allergy Hives Verified 07/15/22 16:38 cyclobenzaprine Allergy Hives Verified 07/15/22 16:38 [From Flexeril] duloxetine [From Cymbalta] Allergy Hives Verified 08/24/22 00:07 enoxaparin [From Lovenox] Allergy Hives Verified 08/24/22 00:07 heparin Allergy Hives Verified 08/24/22 00:07 hydrocodone Allergy Itching Verified 08/24/22 00:07 ipratropium [From DuoNeb] Allergy Unknown Verified 08/24/22 00:07 leflunomide Allergy Headache Verified 08/24/22 00:07 methotrexate Allergy Anaphylaxis Verified 08/24/22 00:07 ondansetron [From Zofran] Allergy Hives Verified 08/24/22 00:07 palm oil Allergy Edema Verified 08/24/22 00:07 Penicillins Allergy Rash Verified 08/24/22 00:07 prednisone Allergy Hives Verified 08/24/22 00:07 tizanidine [From Zanaflex] Allergy Hives Verified 08/24/22 00:07 trazodone Allergy Anxiety Verified 08/24/22 00:07 venlafaxine [From Effexor] Allergy Hives Verified 08/24/22 00:07 - Social History Does the pt smoke?: No Smoking Status: Never smoker Does the pt drink ETOH?: No Does the pt have substance abuse?: No - Immunizations Immunizations are current?: Yes - POLST Patient has POLST: No PD ED PE NORMAL - Vitals Vital signs reviewed: Yes - General General: Alert and oriented X 3, No acute distress, Well developed/nourished - HEENT HEENT: Atraumatic, PERRL, EOMI - Neck Neck: Supple, no meningeal sign, Other (Bilateral neck and shoulders tender to palpation in trapezius muscle distribution.) - Derm Derm: Normal color, Warm and dry - Extremities Extremities: Other (2+ bilateral radial pulses. Normal sensation and capillary refill. Normal range of motion. Left shoulder discomfort with range of motion.) Results - Vitals Vitals: Vital Signs - 24 hr 08/24/22 08/24/22 00:04 00:08 Temperature 37.1 C Heart Rate 114 H Respiratory 17 18 Rate Blood Pressure 121/96 H O2 Saturation 98 Oxygen O2 Source Room air PD Medical Decision Making - ED course ED course: 42-year-old woman presents with 2 weeks of left shoulder pain as well as nasal congestion and sore throat. Patient is requesting a respiratory swab analgesia for her shoulder. Also requested an orthopedics referral.Shoulder x-ray obtained was noncontributory. Recommended to follow-up with her acquisition analyst, primary care provider and with orthopedics as needed. Departure - Departure Clinical Impression: Shoulder pain, Congestion of upper airway Condition: Good Instructions: Shoulder Probs Follow-Up: Stiven Barry MD [Provider Admit Priv/Credential] - Comments: You were seen in the emergency department for evaluation of shoulder pain. Please follow-up with orthopedics (Dr. Barry), With your acquisition analyst and primary care provider. Return to the emergency department for new or worsening symptoms or other concerns.
--- NOTE | 2022-08-24 01:17 | XRAY Report ---
PROCEDURE: Shoulder 2 View LT INDICATIONS: shoulder pain TECHNIQUE: 2 views of the shoulder were acquired. COMPARISON: None. FINDINGS: Bones: No fractures or dislocations. No suspicious bony lesions. Visualized ribs appear intact. Soft tissues: No suspicious soft tissue calcifications. IMPRESSION: 1. No fracture or dislocation. Reviewed by: Carlos Wilson MD on 08/24/2022 1:16 AM [facility] Approved by: Carlos Wilson MD on 08/24/2022 1:16 AM [facility] Station ID: [id number]
[2022-08-24 01:47] LABS: B. PARAPERTUSSIS- RESP PCR PAN NOT DETECTED; B. PERTUSSIS- RESP PCR PANEL NOT DETECTED; C. PNEUMONIAE- RESP PCR PANEL NOT DETECTED; CORONAVIRUS 229E-RESP PCR NOT DETECTED; CORONAVIRUS HKU1-RESP PCR NOT DETECTED; CORONAVIRUS NL63-RESP PCR NOT DETECTED; CORONAVIRUS OC43-RESP PCR NOT DETECTED; HUMAN METAPNEUMOVIRUS NOT DETECTED; INFLUENZA A- RESP PCR PANEL NOT DETECTED; INFLUENZA B - RESP PCR PANEL NOT DETECTED; M. PNEUMONIAE- RESP PCR PANEL NOT DETECTED; PARAINFLUENZA VIRUS 1 NOT DETECTED; PARAINFLUENZA VIRUS 2 NOT DETECTED; PARAINFLUENZA VIRUS 3 NOT DETECTED; PARAINFLUENZA VIRUS 4 NOT DETECTED; RHINOVIRUS/ENTEROVIRUS NOT DETECTED; RSV- RESP PCR PANEL NOT DETECTED; SARS-CoV-2 -RESP PCR PANEL NOT DETECTED
== END 2022-08-24 01:22 | disposition home or self-care (01) ==
LOC: ED 23:39
DX: M25.512 Pain in left shoulder (principal); R09.89 Other specified symptoms and signs involving the circulatory and respiratory systems; I10 Essential (primary) hypertension
CPT/HCPCS: 87633; 96372; 99283

== ENCOUNTER 2022-11-12 15:52 | Emergency (ER) | payer MEDICARE, OTHER, MEDICAID ==
[2022-11-12] MEDS ORDERED: KETOROLAC 60 MG/2 ML VIAL IM STA (16:15)
[2022-11-12] MEDS ORDERED: LIDOCAINE PATCH 5% TOP STA (16:15)
[2022-11-12 16:26] VITALS: BP 134/89
[2022-11-12] MEDS ORDERED: PROMETHAZINE 25 MG/1 ML VIAL IM STA (16:32)
--- NOTE | 2022-11-12 16:39 | ED Physician Documentation ---
History of Present Illness - Stated complaint Stated Complaint: SLIP AND SLIDE INJURY - Chief complaint Chief Complaint: Trauma Ch/Bk - History obtained from History obtained from: Patient - History of Present Illness Timing: Today Pain level max: 10 Pain level now: 10 - Additonal information Additional information: 42-year-old female presents to the emergency department after she was playing on a "slip and slide" when she landed on the right ribs causing pain. Occurred approximately 30 minutes prior to arrival. Took her home oxycodone without relief. Worse with movement, palpation. No difficulty breathing. No abdominal pain. Better with rest. No head, neck, back pain. 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 : None HEENT: None Psych: None Musculoskeletal: Rheumatoid arthritis Derm: None - Past Surgical History Past Surgical History: Yes General: Cholecystectomy, Appendectomy Ortho: Spine surgery /SHAMPOO TECHNICIAN: Hysterectomy - Present Medications Home Medications: Ambulatory Orders Medication Instructions Recorded Confirmed Sumatriptan [Imitrex] 20 mg NS ONCE PRN #7 spray 01/04/19 06/18/22 Prochlorperazine Maleate 10 mg PO DAILY 03/30/19 06/18/22 [Compazine] Promethazine [Phenergan] 25 mg PO DAILY 03/30/19 06/18/22 oxyCODONE [Roxicodone] 10 mg PO QID 03/30/19 01/09/21 Albuterol Sulf [Ventolin Hfa 1 - 2 puffs INH Q4HR PRN #1 inhaler 06/17/19 06/18/22 Inhaler] Gabapentin [Neurontin] 1,200 mg PO BID 10/23/20 06/18/22 Upadacitinib [Rinvoq] 15 mg PO DAILY 10/23/20 06/18/22 dexAMETHasone [Decadron] 6 mg PO Q6HR #12 tablet 12/27/20 01/09/21 Metaxalone 800 mg PO TID PRN #14 tablet 06/18/22 diazePAM [Valium] 5 mg PO TID PRN #10 tablet 06/18/22 Meloxicam [Mobic] 7.5 mg PO DAILY #5 tablet 07/02/22 Promethazine Supp [Phenergan Supp] 25 mg [place] Q6HR PRN #30 supp 07/20/22 Simethicone 180 mg PO QDAC PRN #30 cap 07/20/22 Cetirizine [ZyrTEC] 10 mg PO DAILY #14 tablet 11/12/22 Ketorolac [Toradol] 10 mg PO Q6H PRN #20 tablet 11/12/22 Meclizine HCl [Motion Sickness] 25 mg PO Q6H PRN #30 tablet 11/12/22 - Allergies Allergies/Adverse Reactions: Allergies Allergy/AdvReac Type Severity Reaction Status Date / Time pork derived (porcine) Allergy Mild Nausea Verified 11/12/22 15:59 amitriptyline Allergy Hives Verified 11/12/22 15:59 azithromycin Allergy Headache Verified 11/12/22 15:59 cephalexin [From Keflex] Allergy Hives Verified 11/12/22 15:59 cyclobenzaprine Allergy Hives Verified 11/12/22 15:59 [From Flexeril] duloxetine [From Cymbalta] Allergy Hives Verified 11/12/22 15:59 enoxaparin [From Lovenox] Allergy Hives Verified 11/12/22 15:59 heparin Allergy Hives Verified 11/12/22 15:59 hydrocodone Allergy Itching Verified 11/12/22 15:59 ipratropium [From DuoNeb] Allergy Unknown Verified 11/12/22 15:59 leflunomide Allergy Headache Verified 11/12/22 15:59 methotrexate Allergy Anaphylaxis Verified 11/12/22 15:59 ondansetron [From Zofran] Allergy Hives Verified 11/12/22 15:59 palm oil Allergy Edema Verified 11/12/22 15:59 Penicillins Allergy Rash Verified 11/12/22 15:59 prednisone Allergy Hives Verified 11/12/22 15:59 tizanidine [From Zanaflex] Allergy Hives Verified 11/12/22 15:59 trazodone Allergy Anxiety Verified 11/12/22 15:59 venlafaxine [From Effexor] Allergy Hives Verified 11/12/22 15:59 glycol AdvReac Rash Uncoded 11/12/22 15:59 - Social History Does the pt smoke?: No Smoking Status: Never smoker Does the pt drink ETOH?: No Does the pt have substance abuse?: No - Immunizations Immunizations are current?: Yes - POLST Patient has POLST: No PD ED PE NORMAL - Vitals Vital signs reviewed: Yes - General General: Alert and oriented X 3, No acute distress, Well developed/nourished - HEENT HEENT: PERRL, Moist mucous membranes - Neck Neck: Supple, no meningeal sign - Cardiac Cardiac: RRR, No murmur, Strong equal pulses - Respiratory Respiratory: No respiratory distress, Clear bilaterally - Abdomen Abdomen: Soft, Non tender, Non distended - Back Back: No CVA TTP, No spinal TTP - Derm Derm: Warm and dry - Extremities Extremities: No edema, No calf tenderness / cord - Neuro Neuro: Alert and oriented X 3, orthopaedic doctor 2-12 intact, No motor deficit, No sensory deficit, Normal speech - Psych Psych: Normal mood, Normal affect - Free text exam Free text exam: Tender to palpation over the right anterior lower ribs, approximately 10 through 12. No crepitus. No ecchymosis. No swelling. No deformity. Results - Vitals Vitals: Vital Signs - 24 hr 11/12/22 11/12/22 15:55 16:25 Temperature 37.1 C Heart Rate 84 84 Respiratory 18 16 Rate Blood Pressure 138/92 H 134/89 H O2 Saturation 100 100 Oxygen O2 Source Room air - Rads (name of study) R rib xray Relevant Findings:: Final report received, See rad report PD Medical Decision Making - ED course Complexity details: reviewed results, re-evaluated patient, considered differential, d/w patient ED course: 42-year-old female with right rib pain after jumping on a slip and slide today. She has oxycodone for pain at home. Feels better after Toradol and Lidoderm patch here. She did have nausea and was given Phenergan. After she returned from imaging, the patient states that she has also had intermittent headaches for the past several weeks, she has been diagnosed with idiopathic intracranial hypertension as well as migraine headaches. She states she was diagnosed with IIH 3 years ago in [place]. She is unsure what her opening pressure was at that time. She states that they did put her on acetazolamide but it did not help, therefore they stopped this. She states her current neurologist thinks that she has migraines and not IIH. Patient states that she has had some vision changes intermittently over the past few weeks, feels lightheaded and dizzy occasionally. She states sometimes she is concerned that she will fall and so uses a walker. However felt well enough today to play on a slip and slide. She states that she is unable to have a normal lumbar puncture that she has to be completely sedated and done at a specialized facility due to her 7 back surgeries in the past. Recommend that she contact her neurologist on Monday to discuss further evaluation and management of this.No nystagmus here. Normal neurological exam. NIH stroke scale of 0. Extraocular movements intact. No evidence of cranial nerve palsy. No indication for emergent head CT. Patient counseled regarding signs and symptoms for which I believe and urgent re- evaluation would be necessary. Patient with good understanding of and agreement to plan and is comfortable going home at this time This document was made in part using voice recognition software. While efforts are made to proofread this document, sound alike and grammatical errors may occur. Departure - Departure Disposition: Home, Self Care Clinical Impression: Contusion of chest wall Qualifiers: Encounter type: initial encounter Laterality: right Qualified Code(s): S20.211A - Contusion of right front wall of thorax, initial encounter Condition: Good Instructions: ED Contusion Chest Wall, ED Contusion Vs Minor Fx Rib Follow-Up: your,doctor on Monday [Other] Prescriptions: Meclizine HCl [Motion Sickness] 25 mg PO Q6H PRN #30 tablet PRN Reason: Dizziness Ketorolac [Toradol] 10 mg PO Q6H PRN #20 tablet PRN Reason: back pain Cetirizine [ZyrTEC] 10 mg PO DAILY #14 tablet Comments: Your prescriptions were sent to [facility] in [place]. They are open till 7 today. Please follow-up with your doctor on Monday for further care. I would recommend calling your neurologist to discuss your headaches and difficulty walking, especially given your history of difficult lumbar punctures. Your x- rays do not show any acute fractures today. Return if you worsen Discharge Date/Time: 11/12/22 17:46
--- NOTE | 2022-11-12 16:48 | XRAY Report ---
PROCEDURE: Ribs w/PA Chest RT INDICATIONS: fall, R rib pain TECHNIQUE: 2 views of the left ribs were acquired, along with a single view chest. COMPARISON: 01/09/2021 FINDINGS: Surgical changes and devices: None. Bones and chest wall: No fractures or dislocations. No suspicious bony lesions. Overlying soft tis sues appear unremarkable. Lungs and pleura: No pleural effusions or pneumothorax. Lungs appear clear. Mediastinum: Mediastinal contours appear normal. Heart size is normal. IMPRESSION: No acute fracture. No osseous lesion. If symptoms and/or clinical suspicion for pathology continue, f urther assessment with repeat plain films, or advanced imaging (e.g., CT, MRI, or bone scan) is recom mended for further assessment. Reviewed by: Brisa Thompson MD on 11/12/2022 3:47 PM [email or web address] Approved by: Brisa Thompson MD on 11/12/2022 3:47 PM AICHA Station ID: [id number]
== END 2022-11-12 17:46 | disposition home or self-care (01) ==
LOC: ED 15:52
DX: S20.211A Contusion of right front wall of thorax, initial encounter (principal); R11.0 Nausea; W18.30XA Fall on same level, unspecified, initial encounter; Y93.02 Activity, running
CPT/HCPCS: 71101; 96372; 99283; A9270

== ENCOUNTER 2022-11-29 19:47 | Emergency (ER) | payer MEDICARE, OTHER, MEDICAID ==
--- NOTE | 2022-11-29 20:29 | ED Physician Documentation ---
History of Present Illness - Stated complaint Stated Complaint: FEVER/RASHID/NAUSEA/VOMIT - Chief complaint Chief Complaint: Fever - History obtained from History obtained from: Patient - Additonal information Additional information: HPI from patient. Patient complains of nausea vomiting that began last night. Since this morning, she subsequently also developed generalized headache, sore throat, cough, episodic dizziness, and fever to Tmax 101.5. She noted this fever at approximately 6 PM tonight, and subsequently took 2 Tylenol and 2 Aleve. Review of Systems Constitutional: reports: Fever, Myalgias Ears: denies: Ear pain Throat: reports: Sore throat Cardiac: denies: Chest pain / pressure Respiratory: reports: Cough. denies: Dyspnea, Wheezing GI: reports: Nausea, Vomiting. 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: Hysterectomy - Present Medications Home Medications: Ambulatory Orders Medication Instructions Recorded Confirmed Sumatriptan [Imitrex] 20 mg NS ONCE PRN #7 spray 01/04/19 06/18/22 Prochlorperazine Maleate 10 mg PO DAILY 03/30/19 06/18/22 [Compazine] Promethazine [Phenergan] 25 mg PO DAILY 03/30/19 06/18/22 oxyCODONE [Roxicodone] 10 mg PO QID 03/30/19 01/09/21 Albuterol Sulf [Ventolin Hfa 1 - 2 puffs INH Q4HR PRN #1 inhaler 06/17/19 06/18/22 Inhaler] Gabapentin [Neurontin] 1,200 mg PO BID 10/23/20 06/18/22 Upadacitinib [Rinvoq] 15 mg PO DAILY 10/23/20 06/18/22 dexAMETHasone [Decadron] 6 mg PO Q6HR #12 tablet 12/27/20 01/09/21 Metaxalone 800 mg PO TID PRN #14 tablet 06/18/22 diazePAM [Valium] 5 mg PO TID PRN #10 tablet 06/18/22 Meloxicam [Mobic] 7.5 mg PO DAILY #5 tablet 07/02/22 Promethazine Supp [Phenergan Supp] 25 mg [place] Q6HR PRN #30 supp 07/20/22 Simethicone 180 mg PO QDAC PRN #30 cap 07/20/22 Cetirizine [ZyrTEC] 10 mg PO DAILY #14 tablet 11/12/22 Ketorolac [Toradol] 10 mg PO Q6H PRN #20 tablet 11/12/22 Meclizine HCl [Motion Sickness] 25 mg PO Q6H PRN #30 tablet 11/12/22 Promethazine [Phenergan] 25 mg PO Q6H PRN #10 tab 11/29/22 - Allergies Allergies/Adverse Reactions: Allergies Allergy/AdvReac Type Severity Reaction Status Date / Time pork derived (porcine) Allergy Mild Nausea Verified 11/29/22 20:03 amitriptyline Allergy Hives Verified 11/29/22 20:03 azithromycin Allergy Headache Verified 11/29/22 20:03 cephalexin [From Keflex] Allergy Hives Verified 11/29/22 20:03 cyclobenzaprine Allergy Hives Verified 11/29/22 20:03 [From Flexeril] duloxetine [From Cymbalta] Allergy Hives Verified 11/29/22 20:03 enoxaparin [From Lovenox] Allergy Hives Verified 11/29/22 20:03 heparin Allergy Hives Verified 11/29/22 20:03 hydrocodone Allergy Itching Verified 11/29/22 20:03 ipratropium [From DuoNeb] Allergy Unknown Verified 11/29/22 20:03 leflunomide Allergy Headache Verified 11/29/22 20:03 methotrexate Allergy Anaphylaxis Verified 11/29/22 20:03 ondansetron [From Zofran] Allergy Hives Verified 11/29/22 20:03 palm oil Allergy Edema Verified 11/29/22 20:03 Penicillins Allergy Rash Verified 11/29/22 20:03 prednisone Allergy Hives Verified 11/29/22 20:03 tizanidine [From Zanaflex] Allergy Hives Verified 11/29/22 20:03 trazodone Allergy Anxiety Verified 11/29/22 20:03 venlafaxine [From Effexor] Allergy Hives Verified 11/29/22 20:03 glycol AdvReac Rash Uncoded 11/12/22 15:59 - Social History Does the pt smoke?: No Smoking Status: Never smoker Does the pt drink ETOH?: No Does the pt have substance abuse?: No - Immunizations Immunizations are current?: Yes - POLST Patient has POLST: No PD ED PE NORMAL - Vitals Vital signs reviewed: Yes - General General: Alert and oriented X 3, No acute distress, Well developed/nourished - HEENT HEENT: Moist mucous membranes, Pharynx benign - Neck Neck: Supple, no meningeal sign - Cardiac Cardiac: RRR, No murmur - Respiratory Respiratory: No respiratory distress, Clear bilaterally - Abdomen Abdomen: Soft, Non tender Results - Vitals Vitals: Vital Signs - 24 hr 11/29/22 11/29/22 11/29/22 20:04 20:08 20:33 Temperature 38.0 C H Heart Rate 112 H Respiratory 20 19 18 Rate Blood Pressure 146/106 H O2 Saturation 98 11/29/22 11/29/22 21:44 22:19 Temperature 37.4 C Heart Rate 86 90 Respiratory 18 18 Rate Blood Pressure 128/88 H O2 Saturation 97 98 Oxygen O2 Source Room air - Labs Labs: Laboratory Tests 11/29/22 11/29/22 20:10 20:53 Nasal Adenovirus (PCR) NOT DETECTED Nasal B. parapertussis DNA (PCR) NOT DETECTED Nasal Coronavir 229E PCR NOT DETECTED Nasal Coronavir HKU1 PCR NOT DETECTED Nasal Coronavir NL63 PCR NOT DETECTED Nasal Coronavir OC43 PCR NOT DETECTED Nasal Enterovir/Rhinovir PCR NOT DETECTED Nasal Influenza B PCR NOT DETECTED Nasal Influenza A PCR NOT DETECTED Nasal Parainfluen 1 PCR NOT DETECTED Nasal Parainfluen 2 PCR NOT DETECTED Nasal Parainfluen 3 PCR DETECTED A Nasal Parainfluen 4 PCR NOT DETECTED Nasal RSV (PCR) NOT DETECTED Nasal B.pertussis DNA PCR NOT DETECTED Nasal C.pneumoniae (PCR) NOT DETECTED Abisai Human Metapneumo PCR NOT DETECTED Nasal M.pneumoniae (PCR) NOT DETECTED Nasal SARS-CoV-2 (PCR) NOT DETECTED Group A Strep Rapid Negative PD Medical Decision Making - ED course Complexity details: reviewed results, re-evaluated patient, considered differential, d/w patient ED course: Patient is in NAD on my exam. On initial presentation, she has a fever of 38 degrees. She also noted to be tachycardic with this first set of vital signs. She is given 30 mg Toradol intramuscular. We discussed options for antinausea medication; she says she cannot take Zofran, and has had good response to Phenergan in the past. She is given a dose of p.o. Phenergan (25 mg) in the emergency department, and a prescription for Phenergan was electronically submitted to [facility] pharmacy in [place]. Vital signs prior to discharge show that her temperature has decreased to 37.4 and heart rate is normal (90). Rapid strep test is negative. Respiratory PCR panel is positive for parainfluenza 3. No imaging studies are indicated at this time given the clear lungs to auscultation bilaterally, normal pulse ox. Test results are discussed with patient, return precautions also reviewed. Departure - Departure Disposition: 01 Home, Self Care Clinical Impression: Infection due to parainfluenza virus 3 Condition: Good Instructions: ED Viral Syndrome Prescriptions: Promethazine [Phenergan] 25 mg PO Q6H PRN #10 tab PRN Reason: Nausea / Vomiting Comments: Your strep test was negative, but the nasal swab was positive for a viral infection. The virus you tested positive for is called parainfluenza 3. This is typically a benign virus, typically causing up to week of cough/cold symptoms. There is no specific treatment; infection should resolve on its own. It is quite contagious, and you should stay home until the fever is gone for at least 24 hours without fever reducing medication, and once you are feeling improved. I have electronically submitted a prescription for Phenergan to the [facility] pharmacy in [place]. Discharge Date/Time: 11/29/22 22:20
[2022-11-29] MEDS ORDERED: KETOROLAC 30 MG/ML VIAL IM STA (20:50)
[2022-11-29 21:09] LABS: RAPID STREP SCREEN Negative (Negative)
[2022-11-29 21:11] LABS: B. PARAPERTUSSIS- RESP PCR PAN NOT DETECTED; B. PERTUSSIS- RESP PCR PANEL NOT DETECTED; C. PNEUMONIAE- RESP PCR PANEL NOT DETECTED; CORONAVIRUS 229E-RESP PCR NOT DETECTED; CORONAVIRUS HKU1-RESP PCR NOT DETECTED; CORONAVIRUS NL63-RESP PCR NOT DETECTED; CORONAVIRUS OC43-RESP PCR NOT DETECTED; HUMAN METAPNEUMOVIRUS NOT DETECTED; INFLUENZA A- RESP PCR PANEL NOT DETECTED; INFLUENZA B - RESP PCR PANEL NOT DETECTED; M. PNEUMONIAE- RESP PCR PANEL NOT DETECTED; PARAINFLUENZA VIRUS 1 NOT DETECTED; PARAINFLUENZA VIRUS 2 NOT DETECTED; PARAINFLUENZA VIRUS 3 DETECTED; PARAINFLUENZA VIRUS 4 NOT DETECTED; RHINOVIRUS/ENTEROVIRUS NOT DETECTED; RSV- RESP PCR PANEL NOT DETECTED; SARS-CoV-2 -RESP PCR PANEL NOT DETECTED
[2022-11-29] MEDS ORDERED: PROMETHAZINE 25 MG TABLET PO STA (22:03)
[2022-11-29 22:20] VITALS: BP 128/88
--- NOTE | 2022-12-01 12:42 | ED Physician Documentation ---
ED Addendum - Addendum Addendum: 12/01/22 12:42 Throat culture reviewed, negative culture.
== END 2022-11-29 22:20 | disposition home or self-care (01) ==
LOC: ED 19:47
DX: B34.8 Other viral infections of unspecified site (principal); I10 Essential (primary) hypertension; Z20.822 Contact with and (suspected) exposure to COVID-19; Z79.899 Other long term (current) drug therapy
CPT/HCPCS: 87070; 87430; 87633; 96372; 99283; Q0169

== ENCOUNTER 2022-12-06 20:44 | Emergency (ER) | payer MEDICARE, OTHER, MEDICAID ==
--- NOTE | 2022-12-06 22:06 | ED Physician Documentation ---
PD HPI DYSPNEA - Stated complaint Stated Complaint: TROUBLE BREATHING - Chief complaint Chief Complaint: General - History obtained from History obtained from: Patient - Additional information Additional information: HPI from patient. Patient was treated and released from this emergency department last week for URI symptoms, was found on the work-up to a have parainfluenza 3. She presents at this time due to chief complaint of increasing cough over past several days, although she was already having cough by the time of the visit here last week. She says the cough is sometimes productive of sputum, although she feels there is chest congestion and that she is not coughing up most of the material that she feels is stuck in the chest and airways. She is describing constant but waxing and waning anterior chest pain that is distinctly worse with coughing; this chest discomfort developed 2 to 3 days ago and no ameliorating factors have been noted. She also complains of several days of dizziness with exertion. This is not a new complaint for her, and she is working with a neurologist regarding ongoing testing for this issue. Patient's past medical history includes asthma, but she says her albuterol inhaler is . Review of Systems Constitutional: denies: Fever, Chills, Sweats Cardiac: reports: Chest pain / pressure. denies: Palpitations, Pedal edema Respiratory: reports: Cough. 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 : None HEENT: None Psych: None Musculoskeletal: Rheumatoid arthritis Derm: None - Past Surgical History Past Surgical History: Yes General: Cholecystectomy, Appendectomy Ortho: Spine surgery /WAREHOUSE PACKAGING SUPERVISOR: Hysterectomy - Present Medications Home Medications: Ambulatory Orders Medication Instructions Recorded Confirmed Sumatriptan [Imitrex] 20 mg NS ONCE PRN #7 spray 01/04/19 12/06/22 Prochlorperazine Maleate 10 mg PO DAILY 03/30/19 12/06/22 [Compazine] Promethazine [Phenergan] 25 mg PO DAILY 03/30/19 06/18/22 oxyCODONE [Roxicodone] 10 mg PO QID 03/30/19 01/09/21 Albuterol Sulf [Ventolin Hfa 1 - 2 puffs INH Q4HR PRN #1 inhaler 06/17/19 12/06/22 Inhaler] Gabapentin [Neurontin] 1,200 mg PO BID 10/23/20 12/06/22 Upadacitinib [Rinvoq] 15 mg PO DAILY 10/23/20 06/18/22 dexAMETHasone [Decadron] 6 mg PO Q6HR #12 tablet 12/27/20 01/09/21 Metaxalone 800 mg PO TID PRN #14 tablet 06/18/22 12/06/22 diazePAM [Valium] 5 mg PO TID PRN #10 tablet 06/18/22 Meloxicam [Mobic] 7.5 mg PO DAILY #5 tablet 07/02/22 12/06/22 Promethazine Supp [Phenergan Supp] 25 mg [place] Q6HR PRN #30 supp 07/20/22 Simethicone 180 mg PO QDAC PRN #30 cap 07/20/22 Cetirizine [ZyrTEC] 10 mg PO DAILY #14 tablet 11/12/22 Ketorolac [Toradol] 10 mg PO Q6H PRN #20 tablet 11/12/22 Meclizine HCl [Motion Sickness] 25 mg PO Q6H PRN #30 tablet 11/12/22 12/06/22 Promethazine [Phenergan] 25 mg PO Q6H PRN #10 tab 11/29/22 Albuterol 2.5 mg INH Q4H PRN #30 ml 12/07/22 Albuterol Sulf [Ventolin Hfa 1 - 2 puffs INH Q4HR PRN #1 each 12/07/22 Inhaler] - Allergies Allergies/Adverse Reactions: Allergies Allergy/AdvReac Type Severity Reaction Status Date / Time pork derived (porcine) Allergy Mild Nausea Verified 11/29/22 20:03 amitriptyline Allergy Hives Verified 11/29/22 20:03 azithromycin Allergy Headache Verified 11/29/22 20:03 cephalexin [From Keflex] Allergy Hives Verified 11/29/22 20:03 cyclobenzaprine Allergy Hives Verified 11/29/22 20:03 [From Flexeril] duloxetine [From Cymbalta] Allergy Hives Verified 11/29/22 20:03 enoxaparin [From Lovenox] Allergy Hives Verified 11/29/22 20:03 heparin Allergy Hives Verified 11/29/22 20:03 hydrocodone Allergy Itching Verified 11/29/22 20:03 ipratropium [From DuoNeb] Allergy Unknown Verified 11/29/22 20:03 leflunomide Allergy Headache Verified 11/29/22 20:03 methotrexate Allergy Anaphylaxis Verified 11/29/22 20:03 ondansetron [From Zofran] Allergy Hives Verified 11/29/22 20:03 palm oil Allergy Edema Verified 11/29/22 20:03 Penicillins Allergy Rash Verified 11/29/22 20:03 prednisone Allergy Hives Verified 11/29/22 20:03 tizanidine [From Zanaflex] Allergy Hives Verified 11/29/22 20:03 trazodone Allergy Anxiety Verified 11/29/22 20:03 venlafaxine [From Effexor] Allergy Hives Verified 11/29/22 20:03 glycol AdvReac Rash Uncoded 11/12/22 15:59 - Social History Does the pt smoke?: No Smoking Status: Never smoker Does the pt drink ETOH?: No Does the pt have substance abuse?: No - Immunizations Immunizations are current?: Yes - POLST Patient has POLST: No PD ED PE NORMAL - Vitals Vital signs reviewed: Yes - General General: Alert and oriented X 3, No acute distress, Well developed/nourished - HEENT HEENT: Moist mucous membranes - Neck Neck: Supple, no meningeal sign - Cardiac Cardiac: RRR, No murmur, No gallop, No rub - Respiratory Respiratory: No respiratory distress, Clear bilaterally - Abdomen Abdomen: Soft, Non tender - Extremities Extremities: No edema Results - Vitals Vitals: Vital Signs - 24 hr 12/07/22 12/07/22 12/07/22 03:08 05:52 06:24 Heart Rate 74 76 77 Respiratory 18 35 H 20 Rate Blood Pressure 128/57 L 108/72 103/72 O2 Saturation 100 100 95 Oxygen O2 Source Room air - EKG (time done) No standard instances EKG releavant findings:: EKG personally interpreted by author of this note. Relevant findings are: Rate: Rate (enter#) (72) Rhythm: NSR [place]: Normal Intervals: Normal [place] QRS: Normal Ischemia: Normal ST segments - Labs Labs: Laboratory Tests 12/07/22 12/07/22 12/07/22 02:05 02:05 02:05 D-Dimer Sodium 142 Potassium 3.3 L Chloride 107 Carbon Dioxide 25 Anion Gap 10.0 BUN 12 Creatinine 0.7 Estimated GFR (MDRD) 91 Glucose 94 Calcium 9.2 Troponin I High Sens < 2.3 L HCG, Quant 2.11 12/07/22 03:48 D-Dimer 239.0 Sodium Potassium Chloride Carbon Dioxide Anion Gap BUN Creatinine Estimated GFR (MDRD) Glucose Calcium Troponin I High Sens HCG, Quant - Rads (name of study) chest xray Relevant Findings:: Prelim report reviewed, EMP independent interpretation of test (I reviewed these images and my interpretation is no acute abnormality; specifically, no evidence of pneumonia, pneumothorax, atelectasis, mass), See rad report PD Medical Decision Making - ED course Complexity details: reviewed old records, reviewed results, re-evaluated theron ent, considered differential, d/w patient ED course: Tests ordered and results reviewed by me: EKG, CXR, d-dimer, BMP, hs-cTn. A serum hcg quantitative level was undertaken to expedite planned CTA chest although this ended up not being performed (see below). Unremarkable CXR, no evidence of LRTI/pneumonia. EKG without abnormality (biphasic T wave in V2 noted). Normal hs-cTn (<2.3). Mild hypokalemia noted (3.3). I ordered k-phos 25meq which she agreed with, but ED RN says she reviewed the ingredients label and then refused, saying she is allergic to something listed in the ingredients. Patient does report a long list of medication and food allergies; given that her hypokalemia is mild, will not further pursue potassium repletion at this time and patient can follow up with PMD for recheck of the potassium level at their discretion. I discussed results of the tests with the patient. She expresses ongoing concern regarding her chest pain , understandable given lack of specific finding to explain etiology. Differential would include musculoskeletal strain from her frequent coughing (and it is worse with coughing, per patient), pleurisy from bronchitis (positive for parainfluenza 3 last week). PE seems unlikely but reasonable to obtain CTA chest. Unfortunately , ED RNs were unable to obtain IV access. Furthermore, one of the ED ultrasound machines is out for repair and the one that is available does not have a linear/high-frequency probe (to aid in peripheral line placement). The nursing felt finishing supervisor was contacted to help obtain the US that is thought to be in the OR, but she subsequently says that she was unable to locate this US. Given the low suspicion for PE, d-dimer is then ordered and this result is within normal limits . At this point, the likelihood of PE seems too low to mandate further study. I discussed the d-dimer result and this test/result's implications. She is reassured and feels well and is requesting d/c home. She is provided prescriptions for albuterol solution for her nebulizer she has at home, as well as rx for albuterol MDI. Return precautions were carefully reviewed. Departure - Departure Disposition: Home, Self Care Clinical Impression: Hypokalemia Upper respiratory infection Qualifiers: URI type: unspecified URI Qualified Code(s): J06.9 - Acute upper respiratory infection, unspecified Chest pain Qualifiers: Chest pain type: unspecified Qualified Code(s): R07.9 - Chest pain, unspecified Condition: Good Instructions: ED Upper Resp Infec No Abx Tx, ED Chest Pain Atypical Unkn Cause, ED Potassium Deficiency Prescriptions: Albuterol Sulf [Ventolin Hfa Inhaler] 1 - 2 puffs INH Q4HR PRN #1 each PRN Reason: Shortness Of Air/Wheezing Albuterol 2.5 mg INH Q4H PRN #30 ml PRN Reason: Wheezing Comments: There were no concerning or diagnostic findings on tonight's tests including EKG, chest x-ray, and cardiac enzyme blood test. Another blood test called D- dimer was also normal; this would suggest against any blood clots in your lung. An incidental note was made of a slightly low potassium level, just below the normal range. Is not nearly low enough to cause symptoms nor any concern, but it is something should mention to your primary care provider when you follow-up as they might want to recheck this test in the coming weeks. You were given a one-time dose of oral (liquid) potassium in the emergency department. You should follow-up with your primary care provider not only regarding the low potassium, but also for reevaluation of your symptoms. As we discussed, normal test results does not mean the absence of a problem. At this time, what ever is causing her symptoms seems unlikely to be a dangerous problem, but further testing, your primary care provider's discretion, might be needed to further rule out specific/dangerous causes. I have electronically submitted prescriptions for an albuterol inhaler as well as the albuterol nebulizer solution to the [facility] pharmacy in [place]. Discharge Date/Time: 12/07/22 06:31
[2022-12-06] MEDS ORDERED: ALBUTEROL NEB 2.5 MG/3 ML INH STA (22:23)
--- NOTE | 2022-12-06 23:19 | XRAY Report ---
PROCEDURE: Chest 1 View X-Ray INDICATIONS: chest pain TECHNIQUE: One view of the chest was acquired. COMPARISON: Chest x-ray 11/12/2022. FINDINGS: Surgical changes and devices: None. Lungs and pleura: No pleural effusions or pneumothorax. Lungs are clear. Mediastinum: Mediastinal contours appear normal. Heart size is normal. Bones and chest wall: No suspicious bony lesions. Overlying soft tissues appear unremarkable. IMPRESSION: No acute cardiopulmonary disease. Reviewed by: Carlos Wilson MD on 12/06/2022 11:18 PM PDT Approved by: Carlos Wilson MD on 12/06/2022 11:18 PM PDT Station ID: [id number]
[2022-12-07] MEDS ORDERED: iohexoL-300 100 ML VIAL ONE (01:57)
[2022-12-07 02:27] LABS: CALCIUM 9.2 mg/dL (8.5-10.3); CREATININE 0.7 mg/dL (0.4-1.0); POTASSIUM 3.3 mmol/L (3.5-5.0)
[2022-12-07] MEDS ORDERED: POTASSIUM BICARB 25 MEQ TABLET PO STA (05:49)
[2022-12-07 06:29] VITALS: BP 103/72
== END 2022-12-07 06:31 | disposition home or self-care (01) ==
LOC: ED 20:44
DX: E87.6 Hypokalemia (principal); J06.9 Acute upper respiratory infection, unspecified; R07.9 Chest pain, unspecified
CPT/HCPCS: 36415; 80048; 84484; 84702; 85379; 93005; 94640; 99284

== ENCOUNTER 2023-01-19 17:04 | Emergency (ER) | payer MEDICARE, OTHER, MEDICAID ==
[2023-01-19 17:20] VITALS: BP 131/85
--- NOTE | 2023-01-19 17:23 | ED Physician Documentation ---
PD HPI HEENT - Stated complaint Stated Complaint: FEVER,LIP SWELLING - Chief complaint Chief Complaint: Heent - History obtained from History obtained from: Patient - Additional information Additional information: 42-year-old woman had a lip biopsy done a few days ago to assess for the activity of her Sjogren's disease. Starting the next day she developed increased swelling and pain as well as a low-grade fever. 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 : None HEENT: None Psych: None Musculoskeletal: Rheumatoid arthritis Derm: None - Past Surgical History Past Surgical History: Yes General: Cholecystectomy, Appendectomy Ortho: Spine surgery /WEATHERIZATION TECHNICIAN: Hysterectomy - Present Medications Home Medications: Ambulatory Orders Medication Instructions Recorded Confirmed Sumatriptan [Imitrex] 20 mg NS ONCE PRN #7 spray 01/04/19 12/06/22 Prochlorperazine Maleate 10 mg PO DAILY 03/30/19 12/06/22 [Compazine] Promethazine [Phenergan] 25 mg PO DAILY 03/30/19 06/18/22 oxyCODONE [Roxicodone] 10 mg PO QID 03/30/19 01/09/21 Albuterol Sulf [Ventolin Hfa 1 - 2 puffs INH Q4HR PRN #1 inhaler 06/17/19 12/06/22 Inhaler] Gabapentin [Neurontin] 1,200 mg PO BID 10/23/20 12/06/22 Upadacitinib [Rinvoq] 15 mg PO DAILY 10/23/20 06/18/22 dexAMETHasone [Decadron] 6 mg PO Q6HR #12 tablet 12/27/20 01/09/21 Metaxalone 800 mg PO TID PRN #14 tablet 06/18/22 12/06/22 diazePAM [Valium] 5 mg PO TID PRN #10 tablet 06/18/22 Meloxicam [Mobic] 7.5 mg PO DAILY #5 tablet 07/02/22 12/06/22 Promethazine Supp [Phenergan Supp] 25 mg RI Q6HR PRN #30 supp 07/20/22 Simethicone 180 mg PO QDAC PRN #30 cap 07/20/22 Cetirizine [ZyrTEC] 10 mg PO DAILY #14 tablet 11/12/22 Ketorolac [Toradol] 10 mg PO Q6H PRN #20 tablet 11/12/22 Meclizine HCl [Motion Sickness] 25 mg PO Q6H PRN #30 tablet 11/12/22 12/06/22 Promethazine [Phenergan] 25 mg PO Q6H PRN #10 tab 11/29/22 Albuterol 2.5 mg INH Q4H PRN #30 ml 12/07/22 Albuterol Sulf [Ventolin Hfa 1 - 2 puffs INH Q4HR PRN #1 each 12/07/22 Inhaler] Chlorhexidine Gluconate [Peridex] 10 ml MM QID #240 ml 01/19/23 Ciprofloxacin HCl [Cipro] 500 mg PO BID #14 tablet 01/19/23 metroNIDAZOLE [Flagyl] 500 mg PO TID 7 Days #21 tablet 01/19/23 - Allergies Allergies/Adverse Reactions: Allergies Allergy/AdvReac Type Severity Reaction Status Date / Time pork derived (porcine) Allergy Mild Nausea Verified 11/29/22 20:03 amitriptyline Allergy Hives Verified 11/29/22 20:03 azithromycin Allergy Headache Verified 11/29/22 20:03 cephalexin [From Keflex] Allergy Hives Verified 11/29/22 20:03 cyclobenzaprine Allergy Hives Verified 11/29/22 20:03 [From Flexeril] duloxetine [From Cymbalta] Allergy Hives Verified 01/19/23 17:14 enoxaparin [From Lovenox] Allergy Hives Verified 01/19/23 17:14 heparin Allergy Hives Verified 01/19/23 17:14 hydrocodone Allergy Itching Verified 01/19/23 17:14 ipratropium [From DuoNeb] Allergy Unknown Verified 01/19/23 17:14 leflunomide Allergy Headache Verified 01/19/23 17:14 methotrexate Allergy Anaphylaxis Verified 01/19/23 17:14 ondansetron [From Zofran] Allergy Hives Verified 01/19/23 17:14 palm oil Allergy Edema Verified 01/19/23 17:14 Penicillins Allergy Rash Verified 01/19/23 17:14 prednisone Allergy Hives Verified 01/19/23 17:14 tizanidine [From Zanaflex] Allergy Hives Verified 01/19/23 17:14 trazodone Allergy Anxiety Verified 01/19/23 17:14 venlafaxine [From Effexor] Allergy Hives Verified 01/19/23 17:14 glycol AdvReac Rash Uncoded 01/19/23 17:14 - Social History Does the pt smoke?: No Smoking Status: Never smoker Does the pt drink ETOH?: No Does the pt have substance abuse?: No - Immunizations Immunizations are current?: Yes - POLST Patient has POLST: No PD ED PE NORMAL - Vitals Vital signs reviewed: Yes - General General: Alert and oriented X 3, No acute distress - HEENT HEENT: Other (There is a lip biopsy site inside of the left lip that has just a drop of pus at the base with swelling. No fluctuance to drain.) - Neuro Neuro: Alert and oriented X 3, Normal speech Results - Vitals Vitals: Vital Signs - 24 hr 01/19/23 17:07 Temperature 37.1 C Heart Rate 82 Respiratory 19 Rate Blood Pressure 131/85 H O2 Saturation 98 Oxygen O2 Source Room air PD Medical Decision Making - ED course ED course: She has an infected lip biopsy site. Antibiotic choice is obfuscated by an extensive allergy list. Departure - Departure Disposition: 01 Home, Self Care Clinical Impression: Infection of lip Condition: Good Record reviewed to determine appropriate education?: Yes Instructions: ED Laceration Mouth Prescriptions: Ciprofloxacin HCl [Cipro] 500 mg PO BID #14 tablet metroNIDAZOLE [Flagyl] 500 mg PO TID 7 Days #21 tablet Chlorhexidine Gluconate [Peridex] 10 ml MM QID #240 ml Comments: Return if the swelling worsens or the fevers worsen or fail to improve over the next couple of days.
== END 2023-01-19 17:32 | disposition home or self-care (01) ==
LOC: ED 17:04
DX: K13.0 Diseases of lips (principal)
CPT/HCPCS: 99283

== ENCOUNTER 2023-01-23 15:20 | Emergency (ER) | payer MEDICARE, OTHER, MEDICAID ==
[2023-01-23 17:19] VITALS: BP 147/87
--- NOTE | 2023-01-23 17:55 | ED Physician Documentation ---
History of Present Illness - Stated complaint Stated Complaint: LIP INFECTION - Chief complaint Chief Complaint: General - Additonal information Additional information: 42-year-old female presents emergency department requesting reevaluation of a lip wound. She did have a biopsy done, recently of the lesion. Seen by my colleague on the and started on Cipro and Flagyl given her multiple medication allergies. She is also doing a mouth rinse. Patient continues to have pain. 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 : None HEENT: None Psych: None Musculoskeletal: Rheumatoid arthritis Derm: None - Past Surgical History Past Surgical History: Yes General: Cholecystectomy, Appendectomy Ortho: Spine surgery /AEROPHYSICIST: Hysterectomy - Present Medications Home Medications: Ambulatory Orders Medication Instructions Recorded Confirmed Sumatriptan [Imitrex] 20 mg NS ONCE PRN #7 spray 01/04/19 12/06/22 Prochlorperazine Maleate 10 mg PO DAILY 03/30/19 12/06/22 [Compazine] Promethazine [Phenergan] 25 mg PO DAILY 03/30/19 06/18/22 oxyCODONE [Roxicodone] 10 mg PO QID 03/30/19 01/09/21 Albuterol Sulf [Ventolin Hfa 1 - 2 puffs INH Q4HR PRN #1 inhaler 06/17/19 12/06/22 Inhaler] Gabapentin [Neurontin] 1,200 mg PO BID 10/23/20 12/06/22 Upadacitinib [Rinvoq] 15 mg PO DAILY 10/23/20 06/18/22 dexAMETHasone [Decadron] 6 mg PO Q6HR #12 tablet 12/27/20 01/09/21 Metaxalone 800 mg PO TID PRN #14 tablet 06/18/22 12/06/22 diazePAM [Valium] 5 mg PO TID PRN #10 tablet 06/18/22 Meloxicam [Mobic] 7.5 mg PO DAILY #5 tablet 07/02/22 12/06/22 Promethazine Supp [Phenergan Supp] 25 mg [place] Q6HR PRN #30 supp 07/20/22 Simethicone 180 mg PO QDAC PRN #30 cap 07/20/22 Cetirizine [ZyrTEC] 10 mg PO DAILY #14 tablet 11/12/22 Ketorolac [Toradol] 10 mg PO Q6H PRN #20 tablet 11/12/22 Meclizine HCl [Motion Sickness] 25 mg PO Q6H PRN #30 tablet 11/12/22 12/06/22 Promethazine [Phenergan] 25 mg PO Q6H PRN #10 tab 11/29/22 Albuterol 2.5 mg INH Q4H PRN #30 ml 12/07/22 Albuterol Sulf [Ventolin Hfa 1 - 2 puffs INH Q4HR PRN #1 each 12/07/22 Inhaler] Chlorhexidine Gluconate [Peridex] 10 ml MM QID #240 ml 01/19/23 Ciprofloxacin HCl [Cipro] 500 mg PO BID #14 tablet 01/19/23 metroNIDAZOLE [Flagyl] 500 mg PO TID 7 Days #21 tablet 01/19/23 - Allergies Allergies/Adverse Reactions: Allergies Allergy/AdvReac Type Severity Reaction Status Date / Time pork derived (porcine) Allergy Mild Nausea Verified 11/29/22 20:03 amitriptyline Allergy Hives Verified 11/29/22 20:03 azithromycin Allergy Headache Verified 11/29/22 20:03 cephalexin [From Keflex] Allergy Hives Verified 11/29/22 20:03 cyclobenzaprine Allergy Hives Verified 11/29/22 20:03 [From Flexeril] duloxetine [From Cymbalta] Allergy Hives Verified 01/23/23 15:36 enoxaparin [From Lovenox] Allergy Hives Verified 01/23/23 15:36 heparin Allergy Hives Verified 01/23/23 15:36 hydrocodone Allergy Itching Verified 01/23/23 15:36 ipratropium [From DuoNeb] Allergy Unknown Verified 01/23/23 15:36 leflunomide Allergy Headache Verified 01/23/23 15:36 methotrexate Allergy Anaphylaxis Verified 01/23/23 15:36 ondansetron [From Zofran] Allergy Hives Verified 01/23/23 15:36 palm oil Allergy Edema Verified 01/23/23 15:36 Penicillins Allergy Rash Verified 01/23/23 15:36 prednisone Allergy Hives Verified 01/23/23 15:36 tizanidine [From Zanaflex] Allergy Hives Verified 01/23/23 15:36 trazodone Allergy Anxiety Verified 01/23/23 15:36 venlafaxine [From Effexor] Allergy Hives Verified 01/23/23 15:36 glycol AdvReac Rash Uncoded 01/23/23 15:36 - Social History Does the pt smoke?: No Smoking Status: Never smoker Does the pt drink ETOH?: No Does the pt have substance abuse?: No - Immunizations Immunizations are current?: Yes - POLST Patient has POLST: No PD ED PE NORMAL - Derm Derm: Other (Lower inner lip biopsy site appears well approximated with a small amount of surrounding erythema but no drainage. Minimal tenderness. No obvious lip swelling.) Results - Vitals Vitals: Vital Signs - 24 hr 01/23/23 01/23/23 15:36 17:10 Temperature 37.2 C Heart Rate 81 80 Respiratory 16 18 Rate Blood Pressure 150/90 H 147/87 H O2 Saturation 100 98 Oxygen O2 Source Room air PD Medical Decision Making - ED course Complexity details: d/w patient ED course: 42-year-old female here for evaluation of biopsy wound that was completed about a week ago. Seen by my colleague on the and started on Cipro and Flagyl. She reports that it continues to be painful. On my exam the biopsy site appears well approximated with no drainage. There is some small amount of surrounding erythema not unexpected. No obvious lip swelling. I recommended to patient to stay the course of treatment to complete her antibiotics and mouth rinse. Follow closely with her provider. The usual emergent return precautions for worsening symptoms was discussed. Departure - Departure Disposition: 01 Home, Self Care Clinical Impression: Encounter for evaluation of wound Condition: Stable Record reviewed to determine appropriate education?: Yes Comments: Rosalba the biopsy site on your lip appears to be healing well. I recommend that you continue the antibiotics prescribed by Dr. Coffey. Continue to follow with your provider that did the biopsy but I would expect that this takes several more days before it is starting to feel better.
== END 2023-01-23 17:59 | disposition home or self-care (01) ==
LOC: ED 15:20
DX: G89.18 Other acute postprocedural pain (principal)
CPT/HCPCS: 99281; 99282

== ENCOUNTER 2023-06-25 22:13 | Emergency (ER) | payer MEDICARE, OTHER, MEDICAID ==
[2023-06-25 22:43] LABS: BILIRUBIN,URINE NEGATIVE (NEGATIVE); GLUCOSE, URINE (UA) NEGATIVE (NEGATIVE); KETONES,URINE (UA) NEGATIVE (NEGATIVE); LEUKOCYTE ESTERASE, URINE NEGATIVE (NEGATIVE); NITRITE,URINE NEGATIVE (NEGATIVE); OCCULT BLOOD,URINE NEGATIVE (NEGATIVE); PH,URINE 5.5 PH (5.0-7.5); PROTEIN,URINE NEGATIVE (NEGATIVE); UROBILINOGEN,URINE 0.2 (NORMAL) E.U./dL (NORMAL)
[2023-06-25 22:45] LABS: CLARITY,URINE CLEAR (CLEAR)
--- NOTE | 2023-06-25 22:46 | ED Physician Documentation ---
PD HPI ABD PAIN - Stated complaint Stated Complaint: ABD PX/N/V/D - Chief complaint Chief Complaint: Abd Pain - History obtained from History obtained from: Patient - Additional information Additional information: HPI from patient. Patient c/o abdominal pain with nausea and vomiting. Symptoms began 4-5 days ago, gradually increasing in intensity and persistence. No inciting event, no exacerbating nor ameliorating factors. She rates the pain 10 out of 10. Over past week, she has had congestion and fever to Tmax 100.7 but these symptoms (and fevers) resolved 2 days ago. Past surgical history includes hysterectomy, cholecystectomy, and appendectomy. She says this pain is similar to previous renal colic as well as gastritis. The pain is predominantly left-sided. She took 12.5mg phenergan earlier this evening without improvement in nausea. Review of Systems Constitutional: reports: Fever (resolved 2 days ago) Cardiac: reports: Reviewed and negative Respiratory: reports: Reviewed and negative GI: reports: Abdominal Pain, Nausea, Vomiting. 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 : None HEENT: None Psych: None Musculoskeletal: Rheumatoid arthritis Derm: None - Past Surgical History Past Surgical History: Yes General: Cholecystectomy, Appendectomy Ortho: Spine surgery /REINSURANCE CLAIMS ANALYST: Hysterectomy - Present Medications Home Medications: Ambulatory Orders Medication Instructions Recorded Confirmed Sumatriptan [Imitrex] 20 mg NS ONCE PRN #7 spray 01/04/19 12/06/22 Prochlorperazine Maleate 10 mg PO DAILY 03/30/19 12/06/22 [Compazine] Promethazine [Phenergan] 25 mg PO DAILY 03/30/19 06/18/22 oxyCODONE [Roxicodone] 10 mg PO QID 03/30/19 01/09/21 Albuterol Sulf [Ventolin Hfa 1 - 2 puffs INH Q4HR PRN #1 inhaler 06/17/19 12/06/22 Inhaler] Gabapentin [Neurontin] 1,200 mg PO BID 10/23/20 12/06/22 Upadacitinib [Rinvoq] 15 mg PO DAILY 10/23/20 06/18/22 dexAMETHasone [Decadron] 6 mg PO Q6HR #12 tablet 12/27/20 01/09/21 Metaxalone 800 mg PO TID PRN #14 tablet 06/18/22 12/06/22 diazePAM [Valium] 5 mg PO TID PRN #10 tablet 06/18/22 Meloxicam [Mobic] 7.5 mg PO DAILY #5 tablet 07/02/22 12/06/22 Promethazine Supp [Phenergan Supp] 25 mg [place] Q6HR PRN #30 supp 07/20/22 Simethicone 180 mg PO QDAC PRN #30 cap 07/20/22 Cetirizine [ZyrTEC] 10 mg PO DAILY #14 tablet 11/12/22 Ketorolac [Toradol] 10 mg PO Q6H PRN #20 tablet 11/12/22 Meclizine HCl [Motion Sickness] 25 mg PO Q6H PRN #30 tablet 11/12/22 12/06/22 Promethazine [Phenergan] 25 mg PO Q6H PRN #10 tab 11/29/22 Albuterol 2.5 mg INH Q4H PRN #30 ml 12/07/22 Albuterol Sulf [Ventolin Hfa 1 - 2 puffs INH Q4HR PRN #1 each 12/07/22 Inhaler] Chlorhexidine Gluconate [Peridex] 10 ml MM QID #240 ml 01/19/23 Ciprofloxacin HCl [Cipro] 500 mg PO BID #14 tablet 01/19/23 metroNIDAZOLE [Flagyl] 500 mg PO TID 7 Days #21 tablet 01/19/23 Sucralfate [Carafate] 1 tablet PO ACHS #60 tablet 06/26/23 - Allergies Allergies/Adverse Reactions: Allergies Allergy/AdvReac Type Severity Reaction Status Date / Time pork derived (porcine) Allergy Mild Nausea Verified 11/29/22 20:03 amitriptyline Allergy Hives Verified 11/29/22 20:03 azithromycin Allergy Headache Verified 11/29/22 20:03 cephalexin [From Keflex] Allergy Hives Verified 11/29/22 20:03 cyclobenzaprine Allergy Hives Verified 11/29/22 20:03 [From Flexeril] duloxetine [From Cymbalta] Allergy Hives Verified 06/25/23 22:16 enoxaparin [From Lovenox] Allergy Hives Verified 06/25/23 22:16 heparin Allergy Hives Verified 06/25/23 22:16 hydrocodone Allergy Itching Verified 06/25/23 22:16 ipratropium [From DuoNeb] Allergy Unknown Verified 06/25/23 22:16 leflunomide Allergy Headache Verified 06/25/23 22:16 methotrexate Allergy Anaphylaxis Verified 06/25/23 22:16 ondansetron [From Zofran] Allergy Hives Verified 06/25/23 22:16 palm oil Allergy Edema Verified 06/25/23 22:16 Penicillins Allergy Rash Verified 06/25/23 22:16 prednisone Allergy Hives Verified 06/25/23 22:16 tizanidine [From Zanaflex] Allergy Hives Verified 06/25/23 22:16 trazodone Allergy Anxiety Verified 06/25/23 22:16 venlafaxine [From Effexor] Allergy Hives Verified 06/25/23 22:16 glycol AdvReac Rash Uncoded 06/25/23 22:16 - Social History Does the pt smoke?: No Smoking Status: Never smoker Does the pt drink ETOH?: No Does the pt have substance abuse?: No - Immunizations Immunizations are current?: Yes - POLST Patient has POLST: No PD ED PE NORMAL - Vitals Vital signs reviewed: Yes - General General: Alert and oriented X 3, No acute distress, Well developed/nourished - HEENT HEENT: Moist mucous membranes - Neck Neck: Supple, no meningeal sign - Cardiac Cardiac: RRR, No murmur, No gallop, No rub - Respiratory Respiratory: No respiratory distress, Clear bilaterally - Abdomen Abdomen: Soft, Non distended, Other (mild-moderate TTP epigastrium , LUQ, and periumbilical region without rebound or guarding) Results - Vitals Vitals: Oxygen O2 Source Room air - Labs Labs: Laboratory Tests 06/25/23 06/25/23 06/25/23 22:28 23:00 23:00 WBC 6.6 RBC 5.61 H Hgb 15.5 Hct 46.3 MCV 82.5 MCH 27.6 MCHC 33.5 RDW 13.3 Plt Count 249 MPV 10.2 Neut # (Auto) 4.5 Lymph # (Auto) 1.6 [place] # (Auto) 0.4 Eos # (Auto) 0.1 Baso # (Auto) 0.0 Absolute Nucleated RBC 0.00 Nucleated RBC % 0.0 Sodium 139 Potassium 3.7 Chloride 106 Carbon Dioxide 22 Anion Gap 11.0 BUN 17 Creatinine 0.8 Estimated GFR (MDRD) 78 L Glucose 102 Calcium 9.5 Total Bilirubin 2.2 H AST 23 ALT 12 Alkaline Phosphatase 114 Total Protein 7.2 Albumin 4.5 Globulin 2.7 Albumin/Globulin Ratio 1.7 Lipase 27 Urine Color YELLOW Urine Clarity CLEAR Urine pH 5.5 Ur Specific [place] >=1.030 H Urine Protein NEGATIVE Urine Glucose (UA) NEGATIVE Urine Ketones NEGATIVE Urine Occult Blood NEGATIVE Urine Nitrite NEGATIVE Urine Bilirubin NEGATIVE Urine Urobilinogen 0.2 (NORMAL) Ur Leukocyte Esterase NEGATIVE Ur Microscopic Review NOT INDICATED Urine Culture Comments NOT INDICATED Urine HCG, Qual NEGATIVE - Rads (name of study) CT A/P Relevant Findings:: Prelim report reviewed, See rad report PD Medical Decision Making - ED course Complexity details: reviewed results, re-evaluated patient, considered differential, d/w patient ED course: No concerning nor diagnostic findings on CBC, ER abdominal panel (bilirubin 2.2 but otherwise normal LFTs; patient says she has had mildly elevated bilirubin in the past). UA normal except concentrated (SG > 1.030), UHCG negative. CT A/P is unremarkable and without evidence of ureteral obstruction. Etiology of patient's symptoms is unclear at this time. She is given 30mg IM toradol, 40mg PO protonix. On reevaluation, she reports feeling much improved. Results d/w patient, return precautions reviewed. Prescription for carafate provided. Departure - Departure Disposition: Home, Self Care Clinical Impression: Abdominal pain Qualifiers: Abdominal location: generalized Qualified Code(s): R10.84 - Generalized abdominal pain Condition: Good Instructions: ED Abdominal Pain Female Non-Specific Abdominal Pain Follow-Up: BROOKS GONZALEZ ARNP [Primary Care Provider] - Prescriptions: Sucralfate [Carafate] 1 tablet PO ACHS #60 tablet Comments: There were no concerning or diagnostic findings on tonight's tests. The CT scan did not have any abnormalities; no evidence of kidney stone nor any other findings that would explain your symptoms. Contact your primary care provider when the office is next open to arrange for next available appointment for reevaluation/follow-up. I have electronically submitted a prescription for Carafate to the [facility] pharmacy in [place]. Carafate is a medication that can help reduce the symptoms associated with ga stritis and/or ulcers. Discharge Date/Time: 06/26/23 02:24
[2023-06-25 22:48] LABS: HCG UR QUAL NEGATIVE
[2023-06-25 23:03] LABS: BASOPHILS % (AUTO) 0.6 %; EOSINOPHILS # (AUTO) 0.1 10^3/uL (0.0-0.7); EOSINOPHILS % (AUTO) 1.7 %; HCT - HEMATOCRIT 46.3 % (37.0-47.0); HGB - HEMOGLOBIN 15.5 g/dL (12.0-16.0); LYMPHOCYTES # (AUTO) 1.6 10^3/uL (1.5-3.5); LYMPHOCYTES % (AUTO) 24.6 %; MEAN CORPUSCULAR HEMOGLOBIN 27.6 pg (27.0-31.0); MEAN CORPUSCULAR HGB CONC 33.5 g/dL (32.0-36.0); MEAN CORPUSCULAR VOLUME 82.5 fL (81.0-99.0); MEAN PLATELET VOLUME 10.2 fL (7.9-10.8); MONOCYTES # (AUTO) 0.4 10^3/uL (0.0-1.0); MONOCYTES % (AUTO) 5.6 %; NEUTROPHILS # (AUTO) 4.5 10^3/uL (1.5-6.6); PLT - PLATELET COUNT 249 10^3/uL (130-450); RED BLOOD COUNT 5.61 10^6/uL (4.20-5.40); RED CELL DISTRIBUTION WIDTH 13.3 % (12.0-15.0); WHITE BLOOD COUNT 6.6 x10^3/uL (4.8-10.8)
[2023-06-25] MEDS ORDERED: KETOROLAC 30 MG/ML VIAL IVP STA (23:13)
[2023-06-25] MEDS ORDERED: SODIUM CHLORIDE 0.9% 1,000 ML IV STA (23:13)
[2023-06-25] MEDS ORDERED: PROMETHAZINE INJ 12.5 MG in SODIUM CHLORIDE 0.9% 50 ML IV STA ×2 (23:18→23:48)
[2023-06-25 23:20] LABS: ALBUMIN 4.5 g/dL (3.2-5.5); ALBUMIN/GLOBULIN RATIO 1.7 (1.0-2.2); BILIRUBIN,TOTAL 2.2 mg/dL (0.2-1.0); CALCIUM 9.5 mg/dL (8.5-10.3); CREATININE 0.8 mg/dL (0.6-1.3); POTASSIUM 3.7 mmol/L (3.5-4.5); TOTAL PROTEIN 7.2 g/dL (6.4-8.9)
[2023-06-25] MEDS ORDERED: SODIUM CHLORIDE 0.9% 50 ML IV ONE (23:36)
[2023-06-26] MEDS ORDERED: KETOROLAC 30 MG/ML VIAL IM STA (00:45)
--- NOTE | 2023-06-26 01:35 | CT Report ---
PROCEDURE: Abdomen/Pelvis WO INDICATIONS: abdominal pain, left flank TECHNIQUE: A CT scan of the abdomen and pelvis was performed without the use of intravenous contrast. Images we re recorded and evaluated at appropriate window settings. Reformats: coronal and sagittal. For radiat ion dose reduction, the following was used: automated exposure control, adjustment of mA and/or kV ac cording to patient size. COMPARISON: CT abdomen pelvis 07/15/2022. FINDINGS: Image quality: Excellent. Lung bases and heart: Unremarkable. Liver: Hepatic steatosis. Gallbladder and biliary tree: Surgically absent. No biliary dilation, accounting for post-cholecystec krystian state. Spleen: No splenomegaly. Pancreas: No pancreatic ductal dilation. Adrenals: No adrenal nodule. Kidneys and ureters: No hydronephrosis. No renal cystic lesion which requires follow up. No solid mas s. Bowel and peritoneum: No bowel distension. No pathologic free fluid. Lymph nodes: No central or retroperitoneal adenopathy. Vessels: No infrarenal aortic aneurysm. PELVIS Reproductive organs: Unremarkable. Bladder: No wall thickness, accounting for underdistention. Pelvic lymph nodes: No pelvic adenopathy by size criteria. Bones: No aggressive osseous abnormality. Right hip arthroplasty. L2-S1 posterior spinal fixation and L2 symmetric augmentation. Other: No significant ventral or inguinal hernia. IMPRESSION: 1.No hydronephrosis or obstructing renal stone. 2.No acute findings within the abdomen or pelvis. Reviewed by: Nathan Escudero MD on 06/26/2023 1:33 AM PST Approved by: Natahn Escudero MD on 06/26/2023 1:33 AM PST Station ID: [id number]
[2023-06-26] MEDS ORDERED: PANTOPRAZOLE 40 MG TABLET PO STA (01:56)
[2023-06-26 02:32] VITALS: BP 116/82; O2SAT 99
== END 2023-06-26 02:24 | disposition home or self-care (01) ==
LOC: ED 22:13
DX: R10.84 Generalized abdominal pain (principal); I10 Essential (primary) hypertension
CPT/HCPCS: 36415; 74176; 80053; 81003; 81025; 83690; 85025; 96372; 99284; A9270; J7040; 81001; 87086

== ENCOUNTER 2023-11-05 23:31 | Emergency (ER) | payer MEDICARE, OTHER, MEDICAID ==
[2023-11-05 23:49] VITALS: O2SAT 98
[2023-11-06 01:01] LABS: CORONAVIRUS 229E-RESP PCR NOT DETECTED; CORONAVIRUS HKU1-RESP PCR NOT DETECTED; CORONAVIRUS NL63-RESP PCR NOT DETECTED; CORONAVIRUS OC43-RESP PCR NOT DETECTED; HUMAN METAPNEUMOVIRUS NOT DETECTED; INFLUENZA A- RESP PCR PANEL NOT DETECTED; INFLUENZA B - RESP PCR PANEL NOT DETECTED; PARAINFLUENZA VIRUS 1 NOT DETECTED; PARAINFLUENZA VIRUS 2 NOT DETECTED; PARAINFLUENZA VIRUS 3 NOT DETECTED; PARAINFLUENZA VIRUS 4 NOT DETECTED; RHINOVIRUS/ENTEROVIRUS NOT DETECTED; RSV- RESP PCR PANEL NOT DETECTED; SARS-CoV-2 -RESP PCR PANEL NOT DETECTED
[2023-11-06 01:02] LABS: B. PARAPERTUSSIS- RESP PCR PAN NOT DETECTED; B. PERTUSSIS- RESP PCR PANEL NOT DETECTED; C. PNEUMONIAE- RESP PCR PANEL NOT DETECTED; M. PNEUMONIAE- RESP PCR PANEL NOT DETECTED
--- NOTE | 2023-11-06 01:04 | ED Physician Documentation ---
History of Present Illness - Stated complaint Stated Complaint: RASHID; FEVER; DIZZY - Chief complaint Chief Complaint: Fever - History obtained from History obtained from: Patient - Additonal information Additional information: HPI from patient. Patient c/o right-sided headache, dizziness and lightheadedness that is worse when standing, generalized myalgias, generalized weakness. Symptoms x 2 -3 days although headache more pronounced since yesterday after spending a lot of time outdoors in the sun and sustaining a sunburn as a result. 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 Denies dyspnea. Has had fevers to Tmax 102 (this morning). Nausea but no vomiting; nausea improved after taking promethazine at home. The headache is not unlike her previous headaches except in location; her headaches are typically left- sided whereas this headache is right-sided. She has migraine headaches but also has had headaches attributed to IIH. Review of Systems Constitutional: reports: Fever Cardiac: reports: Reviewed and negative Respiratory: reports: Cough. denies: Dyspnea GI: reports: Nausea. denies: Abdominal Pain, Vomiting : denies: Dysuria, Frequency Musculoskeletal: denies: Neck pain Neurologic: reports: Generalized weakness, Headache. 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 - Present Medications Home Medications: Ambulatory Orders Medication Instructions Recorded Confirmed SUMAtriptan [Imitrex] 20 mg NS ONCE PRN #7 spray 01/04/19 12/06/22 Prochlorperazine Maleate 10 mg PO DAILY 03/30/19 12/06/22 [Compazine] Promethazine [Phenergan] 25 mg PO DAILY 03/30/19 06/18/22 oxyCODONE [Roxicodone] 10 mg PO QID 03/30/19 01/09/21 Albuterol Sulf [Ventolin Hfa 1 - 2 puffs INH Q4HR PRN #1 inhaler 06/17/19 12/06/22 Inhaler] Gabapentin [Neurontin] 1,200 mg PO BID 10/23/20 12/06/22 Upadacitinib [Rinvoq] 15 mg PO DAILY 10/23/20 06/18/22 dexAMETHasone [Decadron] 6 mg PO Q6HR #12 tablet 12/27/20 01/09/21 Metaxalone 800 mg PO TID PRN #14 tablet 06/18/22 12/06/22 diazePAM [Valium] 5 mg PO TID PRN #10 tablet 06/18/22 Meloxicam [Mobic] 7.5 mg PO DAILY #5 tablet 07/02/22 12/06/22 Promethazine Supp [Phenergan Supp] 25 mg [place] Q6HR PRN #30 supp 07/20/22 Simethicone 180 mg PO QDAC PRN #30 cap 07/20/22 Cetirizine [ZyrTEC] 10 mg PO DAILY #14 tablet 11/12/22 Ketorolac [Toradol] 10 mg PO Q6H PRN #20 tablet 11/12/22 Meclizine HCl [Motion Sickness] 25 mg PO Q6H PRN #30 tablet 11/12/22 12/06/22 Promethazine [Phenergan] 25 mg PO Q6H PRN #10 tab 11/29/22 Albuterol 2.5 mg INH Q4H PRN #30 ml 12/07/22 Albuterol Sulf [Ventolin Hfa 1 - 2 puffs INH Q4HR PRN #1 each 12/07/22 Inhaler] Chlorhexidine Gluconate [Peridex] 10 ml MM QID #240 ml 01/19/23 Ciprofloxacin HCl [Cipro] 500 mg PO BID #14 tablet 01/19/23 metroNIDAZOLE [Flagyl] 500 mg PO TID 7 Days #21 tablet 01/19/23 Sucralfate [Carafate] 1 tablet PO ACHS #60 tablet 06/26/23 - Allergies Allergies/Adverse Reactions: Allergies Allergy/AdvReac Type Severity Reaction Status Date / Time pork derived (porcine) Allergy Mild Nausea Verified 11/05/23 23:48 amitriptyline Allergy Hives Verified 11/05/23 23:48 azithromycin Allergy Headache Verified 11/05/23 23:48 cephalexin [From Keflex] Allergy Hives Verified 11/05/23 23:48 cyclobenzaprine Allergy Hives Verified 11/05/23 23:48 [From Flexeril] duloxetine [From Cymbalta] Allergy Hives Verified 11/05/23 23:48 enoxaparin [From Lovenox] Allergy Hives Verified 11/05/23 23:48 heparin Allergy Hives Verified 11/05/23 23:48 hydrocodone Allergy Itching Verified 11/05/23 23:48 ipratropium [From DuoNeb] Allergy Unknown Verified 11/05/23 23:48 leflunomide Allergy Headache Verified 11/05/23 23:48 methotrexate Allergy Anaphylaxis Verified 11/05/23 23:48 ondansetron [From Zofran] Allergy Hives Verified 11/05/23 23:48 palm oil Allergy Edema Verified 11/05/23 23:48 Penicillins Allergy Rash Verified 11/05/23 23:48 prednisone Allergy Hives Verified 11/05/23 23:48 tizanidine [From Zanaflex] Allergy Hives Verified 11/05/23 23:48 trazodone Allergy Anxiety Verified 11/05/23 23:48 venlafaxine [From Effexor] Allergy Hives Verified 11/05/23 23:48 glycol AdvReac Rash Uncoded 11/05/23 23:48 - Social History Does the pt smoke?: No Smoking Status: Never smoker Does the pt drink ETOH?: No Does the pt have substance abuse?: No - Immunizations Immunizations are current?: Yes - POLST Patient has POLST: No PD ED PE NORMAL - Vitals Vital signs reviewed: Yes - General General: Alert and oriented X 3, No acute distress, Well developed/nourished - HEENT HEENT: PERRL, EOMI, Moist mucous membranes - Neck Neck: Supple, no meningeal sign - Cardiac Cardiac: RRR, No murmur - Respiratory Respiratory: No respiratory distress, Clear bilaterally - Abdomen Abdomen: Soft, Non tender - Derm Derm: Normal color, Warm and dry - Extremities Extremities: No edema - Neuro Neuro: Alert and oriented X 3, pouncer machine 2-12 intact, No motor deficit, No sensory deficit, Normal speech Eye Opening: Spontaneous Motor: Obeys Commands Verbal: Oriented GCS Score: 15 - Psych Psych: Normal mood, Normal affect Results - Vitals Vitals: Vital Signs - 24 hr 11/05/23 11/06/23 11/06/23 23:35 00:30 04:47 Temperature 37.2 C Heart Rate 94 63 85 Respiratory 16 18 16 Rate Blood Pressure 144/92 H 109/71 141/101 H O2 Saturation 98 98 98 Oxygen O2 Source Room air - Labs Labs: Laboratory Tests 11/05/23 11/06/23 11/06/23 23:53 01:50 01:50 WBC 8.6 RBC 5.25 Hgb 15.0 Hct 45.1 MCV 85.9 MCH 28.6 MCHC 33.3 RDW 13.4 Plt Count 259 MPV 10.3 Neut # (Auto) 5.4 Lymph # (Auto) 2.5 [place] # (Auto) 0.5 Eos # (Auto) 0.2 Baso # (Auto) 0.1 Absolute Nucleated RBC 0.00 Nucleated RBC % 0.0 Sodium 140 Potassium 3.7 Chloride 105 Carbon Dioxide 24 Anion Gap 11.0 BUN 15 Creatinine 0.7 Estimated GFR (MDRD) 91 Glucose 104 Calcium 9.6 Total Bilirubin 1.2 H AST 14 ALT 6 L Alkaline Phosphatase 97 Total Protein 6.7 Albumin 4.6 Globulin 2.1 Albumin/Globulin Ratio 2.2 Lipase 34 Nasal Adenovirus (PCR) NOT DETECTED Nasal B. parapertussis DNA (PCR) NOT DETECTED Nasal Coronavir 229E PCR NOT DETECTED Nasal Coronavir HKU1 PCR NOT DETECTED Nasal Coronavir NL63 PCR NOT DETECTED Nasal Coronavir OC43 PCR NOT DETECTED Nasal Enterovir/Rhinovir PCR NOT DETECTED Nasal Influenza B PCR NOT DETECTED Nasal Influenza A PCR NOT DETECTED Nasal Parainfluen 1 PCR NOT DETECTED Nasal Parainfluen 2 PCR NOT DETECTED Nasal Parainfluen 3 PCR NOT DETECTED Nasal Parainfluen 4 PCR NOT DETECTED Nasal RSV (PCR) NOT DETECTED Nasal B.pertussis DNA PCR NOT DETECTED Nasal C.pneumoniae (PCR) NOT DETECTED Abisai Human Metapneumo PCR NOT DETECTED Nasal M.pneumoniae (PCR) NOT DETECTED Nasal SARS-CoV-2 (PCR) NOT DETECTED PD Medical Decision Making - ED course Complexity details: considered differential, d/w patient ED course: Unremarkable CBC, ER abdominal panel. Negative respiratory PCR panel. Given 10mg IV decadron and 30mg IV toradol; patient says these medications have helped with her previous headaches. Emergent imaging not undertaken at this time. Results d/w patient, return precautions reviewed. Etiology of symptoms is not apparent at this time. Departure - Departure Disposition: 01 Home, Self Care Clinical Impression: Headache Qualifiers: Headache type: unspecified Headache chronicity pattern: acute headache Intractability: not intractable Qualified Code(s): R51.9 - Headache, unspecified Condition: Good Instructions: ED Cephalgia Unspecified Comments: There were no concerning nor diagnostic findings on tonight's tests, including the blood tests and the nasal swab (which tested for several different types of viruses including COVID and influenza). The cause of your symptoms is not apparent at this time. Follow-up with your primary care provider, next available appointment, for reevaluation. You can always return to the emergency department if your symptoms worsen in any way or if you develop new/concerning signs/symptoms (such as weakness, numbness, acute visual change, worsening headache). Discharge Date/Time: 11/06/23 04:47
[2023-11-06 01:58] LABS: BASOPHILS # (AUTO) 0.1 10^3/uL (0.0-0.1); BASOPHILS % (AUTO) 0.6 %; EOSINOPHILS # (AUTO) 0.2 10^3/uL (0.0-0.7); EOSINOPHILS % (AUTO) 1.9 %; HCT - HEMATOCRIT 45.1 % (37.0-47.0); LYMPHOCYTES # (AUTO) 2.5 10^3/uL (1.5-3.5); LYMPHOCYTES % (AUTO) 28.7 %; MEAN CORPUSCULAR HEMOGLOBIN 28.6 pg (27.0-31.0); MEAN CORPUSCULAR HGB CONC 33.3 g/dL (32.0-36.0); MEAN CORPUSCULAR VOLUME 85.9 fL (81.0-99.0); MEAN PLATELET VOLUME 10.3 fL (7.9-10.8); MONOCYTES # (AUTO) 0.5 10^3/uL (0.0-1.0); NEUTROPHILS # (AUTO) 5.4 10^3/uL (1.5-6.6); NEUTROPHILS % (AUTO) 62.6 %; PLT - PLATELET COUNT 259 10^3/uL (130-450); RED BLOOD COUNT 5.25 10^6/uL (4.20-5.40); RED CELL DISTRIBUTION WIDTH 13.4 % (12.0-15.0); WHITE BLOOD COUNT 8.6 x10^3/uL (4.8-10.8)
[2023-11-06 02:48] LABS: ALBUMIN 4.6 g/dL (3.2-5.5); ALBUMIN/GLOBULIN RATIO 2.2 (1.0-2.2); BILIRUBIN,TOTAL 1.2 mg/dL (0.2-1.0); CALCIUM 9.6 mg/dL (8.5-10.3); CREATININE 0.7 mg/dL (0.6-1.3); POTASSIUM 3.7 mmol/L (3.5-4.5); TOTAL PROTEIN 6.7 g/dL (6.4-8.9)
[2023-11-06] MEDS: KETOROLAC 30 MG/ML VIAL IVP STA (02:55)
[2023-11-06] MEDS: DEXAMETHASONE 10 MG/ML VIAL IVP STA ×2 (02:55→03:00)
[2023-11-06 04:49] VITALS: BP 141/101
== END 2023-11-06 04:47 | disposition home or self-care (01) ==
LOC: ED 23:31
DX: R51.9 Headache, unspecified (principal); I10 Essential (primary) hypertension; Z79.899 Other long term (current) drug therapy
CPT/HCPCS: 36415; 80053; 81001; 81003; 83690; 85025; 87086; 87633; 96374; 99284

== ENCOUNTER 2024-01-16 18:50 | Emergency (ER) | payer MEDICARE, OTHER, MEDICAID ==
[2024-01-16 20:15] LABS: BASOPHILS % (AUTO) 0.5 %; EOSINOPHILS # (AUTO) 0.1 10^3/uL (0.0-0.7); EOSINOPHILS % (AUTO) 1.2 %; HCT - HEMATOCRIT 50.7 % (37.0-47.0); HGB - HEMOGLOBIN 16.4 g/dL (12.0-16.0); LYMPHOCYTES # (AUTO) 2.2 10^3/uL (1.5-3.5); LYMPHOCYTES % (AUTO) 28.5 %; MEAN CORPUSCULAR HEMOGLOBIN 28.2 pg (27.0-31.0); MEAN CORPUSCULAR HGB CONC 32.3 g/dL (32.0-36.0); MEAN CORPUSCULAR VOLUME 87.1 fL (81.0-99.0); MEAN PLATELET VOLUME 10.3 fL (7.9-10.8); MONOCYTES # (AUTO) 0.4 10^3/uL (0.0-1.0); MONOCYTES % (AUTO) 5.8 %; NEUTROPHILS # (AUTO) 4.8 10^3/uL (1.5-6.6); NEUTROPHILS % (AUTO) 63.9 %; PLT - PLATELET COUNT 250 10^3/uL (130-450); RED BLOOD COUNT 5.82 10^6/uL (4.20-5.40); RED CELL DISTRIBUTION WIDTH 13.5 % (12.0-15.0); WHITE BLOOD COUNT 7.6 x10^3/uL (4.8-10.8)
[2024-01-16 20:32] LABS: ALBUMIN 5.2 g/dL (3.2-5.5); ALBUMIN/GLOBULIN RATIO 1.7 (1.0-2.2); BILIRUBIN,TOTAL 2.8 mg/dL (0.2-1.0); CALCIUM 9.9 mg/dL (8.5-10.3); CREATININE 0.7 mg/dL (0.6-1.3); POTASSIUM 3.4 mmol/L (3.5-4.5); TOTAL PROTEIN 8.2 g/dL (6.4-8.9)
--- NOTE | 2024-01-16 21:57 | ED Physician Documentation ---
PD HPI HEADACHE - Stated complaint Stated Complaint: HEAD PX/N/V - Chief complaint Chief Complaint: Neuro - History obtained from History obtained from: Patient - Additional information Additional information: HPI from patient. Patient c/o generalized RASHID, nausea and vomiting. Patient had occipital block performed in [place] by a pain specialist; this was 4 days ago. She says that since the procedure, her headache has become worse. It is constant and without exacerbating or ameliorating factors, associated with nausea and vomiting. She also reports worsening diplopia (has had diplopia x 2021, has been evaluated for this including by a neuro-water commissioner). Patient says she spoke with the practitioner who performed the occipital block and was told to come to the ED. Patient has taken tylenol, ibuprofen, oxycodone, and oxycontin without relief of the headache, and phenergan without relief of n/v This is patient's 7th ED visit/12 / [facility] Review of Systems Eyes: reports: Other (diplopia). denies: Decreased vision, Photophobia Cardiac: reports: Reviewed and negative Respiratory: reports: Reviewed and negative GI: reports: Nausea, Vomiting. denies: Abdominal Pain Neurologic: reports: Headache. denies: Generalized weakness, Focal weakness, Numbness, Confused, Altered mental status PD PAST MEDICAL HISTORY - Past Medical History Past Medical History: Yes Cardiovascular: Hypertension Respiratory: Asthma Neuro: Migraines Endocrine/Autoimmune: Systemic lupus erythematosus GI: None AEROSPACE CONTROL AND WARNING SYSTEMS: None : None HEENT: None Psych: None Musculoskeletal: Rheumatoid arthritis Derm: None Other Past Medical History: occipital nerve block - Past Surgical History Past Surgical History: Yes General: Cholecystectomy, Appendectomy Ortho: ACL reconstruction, Spine surgery /AEROSPACE CONTROL AND WARNING SYSTEMS: Hysterectomy - Present Medications Home Medications: Ambulatory Orders Medication Instructions Recorded Confirmed SUMAtriptan [Imitrex] 20 mg NS ONCE PRN #7 spray 01/04/19 01/17/24 Prochlorperazine Maleate 10 mg PO DAILY 03/30/19 01/17/24 [Compazine] oxyCODONE [Roxicodone] 10 mg PO BID 03/30/19 01/17/24 Gabapentin [Neurontin] 1,200 mg PO BID 10/23/20 01/17/24 Upadacitinib [Rinvoq] 15 mg PO DAILY 10/23/20 01/17/24 Metaxalone 800 mg PO TID PRN #14 tablet 12/24/22 07/24/24 Cetirizine [ZyrTEC] 10 mg PO DAILY #14 tablet 11/12/22 01/17/24 Albuterol Sulf [Ventolin Hfa 1 - 2 puffs INH Q4HR PRN #1 each 12/07/22 01/17/24 Inhaler] Ciprofloxacin HCl [Cipro] 500 mg PO BID #14 tablet 01/17/24 Erenumab-Aooe [Aimovig 140 mg IM ONCE 01/17/24 01/17/24 Autoinjector] Famotidine [Pepcid] 20 mg PO BID 01/17/24 01/17/24 Fexofenadine HCl 180 mg PO DAILY 01/17/24 01/17/24 Omeprazole 20 mg PO BID 01/17/24 01/17/24 metroNIDAZOLE [Flagyl] 500 mg PO TID 7 Days #21 tablet 01/17/24 oxyCODONE ER [OxyCONTIN] 10 mg PO Q12H 01/17/24 01/17/24 - Allergies Allergies/Adverse Reactions: Allergies Allergy/AdvReac Type Severity Reaction Status Date / Time pork derived (porcine) Allergy Mild Nausea Verified 01/17/24 16:33 amitriptyline Allergy Hives Verified 01/17/24 16:33 azithromycin Allergy Headache Verified 01/17/24 16:33 cephalexin [From Keflex] Allergy Hives Verified 01/17/24 16:33 cyclobenzaprine Allergy Hives Verified 01/17/24 16:33 [From Flexeril] duloxetine [From Cymbalta] Allergy Hives Verified 01/17/24 16:33 enoxaparin [From Lovenox] Allergy Hives Verified 01/17/24 16:33 heparin Allergy Hives Verified 01/17/24 16:33 hydrocodone Allergy Itching Verified 01/17/24 16:33 ipratropium [From DuoNeb] Allergy Unknown Verified 01/17/24 16:33 leflunomide Allergy Headache Verified 01/17/24 16:33 methotrexate Allergy Anaphylaxis Verified 01/17/24 16:33 ondansetron [From Zofran] Allergy Hives Verified 01/17/24 16:33 palm oil Allergy Edema Verified 01/17/24 16:33 Penicillins Allergy Rash Verified 01/17/24 16:33 prednisone Allergy Hives Verified 01/17/24 16:33 tizanidine [From Zanaflex] Allergy Hives Verified 01/17/24 16:33 trazodone Allergy Anxiety Verified 01/17/24 16:33 venlafaxine [From Effexor] Allergy Hives Verified 01/17/24 16:33 glycol AdvReac Rash Uncoded 01/17/24 16:33 - Social History Does the pt smoke?: No Smoking Status: Never smoker Does the pt drink ETOH?: No Does the pt have substance abuse?: No - Immunizations Immunizations are current?: Yes - POLST Patient has POLST: No PD ED PE NORMAL - Vitals Vital signs reviewed: Yes - General General: Alert and oriented X 3, No acute distress, Well developed/nourished - HEENT HEENT: Moist mucous membranes - Neck Neck: Supple, no meningeal sign, Other (mild occipital TTP without swelling, erythema, fluctuance) - Cardiac Cardiac: RRR, No murmur - Respiratory Respiratory: No respiratory distress, Clear bilaterally - Neuro Neuro: Alert and oriented X 3, electronics detail draftsperson 2-12 intact, No motor deficit, No sensory deficit, Normal speech, Other (EOMI although she only briefly gazes to left when asked to do so (says this worsens the headache)) Eye Opening: Spontaneous Motor: Obeys Commands Verbal: Oriented GCS Score: 15 Results - Vitals Vitals: Vital Signs - 24 hr 01/16/24 01/16/24 01/17/24 21:33 23:00 00:19 Heart Rate 75 57 L 66 Respiratory 16 16 16 Rate Blood Pressure 137/93 H 123/78 124/77 O2 Saturation 100 98 98 Oxygen O2 Source Room air - Labs Labs: Laboratory Tests 01/16/24 01/16/24 20:10 20:10 WBC 7.6 RBC 5.82 H Hgb 16.4 H Hct 50.7 H MCV 87.1 MCH 28.2 MCHC 32.3 RDW 13.5 Plt Count 250 MPV 10.3 Neut # (Auto) 4.8 Lymph # (Auto) 2.2 [place] # (Auto) 0.4 Eos # (Auto) 0.1 Baso # (Auto) 0.0 Absolute Nucleated RBC 0.00 Nucleated RBC % 0.0 Sodium 136 Potassium 3.4 L Chloride 103 Carbon Dioxide 23 Anion Gap 10.0 BUN 16 Creatinine 0.7 Estimated GFR (MDRD) 91 Glucose 81 Calcium 9.9 Magnesium 2.0 Total Bilirubin 2.8 H AST 19 ALT 7 L Alkaline Phosphatase 111 Total Protein 8.2 Albumin 5.2 Globulin 3.0 Albumin/Globulin Ratio 1.7 Lipase 41 PD Medical Decision Making - ED course Complexity details: reviewed results, re-evaluated patient, considered differential, d/w patient ED course: unremarkable CBC (mildly elevated h/h noted), ER abdominal panel (minimal hypokalemia (3.4), mildly elevated bilirubin (2.8) with otherwise normal LFTs; she has had hyperbilirubinemia on previous results although tonight slightly higher than her baseline). She is not in any obvious distress. Normal neurologic exam and patient not describing focal/unilateral neurologic c/o (worsening diplopia but overall this is not a new c/o); emergent imaging is not indicated at this time. We discussed options for symptoms control. Between medication allergies, medication adverse reactions, and medications she has already tried today without effect, the options are rather limited. After much discussion, plan is to give 25mg IM benadryl and 2mg IM dilaudid. She subsequently is asking for toradol (I considered this initially but patient said she had taken ibuprofen earlier without relief); she is then given 60mg IM toradol. We initially discussed anti-nauseants but once we reviewed stated allergies, adverse reactions, and medications she had already taken today, seemingly there are no options at this time for specific anti-nausea medication; medications we discussed included ondansetron, phenergan, reglan, compazine, droperidol. Towards end of ED observation/stay, she is asking for phenergan; we had discussed that dosing guidelines are generally 12.5mg-25mg Q6 hours. She says she took the dose at home several hours ago and thus I am comfortable with 25mg PO phenergan (given prior to d/c). Results of her blood tests were d/w patient, return precautions reviewed. Departure - Departure Disposition: 01 Home, Self Care Clinical Impression: Headache Qualifiers: Headache type: unspecified Headache chronicity pattern: episodic headache Intractability: not intractable Qualified Code(s): R51.9 - Headache, unspecified Condition: Good Instructions: ED Cephalgia Unspecified Discharge Date/Time: 01/17/24:20
[2024-01-16] MEDS: diphenhydrAMINE INJ 50 MG/ML VIAL IM STA (23:06)
[2024-01-16] MEDS: HYDROmorphone 1 MG/ML CARPUJECT IM STA (23:06)
[2024-01-16 23:32] VITALS: O2SAT 98
[2024-01-16] MEDS: PROMETHAZINE 25 MG TABLET PO STA (23:41)
[2024-01-17] MEDS: KETOROLAC 60 MG/2 ML VIAL IM STA (00:11)
[2024-01-17 00:21] VITALS: BP 124/77
== END 2024-01-17 00:20 | disposition home or self-care (01) ==
LOC: ED 18:50
DX: R51.9 Headache, unspecified (principal); I10 Essential (primary) hypertension; J45.909 Unspecified asthma, uncomplicated; M32.9 Systemic lupus erythematosus, unspecified; M06.9 Rheumatoid arthritis, unspecified; Z79.899 Other long term (current) drug therapy; E80.6 Other disorders of bilirubin metabolism
CPT/HCPCS: 36415; 80053; 83690; 83735; 85025; 96372; 99283; 99284; J1170; J1200; Q0169

== ENCOUNTER 2024-01-17 16:12 | Emergency (ER) | payer MEDICARE, OTHER, MEDICAID ==
--- NOTE | 2024-01-17 16:29 | ED Physician Documentation ---
PD HPI HEADACHE - Stated complaint Stated Complaint: FEVER - History obtained from History obtained from: Patient - Additional information Additional information: 43-year-old woman with history of migraines, mast cell degranulation disorder, idiopathic intracranial hypertension, hysterectomy, cholecystectomy, appendectomy, lupus and migraines. She had occipital nerve block last Monday, 5 days ago for her migraines. Since then her headaches have been worse than usual and she has chronic diplopia which is also worse than usual. She was seen here by my partner and treated with Dilaudid, Toradol, and Benadryl with partial relief, now having worse pain and has developed abdominal pain and diarrhea. Also today started running a fever up to 102 at home. She has body aches. Denies runny nose, sore throat or cough of any significance. Denies stiff neck. No sick contacts. PD PAST MEDICAL HISTORY - Past Medical History Cardiovascular: Hypertension Respiratory: Asthma Neuro: Migraines Endocrine/Autoimmune: Systemic lupus erythematosus GI: None PAYROLL HUMAN RESOURCES ASSISTANT: None : None HEENT: None Psych: None Musculoskeletal: Rheumatoid arthritis Derm: None - Past Surgical History Past Surgical History: Yes General: Cholecystectomy, Appendectomy Ortho: Spine surgery /PAYROLL HUMAN RESOURCES ASSISTANT: Hysterectomy - Present Medications Home Medications: Ambulatory Orders Medication Instructions Recorded Confirmed SUMAtriptan [Imitrex] 20 mg NS ONCE PRN #7 spray 01/04/19 01/17/24 Prochlorperazine Maleate 10 mg PO DAILY 03/30/19 01/17/24 [Compazine] oxyCODONE [Roxicodone] 10 mg PO BID 03/30/19 01/17/24 Gabapentin [Neurontin] 1,200 mg PO BID 10/23/20 01/17/24 Upadacitinib [Rinvoq] 15 mg PO DAILY 10/23/20 01/17/24 Metaxalone 800 mg PO TID PRN #14 tablet 06/18/22 01/17/24 Cetirizine [ZyrTEC] 10 mg PO DAILY #14 tablet 11/12/22 01/17/24 Albuterol Sulf [Ventolin Hfa 1 - 2 puffs INH Q4HR PRN #1 each 12/07/22 01/17/24 Inhaler] Ciprofloxacin HCl [Cipro] 500 mg PO BID #14 tablet 01/17/24 Erenumab-Aooe [Aimovig 140 mg IM ONCE 01/17/24 01/17/24 Autoinjector] Famotidine [Pepcid] 20 mg PO BID 01/17/24 01/17/24 Fexofenadine HCl 180 mg PO DAILY 01/17/24 01/17/24 Omeprazole 20 mg PO BID 01/17/24 01/17/24 metroNIDAZOLE [Flagyl] 500 mg PO TID 7 Days #21 tablet 01/17/24 oxyCODONE ER [OxyCONTIN] 10 mg PO Q12H 01/17/24 01/17/24 - Allergies Allergies/Adverse Reactions: Allergies Allergy/AdvReac Type Severity Reaction Status Date / Time pork derived (porcine) Allergy Mild Nausea Verified 01/17/24 16:33 amitriptyline Allergy Hives Verified 01/17/24 16:33 azithromycin Allergy Headache Verified 01/17/24 16:33 cephalexin [From Keflex] Allergy Hives Verified 01/17/24 16:33 cyclobenzaprine Allergy Hives Verified 01/17/24 16:33 [From Flexeril] duloxetine [From Cymbalta] Allergy Hives Verified 01/17/24 16:33 enoxaparin [From Lovenox] Allergy Hives Verified 01/17/24 16:33 heparin Allergy Hives Verified 01/17/24 16:33 hydrocodone Allergy Itching Verified 01/17/24 16:33 ipratropium [From DuoNeb] Allergy Unknown Verified 01/17/24 16:33 leflunomide Allergy Headache Verified 01/17/24 16:33 methotrexate Allergy Anaphylaxis Verified 01/17/24 16:33 ondansetron [From Zofran] Allergy Hives Verified 01/17/24 16:33 palm oil Allergy Edema Verified 01/17/24 16:33 Penicillins Allergy Rash Verified 01/17/24 16:33 prednisone Allergy Hives Verified 01/17/24 16:33 tizanidine [From Zanaflex] Allergy Hives Verified 01/17/24 16:33 trazodone Allergy Anxiety Verified 01/17/24 16:33 venlafaxine [From Effexor] Allergy Hives Verified 01/17/24 16:33 glycol AdvReac Rash Uncoded 01/17/24 16:33 - Social History Does the pt smoke?: No Smoking Status: Never smoker Does the pt drink ETOH?: No Does the pt have substance abuse?: No - Immunizations Immunizations are current?: Yes - POLST Patient has POLST: No PD ED PE NORMAL - Vitals Vital signs reviewed: Yes - General General: Alert and oriented X 3, No acute distress - HEENT HEENT: PERRL, EOMI, Other (Mild light sensitivity. No obvious disconjugate gaze on exam in any direction.) - Neck Neck: Supple, no meningeal sign, No bony TTP - Cardiac Cardiac: RRR, No murmur - Respiratory Respiratory: No respiratory distress, Clear bilaterally - Abdomen Abdomen: Normal bowel sounds, Soft, Other (Mild left mid abdominal tenderness without surgical signs) - Neuro Neuro: Alert and oriented X 3, buyer liaison 2-12 intact Eye Opening: Spontaneous Motor: Obeys Commands Verbal: Oriented GCS Score: 15 Results - Vitals Vitals: Vital Signs - 24 hr 01/17/24 01/17/24 16:27 17:03 Temperature 36.3 C L Heart Rate 117 H 104 H Respiratory 20 Rate Blood Pressure 130/89 H 117/90 H O2 Saturation 97 97 Oxygen O2 Source Room air - Labs Labs: Laboratory Tests 01/17/24 01/17/24 01/17/24 16:37 16:50 17:00 WBC 13.6 H RBC 5.37 Hgb 15.0 Hct 44.4 MCV 82.7 MCH 27.9 MCHC 33.8 RDW 13.4 Plt Count 238 MPV 10.2 Neut # (Auto) 11.4 H Lymph # (Auto) 1.5 [place] # (Auto) 0.6 Eos # (Auto) 0.1 Baso # (Auto) 0.1 Absolute Nucleated RBC 0.00 Nucleated RBC % 0.0 Sodium Potassium Chloride Carbon Dioxide Anion Gap BUN Creatinine Estimated GFR (MDRD) Glucose Calcium Total Bilirubin AST ALT Alkaline Phosphatase Total Protein Albumin Globulin Albumin/Globulin Ratio Lipase Urine Color YELLOW Urine Clarity CLEAR Urine pH 6.0 Ur Specific [place] 1.020 Urine Protein NEGATIVE Urine Glucose (UA) NEGATIVE Urine Ketones NEGATIVE Urine Occult Blood SMALL H Urine Nitrite NEGATIVE Urine Bilirubin NEGATIVE Urine Urobilinogen 0.2 (NORMAL) Ur Leukocyte Esterase NEGATIVE Urine RBC 0-5 Urine WBC 0-3 Ur Squamous Epith Cells NONE SEEN Urine Bacteria None Seen Ur Microscopic Review INDICATED Urine Culture Comments NOT INDICATED Nasal Adenovirus (PCR) NOT DETECTED Nasal B. parapertussis DNA (PCR) NOT DETECTED Nasal Coronavir 229E PCR NOT DETECTED Nasal Coronavir HKU1 PCR NOT DETECTED Nasal Coronavir NL63 PCR NOT DETECTED Nasal Coronavir OC43 PCR NOT DETECTED Nasal Enterovir/Rhinovir PCR NOT DETECTED Nasal Influenza B PCR NOT DETECTED Nasal Influenza A PCR NOT DETECTED Nasal Parainfluen 1 PCR NOT DETECTED Nasal Parainfluen 2 PCR NOT DETECTED Nasal Parainfluen 3 PCR NOT DETECTED Nasal Parainfluen 4 PCR NOT DETECTED Nasal RSV (PCR) NOT DETECTED Nasal B.pertussis DNA PCR NOT DETECTED Nasal C.pneumoniae (PCR) NOT DETECTED Abisai Human Metapneumo PCR NOT DETECTED Nasal M.pneumoniae (PCR) NOT DETECTED Nasal SARS-CoV-2 (PCR) NOT DETECTED 01/17/24 17:00 WBC RBC Hgb Hct MCV MCH MCHC RDW Plt Count MPV Neut # (Auto) Lymph # (Auto) [place] # (Auto) Eos # (Auto) Baso # (Auto) Absolute Nucleated RBC Nucleated RBC % Sodium 139 Potassium 4.0 Chloride 106 Carbon Dioxide 24 Anion Gap 9.0 BUN 17 Creatinine 0.8 Estimated GFR (MDRD) 78 L Glucose 103 Calcium 9.4 Total Bilirubin 2.1 H AST 18 ALT 11 Alkaline Phosphatase 104 Total Protein 7.2 Albumin 4.4 Globulin 2.8 Albumin/Globulin Ratio 1.6 Lipase 23 Urine Color Urine Clarity Urine pH Ur Specific [place] Urine Protein Urine Glucose (UA) Urine Ketones Urine Occult Blood Urine Nitrite Urine Bilirubin Urine Urobilinogen Ur Leukocyte Esterase Urine RBC Urine WBC Ur Squamous Epith Cells Urine Bacteria Ur Microscopic Review Urine Culture Comments Nasal Adenovirus (PCR) Nasal B. parapertussis DNA (PCR) Nasal Coronavir 229E PCR Nasal Coronavir HKU1 PCR Nasal Coronavir NL63 PCR Nasal Coronavir OC43 PCR Nasal Enterovir/Rhinovir PCR Nasal Influenza B PCR Nasal Influenza A PCR Nasal Parainfluen 1 PCR Nasal Parainfluen 2 PCR Nasal Parainfluen 3 PCR Nasal Parainfluen 4 PCR Nasal RSV (PCR) Nasal B.pertussis DNA PCR Nasal C.pneumoniae (PCR) Abisai Human Metapneumo PCR Nasal M.pneumoniae (PCR) Nasal SARS-CoV-2 (PCR) Procedures - General procedure General procedure: She was difficult for IV access, the nurse tried and failed. I personally placed a long 22-gauge IV in the right antecubital fossa using real-time ultrasound guidance after ChloraPrep which flushed and raj well. PD Medical Decision Making - ED course ED course: 43-year-old woman with the above medical history presents with abdominal pain and a worse migraine. Neuroexam is normal and there is nothing in the history or physical to suggest meningitis or subarachnoid hemorrhage. She also has new left-sided abdominal pain with diarrhea. Workup demonstrates leukocytosis on CBC, mild elevation of bilirubin on CMP, urinalysis was basically negative as was her [employer] respiratory panel. CT imaging of the head and abdomen pelvis was notable for signs of colitis and she was medicated here with Cipro and Flagyl. After divided doses of medications she was feeling better and requested discharge. She did want steroids, she states that in the past she has had an idiosyncratic reaction to antibiotics where she needs steroids. I discussed with her that I would want her return for reevaluation if that were to happen as we would not want to put her on steroids prophylactically with an active infection. She voiced understanding. Departure - Departure Disposition: 01 Home, Self Care Clinical Impression: Colitis Migraine Qualifiers: Migraine type: unspecified Status migrainosus presence: with status migrainosus Intractability: intractable Qualified Code(s): G43.911 - Migraine, unspecified, intractable, with status migrainosus Condition: Good Record reviewed to determine appropriate education?: Yes Instructions: ED Diarrhea Bacterial, ED Headache Migraine Prescriptions: Ciprofloxacin HCl [Cipro] 500 mg PO BID #14 tablet metroNIDAZOLE [Flagyl] 500 mg PO TID 7 Days #21 tablet Comments: I sent your prescriptions electronically to the [facility] in [place]. Return for recheck if not better in the next 3 days or so, sooner for new or worsening symptoms. 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
[2024-01-17 16:43] LABS: BILIRUBIN,URINE NEGATIVE (NEGATIVE); CLARITY,URINE CLEAR (CLEAR); GLUCOSE, URINE (UA) NEGATIVE (NEGATIVE); KETONES,URINE (UA) NEGATIVE (NEGATIVE); LEUKOCYTE ESTERASE, URINE NEGATIVE (NEGATIVE); NITRITE,URINE NEGATIVE (NEGATIVE); OCCULT BLOOD,URINE SMALL (NEGATIVE); PROTEIN,URINE NEGATIVE (NEGATIVE); UROBILINOGEN,URINE 0.2 (NORMAL) E.U./dL (NORMAL)
[2024-01-17 16:52] LABS: BACTERIA,URINE None Seen /HPF (None Seen); RBC,URINE 0-5 /HPF (0-5); SQUAMOUS EPITHELIAL CELL,UR NONE SEEN (<= Few); WBC,URINE 0-3 /HPF (0-5)
[2024-01-17] MEDS: SODIUM CHLORIDE 0.9% 1,000 ML IV STA (17:06)
[2024-01-17] MEDS: HYDROmorphone 1 MG/ML CARPUJECT IVP STA ×2 (17:07→19:20)
[2024-01-17] MEDS: METOCLOPRAMIDE 10 MG/2 ML VIAL IVP STA (17:07)
[2024-01-17] MEDS: KETOROLAC 15 MG/ML VIAL IVP STA (17:07)
[2024-01-17 17:11] LABS: BASOPHILS # (AUTO) 0.1 10^3/uL (0.0-0.1); BASOPHILS % (AUTO) 0.4 %; EOSINOPHILS # (AUTO) 0.1 10^3/uL (0.0-0.7); EOSINOPHILS % (AUTO) 0.4 %; HCT - HEMATOCRIT 44.4 % (37.0-47.0); LYMPHOCYTES # (AUTO) 1.5 10^3/uL (1.5-3.5); LYMPHOCYTES % (AUTO) 11.2 %; MEAN CORPUSCULAR HEMOGLOBIN 27.9 pg (27.0-31.0); MEAN CORPUSCULAR HGB CONC 33.8 g/dL (32.0-36.0); MEAN CORPUSCULAR VOLUME 82.7 fL (81.0-99.0); MEAN PLATELET VOLUME 10.2 fL (7.9-10.8); MONOCYTES # (AUTO) 0.6 10^3/uL (0.0-1.0); MONOCYTES % (AUTO) 4.3 %; NEUTROPHILS # (AUTO) 11.4 10^3/uL (1.5-6.6); NEUTROPHILS % (AUTO) 83.5 %; PLT - PLATELET COUNT 238 10^3/uL (130-450); RED BLOOD COUNT 5.37 10^6/uL (4.20-5.40); RED CELL DISTRIBUTION WIDTH 13.4 % (12.0-15.0); WHITE BLOOD COUNT 13.6 x10^3/uL (4.8-10.8)
[2024-01-17 17:23] LABS: ALBUMIN 4.4 g/dL (3.2-5.5); ALBUMIN/GLOBULIN RATIO 1.6 (1.0-2.2); BILIRUBIN,TOTAL 2.1 mg/dL (0.2-1.0); CALCIUM 9.4 mg/dL (8.5-10.3); CREATININE 0.8 mg/dL (0.6-1.3); TOTAL PROTEIN 7.2 g/dL (6.4-8.9)
[2024-01-17] MEDS ORDERED: iohexoL-300 100 ML VIAL ONE (17:41)
[2024-01-17 17:59] LABS: B. PARAPERTUSSIS- RESP PCR PAN NOT DETECTED; B. PERTUSSIS- RESP PCR PANEL NOT DETECTED; C. PNEUMONIAE- RESP PCR PANEL NOT DETECTED; CORONAVIRUS 229E-RESP PCR NOT DETECTED; CORONAVIRUS HKU1-RESP PCR NOT DETECTED; CORONAVIRUS NL63-RESP PCR NOT DETECTED; CORONAVIRUS OC43-RESP PCR NOT DETECTED; HUMAN METAPNEUMOVIRUS NOT DETECTED; INFLUENZA A- RESP PCR PANEL NOT DETECTED; INFLUENZA B - RESP PCR PANEL NOT DETECTED; M. PNEUMONIAE- RESP PCR PANEL NOT DETECTED; PARAINFLUENZA VIRUS 1 NOT DETECTED; PARAINFLUENZA VIRUS 2 NOT DETECTED; PARAINFLUENZA VIRUS 3 NOT DETECTED; PARAINFLUENZA VIRUS 4 NOT DETECTED; RHINOVIRUS/ENTEROVIRUS NOT DETECTED; RSV- RESP PCR PANEL NOT DETECTED; SARS-CoV-2 -RESP PCR PANEL NOT DETECTED
[2024-01-17] MEDS: iohexoL-300 100 ML VIAL IVP ONE (18:10)
--- NOTE | 2024-01-17 18:19 | CT Report ---
PROCEDURE: Head WO INDICATIONS: headache TECHNIQUE: Noncontrast 4.5 mm thick angled axial sections acquired from the foramen magnum to the vertex. For r adiation dose reduction, the following was used: automated exposure control, adjustment of mA and/or kV according to patient size. COMPARISON: 01/01/2019. FINDINGS: Image quality: Excellent. CSF spaces: Basal cisterns are patent. No extra-axial fluid collections. Ventricles are normal in size and shape. Brain: No midline shift. No intracranial masses or hemorrhage. Garcia-white matter interface is norm al. Skull and face: Calvarium and visualized facial bones are intact, without suspicious lesions. Sinuses: Visualized sinuses and mastoids are clear. IMPRESSION: No acute intracranial pathology. Reviewed by: Antoine Kelly MD on 01/17/2024 6:18 PM PDT Approved by: Antoine Kelly MD on 01/17/2024 6:18 PM PDT Station ID: [id number]
--- NOTE | 2024-01-17 18:23 | CT Report ---
PROCEDURE: Abdomen/Pelvis W INDICATIONS: iv only, abd pain CONTRAST: Omni 300 100ml TECHNIQUE: After the administration of intravenous contrast, a CT scan of the abdomen and pelvis was performed. Images were recorded and evaluated at appropriate window settings. Reformats: coronal and sagittal. F or radiation dose reduction, the following was used: automated exposure control, adjustment of mA and /or kV according to patient size. COMPARISON: 06/26/2023. FINDINGS: Image quality: Diagnostic. Lower chest: Unremarkable. Liver: No solid mass. Gallbladder: Surgically absent. Biliary tree: No intrahepatic or extrahepatic dilation, accounting for age. Spleen: No splenomegaly. Pancreas: No pancreatic ductal dilation. Adrenals: No adrenal nodule. Kidneys and ureters: No hydronephrosis. Small left renal cortical cyst is again seen and unchanged. N o renal cystic lesion which requires follow up. No solid mass. Stomach, bowel and peritoneum: There is no bowel obstruction. Questionable diffuse colonic wall thick ening and edema is seen. No small bowel gastric wall thickening. . Appendix is likely surgically abse nt with surgical clips seen in right lower quadrant. Mild fecal stasis in the colon is seen. Mild sig moid diverticulosis without CT evidence of acute diverticulitis. Lymph nodes: No central or retroperitoneal adenopathy. Vessels: No infrarenal aortic aneurysm. Patent portal vein. PELVIS Reproductive organs: Unremarkable. Bladder: No abnormal wall thickening, accounting for underdistention. Pelvic lymph nodes: No pelvic adenopathy by size criteria. Bones: No aggressive osseous abnormality. Postsurgical changes are noted in lower lumbar spine and ri ght hip with significant beam hardening artifacts. Other: No significant ventral or inguinal hernia. IMPRESSION: 1. Questionable colonic wall thickening which may be due to underdistention versus low-grade colitis. Sigmoid diverticulosis without CT evidence of acute diverticulitis. No abscess collection. No free f luid of free air. Suggestion of prior appendectomy. 2. Small left renal cortical cysts. No obstructing renal stones or hydronephrosis. 3. Postsurgical changes from fusion of lumbar spine and right total hip arthroplasty.. Reviewed by: Antoine Kelly MD on 01/17/2024 6:21 PM PDT Approved by: Antoine Kelly MD on 01/17/2024 6:21 PM PDT Station ID: [id number]
[2024-01-17] MEDS: metroNIDAZOLE 250 MG TABLET PO STA (19:21)
[2024-01-17] MEDS: CIPROFLOXACIN 250 MG TABLET PO STA (19:21)
[2024-01-17 19:58] VITALS: BP 118/71; O2SAT 98
== END 2024-01-17 19:54 | disposition home or self-care (01) ==
LOC: ED 16:12
DX: K52.9 Noninfective gastroenteritis and colitis, unspecified (principal); G43.911 Migraine, unspecified, intractable, with status migrainosus; I10 Essential (primary) hypertension; Z79.899 Other long term (current) drug therapy
CPT/HCPCS: 36415; 70450; 74177; 80053; 81001; 83690; 85025; 87633; 96374; 96376; 99284; A9270; J1170; J2765; Q9967; 81003; 87086

== ENCOUNTER 2024-01-21 16:15 | Emergency (ER) | payer MEDICARE, OTHER, MEDICAID ==
--- NOTE | 2024-01-21 16:49 | ED Physician Documentation ---
PD HPI ABD PAIN - Stated complaint Stated Complaint: ABD PX - Chief complaint Chief Complaint: Abd Pain - History obtained from History obtained from: Patient - History of Present Illness Timing - onset: How many days ago (The patient has had left abdominal pain since last Monday. Seen here last Monday which was 5 days ago for same. CT showed colitis. Discharged on Cipro and Flagyl and pain medicine. States not improved and significantly worse since overnight.) PD PAST MEDICAL HISTORY - Past Medical History Past Medical History: Yes Cardiovascular: Hypertension Respiratory: Asthma Neuro: Migraines Endocrine/Autoimmune: Systemic lupus erythematosus GI: None, Other SYS DIR: Endometriosis : Chronic bladder infection, Kidney stones HEENT: None Psych: None Musculoskeletal: Rheumatoid arthritis Derm: None Other Past Medical History: IBS - Past Surgical History Past Surgical History: Yes General: Cholecystectomy, Appendectomy Ortho: Arthroscopic surgery, Spine surgery /SYS DIR: Hysterectomy - Present Medications Home Medications: Ambulatory Orders Medication Instructions Recorded Confirmed SUMAtriptan [Imitrex] 20 mg NS ONCE PRN #7 spray 01/04/19 01/17/24 Prochlorperazine Maleate 10 mg PO DAILY 03/30/19 01/17/24 [Compazine] oxyCODONE [Roxicodone] 10 mg PO BID 03/30/19 01/17/24 Gabapentin [Neurontin] 1,200 mg PO BID 10/23/20 01/17/24 Upadacitinib [Rinvoq] 15 mg PO DAILY 10/23/20 01/17/24 Metaxalone 800 mg PO TID PRN #14 tablet 06/18/22 01/17/24 Cetirizine [ZyrTEC] 10 mg PO DAILY #14 tablet 11/12/22 01/17/24 Albuterol Sulf [Ventolin Hfa 1 - 2 puffs INH Q4HR PRN #1 each 12/07/22 01/17/24 Inhaler] Ciprofloxacin HCl [Cipro] 500 mg PO BID #14 tablet 01/17/24 Erenumab-Aooe [Aimovig 140 mg IM ONCE 01/17/24 01/17/24 Autoinjector] Famotidine [Pepcid] 20 mg PO BID 01/17/24 01/17/24 Fexofenadine HCl 180 mg PO DAILY 01/17/24 01/17/24 Omeprazole 20 mg PO BID 01/17/24 01/17/24 metroNIDAZOLE [Flagyl] 500 mg PO TID 7 Days #21 tablet 01/17/24 oxyCODONE ER [OxyCONTIN] 10 mg PO Q12H 01/17/24 01/17/24 - Allergies Allergies/Adverse Reactions: Allergies Allergy/AdvReac Type Severity Reaction Status Date / Time pork derived (porcine) Allergy Mild Nausea Verified 01/21/24 16:39 amitriptyline Allergy Hives Verified 01/21/24 16:39 azithromycin Allergy Headache Verified 01/21/24 16:39 cephalexin [From Keflex] Allergy Hives Verified 01/21/24 16:39 cyclobenzaprine Allergy Hives Verified 01/21/24 16:39 [From Flexeril] duloxetine [From Cymbalta] Allergy Hives Verified 01/21/24 16:39 enoxaparin [From Lovenox] Allergy Hives Verified 01/21/24 16:39 heparin Allergy Hives Verified 01/21/24 16:39 hydrocodone Allergy Itching Verified 01/21/24 16:39 ipratropium [From DuoNeb] Allergy Unknown Verified 01/21/24 16:39 leflunomide Allergy Headache Verified 01/21/24 16:39 methotrexate Allergy Anaphylaxis Verified 01/21/24 16:39 ondansetron [From Zofran] Allergy Hives Verified 01/21/24 16:39 palm oil Allergy Edema Verified 01/21/24 16:39 Penicillins Allergy Rash Verified 01/21/24 16:39 prednisone Allergy Hives Verified 01/21/24 16:39 tizanidine [From Zanaflex] Allergy Hives Verified 01/21/24 16:39 trazodone Allergy Anxiety Verified 01/21/24 16:39 venlafaxine [From Effexor] Allergy Hives Verified 01/21/24 16:39 glycol AdvReac Rash Uncoded 01/17/24 16:33 - Social History Does the pt smoke?: No Smoking Status: Never smoker Does the pt drink ETOH?: No Does the pt have substance abuse?: No - Immunizations Immunizations are current?: Yes - POLST Patient has POLST: No PD ED PE NORMAL - Vitals Vital signs reviewed: Yes - General General: Alert and oriented X 3, Well developed/nourished, Other (in significant pain due to left abd. ) - Cardiac Cardiac: RRR, No murmur - Respiratory Respiratory: No respiratory distress, Clear bilaterally - Abdomen Abdomen: Soft, Non distended, Other (Markedly tender left lower quadrant with percussion and rebound tenderness. Concern for peritoneal findings.) Results - Vitals Vitals: Vital Signs - 24 hr 01/21/24 01/21/24 16:40 18:45 Temperature 36.2 C L Heart Rate 84 64 Respiratory 18 11 L Rate Blood Pressure 121/85 H 107/78 O2 Saturation 97 100 Oxygen O2 Source Room air - Labs Labs: Laboratory Tests 01/21/24 01/21/24 01/21/24 16:55 20:23 20:23 WBC 7.0 RBC 4.78 Hgb 13.6 Hct 39.7 MCV 83.1 MCH 28.5 MCHC 34.3 RDW 13.4 Plt Count 240 MPV 10.3 Neut # (Auto) 4.2 Lymph # (Auto) 2.2 [place] # (Auto) 0.4 Eos # (Auto) 0.1 Baso # (Auto) 0.0 Absolute Nucleated RBC 0.00 Nucleated RBC % 0.0 Sodium 140 Potassium 3.6 Chloride 106 Carbon Dioxide 27 Anion Gap 7.0 BUN 14 Creatinine 0.7 Estimated GFR (MDRD) 91 Glucose 87 Lactic Acid Calcium 9.1 Total Bilirubin 1.8 H AST 12 ALT 8 L Alkaline Phosphatase 90 Total Protein 6.5 Albumin 4.2 Globulin 2.3 Albumin/Globulin Ratio 1.8 Lipase 21 Urine Color YELLOW Urine Clarity CLEAR Urine pH 5.5 Ur Specific [place] >=1.030 H Urine Protein NEGATIVE Urine Glucose (UA) NEGATIVE Urine Ketones NEGATIVE Urine Occult Blood TRACE-INTA Urine Nitrite NEGATIVE Urine Bilirubin SMALL H Urine Urobilinogen 0.2 (NORMAL) Ur Leukocyte Esterase NEGATIVE Ur Microscopic Review NOT INDICATED Urine Culture Comments NOT INDICATED Urine HCG, Qual NEGATIVE 01/21/24 20:23 WBC RBC Hgb Hct MCV MCH MCHC RDW Plt Count MPV Neut # (Auto) Lymph # (Auto) [place] # (Auto) Eos # (Auto) Baso # (Auto) Absolute Nucleated RBC Nucleated RBC % Sodium Potassium Chloride Carbon Dioxide Anion Gap BUN Creatinine Estimated GFR (MDRD) Glucose Lactic Acid 0.5 Calcium Total Bilirubin AST ALT Alkaline Phosphatase Total Protein Albumin Globulin Albumin/Globulin Ratio Lipase Urine Color Urine Clarity Urine pH Ur Specific [place] Urine Protein Urine Glucose (UA) Urine Ketones Urine Occult Blood Urine Nitrite Urine Bilirubin Urine Urobilinogen Ur Leukocyte Esterase Ur Microscopic Review Urine Culture Comments Urine HCG, Qual PD Medical Decision Making - ED course Complexity details: re-evaluated patient (she has marked tenderness LLQ. Difficult IV start and Anesth consulted for US guided, buth then could not get eaither, so central line started. Had been given IM meds while awaiting IV start. ), considered differential (The patient was recently seen 4 days ago for abdominal pain on the left. It started the day prior. Prescribed Cipro and Flagyl and pain medicine. Has had persistent and now worsening pain.), d/w patient ED course: Pt with lessened pain with IV dilaudid and toradol. However pain recurred and given repeat doses. Pending CT stilll as delayed for getting IV access. Also lab orders delayed due to access. Care to Dr. Horne at change of shift with pt about to go to CT. Departure - Departure Clinical Impression: Left sided abdominal pain Condition: Stable Record reviewed to determine appropriate education?: Yes Forms: PCP List
[2024-01-21 17:17] LABS: BILIRUBIN,URINE SMALL (NEGATIVE); GLUCOSE, URINE (UA) NEGATIVE (NEGATIVE); KETONES,URINE (UA) NEGATIVE (NEGATIVE); LEUKOCYTE ESTERASE, URINE NEGATIVE (NEGATIVE); NITRITE,URINE NEGATIVE (NEGATIVE); OCCULT BLOOD,URINE TRACE-INTA (NEGATIVE); PH,URINE 5.5 PH (5.0-7.5); PROTEIN,URINE NEGATIVE (NEGATIVE); UROBILINOGEN,URINE 0.2 (NORMAL) E.U./dL (NORMAL)
[2024-01-21 17:21] LABS: CLARITY,URINE CLEAR (CLEAR); HCG UR QUAL NEGATIVE
[2024-01-21] MEDS: SODIUM CHLORIDE 0.9% 1,000 ML IV STA ×2 (18:51→23:33)
[2024-01-21] MEDS: KETOROLAC 15 MG/ML VIAL IM STA (18:54)
[2024-01-21] MEDS: HYDROmorphone 1 MG/ML CARPUJECT IM STA (18:55)
[2024-01-21] MEDS: HYDROmorphone 1 MG/ML CARPUJECT IVP STA ×3 (18:59→23:31)
--- NOTE | 2024-01-21 19:38 | CONSULTATION NOTE ---
Consultation Report: consulted by ED MD for CVL placement. R IJ CVL placed under US guidance. Pt tole well. 7Fr 3 lumen, all ports aspirate, flush easily. VSS. NAC
--- NOTE | 2024-01-21 19:38 | ANESTHESIA PROCEDURE NOTE ---
Anesth Central Line Template - Central Line Central Line Preparation: Consent Obtained, Time out completed, Ultrasound used, Sterile prep and drape Central line location: Right IJ Central line type: Triple lumen Central line catheter tip site resides: Atrium, right Central line aftercare: Chlorhexidine disc placed, Secured, Placement confirmed, No pneumothorax, No complications, Bundle checklist complete, Pt tolerated well
--- NOTE | 2024-01-21 19:48 | XRAY Report ---
PROCEDURE: Chest for Line Placement INDICATIONS: Line placement TECHNIQUE: One view of the chest was acquired. COMPARISON: 12/06/2022. FINDINGS: Surgical changes and devices: Right IJ central venous catheter tip projects over the mid right atriu m. Lungs and pleura: No pleural effusions or pneumothorax. Lungs are clear. Mediastinum: Mediastinal contours appear normal. Heart size is normal. Bones and chest wall: No suspicious bony lesions. Overlying soft tissues appear unremarkable. IMPRESSION: Right IJ central venous catheter projects over the mid right atrium. Consider retraction by 3 cm. Reviewed by: Igor Gomez MD on 01/21/2024 7:47 PM PDT Approved by: Igor Gomez MD on 01/21/2024 7:47 PM PDT Station ID: [id number]
[2024-01-21] MEDS ORDERED: iohexoL-300 100 ML VIAL ONE (19:50)
[2024-01-21] MEDS: levoFLOXacin 750 MG/150 ML 750 MG/150 ML BAG IV STA (20:02)
[2024-01-21] MEDS: DEXAMETHASONE 10 MG/ML VIAL IVP STA (20:03)
[2024-01-21] MEDS: KETOROLAC 15 MG/ML VIAL IVP STA (20:04)
[2024-01-21 20:33] LABS: BASOPHILS % (AUTO) 0.4 %; EOSINOPHILS # (AUTO) 0.1 10^3/uL (0.0-0.7); EOSINOPHILS % (AUTO) 1.7 %; HCT - HEMATOCRIT 39.7 % (37.0-47.0); HGB - HEMOGLOBIN 13.6 g/dL (12.0-16.0); LYMPHOCYTES # (AUTO) 2.2 10^3/uL (1.5-3.5); LYMPHOCYTES % (AUTO) 31.9 %; MEAN CORPUSCULAR HEMOGLOBIN 28.5 pg (27.0-31.0); MEAN CORPUSCULAR HGB CONC 34.3 g/dL (32.0-36.0); MEAN CORPUSCULAR VOLUME 83.1 fL (81.0-99.0); MEAN PLATELET VOLUME 10.3 fL (7.9-10.8); MONOCYTES # (AUTO) 0.4 10^3/uL (0.0-1.0); NEUTROPHILS # (AUTO) 4.2 10^3/uL (1.5-6.6); NEUTROPHILS % (AUTO) 59.7 %; PLT - PLATELET COUNT 240 10^3/uL (130-450); RED BLOOD COUNT 4.78 10^6/uL (4.20-5.40); RED CELL DISTRIBUTION WIDTH 13.4 % (12.0-15.0)
[2024-01-21 20:47] LABS: ALBUMIN 4.2 g/dL (3.2-5.5); ALBUMIN/GLOBULIN RATIO 1.8 (1.0-2.2); BILIRUBIN,TOTAL 1.8 mg/dL (0.2-1.0); CALCIUM 9.1 mg/dL (8.5-10.3); CREATININE 0.7 mg/dL (0.6-1.3); POTASSIUM 3.6 mmol/L (3.5-4.5); TOTAL PROTEIN 6.5 g/dL (6.4-8.9)
--- NOTE | 2024-01-21 22:32 | CT Report ---
PROCEDURE: Abdomen/Pelvis W INDICATIONS: persistent/worse LLQ pain CONTRAST: 100 ML OMNI 300 TECHNIQUE: After the administration of intravenous contrast, a CT scan of the abdomen and pelvis was performed. Images were recorded and evaluated at appropriate window settings. Reformats: coronal and sagittal. F or radiation dose reduction, the following was used: automated exposure control, adjustment of mA and /or kV according to patient size. COMPARISON: CT abdomen/pelvis 01/17/2024 and 06/26/2023 FINDINGS: Image quality: Diagnostic. Lower chest: Mild posterior dependent atelectasis. Liver: No solid mass. Gallbladder: Status post cholecystectomy. Biliary tree: No intrahepatic or extrahepatic dilation, accounting for age. Spleen: No splenomegaly. Pancreas: No pancreatic ductal dilation. Adrenals: No adrenal nodule. Kidneys and ureters: No hydronephrosis. No renal cystic lesion which requires follow up. No solid mas s. Small left benign renal cortical cyst. Stomach, bowel and peritoneum: No gastric or small bowel dilation. No abnormal wall thickening. No pa thologic free fluid. Status post appendectomy. A few diverticula are seen in the colon without signs of acute diverticulitis. Lymph nodes: No central or retroperitoneal adenopathy. Vessels: No infrarenal aortic aneurysm. Patent portal vein. PELVIS Reproductive organs: Status post hysterectomy. Bladder: No abnormal wall thickening, accounting for underdistention. Pelvic lymph nodes: No pelvic adenopathy by size criteria. Bones: No aggressive osseous abnormality. Posterior changes again seen from right hip arthroplasty an d lumbar spinal fusion. Other: Fat-containing hernia is seen posterolateral to the left kidney with abdominal wall defect drew suring approximately 3.2 x 2.3 cm. Mild focal subcutaneous edema or scarring in the left flank at the level of the left kidney, above the level of the hernia. This appears increased when compared to the prior CT from 06/26/2023. IMPRESSION: 1.No acute abnormality identified in the abdomen or pelvis. 2.In the subcutaneous tissues of the lateral left abdominal wall, there is focal nodular subcutaneous thickening with a tract extending to the skin surface, possibly a skin lesion or focal scarring. Rec ommend correlation with physical exam findings and any prior surgery or trauma to this area. 3.Fat-containing hernia at the posterior lateral abdominal wall at the level of the lower pole of the left kidney. 4.Colonic diverticulosis without signs of acute diverticulitis. Reviewed by: Brendan Carreon MD on 01/21/2024 10:30 PM PDT Approved by: Brendan Carreon MD on 01/21/2024 10:30 PM PDT Station ID: [id number]
--- NOTE | 2024-01-21 22:43 | ED Physician Documentation ---
ED Addendum - Addendum Addendum: Rosalba Chamberlain is left in my care at shift change anticipating a result of CT scan and need for further treatment. 01/21/24 22:43 CT ab/pel: Impression: No acute abnormality identified in the abdomen or pelvis. In the subcutaneous tissues of the lateral left abdominal wall there is focal nodular subcutaneous thickening with a tract extending to the skin surface, possibly a skin lesion or focal scarring. Recommend correlation with physical exam findings and any prior surgery or trauma to this area. Fat-containing hernia in the posterior lateral abdominal wall at the level of the lower pole of the left kidney. Chronic diverticulosis without signs of acute diverticulitis. 43-year-old patient with chronic back pain on pain management presents with left flank pain and abdominal pain has negative CT for intra-abdominal findings has abdominal wall findings concerning for prior surgical site inflammation. She has been given IV antibiotic and dexamethasone she is still having problems with pain control and she is found to be profoundly dehydrated. She was dehydrated e nough that a central line was required for fluid administration. After 1 L has been administered I interrogated her IVC with POCUS and found that she had a 2 L deficit. She is given additional IV fluid and she is retested for COVID. She is given additional pain medication. 01/21/24 23:30 01/22/24 03:23 01/22/24 03:26 I reviewed the patients CT scan results and re-examined the patient and found that she has had surgery to the site over the left flank for a disc procedure more than 2 years ago. I reviewed her prior 3 scans we have access to here and found that this area of inflammation was minimal in early 2022 and more recently it was more pronounced on 01/17/24 than on todays scan. I examined the patient and found that she was indeed tender over the area without fluctuance or mass palpable. This did reproduce some of the pain the patient was having. I encouraged the patient to stay on her antibiotic and follow up with her spine surgeon regarding any need for further evaluation of this finding on the CT scan. We did not find evidence of colitis or abscess in the abdomen. She appeared to have a pain crisis possibly exacerbated by the significant level of dehydration. Today she has normal blood counts normal electrolytes and concentrated urine. She has had vomiting and diarrhea for 5 days as a reason for her level of dehydration. She has medication at home for nausea. At discharge her pain appeared controlled and she is encouraged to follow up for pain control. 01/22/24 03:34 Procedures - IVC sono (time) 2320 Bedside IVC sono: IVC measures (cm) (0.83), Dehydration (est 2 liter deficit after one liter in.) Departure - Departure Disposition: 01 Home, Self Care Clinical Impression: Left sided abdominal pain, Dehydration, Pain crisis Condition: Stable Instructions: ED Abdominal Pain Female Non-Specific Abdominal Pain, ED Chronic Pain Management, ED Dehydration Follow-Up: Tatiana Perez MD [Physician No Access] - Comments: Rosalba, today it looks like you have had a pain crisis and you were significantly dehydrated. We were able to give you enough fluids to hydrate you adequately and we were able to give you as much pain medication as we could under monitoring. Our expectation is your pain should be improved and be manageable as it has been previously. A follow-up with Dr. Perez is indicated with a specific question about the surgical site previously used and questions of inflammation related to the site. Today we did not find evidence of overwhelming infection and by all measures except pain this appears improved from 5 days ago. Forms: PCP List Discharge Date/Time: 01/22/24 02:15
[2024-01-21] MEDS: iohexoL-300 100 ML VIAL IVP ONE (22:57)
[2024-01-22 01:34] LABS: B. PARAPERTUSSIS- RESP PCR PAN NOT DETECTED; B. PERTUSSIS- RESP PCR PANEL NOT DETECTED; C. PNEUMONIAE- RESP PCR PANEL NOT DETECTED; CORONAVIRUS 229E-RESP PCR NOT DETECTED; CORONAVIRUS HKU1-RESP PCR NOT DETECTED; CORONAVIRUS NL63-RESP PCR NOT DETECTED; CORONAVIRUS OC43-RESP PCR NOT DETECTED; HUMAN METAPNEUMOVIRUS NOT DETECTED; INFLUENZA A- RESP PCR PANEL NOT DETECTED; INFLUENZA B - RESP PCR PANEL NOT DETECTED; M. PNEUMONIAE- RESP PCR PANEL NOT DETECTED; PARAINFLUENZA VIRUS 1 NOT DETECTED; PARAINFLUENZA VIRUS 2 NOT DETECTED; PARAINFLUENZA VIRUS 3 NOT DETECTED; PARAINFLUENZA VIRUS 4 NOT DETECTED; RHINOVIRUS/ENTEROVIRUS NOT DETECTED; RSV- RESP PCR PANEL NOT DETECTED; SARS-CoV-2 -RESP PCR PANEL NOT DETECTED
[2024-01-22 02:27] VITALS: BP 106/72; O2SAT 100
== END 2024-01-22 02:15 | disposition home or self-care (01) ==
LOC: ED 16:15
DX: R10.9 Unspecified abdominal pain (principal); E86.0 Dehydration; I10 Essential (primary) hypertension; Z79.899 Other long term (current) drug therapy
CPT/HCPCS: 36415; 74177; 80053; 81003; 81025; 83605; 83690; 85025; 87633; 96361; 96365; 96366; 96372; 96375; 99284; J1170; Q9967; 81001; 87086